=== PATIENT | female | born 1940 | race Caucasian/White ===

== ENCOUNTER 2018-04-01 15:38 | Emergency (ER) | payer MEDICARE ==
[2018-04-01 16:29] LABS: #Basophils 0.1 thou/uL (0.0-0.2); #Lymphocytes 1.9 thou/uL (1.20-3.40); #Monocytes 0.8 thou/uL (0.11-0.59); #Neutrophils 7.8 thou/uL (1.40-6.50); %Basophils 0.8 % (0.0-1.0); %Eosinophils 0.2 % (0.0-10.0); %Monocytes 7.2 % (0.0-10.0); %Neutrophils 73.8 % (42.0-75.0); Hemoglobin 14.4 g/dL (12.0-16.0); Mean Corpuscular HGB CONC 34.6 g/dL (32.0-36.0); Mean Corpuscular Hemoglobin 32.7 pg (27.0-31.0); Mean Corpuscular Volume 94.5 fL (78.0-98.0); Mean Platelet Volume 7.2 fL (7.4-10.4); Platelet Count 235 thou/uL (130-400); RBC Distribution Width 11.6 % (11.5-14.5); White Blood Cell (WBC) Count 10.6 thou/uL (4.8-10.8)
[2018-04-01 16:47] LABS: CKMB 3.9 ng/mL (0-6.6); Troponin I Less than 0.010 ng/mL (< 0.028)
[2018-04-01 17:36] LABS: ALT (SGPT) 40 U/L (8-55); AST (SGOT) 64 U/L (5-34); Albumin 4.3 g/dL (3.4-4.8); Alkaline Phosphatase 58 U/L (40-150); Anion Gap 20 mmol/L (10-20); BUN (Urea Nitrogen) 11 mg/dL (9.8-20.1); Bilirubin, Total 0.8 mg/dL (0.2-1.2); Calc. Creatinine Clearance 0 mL/min (70-130); Carbon Dioxide 22 mmol/L (23-31); Chloride 93 mmol/L (98-107); Estimated GFR-MDRD 33; Globulin 2.8 g/dL (2.4-3.5); Glucose 91 mg/dL (83-110); Potassium 3.5 mmol/L (3.5-5.1); Protein, Total 7.1 g/dL (6.0-8.3); Sodium 131 mmol/L (136-145)
== END 2018-04-01 17:58 | disposition home or self-care (01) ==
LOC: ERS 15:38
DX: I95.9 Hypotension, unspecified (principal); K21.9 Gastro-esophageal reflux disease without esophagitis; Z79.82 Long term (current) use of aspirin; Z79.899 Other long term (current) drug therapy
CPT/HCPCS: 36415; 80053; 82553; 84484; 85025; 93005

== ENCOUNTER 2018-05-21 11:38 | Inpatient (IN) | payer MEDICARE ==
--- NOTE | 2018-05-21 13:01 | CT ---
CT BRAIN WITHOUT CONTRAST: HISTORY: A 77-year-old female with trauma from a fall. FINDINGS: Right-sided periorbital swelling and pain. FINDINGS: Comparison is made with the exam of 04/17/16. Changes of cortical atrophy and chronic small-vessel ischemic disease are again seen. The ventricula r size is stable and the basilar cisterns patent. No evidence of acute infarct, hemorrhage, midline shift, or abnormal extraaxial fluid collections is seen. The bony calvarium is intact. The visualiz ed paranasal sinuses and mastoid air cells are well aerated. There is soft tissue swelling and contu astrid in the right periorbital and frontal regions. IMPRESSION: No CT evidence of acute intracranial injury. POS: [facility]
--- NOTE | 2018-05-21 13:03 | CT ---
CT CERVICAL SPINE WITH CORONAL AND SAGITTAL REFORMATIONS: HISTORY: Trauma. Fall. Neck pain. FINDINGS: Multilevel degenerative changes are seen in the cervical spine. No acute fracture or subluxation is identified. No facet malalignment is seen. POS: [facility]
[2018-05-21 13:04] LABS: #Basophils 0.1 thou/uL (0.0-0.2); #Lymphocytes 1.2 thou/uL (1.20-3.40); #Monocytes 0.8 thou/uL (0.11-0.59); %Basophils 0.6 % (0.0-1.0); %Eosinophils 0.2 % (0.0-10.0); %Monocytes 6.4 % (0.0-10.0); %Neutrophils 82.8 % (42.0-75.0); Hemoglobin 14.7 g/dL (12.0-16.0); Mean Corpuscular HGB CONC 33.3 g/dL (32.0-36.0); Mean Corpuscular Hemoglobin 31.7 pg (27.0-31.0); Mean Corpuscular Volume 95.3 fL (78.0-98.0); Platelet Count 269 thou/uL (130-400); RBC Distribution Width 12.1 % (11.5-14.5); Red Blood Cell (RBC) Count 4.63 mill/uL (4.20-5.40); White Blood Cell (WBC) Count 12.1 thou/uL (4.8-10.8)
--- NOTE | 2018-05-21 13:07 | CT ---
FACIAL CT: HISTORY: Trauma. The patient fell and injured the right face. TECHNIQUE: Axial images are obtained with coronal and sagittal reconstructed images. FINDINGS: Images demonstrate extensive right periorbital and supraorbital hematoma. A right-sided nasal bone f racture is present. This is nondisplaced. No evidence of superior or lateral orbital fractures seen. At the medial inferior aspect of the righ t orbit, there appears to be a defect in the orbital wall, concerning for fracture at the medial infe rior aspect of the orbit, extending into the upper medial aspect of the right maxillary sinus. The m edial and inferior rectus muscles do not appear to be entrapped within this defect. This may also si mply be an old defect or injury. IMPRESSION: 1. Acute right nasal bone fracture. 2. Large right periorbital hematoma. 3. Area of orbital wall defect at the medial inferior aspect of the right orbit. The age of this is indeterminate. This could be due to an acute fracture or may be from old previous trauma. POS: [facility]
[2018-05-21 13:10] LABS: Bilirubin Negative (Negative); Blood, Urine Small (Negative); Clarity CLOUDY (Clear); Glucose, Urine (Dipstick) Negative (Negative); Leukocyte Large (Negative); Nitrite Negative (Negative); Protein, Urine (Dipstick) Trace mg/dL (Neg-Trace); Specific Gravity, Urine 1.007 (1.002-1.036); Urobilinogen 0.2 mg/dL (0.2-1.0); pH, Urine 6.5 (5.0-9.0)
[2018-05-21 13:11] LABS: INR-International Normal Ratio 1.1; PTT 32.1 SEC (22.9-36.1); Prothrombin Time 13.9 SEC (12.0-14.7)
--- NOTE | 2018-05-21 13:19 | RAD ---
AP VIEW CHEST: HISTORY: Syncope. FINDINGS: AP view chest is obtained on 05/21/18. Comparison is made to previous exam from 01/10/16. AP view chest demonstrates mild cardiomegaly. The lungs are well aerated. No evidence of acute intr athoracic abnormality is seen. No evidence of effusions, pneumonia, or pneumothorax seen. IMPRESSION: Unremarkable AP view chest. POS: [facility]
[2018-05-21 13:27] LABS: ALT (SGPT) 19 U/L (8-55); AST (SGOT) 46 U/L (5-34); Acetaminophen Less than 6.0 mcg/mL (10.0-30.0); Albumin 4.4 g/dL (3.4-4.8); Alcohol 228 mg/dL (Less than 10); Alkaline Phosphatase 112 U/L (40-150); Anion Gap 21 mmol/L (10-20); BUN (Urea Nitrogen) 9 mg/dL (9.8-20.1); Bilirubin, Total 0.9 mg/dL (0.2-1.2); CK (CPK) 1055 U/L (29-168); Calc. Creatinine Clearance 0 mL/min (70-130); Calcium 8.8 mg/dL (7.8-10.44); Carbon Dioxide 23 mmol/L (23-31); Chloride 89 mmol/L (98-107); Estimated GFR-MDRD 52; Glucose 80 mg/dL (83-110); Lipase 34 U/L (8-78); Magnesium 1.5 mg/dL (1.6-2.6); Potassium 3.5 mmol/L (3.5-5.1); Protein, Total 7.4 g/dL (6.0-8.3); Salicylate Less than 8.0 mg/dL (15.0-30.0); Sodium 129 mmol/L (136-145)
[2018-05-21 13:34] LABS: CKMB 12.8 ng/mL (0-6.6)
[2018-05-21 13:35] LABS: Bacteria/HPF 4+ HPF (None Seen); Hyaline Casts/LPF 0-3 HYALINE CAST LPF (0-3 Hyaline); Pathc Cast-AUWi Flag 0.43 (0-2.49); RBC/HPF 0-3 HPF (0-3); Squamous Epithelial 0-3 HPF (0-3)
[2018-05-21] MEDS ORDERED: Ibuprofen 200 MG TAB ONE (13:53)
[2018-05-21] MEDS ORDERED: cefTRIAXone\\ROCEPHIN 2 GM VIAL ONE (15:00)
--- NOTE | 2018-05-21 15:10 | HP ---
PRIMARY CARE PHYSICIAN: Dr. Rafi Leon. REASON FOR ADMISSION: Rhabdomyolysis, hyponatremia, fall, alcohol intoxication, acute right nasal [place] fracture, large right periorbital hematoma. HISTORY OF PRESENT ILLNESS: A 77-year-old female who lives by herself with her dog at [facility]. She fell down from her bed during the middle of night. This morning, the patient was not able to ge t up from the floor. She was not able to open her right eye. She was having wheezing. She was not complaining of any chest pain, palpitations, or shortness of breath. She does not have any clue how she fell down. She reports that last night she drank 2 glasses of beer/ wine. The patient had right raccoon eye. She called her friend who called paramedics and subsequently the patient was brought to ER. The patient refused to wear C-collar to EMS. The patient denies any hist ory of CHF, but her BNP was elevated. She denies any muscle pain. She does not have any recollectio n of how she fell down at home. She did not have any chest pain when she was awake. She denies any constipation, diarrhea, melena or hematochezia. She denies any UTI symptoms. She denies any abdomin al pain. She denies any neck pain. She denies any headache. Family friend who came to the ER with the patient reported that patient to be alcoholic and she had s imilar episode in the past. REVIEW OF SYSTEMS: Please see my HPI for pertinent positive and negative. All other review of syste ms reviewed and negative except as mentioned in the HPI. Constitutional: Weight loss or gain, ability to conduct usual activities. Skin: Rash, itching. Eyes: Double vision, pain. ENT/Mouth: Nose bleeding, neck stiffness, pain, tenderness. Cardiovascular: Palpitations, dyspnea on exertion, orthopnea. Respiratory: Shortness of breath, wheezing, cough, hemoptysis, fever or night sweats. Gastrointestinal: Poor appetite, abdominal pain, heartburn, nausea, vomiting, constipation, or diarrhea. Genitourinary: Urgency, frequency, dysuria, nocturia. Musculoskeletal: Pain, swelling. Neurologic/Psychiatric: Anxiety, depression. Allergy/Immunologic: Skin rash, bleeding tendency. ALLERGIES: DEMEROL, HYDROCODONE, PENICILLIN. CURRENT HOME MEDICATIONS: Amlodipine 10 mg p.o. daily, clonidine patch weekly, aspirin 81 mg p.o. da delbert, atenolol 50 mg daily, pravastatin 40 mg p.o. daily, Prilosec 20 mg p.o. daily, clonidine 0.1 mg twice daily. PAST MEDICAL HISTORY: Hypertension, dyslipidemia, osteoarthritis, obesity, gastroesophageal reflux d isease, alcohol abuse, dyslipidemia. PAST SURGICAL HISTORY: Left tibia, right ankle fracture repair, hysterectomy, tonsillectomy. PAST PSYCHIATRIC HISTORY: Reviewed and negative. SOCIAL HISTORY: The patient lives in [facility] with her dog. No history of smoking. She drinks alcohol almost every day. FAMILY HISTORY: No strong family history of premature coronary artery disease, stroke or cancer. EMERGENCY ROOM COURSE: The patient is given Rocephin 2 grams, ibuprofen 400 mg, IV fluid. PHYSICAL EXAMINATION: VITAL SIGNS: On arrival, blood pressure 183/98, pulse 81, respiratory rate 26, temperature 98.8, sat uration 94% on room air, weight 99.7 kilograms. GENERAL: The patient is hypertensive. HEAD: Normocephalic, atraumatic. EYES: Extensive periorbital ecchymosis and swelling of the right eye. The patient's right eye is co mpletely shut. Left eye has mild bruise underneath of inferior eyelid. ENT: Oropharynx within normal limits. Moist mucous membranes. No oral lesion. No pharyngeal eryth anjel, no exudate, no nasal discharge, no epistaxis. NECK: Supple, no JVD, no thyromegaly, no carotid bruit, no jugular venous distention. LUNGS: Clear to auscultation without any rhonchi or rales. CARDIAC: S1, S2 regular. No murmur, no gallop, no rub. ABDOMEN: Mild obesity noted. Bowel sounds present, no organomegaly, no mass, no peritoneal signs, n o guarding, no rigidity, no rebound. BACK: Unremarkable. No CVA tenderness. EXTREMITIES: Upper extremity: Large area of ecchymosis anteriorly on the right shoulder. Range of motion is normal of the joint. Distal pulsation sensation intake. Lower extremity: No edema. Good distal pulsation. SKIN: No skin rash other than bruits over right shoulder and periorbital ecchymosis. NEUROLOGIC: The patient is alert, oriented x3. Speech normal. Cranial nerves II-XII intact. Motor 5/5. Sensation bilaterally symmetrical. No cerebellar sign. Plantar bilateral flexor. PSYCHIATRIC: Normal affect. SIGNIFICANT LABORATORY DATA: CT facial bones showing acute right nasal bone fracture, large right pe riorbital hematoma. Area of orbital wall defect in the medial inferior aspect of the right orbit. C T brain showing no acute intracranial process, cortical atrophy and small vessel ischemic changes. C hest x-ray based on my review, no acute cardiopulmonary process. CT cervical spine, multilevel degen erative changes in cervical spine. CBC: WBC 12.1, hemoglobin 14.7, platelet 269 with a left shift. INR 1.1. BMP: Sodium 129, potassi um 3.5, chloride 89, carbon dioxide 23, anion gap 21, BUN 9, creatinine 1.03, glucose 80, calcium 8.8 , magnesium 1.5. LFT: AST 46, ALT 19, alkaline phosphatase 112, albumin 4.4, lipase 34. CK level 1 055, CK-MB 12.8, troponin I 0.020, BNP 1739. Urinalysis suggestive of UTI. Serum drug screen showed alcohol level 228. ASSESSMENT AND PLAN: 1. Acute alcohol intoxication. The patient drinks alcohol last night and still alcohol level today is 228, suspected from heavy alcohol intoxication during last night that might have contributed to he r fall and current injury. We will provide banana bag while in hospital. 2. Hyponatremia, chronic, suspecting from beer potomania and dehydration. The patient will be given IV fluid and will repeat BMP tomorrow. 3. Rhabdomyolysis, likely related with her fall and period of time on the floor. We will check TSH. The patient is on statin therapy which we will hold. The patient will be given gentle IV fluid. B ecause of elevated total CK, her CK-MB is also elevated, but we will do serial cardiac enzymes x3 to rule out acute coronary syndrome. We will repeat total CK level. 4. Elevated anion gap, likely related with her alcohol abuse. 5. Hypomagnesemia. The patient will be given magnesium supplement 2 grams IV one time dose. 6. Abnormal liver function tests. The patient has AST more than ALT, likely related with her chroni c alcohol abuse. 7. Hypoglycemia. We will provide him dextrose, NS with KCl with a banana bag. 8. Elevated BNP. Surprisingly, her chest x-ray is completely normal. She does not have any previou s history of congestive heart failure, but her BNP is elevated. Currently, she is on room air and sa turating normal. We will repeat echocardiography and check BMP again tomorrow. 9. Urinary tract infection. Urine culture sent. We will continue with Rocephin 1 gram q.24 hours. Followup on urine culture result. 10. Hypertension. We will continue patient's home medication, amlodipine 10 mg daily, clonidine 0.1 mg twice daily, atenolol 50 mg p.o. daily. 11. Hypothyroidism. We will check TSH and resume her thyroid medication while in hospital. 12. Dyslipidemia. We will hold on statin therapy because of rhabdomyolysis. 13. Gastroesophageal reflux disease. We will continue while in hospital Protonix 40 mg IV daily. 14. Deep venous thrombosis prophylaxis and sequential compression device boots. We will avoid any S CD boots. We will avoid Lovenox today because of periorbital hematoma. 15. Gastrointestinal prophylaxis, Protonix 40 mg IV daily. 16. Code status: The patient is FULL CODE. The patient does not have any surrogate decision maker. While in hospital, we will watch for alcohol withdrawal and we will continue the lorazepam on p.r.n . basis. We will provide fall precaution. The patient will need placement after hospitalization. 17. Nasal bone fracture and facial contusion with ecchymosis around right eye, related with fall. T he paient will need supportive treatment. Patient will need outpatient ENT and ophthalmology followu p. Plan of care discussed with the patient in detail.
[2018-05-21] MEDS ORDERED: Sodium Chloride 0.65% Nasal 44 ML BOT EA NARE PRN (17:07)
[2018-05-21] MEDS ORDERED: Artificial Tear Sol 15 ML BOT EA EYE PRN (17:07)
[2018-05-21] MEDS ORDERED: Chloraseptic Spray 180 ml Bottle PO PRN (17:07)
[2018-05-21] MEDS ORDERED: Calcium Carbonate 500 MG ChewTAB PO PRN (17:07)
[2018-05-21] MEDS ORDERED: Ondansetron HCl/PF 4 MG/2 ML Vial IVP PRN (17:07)
[2018-05-21] MEDS ORDERED: Eucerin (Mineral Oil/Petrolatum,White) 30 gm Jar TOP PRN (17:07)
[2018-05-21] MEDS ORDERED: Mag-Al 1200 mg/1200 mg/30 ML UDCUP PO PRN (17:07)
[2018-05-21] MEDS ORDERED: Loperamide HCl 2 MG CAP PO PRN (17:07)
[2018-05-21] MEDS ORDERED: Milk Of Magnesia 30 ML UDCUP PO PRN (17:07)
[2018-05-21] MEDS ORDERED: Labetalol HCl 100 MG/20 ML VIAL SLOW IVP PRN (17:07)
[2018-05-21] MEDS ORDERED: Loratadine 10 MG TAB PO PRN (17:07)
[2018-05-21] MEDS ORDERED: Ondansetron ODT 4 MG TAB PO PRN (17:07)
[2018-05-21] MEDS ORDERED: Senokot 8.6 MG TAB PO PRN (17:07)
[2018-05-21] MEDS ORDERED: Lorazepam 2 MG/ML VIAL SLOW IVP PRN (17:07)
[2018-05-21] MEDS ORDERED: Diabetic Tussin 200 MG/10 ML UDCUP PO PRN (17:07)
[2018-05-21] MEDS ORDERED: Magnesium Sulfate 3 GM in Sodium Chloride 0.9% 100 ML IVPB SCH (18:00)
[2018-05-21] MEDS: THIAMINE HCL IV SCH (18:03)
[2018-05-21] MEDS: [UNRECOGNIZED DRUG - OTHER] IV SCH (18:03)
[2018-05-21] MEDS: MULTIVITAMINS IV SCH (18:03)
[2018-05-21] MEDS: FOLIC ACID IV SCH (18:03)
[2018-05-21] MEDS: Sodium Chloride 0.9% 1,000 ML IV SCH (18:04)
[2018-05-21 18:50] LABS: Troponin I 0.023 ng/mL (< 0.028)
[2018-05-21 18:55] LABS: CKMB 17.4 ng/mL (0-6.6)
[2018-05-21] MEDS: cloNIDine 0.1 MG TAB PO SCH (21:08)
[2018-05-21 21:31] LABS: CKMB 19.1 ng/mL (0-6.6)
[2018-05-21] MEDS ORDERED: Furosemide 20 MG/2 ML VIAL SLOW IVP SCH (22:00)
[2018-05-22] MEDS: Acetaminophen 325 MG TAB PO PRN ×2 (02:08→18:18)
[2018-05-22] MEDS: Sodium Chloride 0.9% 1,000 ML IV SCH (03:57)
[2018-05-22 05:59] LABS: #Lymphocytes 0.4 thou/uL (1.20-3.40); #Monocytes 0.9 thou/uL (0.11-0.59); #Neutrophils 6.3 thou/uL (1.40-6.50); %Eosinophils 0.2 % (0.0-10.0); %Lymphocytes 4.9 % (21.0-51.0); %Monocytes 11.8 % (0.0-10.0); %Neutrophils 83.1 % (42.0-75.0); Hemoglobin 13.1 g/dL (12.0-16.0); Mean Corpuscular HGB CONC 33.4 g/dL (32.0-36.0); Mean Corpuscular Volume 95.8 fL (78.0-98.0); Mean Platelet Volume 7.3 fL (7.4-10.4); Platelet Count 200 thou/uL (130-400); RBC Distribution Width 11.9 % (11.5-14.5); Red Blood Cell (RBC) Count 4.08 mill/uL (4.20-5.40); White Blood Cell (WBC) Count 7.5 thou/uL (4.8-10.8)
[2018-05-22 06:29] LABS: ALT (SGPT) 19 U/L (8-55); AST (SGOT) 49 U/L (5-34); Albumin 3.7 g/dL (3.4-4.8); Alkaline Phosphatase 90 U/L (40-150); Anion Gap 16 mmol/L (10-20); BUN (Urea Nitrogen) 8 mg/dL (9.8-20.1); Bilirubin, Total 0.6 mg/dL (0.2-1.2); CK (CPK) 814 U/L (29-168); Calc. Creatinine Clearance 67 mL/min (70-130); Calcium 8.3 mg/dL (7.8-10.44); Carbon Dioxide 24 mmol/L (23-31); Chloride 90 mmol/L (98-107); Estimated GFR-MDRD 53; Globulin 2.7 g/dL (2.4-3.5); Glucose 133 mg/dL (83-110); Magnesium 1.6 mg/dL (1.6-2.6); Phosphorus 3.7 mg/dL (2.3-4.7); Protein, Total 6.4 g/dL (6.0-8.3); Sodium 127 mmol/L (136-145)
[2018-05-22] MEDS: cloNIDine 0.1 MG TAB PO SCH ×2 (08:07→21:10)
[2018-05-22] MEDS: Atenolol 50 MG TAB PO SCH (08:07)
[2018-05-22] MEDS: Amlodipine 10 MG TAB PO SCH (08:07)
[2018-05-22] MEDS: Pantoprazole 40 MG VIAL IVP SCH (08:08)
[2018-05-22] MEDS: Saccharomyces boulardii 250 MG CAP PO SCH (08:08)
[2018-05-22] MEDS ORDERED: Furosemide 40 MG/4 ML VIAL SLOW IVP SCH (10:30)
[2018-05-22] MEDS: cloNIDine 0.1 MG TAB PO PRN (12:36)
--- NOTE | 2018-05-22 13:02 | PDOC.PN ---
- Subjective Encounter Start Date: 05/22/18 Encounter Start Time: 09:45 Subjective: had sob this am, is feeling better now -: no weakness in any of the extremities -: right eye is swollen but can see if pried open - Objective Resuscitation Status: Resuscitation Status FULL:Full Resuscitation MAR Reviewed: Yes Vital Signs & Weight: Vital Signs (12 hours) Temp Pulse Pulse Pulse Resp BP BP 05/22/18 12:24 99.4 F 64 18 05/22/18 10:55 189/81 H 05/22/18 09:21 65 05/22/18 09:19 65 69 135/63 166/93 H 05/22/18 07:06 98.6 F 71 20 05/22/18 03:22 99.2 F 72 20 BP Pulse Ox Pulse Ox 05/22/18 12:24 181/84 H 97 05/22/18 10:55 05/22/18 09:21 135/63 05/22/18 09:19 100 05/22/18 07:06 197/84 H 97 05/22/18 03:22 148/70 H 98 Weight Weight 198 lb 6.4 oz I&O: 05/21/18 05/22/18 05/23/18 06:59 06:59 06:59 Intake Total 1614 Output Total 0 Balance -436 Result Diagrams: 05/22/18 05:28 05/22/18 05:28 Phys Exam - Physical Examination HEENT: moist MMs right eye raccoon eyes, has subconjunctival hemorrhage Neck: no JVD, supple Respiratory: no wheezing, no rales rhonchi+ Cardiovascular: RRR, no significant murmur Gastrointestinal: soft, no distention, positive bowel sounds Musculoskeletal: no edema, pulses present Neurological: non-focal, moves all 4 limbs Psychiatric: normal affect, A&O x 3 Dx/Plan (1) Fracture of right orbital wall Code(s): S02.31XA - FRACTURE OF ORBITAL FLOOR, RIGHT SIDE, INIT Status: Acute (2) Nasal fracture Code(s): S02.2XXA - FRACTURE OF NASAL BONES, INIT ENCNTR FOR CLOSED FRACTURE Status: Acute Qualifiers: Encounter type: subsequent encounter Fracture type: closed (3) Rhabdomyolysis Code(s): M62.82 - RHABDOMYOLYSIS Status: Acute Qualifiers: Encounter type: subsequent encounter (4) Alcohol abuse Code(s): F10.10 - ALCOHOL ABUSE, UNCOMPLICATED Status: Chronic Comment: drinks 6oz of vodka daily per patient (5) Obesity (BMI 30.0-34.9) Code(s): E66.9 - OBESITY, UNSPECIFIED Status: Chronic (6) HTN (hypertension) Code(s): I10 - ESSENTIAL (PRIMARY) HYPERTENSION Status: Chronic Qualifiers: Hypertension type: essential hypertension Qualified Code(s): I10 - Essential (primary) hypertension (7) Hyponatremia Code(s): E87.1 - HYPO-OSMOLALITY AND HYPONATREMIA Status: Acute (8) Hypothyroidism Code(s): E03.9 - HYPOTHYROIDISM, UNSPECIFIED Status: Chronic Qualifiers: Hypothyroidism type: unspecified Qualified Code(s): E03.9 - Hypothyroidism , unspecified - Plan correct electrolytes -: orofacial maxillary surgeon consultation for advice on orbital fracture -: PT to mobilize as tolerated -: got 20mg lasix overnight and 40mg iv this am -: await echo results, on ceftriaxone for uti * . Review of Systems - Medications/Allergies Allergies/Adverse Reactions: Allergies Allergy/AdvReac Type Severity Reaction Status Date / Time hydrocodone Allergy Verified 05/21/18 17:16 meperidine HCl [From Demerol] Allergy Verified 05/21/18 17:16 Penicillins Allergy Verified 05/21/18 17:16 Medications: Current Medications Acetaminophen (Tylenol) 650 mg PO Q4H PRN PRN Reason: Headache/Fever or Pain Last Admin: 05/22/18 02:08 Dose: 650 mg Al Hydroxide/Mg Hydroxide (Maalox) 30 ml PO Q6H PRN PRN Reason: Heartburn or Indigestion Amlodipine Besylate (Norvasc) 10 mg PO DAILY [facility] Last Admin: 05/22/18 08:07 Dose: 10 mg Artificial Tears (Tears Renewed 15ml Bottle) 0 drop EA EYE PRN PRN PRN Reason: Dry Eyes Atenolol (Tenormin) 50 mg PO DAILY [facility] Last Admin: 05/22/18 08:07 Dose: 50 mg Calcium Carbonate (Tums) 1,000 mg PO Q4H PRN PRN Reason: Heartburn or Indigestion Clonidine (Catapres) 0.1 mg PO Q4H PRN PRN Reason: Systolic BP > 180 Last Admin: 05/22/18 12:36 Dose: 0.1 mg Clonidine (Catapres) 0.1 mg PO BID [facility] Last Admin: 05/22/18 08:07 Dose: 0.1 mg Guaifenesin (Robitussin Sf) 200 mg PO Q4H PRN PRN Reason: Cough Hydralazine HCl (Apresoline) 10 mg SLOW IVP Q4H PRN PRN Reason: Systolic BP > 180 Ceftriaxone Sodium 1 gm/ (Sodium Chloride) 100 mls @ 200 mls/hr IVPB Q24HR [facility] Multivitamins 10 ml/ Folic Acid 1 mg/ Thiamine HCl 100 mg / Potassium Chloride 20 meq/Dextrose/Sodium Chloride 1,021.2 mls @ 126.234 mls/hr IV Q24HR [facility] Last Admin: 05/21/18 18:03 Dose: 1,021.2 mls Labetalol HCl (Normodyne) 20 mg SLOW IVP Q4H PRN PRN Reason: Systolic BP > 180 Last Admin: 05/22/18 00:09 Dose: 20 mg Loperamide HCl (Imodium) 2 mg PO PRN PRN PRN Reason: Diarrhea/Loose Stools Loratadine (Claritin) 10 mg PO DAILYPRN PRN PRN Reason: Sinus Symptoms Lorazepam (Ativan) 0.5 mg SLOW IVP Q6H PRN PRN Reason: Anxiety/Agitation Magnesium Hydroxide (Milk Of Magnesium) 30 ml PO DAILYPRN PRN PRN Reason: Constipation Mineral Oil/White Petrolatum (Eucerin Cream) 0 gm TOP BIDPRN PRN PRN Reason: Dry Skin Ondansetron HCl (Zofran Odt) 4 mg PO Q6H PRN PRN Reason: Nausea/Vomiting Ondansetron HCl (Zofran) 4 mg IVP Q6H PRN PRN Reason: Nausea/Vomiting Last Admin: 05/22/18 00:08 Dose: 4 mg Pantoprazole Sodium (Protonix) 40 mg IVP DAILY [facility] Last Admin: 05/22/18 08:08 Dose: 40 mg Phenol (Chloraseptic [place] 180 Ml Bot) 0 ml PO PRN PRN PRN Reason: Sore Throat Potassium Chloride (K-Dur) 40 meq PO BID-[facility] Saccharomyces Boulardii (Florastor) 250 mg PO DAILY [facility] Last Admin: 05/22/18 08:08 Dose: 250 mg Senna (Senokot) 2 tab PO HSPRN PRN PRN Reason: Constipation Sodium Chloride ([place] Nasal [place] 0.65%) 0 ml EA NARE QIDPRN PRN PRN Reason: Nasal Congestion
[2018-05-22] MEDS ORDERED: cefTRIAXone\\ROCEPHIN 1 GM in Sodium Chloride 0.9% 100 ML IVPB SCH (15:00)
[2018-05-22] MEDS: Potassium Chloride 20 MEQ TAB PO SCH (16:32)
[2018-05-22] MEDS: [UNRECOGNIZED DRUG - OTHER] IV SCH (18:18)
[2018-05-22] MEDS: THIAMINE HCL IV SCH (18:18)
[2018-05-22] MEDS: MULTIVITAMINS IV SCH (18:18)
[2018-05-22] MEDS: FOLIC ACID IV SCH (18:18)
[2018-05-23] MEDS: cloNIDine 0.1 MG TAB PO PRN (03:40)
[2018-05-23] MEDS: Potassium Chloride 20 MEQ TAB PO SCH ×2 (08:10→17:45)
[2018-05-23] MEDS: Pantoprazole 40 MG VIAL IVP SCH (08:11)
[2018-05-23] MEDS: cloNIDine 0.1 MG TAB PO SCH ×2 (08:11→21:02)
[2018-05-23] MEDS: Atenolol 50 MG TAB PO SCH (08:11)
[2018-05-23] MEDS: Saccharomyces boulardii 250 MG CAP PO SCH (08:11)
[2018-05-23] MEDS: Amlodipine 10 MG TAB PO SCH (08:11)
[2018-05-23] MEDS: Acetaminophen 325 MG TAB PO PRN (08:16)
[2018-05-23 08:28] LABS: Anion Gap 15 mmol/L (10-20); BUN (Urea Nitrogen) 9 mg/dL (9.8-20.1); Calc. Creatinine Clearance 70 mL/min (70-130); Calcium 8.9 mg/dL (7.8-10.44); Carbon Dioxide 28 mmol/L (23-31); Chloride 87 mmol/L (98-107); Estimated GFR-MDRD 56; Glucose 103 mg/dL (83-110); Potassium 3.7 mmol/L (3.5-5.1); Sodium 126 mmol/L (136-145)
--- NOTE | 2018-05-23 13:10 | PDOC.PN ---
- Subjective Encounter Start Date: 05/23/18 Encounter Start Time: 10:00 Subjective: awake, sitting in chair, no sob -: is able to open her right eye now, no trouble with vision -: has not ambulated yet - Objective Resuscitation Status: Resuscitation Status FULL:Full Resuscitation MAR Reviewed: Yes Vital Signs & Weight: Vital Signs (12 hours) Temp Pulse Resp BP BP Pulse Ox 05/23/18 08:11 68 188/88 H 05/23/18 07:45 97 05/23/18 07:42 98.2 F 68 20 188/88 H 97 05/23/18 03:23 98.1 F 100 21 H 99 Weight Weight 198 lb 6.4 oz I&O: 05/22/18 05/23/18 05/24/18 06:59 06:59 06:59 Intake Total 1614 1810 Output Total 2049 1850 Balance -436 -40 Result Diagrams: 05/22/18 05:28 05/23/18 07:45 Phys Exam - Physical Examination HEENT: PERRLA, moist MMs right eye raccoon eye with subconj hemorrhage Neck: no JVD, supple Respiratory: no wheezing, no rales Cardiovascular: RRR, no significant murmur Gastrointestinal: soft, non-tender, positive bowel sounds Musculoskeletal: pulses present, edema present Neurological: non-focal, moves all 4 limbs Psychiatric: normal affect, A&O x 3 Dx/Plan (1) Fracture of right orbital wall Code(s): S02.31XA - FRACTURE OF ORBITAL FLOOR, RIGHT SIDE, INIT Status: Acute (2) Nasal fracture Code(s): S02.2XXA - FRACTURE OF NASAL BONES, INIT ENCNTR FOR CLOSED FRACTURE Status: Acute Qualifiers: Encounter type: subsequent encounter Fracture type: closed (3) Rhabdomyolysis Code(s): M62.82 - RHABDOMYOLYSIS Status: Acute Qualifiers: Encounter type: subsequent encounter (4) Alcohol abuse Code(s): F10.10 - ALCOHOL ABUSE, UNCOMPLICATED Status: Chronic Comment: drinks 6oz of vodka daily per patient (5) Obesity (BMI 30.0-34.9) Code(s): E66.9 - OBESITY, UNSPECIFIED Status: Chronic (6) HTN (hypertension) Code(s): I10 - ESSENTIAL (PRIMARY) HYPERTENSION Status: Chronic Qualifiers: Hypertension type: essential hypertension Qualified Code(s): I10 - Essential (primary) hypertension (7) Hyponatremia Code(s): E87.1 - HYPO-OSMOLALITY AND HYPONATREMIA Status: Acute (8) Hypothyroidism Code(s): E03.9 - HYPOTHYROIDISM, UNSPECIFIED Status: Chronic Qualifiers: Hypothyroidism type: unspecified Qualified Code(s): E03.9 - Hypothyroidism , unspecified (9) Physical deconditioning Code(s): R53.81 - OTHER MALAISE Status: Acute - Plan sodium is still low after lasix, will see pt -: d/w , f/u appt in 1 week in his office -: will need rehab/swing bed, barely stood up with PT -: visine eye drops, fluid restriction to 1500mls/day -: continue norvasc, atenolol and kdur, may tx to med floor * . Review of Systems - Medications/Allergies Allergies/Adverse Reactions: Allergies Allergy/AdvReac Type Severity Reaction Status Date / Time hydrocodone Allergy Verified 05/21/18 17:16 meperidine HCl [From Demerol] Allergy Verified 05/21/18 17:16 Penicillins Allergy Verified 05/21/18 17:16 Medications: Current Medications Acetaminophen (Tylenol) 650 mg PO Q4H PRN PRN Reason: Headache/Fever or Pain Last Admin: 05/23/18 08:16 Dose: 650 mg Al Hydroxide/Mg Hydroxide (Maalox) 30 ml PO Q6H PRN PRN Reason: Heartburn or Indigestion Amlodipine Besylate (Norvasc) 10 mg PO DAILY [facility] Last Admin: 05/23/18 08:11 Dose: 10 mg Artificial Tears (Tears Renewed 15ml Bottle) 0 drop EA EYE PRN PRN PRN Reason: Dry Eyes Atenolol (Tenormin) 50 mg PO DAILY [facility] Last Admin: 05/23/18 08:11 Dose: 50 mg Calcium Carbonate (Tums) 1,000 mg PO Q4H PRN PRN Reason: Heartburn or Indigestion Clonidine (Catapres) 0.1 mg PO Q4H PRN PRN Reason: Systolic BP > 180 Last Admin: 05/23/18 03:40 Dose: 0.1 mg Clonidine (Catapres) 0.1 mg PO BID [facility] Last Admin: 05/23/18 08:11 Dose: 0.1 mg Guaifenesin (Robitussin Sf) 200 mg PO Q4H PRN PRN Reason: Cough Hydralazine HCl (Apresoline) 10 mg SLOW IVP Q4H PRN PRN Reason: Systolic BP > 180 Multivitamins 10 ml/ Folic Acid 1 mg/ Thiamine HCl 100 mg / Potassium Chloride 20 meq/Dextrose/Sodium Chloride 1,021.2 mls @ 126.234 mls/hr IV Q24HR [facility] Last Admin: 05/22/18 18:18 Dose: 1,021.2 mls Labetalol HCl (Normodyne) 20 mg SLOW IVP Q4H PRN PRN Reason: Systolic BP > 180 Last Admin: 05/22/18 00:09 Dose: 20 mg Levofloxacin (Levaquin) 500 mg PO 0600 [facility] Loperamide HCl (Imodium) 2 mg PO PRN PRN PRN Reason: Diarrhea/Loose Stools Loratadine (Claritin) 10 mg PO DAILYPRN PRN PRN Reason: Sinus Symptoms Lorazepam (Ativan) 0.5 mg SLOW IVP Q6H PRN PRN Reason: Anxiety/Agitation Magnesium Hydroxide (Milk Of Magnesium) 30 ml PO DAILYPRN PRN PRN Reason: Constipation Mineral Oil/White Petrolatum (Eucerin Cream) 0 gm TOP BIDPRN PRN PRN Reason: Dry Skin Ondansetron HCl (Zofran Odt) 4 mg PO Q6H PRN PRN Reason: Nausea/Vomiting Ondansetron HCl (Zofran) 4 mg IVP Q6H PRN PRN Reason: Nausea/Vomiting Last Admin: 05/22/18 00:08 Dose: 4 mg Pantoprazole Sodium (Protonix) 40 mg IVP DAILY [facility] Last Admin: 05/23/18 08:11 Dose: 40 mg Phenol (Chloraseptic [place] 180 Ml Bot) 0 ml PO PRN PRN PRN Reason: Sore Throat Potassium Chloride (K-Dur) 40 meq PO BID-[facility] Last Admin: 05/23/18 08:10 Dose: 40 meq Saccharomyces Boulardii (Florastor) 250 mg PO DAILY [facility] Last Admin: 05/23/18 08:11 Dose: 250 mg Senna (Senokot) 2 tab PO HSPRN PRN PRN Reason: Constipation Sodium Chloride ([place] Nasal [place] 0.65%) 0 ml EA NARE QIDPRN PRN PRN Reason: Nasal Congestion
[2018-05-23 17:08] LABS: Base Excess (BEa) 6.2 mEq/L (-2.0 to +3.0); CO2 Tension 40.3 mmHg (35.0-45.0); Calcium, Ionized 1.09 mmol/L (1.12-1.30); Carboxyhemoglobin (COHb) 1.1 gm% (0.0-3.0); Hemoglobin (Hb) 14.1 g/dL (12.0-16.0); O2 Tension (PaO2) 91.7 mmHg (> 70.0); Potassium - ABG Lab 4.41 mmol/L (3.70-5.30); pH, Arterial 7.49 (7.35-7.45)
[2018-05-23 17:11] LABS: Puncture Site RBA
[2018-05-23 17:32] LABS: Magnesium 1.2 mg/dL (1.6-2.6); Phosphorus 2.8 mg/dL (2.3-4.7)
--- NOTE | 2018-05-23 17:43 | CON ---
DATE OF CONSULTATION: 05/23/2018 REASON FOR CONSULTATION: Hyponatremia. HISTORY OF PRESENT ILLNESS: A 77-year-old female with a long history of hyponatremia on and off, who started abusing alcohol was noted to have a sodium of 129, which decreased to 126. I was consulted. The patient was given IV fluids. The patient denies headache, numbness, tingling, or weakness. De nies any nausea, vomiting, chest pain. PAST MEDICAL HISTORY: Significant for alcohol abuse, history of fall, rhabdomyolysis, osteoarthritis , obesity, hyperlipidemia, left tibial fracture, right ankle fracture, hysterectomy, tonsillectomy. SOCIAL HISTORY: No alcohol or drug use. FAMILY HISTORY: Negative for ESRD. REVIEW OF SYSTEMS: 15-point review of systems was performed and negative except positives noted abov e. General: Weakness-. Head: Headache-. Neck: No swelling or lumps. Nose: No epistaxis or dis charge. Eyes: No diplopia or pain. Respiratory: Dyspnea-. Cardiovascular: Chest pain-. Gastroi ntestinal: Nausea-. /CUSTOMS COMPLIANCE MANAGER: Hematuria-. Musculoskeletal: No joint pain. Neuropsychiatric System s: No suicidal ideation. No ideation. Skin: Denies any rash or ulcer. Constitutional: No fever or chills. PHYSICAL EXAMINATION: GENERAL: The patient is awake, alert. VITAL SIGNS: Afebrile, pulse 61, breathing 16, blood pressure 152/80. GENERAL APPEARANCE AND MENTAL STATUS: Fair. HEAD/NECK: Normocephalic. Atraumatic. EYES: EOMI. No deformity. EARS: Clear. No ulcers. NOSE: Intact. No lesions. MOUTH: Clear. No discharge. THROAT: Clear. No exudate. LUNGS: Clear. No crackles. CARDIAC: S1, S2. No rub. ABDOMEN: Benign. BS+. GENITALIA/RECTUM: Johnson absent. BACK/EXTREMITIES: Edema 0+. Ulcer-. NEUROLOGIC: Alert and motor intact. SKIN: Rash-. Bruise-. LYMPHATICS: Edema-. Ulcer-. LABORATORY DATA: Hemoglobin 13.1, potassium 3.7, creatinine 0.97, sodium 126. ASSESSMENT AND RECOMMENDATIONS: 1. Hyponatremia, most likely because of syndrome of inappropriate antidiuretic hormone secretion. R ecommend fluid restriction of 1000 mL. Recheck sodium periodically. 2. Hypomagnesemia, corrected. 3. Hypokalemia, corrected. 4. Syndrome of inappropriate antidiuretic hormone secretion. Medications based on GFR as appropriat e. 6. Hypertension. Titrate medication. No indication for hypertonic saline. 7. Rhabdomyolysis, improved.
[2018-05-24] MEDS: hydrALAZINE 20 MG/ML VIAL SLOW IVP PRN (04:42)
[2018-05-24 05:37] LABS: Anion Gap 16 mmol/L (10-20); BUN (Urea Nitrogen) 8 mg/dL (9.8-20.1); Calc. Creatinine Clearance 78 mL/min (70-130); Calcium 8.8 mg/dL (7.8-10.44); Carbon Dioxide 24 mmol/L (23-31); Chloride 91 mmol/L (98-107); Estimated GFR-MDRD 63; Glucose 84 mg/dL (83-110); Potassium 5.5 mmol/L (3.5-5.1); Sodium 125 mmol/L (136-145)
[2018-05-24] MEDS ORDERED: Sodium Chloride 0.9% 1,000 ML IV SCH (08:15)
[2018-05-24] MEDS ORDERED: Magnesium Sulfate 1 GM/2 ML VIAL IM SCH (09:15)
[2018-05-24] MEDS ORDERED: MAGNESIUM SULFATE IM SCH (09:30)
[2018-05-24 09:58] LABS: Anion Gap 15 mmol/L (10-20); BUN (Urea Nitrogen) 7 mg/dL (9.8-20.1); Calc. Creatinine Clearance 76 mL/min (70-130); Calcium 9.5 mg/dL (7.8-10.44); Carbon Dioxide 28 mmol/L (23-31); Chloride 89 mmol/L (98-107); Estimated GFR-MDRD 62; Glucose 89 mg/dL (83-110); Potassium 5.3 mmol/L (3.5-5.1); Sodium 127 mmol/L (136-145)
[2018-05-24] MEDS: cloNIDine 0.1 MG TAB PO SCH ×2 (10:30→20:40)
[2018-05-24] MEDS: Amlodipine 10 MG TAB PO SCH (10:30)
[2018-05-24] MEDS: Atenolol 50 MG TAB PO SCH (10:30)
[2018-05-24] MEDS: Saccharomyces boulardii 250 MG CAP PO SCH (10:30)
[2018-05-24] MEDS ORDERED: Multivit, Therapeutic 1 TAB PO SCH (10:45)
[2018-05-24] MEDS ORDERED: Folic Acid 1 MG TAB PO SCH (10:45)
[2018-05-24] MEDS: Potassium Chloride 20 MEQ TAB PO SCH (10:56)
--- NOTE | 2018-05-24 11:09 | PDOC.PN ---
- Subjective Encounter Start Date: 05/24/18 Encounter Start Time: 08:45 Subjective: c/o exertional sob even for minimal distance -: no chest pain or palp -: still has aches and pains in her muscles - Objective Resuscitation Status: Resuscitation Status FULL:Full Resuscitation MAR Reviewed: Yes Vital Signs & Weight: Vital Signs (12 hours) Temp Pulse Resp BP BP BP Pulse Ox 05/24/18 10:30 67 177/91 H 05/24/18 08:00 98.2 F 67 16 177/91 H 98 05/24/18 06:00 172/84 H 05/24/18 04:42 68 187/84 H 05/24/18 04:18 98.1 F 68 16 187/84 H 98 05/24/18 04:00 187/84 H 05/24/18 03:50 166/98 H 05/24/18 00:00 97.9 F 60 18 177/83 H 177/83 H 100 Weight Weight 198 lb 6.4 oz I&O: 05/23/18 05/24/18 05/25/18 06:59 06:59 06:59 Intake Total 1810 650 Output Total 1850 1335 Balance -40 -337 Result Diagrams: 05/22/18 05:28 05/24/18 09:34 Phys Exam - Physical Examination HEENT: PERRLA, moist MMs subconj hemorrhage right eye, is able to open her eyes fully now Neck: no JVD, supple Respiratory: no wheezing rhonchi+, basal rales+ Cardiovascular: RRR, no significant murmur Gastrointestinal: soft, non-tender, positive bowel sounds Musculoskeletal: no edema, pulses present Neurological: non-focal, moves all 4 limbs Psychiatric: normal affect, A&O x 3 Dx/Plan (1) Fracture of right orbital wall Code(s): S02.31XA - FRACTURE OF ORBITAL FLOOR, RIGHT SIDE, INIT Status: Acute (2) Nasal fracture Code(s): S02.2XXA - FRACTURE OF NASAL BONES, INIT ENCNTR FOR CLOSED FRACTURE Status: Acute Qualifiers: Encounter type: subsequent encounter Fracture type: closed (3) Rhabdomyolysis Code(s): M62.82 - RHABDOMYOLYSIS Status: Acute Qualifiers: Encounter type: subsequent encounter (4) Alcohol abuse Code(s): F10.10 - ALCOHOL ABUSE, UNCOMPLICATED Status: Chronic Comment: drinks 6oz of vodka daily per patient (5) Obesity (BMI 30.0-34.9) Code(s): E66.9 - OBESITY, UNSPECIFIED Status: Chronic (6) HTN (hypertension) Code(s): I10 - ESSENTIAL (PRIMARY) HYPERTENSION Status: Chronic Qualifiers: Hypertension type: essential hypertension Qualified Code(s): I10 - Essential (primary) hypertension (7) Hyponatremia Code(s): E87.1 - HYPO-OSMOLALITY AND HYPONATREMIA Status: Acute (8) Hypothyroidism Code(s): E03.9 - HYPOTHYROIDISM, UNSPECIFIED Status: Chronic Qualifiers: Hypothyroidism type: unspecified Qualified Code(s): E03.9 - Hypothyroidism , unspecified (9) Physical deconditioning Code(s): R53.81 - OTHER MALAISE Status: Acute (10) CHF exacerbation Code(s): I50.9 - HEART FAILURE, UNSPECIFIED Status: Acute Qualifiers: Heart failure type: diastolic Qualified Code(s): I50.33 - Acute on chronic diastolic (congestive) heart failure Comment: on nasal canula 2lts - Plan cxr, repeat bnp, sod is still low after recieving mild diuresis -: LE doppler to r/o dvt, if +ve will get CTA -: iatrogenic mild hyperkalemia, dc kdur -: continue lipitor, norvasc and atenolol -: will f/u imaging and add lasix prn * . Review of Systems - Medications/Allergies Allergies/Adverse Reactions: Allergies Allergy/AdvReac Type Severity Reaction Status Date / Time hydrocodone Allergy Verified 05/21/18 17:16 meperidine HCl [From Demerol] Allergy Verified 05/21/18 17:16 Penicillins Allergy Verified 05/21/18 17:16 Medications: Current Medications Acetaminophen (Tylenol) 650 mg PO Q4H PRN PRN Reason: Headache/Fever or Pain Last Admin: 05/23/18 08:16 Dose: 650 mg Al Hydroxide/Mg Hydroxide (Maalox) 30 ml PO Q6H PRN PRN Reason: Heartburn or Indigestion Amlodipine Besylate (Norvasc) 10 mg PO DAILY [facility] Last Admin: 05/24/18 10:30 Dose: 10 mg Artificial Tears (Tears Renewed 15ml Bottle) 0 drop EA EYE PRN PRN PRN Reason: Dry Eyes Atenolol (Tenormin) 50 mg PO DAILY [facility] Last Admin: 05/24/18 10:30 Dose: 50 mg Calcium Carbonate (Tums) 1,000 mg PO Q4H PRN PRN Reason: Heartburn or Indigestion Clonidine (Catapres) 0.1 mg PO Q4H PRN PRN Reason: Systolic BP > 180 Last Admin: 05/23/18 03:40 Dose: 0.1 mg Clonidine (Catapres) 0.1 mg PO BID [facility] Last Admin: 05/24/18 10:30 Dose: 0.1 mg Folic Acid (Folvite) 1 mg PO DAILY [facility] Folic Acid (Folvite) 1 mg PO NOW [facility] Stop: 05/24/18 12:45 Last Admin: 05/24/18 10:39 Dose: 1 mg Guaifenesin (Robitussin Sf) 200 mg PO Q4H PRN PRN Reason: Cough Hydralazine HCl (Apresoline) 10 mg SLOW IVP Q4H PRN PRN Reason: Systolic BP > 180 Last Admin: 05/24/18 04:42 Dose: 10 mg Magnesium Sulfate 1 gm/ (Syringe) 2 mls @ 120 mls/hr IM 0930 [facility] Stop: 05/24/18 12:00 Last Admin: 05/24/18 10:32 Dose: 2 mls Labetalol HCl (Normodyne) 20 mg SLOW IVP Q4H PRN PRN Reason: Systolic BP > 180 Last Admin: 05/22/18 00:09 Dose: 20 mg Levofloxacin (Levaquin) 500 mg PO 0600 [facility] Last Admin: 05/24/18 06:33 Dose: 500 mg Loperamide HCl (Imodium) 2 mg PO PRN PRN PRN Reason: Diarrhea/Loose Stools Loratadine (Claritin) 10 mg PO DAILYPRN PRN PRN Reason: Sinus Symptoms Lorazepam (Ativan) 0.5 mg SLOW IVP Q6H PRN PRN Reason: Anxiety/Agitation Magnesium Hydroxide (Milk Of Magnesium) 30 ml PO DAILYPRN PRN PRN Reason: Constipation Mineral Oil/White Petrolatum (Eucerin Cream) 0 gm TOP BIDPRN PRN PRN Reason: Dry Skin Multivitamins (Theragran) 1 tab PO DAILY [facility] Multivitamins (Theragran) 1 tab PO NOW [facility] Stop: 05/24/18 12:45 Last Admin: 05/24/18 10:38 Dose: 1 tab Ondansetron HCl (Zofran Odt) 4 mg PO Q6H PRN PRN Reason: Nausea/Vomiting Ondansetron HCl (Zofran) 4 mg IVP Q6H PRN PRN Reason: Nausea/Vomiting Last Admin: 05/22/18 00:08 Dose: 4 mg Pantoprazole Sodium (Protonix) 40 mg PO DAILY [facility] Last Admin: 05/24/18 10:30 Dose: 40 mg Phenol (Chloraseptic [place] 180 Ml Bot) 0 ml PO PRN PRN PRN Reason: Sore Throat Saccharomyces Boulardii (Florastor) 250 mg PO DAILY [facility] Last Admin: 05/24/18 10:30 Dose: 250 mg Senna (Senokot) 2 tab PO HSPRN PRN PRN Reason: Constipation Sodium Chloride ([place] Nasal [place] 0.65%) 0 ml EA NARE QIDPRN PRN PRN Reason: Nasal Congestion Sodium Chloride (Flush - Normal Saline) 10 ml IVF Q12HR [facility] Sodium Chloride (Flush - Normal Saline) 10 ml IVF PRN PRN PRN Reason: Saline Flush
--- NOTE | 2018-05-24 11:13 | PRG ---
DATE OF SERVICE: 05/23/2018 SUBJECTIVE: A 77-year-old female being seen for hyponatremia. The patient denies any nausea, vomiti ng or chest pain. PHYSICAL EXAMINATION: GENERAL: Patient is awake, alert. VITAL SIGNS: Pulse 67, breathing 16, blood pressure is 177/91. HEAD/NECK: Normocephalic. Atraumatic. EYES: EOMI. No deformity. EARS: Clear. No ulcers. NOSE: Intact. No lesions. MOUTH: Clear. No discharge. THROAT: Clear. No exudate. LUNGS: Clear. No crackles. CARDIAC: S1, S2. No rub. ABDOMEN: Benign. BS+. GENITALIA/RECTUM: Johnson absent. BACK/EXTREMITIES: Edema 0+ Ulcer- NEUROLOGICAL: Alert and motor intact. SKIN: Rash- Bruise- LYMPHATICS: Edema- Ulcer- LABORATORY DATA: Show sodium is 127, potassium is 5.3, creatinine 0.89. ASSESSMENT AND PLAN: 1. Chronic kidney disease, stage 2 stable. 2. Hyperkalemia. Stop potassium supplement and low potassium diet. 3. Hyponatremia, improving. Continue fluid restriction. No indication for hypertonic saline.
--- NOTE | 2018-05-24 12:58 | RAD ---
AP VIEW CHEST: 05/24/2018 HISTORY: Chest congestion. COMPARISON: Previous exam from 05/21/2018. FINDINGS: AP view chest demonstrates some calcification of the aorta. Mild cardiomegaly is seen. No evidence of effusions, pneumonia, or pneumothorax seen. IMPRESSION: Unremarkable anterior-posterior view chest. POS: H
--- NOTE | 2018-05-24 14:05 | ULT ---
BILATERAL LOWER EXTREMITY VENOUS DOPPLER ULTRASOUND: HISTORY: Bilateral lower extremity edema and pain. TECHNIQUE: Finley-scale ultrasound with color-flow and spectral Doppler imaging of the deep venous systems of the lower extremities is performed bilaterally. FINDINGS: There is good flow, compression, and augmentation noted in the common femoral, femoral, deep femoral, popliteal, posterior tibial, and greater saphenous veins. IMPRESSION: No evidence of deep venous thrombosis in the lower extremity. POS: [place]
[2018-05-24 16:54] LABS: Anion Gap 15 mmol/L (10-20); BUN (Urea Nitrogen) 6 mg/dL (9.8-20.1); Calc. Creatinine Clearance 77 mL/min (70-130); Calcium 9.4 mg/dL (7.8-10.44); Carbon Dioxide 26 mmol/L (23-31); Chloride 89 mmol/L (98-107); Estimated GFR-MDRD 62; Glucose 88 mg/dL (83-110); Potassium 4.7 mmol/L (3.5-5.1); Sodium 125 mmol/L (136-145)
[2018-05-24] MEDS: cloNIDine 0.1 MG TAB PO PRN (17:15)
[2018-05-25] MEDS: hydrALAZINE 20 MG/ML VIAL SLOW IVP PRN (05:40)
[2018-05-25] MEDS: cloNIDine 0.1 MG TAB PO SCH ×2 (09:02→20:29)
[2018-05-25] MEDS: Folic Acid 1 MG TAB PO SCH (09:02)
[2018-05-25] MEDS: Multivit, Therapeutic 1 TAB PO SCH (09:02)
[2018-05-25] MEDS: Saccharomyces boulardii 250 MG CAP PO SCH (09:02)
[2018-05-25] MEDS: Atenolol 50 MG TAB PO SCH (09:02)
[2018-05-25] MEDS: Amlodipine 10 MG TAB PO SCH (09:03)
[2018-05-25 10:36] LABS: Anion Gap 17 mmol/L (10-20); BUN (Urea Nitrogen) 7 mg/dL (9.8-20.1); Calc. Creatinine Clearance 76 mL/min (70-130); Calcium 9.1 mg/dL (7.8-10.44); Carbon Dioxide 20 mmol/L (23-31); Chloride 89 mmol/L (98-107); Estimated GFR-MDRD 62; Glucose 138 mg/dL (83-110); Potassium 4.1 mmol/L (3.5-5.1); Sodium 122 mmol/L (136-145)
[2018-05-25] MEDS ORDERED: Tolvaptan 15 MG TAB PO SCH ×2 (11:00→14:00)
--- NOTE | 2018-05-25 11:16 | PRG ---
DATE OF SERVICE: 05/25/2018 SUBJECTIVE: This is a 77-year-old female, being seen for hyponatremia. The patient denies any nause a, vomiting, or chest pain. OBJECTIVE: See above. GENERAL: Patient is awake, alert. VITAL SIGNS: Afebrile, pulse , breathing 16, blood pressure 161/84. GENERAL APPEARANCE AND MENTAL STATUS: Fair. HEAD/NECK: Normocephalic. Atraumatic. EYES: EOMI. No deformity. EARS: Clear. No ulcers. NOSE: Intact. No lesions. MOUTH: Clear. No discharge. THROAT: Clear. No exudate. LUNGS: Clear. No crackles. CARDIAC: S1, S2. No rub. ABDOMEN: Benign. BS+. GENITALIA/RECTUM: Johnson absent. BACK/EXTREMITIES: Edema 0+, ulcer. NEUROLOGICAL: Alert and motor intact. SKIN: Rash - bruise. LYMPHATICS: Edema - ulcer. LABORATORY DATA: Labs show sodium is 122. ASSESSMENT AND RECOMMENDATIONS: 1. Hyponatremia, syndrome of inappropriate antidiuretic hormone. I would recommend 800 mL fluid res triction. The patient has at least more than half a liter of fluid lying on the breakfast tray this morning. 2. Anemia, stable. 3. Medication based on glomerular filtration rate are appropriate. I will .
--- NOTE | 2018-05-25 11:52 | PDOC.PN ---
- Subjective Encounter Start Date: 05/25/18 Encounter Start Time: 10:15 Subjective: awake, no weakness -: feels better - Objective Resuscitation Status: Resuscitation Status FULL:Full Resuscitation MAR Reviewed: Yes Vital Signs & Weight: Vital Signs (12 hours) Temp Pulse Resp BP BP BP Pulse Ox 05/25/18 09:03 66 161/84 H 05/25/18 09:02 66 161/84 H 05/25/18 08:34 98.5 F 66 16 161/84 H 99 05/25/18 08:00 161/84 H 05/25/18 05:40 67 180/84 H 05/25/18 04:45 180/84 H 05/25/18 04:29 98.2 F 68 18 194/83 H 100 05/25/18 04:00 180/84 H 05/25/18 00:24 98.2 F 62 16 166/76 H 99 05/25/18 00:00 166/76 H Weight Weight 198 lb 6.4 oz I&O: 05/24/18 05/25/18 05/26/18 06:59 06:59 06:59 Intake Total 650 660 Output Total 1335 1300 Balance -685 -640 Result Diagrams: 05/22/18 05:28 05/25/18 10:07 Phys Exam - Physical Examination HEENT: PERRLA, moist MMs right eye echymosis is receding, no edema Neck: no JVD, supple Respiratory: no wheezing, no rales Cardiovascular: RRR, no significant murmur Gastrointestinal: soft, non-tender, positive bowel sounds Musculoskeletal: no edema, pulses present Neurological: non-focal, moves all 4 limbs Psychiatric: A&O x 3 Dx/Plan (1) Hyponatremia Code(s): E87.1 - HYPO-OSMOLALITY AND HYPONATREMIA Status: Acute (2) Fracture of right orbital wall Code(s): S02.31XA - FRACTURE OF ORBITAL FLOOR, RIGHT SIDE, INIT Status: Acute (3) Nasal fracture Code(s): S02.2XXA - FRACTURE OF NASAL BONES, INIT ENCNTR FOR CLOSED FRACTURE Status: Acute Qualifiers: Encounter type: subsequent encounter Fracture type: closed (4) Rhabdomyolysis Code(s): M62.82 - RHABDOMYOLYSIS Status: Acute Qualifiers: Encounter type: subsequent encounter (5) Alcohol abuse Code(s): F10.10 - ALCOHOL ABUSE, UNCOMPLICATED Status: Chronic Comment: drinks 6oz of vodka daily per patient (6) Obesity (BMI 30.0-34.9) Code(s): E66.9 - OBESITY, UNSPECIFIED Status: Chronic (7) HTN (hypertension) Code(s): I10 - ESSENTIAL (PRIMARY) HYPERTENSION Status: Chronic Qualifiers: Hypertension type: essential hypertension Qualified Code(s): I10 - Essential (primary) hypertension (8) Hypothyroidism Code(s): E03.9 - HYPOTHYROIDISM, UNSPECIFIED Status: Chronic Qualifiers: Hypothyroidism type: unspecified Qualified Code(s): E03.9 - Hypothyroidism , unspecified (9) Physical deconditioning Code(s): R53.81 - OTHER MALAISE Status: Acute (10) CHF exacerbation Code(s): I50.9 - HEART FAILURE, UNSPECIFIED Status: Acute Qualifiers: Heart failure type: diastolic Qualified Code(s): I50.33 - Acute on chronic diastolic (congestive) heart failure Comment: on nasal canula 2lts (11) UTI (urinary tract infection) Status: Acute Qualifiers: Urinary tract infection type: acute cystitis Hematuria presence: without hematuria Qualified Code(s): N30.00 - Acute cystitis without hematuria - Plan gentle diuresis, fluid restriction -: sod is worsoning, per nephrology adv -: to amb with PT today, amb 20ft on -: will need placement -: continue norvasc, atenolol and levaquin * . Review of Systems - Medications/Allergies Allergies/Adverse Reactions: Allergies Allergy/AdvReac Type Severity Reaction Status Date / Time hydrocodone Allergy Verified 05/21/18 17:16 meperidine HCl [From Demerol] Allergy Verified 05/21/18 17:16 Penicillins Allergy Verified 05/21/18 17:16 Medications: Current Medications Acetaminophen (Tylenol) 650 mg PO Q4H PRN PRN Reason: Headache/Fever or Pain Last Admin: 05/23/18 08:16 Dose: 650 mg Al Hydroxide/Mg Hydroxide (Maalox) 30 ml PO Q6H PRN PRN Reason: Heartburn or Indigestion Amlodipine Besylate (Norvasc) 10 mg PO DAILY [facility] Last Admin: 05/25/18 09:03 Dose: 10 mg Artificial Tears (Tears Renewed 15ml Bottle) 0 drop EA EYE PRN PRN PRN Reason: Dry Eyes Atenolol (Tenormin) 50 mg PO DAILY [facility] Last Admin: 05/25/18 09:02 Dose: 50 mg Calcium Carbonate (Tums) 1,000 mg PO Q4H PRN PRN Reason: Heartburn or Indigestion Clonidine (Catapres) 0.1 mg PO Q4H PRN PRN Reason: Systolic BP > 180 Last Admin: 05/24/18 17:15 Dose: 0.1 mg Clonidine (Catapres) 0.1 mg PO BID [facility] Last Admin: 05/25/18 09:02 Dose: 0.1 mg Folic Acid (Folvite) 1 mg PO DAILY [facility] Last Admin: 05/25/18 09:02 Dose: 1 mg Furosemide (Lasix) 40 mg SLOW IVP 0600,1400 [facility] Guaifenesin (Robitussin Sf) 200 mg PO Q4H PRN PRN Reason: Cough Hydralazine HCl (Apresoline) 10 mg SLOW IVP Q4H PRN PRN Reason: Systolic BP > 180 Last Admin: 05/25/18 05:40 Dose: 10 mg Labetalol HCl (Normodyne) 20 mg SLOW IVP Q4H PRN PRN Reason: Systolic BP > 180 Last Admin: 05/22/18 00:09 Dose: 20 mg Levofloxacin (Levaquin) 500 mg PO 0600 [facility] Last Admin: 05/25/18 05:41 Dose: 500 mg Loperamide HCl (Imodium) 2 mg PO PRN PRN PRN Reason: Diarrhea/Loose Stools Loratadine (Claritin) 10 mg PO DAILYPRN PRN PRN Reason: Sinus Symptoms Lorazepam (Ativan) 0.5 mg SLOW IVP Q6H PRN PRN Reason: Anxiety/Agitation Magnesium Hydroxide (Milk Of Magnesium) 30 ml PO DAILYPRN PRN PRN Reason: Constipation Mineral Oil/White Petrolatum (Eucerin Cream) 0 gm TOP BIDPRN PRN PRN Reason: Dry Skin Multivitamins (Theragran) 1 tab PO DAILY [facility] Last Admin: 05/25/18 09:02 Dose: 1 tab Ondansetron HCl (Zofran Odt) 4 mg PO Q6H PRN PRN Reason: Nausea/Vomiting Ondansetron HCl (Zofran) 4 mg IVP Q6H PRN PRN Reason: Nausea/Vomiting Last Admin: 05/22/18 00:08 Dose: 4 mg Pantoprazole Sodium (Protonix) 40 mg PO DAILY [facility] Last Admin: 05/25/18 09:03 Dose: 40 mg Phenol (Chloraseptic [place] 180 Ml Bot) 0 ml PO PRN PRN PRN Reason: Sore Throat Saccharomyces Boulardii (Florastor) 250 mg PO DAILY [facility] Last Admin: 05/25/18 09:02 Dose: 250 mg Senna (Senokot) 2 tab PO HSPRN PRN PRN Reason: Constipation Sodium Chloride ([place] Nasal [place] 0.65%) 0 ml EA NARE QIDPRN PRN PRN Reason: Nasal Congestion Sodium Chloride (Flush - Normal Saline) 10 ml IVF Q12HR [facility] Last Admin: 05/25/18 09:03 Dose: 10 ml Sodium Chloride (Flush - Normal Saline) 10 ml IVF PRN PRN PRN Reason: Saline Flush
[2018-05-25 11:53] LABS: ALT (SGPT) 18 U/L (8-55); AST (SGOT) 34 U/L (5-34)
[2018-05-25] MEDS: Furosemide 40 MG/4 ML VIAL SLOW IVP SCH (16:23)
[2018-05-25 20:45] LABS: Anion Gap 15 mmol/L (10-20); BUN (Urea Nitrogen) 8 mg/dL (9.8-20.1); Calc. Creatinine Clearance 63 mL/min (70-130); Calcium 9.3 mg/dL (7.8-10.44); Carbon Dioxide 25 mmol/L (23-31); Chloride 86 mmol/L (98-107); Estimated GFR-MDRD 49; Glucose 147 mg/dL (83-110); Magnesium 1.4 mg/dL (1.6-2.6); Potassium 3.9 mmol/L (3.5-5.1); Sodium 122 mmol/L (136-145)
[2018-05-25] MEDS ORDERED: Magnesium Chloride 64 MG TAB PO SCH (21:30)
[2018-05-26 05:44] LABS: Anion Gap 17 mmol/L (10-20); BUN (Urea Nitrogen) 10 mg/dL (9.8-20.1); Calc. Creatinine Clearance 60 mL/min (70-130); Calcium 9.3 mg/dL (7.8-10.44); Carbon Dioxide 24 mmol/L (23-31); Chloride 88 mmol/L (98-107); Estimated GFR-MDRD 47; Glucose 93 mg/dL (83-110); Potassium 5.1 mmol/L (3.5-5.1); Sodium 124 mmol/L (136-145)
[2018-05-26] MEDS: Furosemide 40 MG/4 ML VIAL SLOW IVP SCH (06:27)
[2018-05-26] MEDS: Magnesium Chloride 64 MG TAB PO SCH ×2 (08:04→20:09)
[2018-05-26] MEDS: Atenolol 50 MG TAB PO SCH (08:05)
[2018-05-26] MEDS: Folic Acid 1 MG TAB PO SCH (08:05)
[2018-05-26] MEDS: cloNIDine 0.1 MG TAB PO SCH ×2 (08:05→20:09)
[2018-05-26] MEDS: Multivit, Therapeutic 1 TAB PO SCH (08:05)
[2018-05-26] MEDS: Saccharomyces boulardii 250 MG CAP PO SCH (08:05)
[2018-05-26] MEDS: Amlodipine 10 MG TAB PO SCH (08:05)
[2018-05-26] MEDS: Tolvaptan 15 MG TAB PO SCH (10:00)
--- NOTE | 2018-05-26 12:17 | PDOC.PN ---
- Subjective Encounter Start Date: 05/26/18 Encounter Start Time: 10:15 Subjective: no chest pain or sob -: ambulated 40ft on saturday -: is strictly following fluid restriction - Objective Resuscitation Status: Resuscitation Status FULL:Full Resuscitation MAR Reviewed: Yes Vital Signs & Weight: Vital Signs (12 hours) Temp Pulse Resp BP BP Pulse Ox 05/26/18 11:26 97.8 F 67 17 119/73 05/26/18 08:00 99 05/26/18 07:17 98.6 F 73 18 153/92 H 99 05/26/18 06:00 72 20 161/88 H 99 05/26/18 04:00 161/88 H Weight Weight 198 lb 6.4 oz I&O: 05/25/18 05/26/18 05/27/18 06:59 06:59 06:59 Intake Total 660 760 Output Total 1300 2500 Balance -808 -1844 Result Diagrams: 05/22/18 05:28 05/26/18 04:10 Phys Exam - Physical Examination HEENT: PERRLA, moist MMs right eye echymosis is receding Neck: no JVD, supple Respiratory: no wheezing, no rales Cardiovascular: RRR, no significant murmur Gastrointestinal: soft, non-tender, positive bowel sounds Musculoskeletal: no edema, pulses present Neurological: non-focal, moves all 4 limbs Psychiatric: normal affect, A&O x 3 Dx/Plan (1) Hyponatremia Code(s): E87.1 - HYPO-OSMOLALITY AND HYPONATREMIA Status: Acute (2) Fracture of right orbital wall Code(s): S02.31XA - FRACTURE OF ORBITAL FLOOR, RIGHT SIDE, INIT Status: Acute (3) Nasal fracture Code(s): S02.2XXA - FRACTURE OF NASAL BONES, INIT ENCNTR FOR CLOSED FRACTURE Status: Acute Qualifiers: Encounter type: subsequent encounter Fracture type: closed (4) Rhabdomyolysis Code(s): M62.82 - RHABDOMYOLYSIS Status: Acute Qualifiers: Encounter type: subsequent encounter (5) Alcohol abuse Code(s): F10.10 - ALCOHOL ABUSE, UNCOMPLICATED Status: Chronic Comment: drinks 6oz of vodka daily per patient (6) Obesity (BMI 30.0-34.9) Code(s): E66.9 - OBESITY, UNSPECIFIED Status: Chronic (7) HTN (hypertension) Code(s): I10 - ESSENTIAL (PRIMARY) HYPERTENSION Status: Chronic Qualifiers: Hypertension type: essential hypertension Qualified Code(s): I10 - Essential (primary) hypertension (8) Hypothyroidism Code(s): E03.9 - HYPOTHYROIDISM, UNSPECIFIED Status: Chronic Qualifiers: Hypothyroidism type: unspecified Qualified Code(s): E03.9 - Hypothyroidism , unspecified (9) Physical deconditioning Code(s): R53.81 - OTHER MALAISE Status: Acute (10) CHF exacerbation Code(s): I50.9 - HEART FAILURE, UNSPECIFIED Status: Acute Qualifiers: Heart failure type: diastolic Qualified Code(s): I50.33 - Acute on chronic diastolic (congestive) heart failure Comment: on nasal canula 2lts (11) UTI (urinary tract infection) Status: Acute Qualifiers: Urinary tract infection type: acute cystitis Hematuria presence: without hematuria Qualified Code(s): N30.00 - Acute cystitis without hematuria - Plan is on extreme fluid restriction upto 800ml/day, lasix 40q12h -: Hyponatremia per nephrology advice, d/w -: also recieved tolvaptan x 1 dose yesterday -: continue norvasc, atenolol and levaquin -: to mobilize more with PT * . Review of Systems - Medications/Allergies Allergies/Adverse Reactions: Allergies Allergy/AdvReac Type Severity Reaction Status Date / Time hydrocodone Allergy Verified 05/21/18 17:16 meperidine HCl [From Demerol] Allergy Verified 05/21/18 17:16 Penicillins Allergy Verified 05/21/18 17:16 Medications: Current Medications Acetaminophen (Tylenol) 650 mg PO Q4H PRN PRN Reason: Headache/Fever or Pain Last Admin: 05/23/18 08:16 Dose: 650 mg Al Hydroxide/Mg Hydroxide (Maalox) 30 ml PO Q6H PRN PRN Reason: Heartburn or Indigestion Amlodipine Besylate (Norvasc) 10 mg PO DAILY [facility] Last Admin: 05/26/18 08:05 Dose: 10 mg Artificial Tears (Tears Renewed 15ml Bottle) 0 drop EA EYE PRN PRN PRN Reason: Dry Eyes Atenolol (Tenormin) 50 mg PO DAILY [facility] Last Admin: 05/26/18 08:05 Dose: 50 mg Calcium Carbonate (Tums) 1,000 mg PO Q4H PRN PRN Reason: Heartburn or Indigestion Clonidine (Catapres) 0.1 mg PO Q4H PRN PRN Reason: Systolic BP > 180 Last Admin: 05/24/18 17:15 Dose: 0.1 mg Clonidine (Catapres) 0.1 mg PO BID [facility] Last Admin: 05/26/18 08:05 Dose: 0.1 mg Folic Acid (Folvite) 1 mg PO DAILY [facility] Last Admin: 05/26/18 08:05 Dose: 1 mg Guaifenesin (Robitussin Sf) 200 mg PO Q4H PRN PRN Reason: Cough Hydralazine HCl (Apresoline) 10 mg SLOW IVP Q4H PRN PRN Reason: Systolic BP > 180 Last Admin: 05/25/18 05:40 Dose: 10 mg Labetalol HCl (Normodyne) 20 mg SLOW IVP Q4H PRN PRN Reason: Systolic BP > 180 Last Admin: 05/22/18 00:09 Dose: 20 mg Levofloxacin (Levaquin) 500 mg PO 0600 [facility] Last Admin: 05/26/18 06:27 Dose: 500 mg Loperamide HCl (Imodium) 2 mg PO PRN PRN PRN Reason: Diarrhea/Loose Stools Loratadine (Claritin) 10 mg PO DAILYPRN PRN PRN Reason: Sinus Symptoms Lorazepam (Ativan) 0.5 mg SLOW IVP Q6H PRN PRN Reason: Anxiety/Agitation Magnesium Chloride (Slow-Mag) 64 mg PO BID [facility] Last Admin: 05/26/18 08:04 Dose: 64 mg Magnesium Hydroxide (Milk Of Magnesium) 30 ml PO DAILYPRN PRN PRN Reason: Constipation Mineral Oil/White Petrolatum (Eucerin Cream) 0 gm TOP BIDPRN PRN PRN Reason: Dry Skin Multivitamins (Theragran) 1 tab PO DAILY [facility] Last Admin: 05/26/18 08:05 Dose: 1 tab Ondansetron HCl (Zofran Odt) 4 mg PO Q6H PRN PRN Reason: Nausea/Vomiting Ondansetron HCl (Zofran) 4 mg IVP Q6H PRN PRN Reason: Nausea/Vomiting Last Admin: 05/22/18 00:08 Dose: 4 mg Pantoprazole Sodium (Protonix) 40 mg PO DAILY [facility] Last Admin: 05/26/18 08:05 Dose: 40 mg Phenol (Chloraseptic [place] 180 Ml Bot) 0 ml PO PRN PRN PRN Reason: Sore Throat Saccharomyces Boulardii (Florastor) 250 mg PO DAILY [facility] Last Admin: 05/26/18 08:05 Dose: 250 mg Senna (Senokot) 2 tab PO HSPRN PRN PRN Reason: Constipation Sodium Chloride ([place] Nasal [place] 0.65%) 0 ml EA NARE QIDPRN PRN PRN Reason: Nasal Congestion Sodium Chloride (Flush - Normal Saline) 10 ml IVF Q12HR [facility] Last Admin: 05/26/18 08:05 Dose: 10 ml Sodium Chloride (Flush - Normal Saline) 10 ml IVF PRN PRN PRN Reason: Saline Flush Tolvaptan ([place]) 15 mg PO DAILY [facility] Last Admin: 05/26/18 10:00 Dose: 15 mg
[2018-05-27 05:58] LABS: Anion Gap 19 mmol/L (10-20); BUN (Urea Nitrogen) 17 mg/dL (9.8-20.1); Calc. Creatinine Clearance 43 mL/min (70-130); Calcium 9.8 mg/dL (7.8-10.44); Carbon Dioxide 22 mmol/L (23-31); Chloride 89 mmol/L (98-107); Estimated GFR-MDRD 32; Glucose 78 mg/dL (83-110); Potassium 4.3 mmol/L (3.5-5.1); Sodium 126 mmol/L (136-145)
[2018-05-27] MEDS: Atenolol 50 MG TAB PO SCH (08:12)
[2018-05-27] MEDS: Saccharomyces boulardii 250 MG CAP PO SCH (08:13)
[2018-05-27] MEDS: cloNIDine 0.1 MG TAB PO SCH ×2 (08:13→20:11)
[2018-05-27] MEDS: Magnesium Chloride 64 MG TAB PO SCH ×2 (08:13→20:11)
[2018-05-27] MEDS: Multivit, Therapeutic 1 TAB PO SCH (08:13)
[2018-05-27] MEDS: Folic Acid 1 MG TAB PO SCH (08:13)
[2018-05-27] MEDS: Tolvaptan 15 MG TAB PO SCH (08:13)
[2018-05-27] MEDS: Amlodipine 10 MG TAB PO SCH (08:14)
[2018-05-27] MEDS ORDERED: Tolvaptan 15 MG TAB PO SCH ×2 (09:00→09:15)
--- NOTE | 2018-05-27 12:21 | PDOC.PN ---
- Subjective Encounter Start Date: 05/27/18 Encounter Start Time: 10:00 Subjective: no sob or chest pain -: is sitting in chair -: has ambulated minimally with PT - Objective Resuscitation Status: Resuscitation Status FULL:Full Resuscitation MAR Reviewed: Yes Vital Signs & Weight: Vital Signs (12 hours) Temp Pulse Resp BP BP Pulse Ox 05/27/18 11:41 97.5 F L 78 17 113/64 94 L 05/27/18 07:08 97.6 F 78 19 148/76 H 94 L 05/27/18 04:00 138/78 Weight Weight 198 lb 6.4 oz I&O: 05/26/18 05/27/18 05/28/18 06:59 06:59 06:59 Intake Total 760 990 Output Total 2500 2600 Balance -1740 -1610 Result Diagrams: 05/22/18 05:28 05/27/18 03:38 Phys Exam - Physical Examination HEENT: PERRLA, moist MMs right eye echymosis, subconjunctival hemorrhage Neck: no JVD, supple Respiratory: no wheezing, no rales Cardiovascular: RRR, no significant murmur Gastrointestinal: soft, non-tender, positive bowel sounds Musculoskeletal: no edema, pulses present Neurological: non-focal, moves all 4 limbs Psychiatric: normal affect, A&O x 3 Dx/Plan (1) Hyponatremia Code(s): E87.1 - HYPO-OSMOLALITY AND HYPONATREMIA Status: Acute (2) Fracture of right orbital wall Code(s): S02.31XA - FRACTURE OF ORBITAL FLOOR, RIGHT SIDE, INIT Status: Acute (3) Nasal fracture Code(s): S02.2XXA - FRACTURE OF NASAL BONES, INIT ENCNTR FOR CLOSED FRACTURE Status: Acute Qualifiers: Encounter type: subsequent encounter Fracture type: closed (4) Rhabdomyolysis Code(s): M62.82 - RHABDOMYOLYSIS Status: Resolved Qualifiers: Encounter type: subsequent encounter (5) Alcohol abuse Code(s): F10.10 - ALCOHOL ABUSE, UNCOMPLICATED Status: Chronic Comment: drinks 6oz of vodka daily per patient (6) Obesity (BMI 30.0-34.9) Code(s): E66.9 - OBESITY, UNSPECIFIED Status: Chronic (7) HTN (hypertension) Code(s): I10 - ESSENTIAL (PRIMARY) HYPERTENSION Status: Chronic Qualifiers: Hypertension type: essential hypertension Qualified Code(s): I10 - Essential (primary) hypertension (8) Hypothyroidism Code(s): E03.9 - HYPOTHYROIDISM, UNSPECIFIED Status: Chronic Qualifiers: Hypothyroidism type: unspecified Qualified Code(s): E03.9 - Hypothyroidism , unspecified (9) Physical deconditioning Code(s): R53.81 - OTHER MALAISE Status: Acute (10) CHF exacerbation Code(s): I50.9 - HEART FAILURE, UNSPECIFIED Status: Acute Qualifiers: Heart failure type: diastolic Qualified Code(s): I50.33 - Acute on chronic diastolic (congestive) heart failure Comment: on nasal canula 2lts (11) UTI (urinary tract infection) Status: Acute Qualifiers: Urinary tract infection type: acute cystitis Hematuria presence: without hematuria Qualified Code(s): N30.00 - Acute cystitis without hematuria - Plan sod around 126, on fluid restriction of 1lts/day -: is off lasix now -: on tolvaptan, levaquin -: continue norvasc, atenolol, clonidine -: to mobilize more with PT, cm for placement when sod normalizes * . Review of Systems - Medications/Allergies Allergies/Adverse Reactions: Allergies Allergy/AdvReac Type Severity Reaction Status Date / Time hydrocodone Allergy Verified 05/21/18 17:16 meperidine HCl [From Demerol] Allergy Verified 05/21/18 17:16 Penicillins Allergy Verified 05/21/18 17:16 Medications: Current Medications Acetaminophen (Tylenol) 650 mg PO Q4H PRN PRN Reason: Headache/Fever or Pain Last Admin: 05/23/18 08:16 Dose: 650 mg Al Hydroxide/Mg Hydroxide (Maalox) 30 ml PO Q6H PRN PRN Reason: Heartburn or Indigestion Amlodipine Besylate (Norvasc) 10 mg PO DAILY [facility] Last Admin: 05/27/18 08:14 Dose: 10 mg Artificial Tears (Tears Renewed 15ml Bottle) 0 drop EA EYE PRN PRN PRN Reason: Dry Eyes Atenolol (Tenormin) 50 mg PO DAILY [facility] Last Admin: 05/27/18 08:12 Dose: 50 mg Calcium Carbonate (Tums) 1,000 mg PO Q4H PRN PRN Reason: Heartburn or Indigestion Clonidine (Catapres) 0.1 mg PO Q4H PRN PRN Reason: Systolic BP > 180 Last Admin: 05/24/18 17:15 Dose: 0.1 mg Clonidine (Catapres) 0.1 mg PO BID [facility] Last Admin: 05/27/18 08:13 Dose: 0.1 mg Folic Acid (Folvite) 1 mg PO DAILY [facility] Last Admin: 05/27/18 08:13 Dose: 1 mg Guaifenesin (Robitussin Sf) 200 mg PO Q4H PRN PRN Reason: Cough Hydralazine HCl (Apresoline) 10 mg SLOW IVP Q4H PRN PRN Reason: Systolic BP > 180 Last Admin: 05/25/18 05:40 Dose: 10 mg Labetalol HCl (Normodyne) 20 mg SLOW IVP Q4H PRN PRN Reason: Systolic BP > 180 Last Admin: 05/22/18 00:09 Dose: 20 mg Levofloxacin (Levaquin) 500 mg PO 0600 [facility] Last Admin: 05/27/18 05:28 Dose: 500 mg Loperamide HCl (Imodium) 2 mg PO PRN PRN PRN Reason: Diarrhea/Loose Stools Loratadine (Claritin) 10 mg PO DAILYPRN PRN PRN Reason: Sinus Symptoms Lorazepam (Ativan) 0.5 mg SLOW IVP Q6H PRN PRN Reason: Anxiety/Agitation Magnesium Chloride (Slow-Mag) 64 mg PO BID [facility] Last Admin: 05/27/18 08:13 Dose: 64 mg Magnesium Hydroxide (Milk Of Magnesium) 30 ml PO DAILYPRN PRN PRN Reason: Constipation Mineral Oil/White Petrolatum (Eucerin Cream) 0 gm TOP BIDPRN PRN PRN Reason: Dry Skin Multivitamins (Theragran) 1 tab PO DAILY [facility] Last Admin: 05/27/18 08:13 Dose: 1 tab Ondansetron HCl (Zofran Odt) 4 mg PO Q6H PRN PRN Reason: Nausea/Vomiting Ondansetron HCl (Zofran) 4 mg IVP Q6H PRN PRN Reason: Nausea/Vomiting Last Admin: 05/22/18 00:08 Dose: 4 mg Pantoprazole Sodium (Protonix) 40 mg PO DAILY [facility] Last Admin: 05/27/18 08:13 Dose: 40 mg Phenol (Chloraseptic [place] 180 Ml Bot) 0 ml PO PRN PRN PRN Reason: Sore Throat Saccharomyces Boulardii (Florastor) 250 mg PO DAILY [facility] Last Admin: 05/27/18 08:13 Dose: 250 mg Senna (Senokot) 2 tab PO HSPRN PRN PRN Reason: Constipation Sodium Chloride ([place] Nasal [place] 0.65%) 0 ml EA NARE QIDPRN PRN PRN Reason: Nasal Congestion Sodium Chloride (Flush - Normal Saline) 10 ml IVF Q12HR [facility] Last Admin: 05/27/18 08:13 Dose: 10 ml Sodium Chloride (Flush - Normal Saline) 10 ml IVF PRN PRN PRN Reason: Saline Flush Tolvaptan (Samsca) 30 mg PO DAILY [facility]
--- NOTE | 2018-05-27 20:49 | PRG ---
DATE OF SERVICE: 05/27/2018 SUBJECTIVE: Patient was seen and examined at bedside and overnight events noted. Patient denies any shortness of breath or chest pain or palpitation. No history of nausea or vomiting or diarrhea or f ever or chills or cramps. OBJECTIVE: GENERAL: This is a well-built female, in no apparent distress. VITAL SIGNS: Temperature 97.5, pulse 70, respiratory rate 18, blood pressure 113/64. HEENT: Atraumatic, normocephalic. Oral mucosa is moist. NECK: Supple. CARDIOVASCULAR: S1, S2 heard. Rate and rhythm regular. RESPIRATORY: Clear to auscultation. GASTROINTESTINAL: Abdomen is soft. MUSCULOSKELETAL: No tenderness. No edema. DERMATOLOGIC: No skin rash. NEUROLOGIC: Alert and awake and oriented x3. No focal neurologic deficits. Moving all the extremit ies. PSYCHIATRIC: Mood and affect normal. LABORATORY DATA: Sodium is 127, potassium is 4.0, creatinine is 1.5. ASSESSMENT AND PLAN: 1. Hyponatremia, most likely syndrome of inappropriate antidiuretic hormone secretion. Continue on fluid restriction. Sodium level is getting better. 2. Acute kidney injury. We will monitor. 3. Anemia, stable. 4. Edema, controlled. 5. Hypertension, stable. 6. We will monitor sodium level. The patient does have chronic hyponatremia.
--- NOTE | 2018-05-27 23:23 | PRG ---
DATE OF SERVICE: 05/26/2018 SUBJECTIVE: Patient was seen and examined at bedside and overnight events noted. Patient denies any shortness of breath or chest pain or palpitation. No history of nausea or vomiting or diarrhea or f ever or chills or cramps. OBJECTIVE: GENERAL: This is a well-built female in no apparent distress. VITAL SIGNS: Temperature 96, pulse 73, respiratory rate 18, blood pressure 153/92. HEENT: Bruises present. NECK: Supple CARDIOVASCULAR: S1, S2 heard. Rate and rhythm regular. RESPIRATORY: Clear. GASTROINTESTINAL: Abdomen is soft. MUSCULOSKELETAL: 1+ edema. DERMATOLOGIC: No skin rash. NEUROLOGIC: Alert and awake. PSYCHIATRIC: Mood and affect normal. LABORATORY DATA: Sodium is 124, potassium is 5.1, BUN is 10, creatinine is 1.13. ASSESSMENT AND PLAN: 1. Hyponatremia, most likely syndrome of inappropriate antidiuretic hormone secretion. We will limi t fluid intake and start tolvaptan. 2. Hyperkalemia. 3. Edema, controlled. 4. Hypertension, stable. 5. Acute kidney injury. Slight elevation in creatinine. We will monitor. 6. Continue fluid restriction and tolvaptan, increase as tolerated. We will follow up.
[2018-05-27] MEDS: Temazepam 15 MG CAP PO PRN (23:32)
[2018-05-28 05:40] LABS: Anion Gap 15 mmol/L (10-20); BUN (Urea Nitrogen) 25 mg/dL (9.8-20.1); Calc. Creatinine Clearance 31 mL/min (70-130); Calcium 9.4 mg/dL (7.8-10.44); Carbon Dioxide 27 mmol/L (23-31); Chloride 90 mmol/L (98-107); Estimated GFR-MDRD 24; Glucose 95 mg/dL (83-110); Potassium 3.6 mmol/L (3.5-5.1); Sodium 128 mmol/L (136-145)
[2018-05-28] MEDS: cloNIDine 0.1 MG TAB PO SCH ×2 (07:48→20:13)
[2018-05-28] MEDS: Magnesium Chloride 64 MG TAB PO SCH ×2 (07:48→20:13)
[2018-05-28] MEDS: Atenolol 50 MG TAB PO SCH (07:48)
[2018-05-28] MEDS: Amlodipine 10 MG TAB PO SCH (07:49)
[2018-05-28] MEDS: Saccharomyces boulardii 250 MG CAP PO SCH (07:49)
[2018-05-28] MEDS: Folic Acid 1 MG TAB PO SCH (07:49)
[2018-05-28] MEDS: Multivit, Therapeutic 1 TAB PO SCH (07:49)
[2018-05-28] MEDS ORDERED: Tolvaptan 15 MG TAB PO SCH (09:00)
[2018-05-28] MEDS: Sodium Chloride 0.9% 500 ML IV SCH ×2 (10:23→20:14)
--- NOTE | 2018-05-28 12:13 | PDOC.PN ---
- Subjective Encounter Start Date: 05/28/18 Encounter Start Time: 09:25 Subjective: sitting in chair, feels better -: no sob or abd pain - Objective Resuscitation Status: Resuscitation Status FULL:Full Resuscitation MAR Reviewed: Yes Vital Signs & Weight: Vital Signs (12 hours) Temp Pulse Resp BP BP Pulse Ox 05/28/18 11:07 98.0 F 74 20 112/71 94 L 05/28/18 08:00 95 05/28/18 07:53 98.2 F 78 20 163/83 H 95 05/28/18 07:49 141/84 H 05/28/18 07:48 141/84 H Weight Weight 182 lb 2 oz I&O: 05/27/18 05/28/18 05/29/18 06:59 06:59 06:59 Intake Total 990 1050 360 Output Total 2600 Balance -1610 1050 360 Result Diagrams: 05/22/18 05:28 05/28/18 04:30 Phys Exam - Physical Examination HEENT: PERRLA, moist MMs periorbital ecchymosis Neck: no JVD, supple Respiratory: no wheezing, no rales Cardiovascular: RRR, no significant murmur Gastrointestinal: soft, non-tender, positive bowel sounds Musculoskeletal: no edema, pulses present Neurological: non-focal, moves all 4 limbs Psychiatric: A&O x 3 Dx/Plan (1) Hyponatremia Code(s): E87.1 - HYPO-OSMOLALITY AND HYPONATREMIA Status: Acute (2) Fracture of right orbital wall Code(s): S02.31XA - FRACTURE OF ORBITAL FLOOR, RIGHT SIDE, INIT Status: Acute (3) Nasal fracture Code(s): S02.2XXA - FRACTURE OF NASAL BONES, INIT ENCNTR FOR CLOSED FRACTURE Status: Acute Qualifiers: Encounter type: subsequent encounter Fracture type: closed (4) Rhabdomyolysis Code(s): M62.82 - RHABDOMYOLYSIS Status: Resolved Qualifiers: Encounter type: subsequent encounter (5) Alcohol abuse Code(s): F10.10 - ALCOHOL ABUSE, UNCOMPLICATED Status: Chronic Comment: drinks 6oz of vodka daily per patient (6) Obesity (BMI 30.0-34.9) Code(s): E66.9 - OBESITY, UNSPECIFIED Status: Chronic (7) HTN (hypertension) Code(s): I10 - ESSENTIAL (PRIMARY) HYPERTENSION Status: Chronic Qualifiers: Hypertension type: essential hypertension Qualified Code(s): I10 - Essential (primary) hypertension (8) Hypothyroidism Code(s): E03.9 - HYPOTHYROIDISM, UNSPECIFIED Status: Chronic Qualifiers: Hypothyroidism type: unspecified Qualified Code(s): E03.9 - Hypothyroidism , unspecified (9) Physical deconditioning Code(s): R53.81 - OTHER MALAISE Status: Acute (10) CHF exacerbation Code(s): I50.9 - HEART FAILURE, UNSPECIFIED Status: Acute Qualifiers: Heart failure type: diastolic Qualified Code(s): I50.33 - Acute on chronic diastolic (congestive) heart failure Comment: on nasal canula 2lts (11) UTI (urinary tract infection) Status: Acute Qualifiers: Urinary tract infection type: acute cystitis Hematuria presence: without hematuria Qualified Code(s): N30.00 - Acute cystitis without hematuria - Plan hemo/neurostable, off tolvaptan from today, u.output 2600 -: creatinine is 2 due to mee from diuresis, gentle iv fluids x1 bag -: d/w , likely dc plan in am to rehab -: has chronic hyponatremia and appears to be close to her baseline -: continue norvasc, atenolol, clonidine. * . Review of Systems - Medications/Allergies Allergies/Adverse Reactions: Allergies Allergy/AdvReac Type Severity Reaction Status Date / Time hydrocodone Allergy Verified 05/21/18 17:16 meperidine HCl [From Demerol] Allergy Verified 05/21/18 17:16 Penicillins Allergy Verified 05/21/18 17:16 Medications: Current Medications Acetaminophen (Tylenol) 650 mg PO Q4H PRN PRN Reason: Headache/Fever or Pain Last Admin: 05/23/18 08:16 Dose: 650 mg Al Hydroxide/Mg Hydroxide (Maalox) 30 ml PO Q6H PRN PRN Reason: Heartburn or Indigestion Amlodipine Besylate (Norvasc) 10 mg PO DAILY [facility] Last Admin: 05/28/18 07:49 Dose: 10 mg Artificial Tears (Tears Renewed 15ml Bottle) 0 drop EA EYE PRN PRN PRN Reason: Dry Eyes Atenolol (Tenormin) 50 mg PO DAILY [facility] Last Admin: 05/28/18 07:48 Dose: 50 mg Calcium Carbonate (Tums) 1,000 mg PO Q4H PRN PRN Reason: Heartburn or Indigestion Clonidine (Catapres) 0.1 mg PO Q4H PRN PRN Reason: Systolic BP > 180 Last Admin: 05/24/18 17:15 Dose: 0.1 mg Clonidine (Catapres) 0.1 mg PO BID [facility] Last Admin: 05/28/18 07:48 Dose: 0.1 mg Folic Acid (Folvite) 1 mg PO DAILY [facility] Last Admin: 05/28/18 07:49 Dose: 1 mg Guaifenesin (Robitussin Sf) 200 mg PO Q4H PRN PRN Reason: Cough Hydralazine HCl (Apresoline) 10 mg SLOW IVP Q4H PRN PRN Reason: Systolic BP > 180 Last Admin: 05/25/18 05:40 Dose: 10 mg Sodium Chloride (Normal Saline 0.9%) 500 mls @ 50 mls/hr IV .Q10H [facility] Stop: 05/28/18 20:00 Last Admin: 05/28/18 10:23 Dose: 500 mls Labetalol HCl (Normodyne) 20 mg SLOW IVP Q4H PRN PRN Reason: Systolic BP > 180 Last Admin: 05/22/18 00:09 Dose: 20 mg Loperamide HCl (Imodium) 2 mg PO PRN PRN PRN Reason: Diarrhea/Loose Stools Loratadine (Claritin) 10 mg PO DAILYPRN PRN PRN Reason: Sinus Symptoms Lorazepam (Ativan) 0.5 mg SLOW IVP Q6H PRN PRN Reason: Anxiety/Agitation Magnesium Chloride (Slow-Mag) 64 mg PO BID [facility] Last Admin: 05/28/18 07:48 Dose: 64 mg Magnesium Hydroxide (Milk Of Magnesium) 30 ml PO DAILYPRN PRN PRN Reason: Constipation Mineral Oil/White Petrolatum (Eucerin Cream) 0 gm TOP BIDPRN PRN PRN Reason: Dry Skin Multivitamins (Theragran) 1 tab PO DAILY [facility] Last Admin: 05/28/18 07:49 Dose: 1 tab Ondansetron HCl (Zofran Odt) 4 mg PO Q6H PRN PRN Reason: Nausea/Vomiting Ondansetron HCl (Zofran) 4 mg IVP Q6H PRN PRN Reason: Nausea/Vomiting Last Admin: 05/22/18 00:08 Dose: 4 mg Pantoprazole Sodium (Protonix) 40 mg PO DAILY [facility] Last Admin: 05/28/18 07:49 Dose: 40 mg Phenol (Chloraseptic [place] 180 Ml Bot) 0 ml PO PRN PRN PRN Reason: Sore Throat Saccharomyces Boulardii (Florastor) 250 mg PO DAILY [facility] Last Admin: 05/28/18 07:49 Dose: 250 mg Senna (Senokot) 2 tab PO HSPRN PRN PRN Reason: Constipation Sodium Chloride ([place] Nasal [place] 0.65%) 0 ml EA NARE QIDPRN PRN PRN Reason: Nasal Congestion Sodium Chloride (Flush - Normal Saline) 10 ml IVF Q12HR [facility] Last Admin: 05/28/18 07:49 Dose: 10 ml Sodium Chloride (Flush - Normal Saline) 10 ml IVF PRN PRN PRN Reason: Saline Flush Temazepam (Restoril) 15 mg PO HS PRN PRN Reason: Insomnia Last Admin: 05/27/18 23:32 Dose: 15 mg
--- NOTE | 2018-05-28 18:36 | PRG ---
DATE OF SERVICE: 05/28/2018 SUBJECTIVE: Patient was seen and examined at bedside and overnight events noted. Patient denies any shortness of breath or chest pain or palpitation. No history of nausea or vomiting or diarrhea or f ever or chills or cramps. OBJECTIVE: GENERAL: This is a elderly female, in no apparent distress. VITAL SIGNS: Temperature 97.7, pulse blood pressure . HEENT: Atraumatic, normocephalic, Oral mucosa is moist NECK: Supple. CARDIOVASCULAR: S1, S2 heard, rate and rhythm regular. RESPIRATORY: Clear to auscultation GASTROINTESTINAL: Abdomen is soft MUSCULOSKELETAL: No tenderness, no edema DERMATOLOGIC: No skin rash. NEUROLOGIC: Alert and awake and oriented X3, no focal neurologic deficits. Moving all the extremiti es. PSYCHIATRIC: Mood and affect normal. LABORATORY DATA: Sodium is 128, creatinine is 2.02. ASSESSMENT AND PLAN: 1. Hyponatremia, stable. The patient does have chronic hyponatremia and is close to her baseline. 2. Acute kidney injury. We will give IV fluids slowly. 3. Edema, controlled. 4. Hypertension, stable. 5. Acute chronic kidney disease. 6. Hyperkalemia, better. 7. We will continue IV fluids today.
[2018-05-29] MEDS: Temazepam 15 MG CAP PO PRN (01:15)
[2018-05-29 06:59] LABS: Anion Gap 12 mmol/L (10-20); BUN (Urea Nitrogen) 27 mg/dL (9.8-20.1); Calc. Creatinine Clearance 36 mL/min (70-130); Calcium 9.2 mg/dL (7.8-10.44); Carbon Dioxide 28 mmol/L (23-31); Chloride 95 mmol/L (98-107); Estimated GFR-MDRD 29; Glucose 98 mg/dL (83-110); Magnesium 1.5 mg/dL (1.6-2.6); Potassium 3.6 mmol/L (3.5-5.1); Sodium 131 mmol/L (136-145)
[2018-05-29] MEDS: cloNIDine 0.1 MG TAB PO SCH ×2 (08:29→19:58)
[2018-05-29] MEDS: Folic Acid 1 MG TAB PO SCH (08:29)
[2018-05-29] MEDS: Saccharomyces boulardii 250 MG CAP PO SCH (08:29)
[2018-05-29] MEDS: Multivit, Therapeutic 1 TAB PO SCH (08:29)
[2018-05-29] MEDS: Amlodipine 10 MG TAB PO SCH (08:30)
[2018-05-29] MEDS: Magnesium Chloride 64 MG TAB PO SCH ×2 (08:30→19:58)
[2018-05-29] MEDS: Atenolol 50 MG TAB PO SCH (08:30)
[2018-05-29] MEDS ORDERED: Sodium Chloride 0.9% 500 ML IV SCH ×2 (09:30→10:15)
--- NOTE | 2018-05-29 12:59 | CON ---
DATE OF CONSULTATION: 05/22/2018 CONSULTING PHYSICIAN: Dr. Mcclendon with the Hospitalist Service. HISTORY OF PRESENT ILLNESS: This is a 77-year-old female status post fall from her bed in the middle of the night. The patient had right facial swelling and was unable to get up from the floor. The patient was then brought to the emergency room by EMS and was found to have facial injuries for which I have been consulted for evaluation and management. PAST MEDICAL HISTORY: Hypertension, dyslipidemia, osteoarthritis, obesity, GERD , alcohol abuse. PAST SURGICAL HISTORY: Surgical repair of left tibia and right ankle fractures , hysterectomy, tonsillectomy. HOME MEDICATIONS: Amlodipine, clonidine, aspirin, atenolol, pravastatin, Prilosec, clonidine. ALLERGIES: DEMEROL, HYDROCODONE, PENICILLIN. SOCIAL HISTORY: The patient lives alone in a halfway center with her dog. Denies smoking. Reports drinking alcohol daily. REVIEW OF SYSTEMS: The patient has difficulty opening her right eye and complains of some soreness and discomfort on that side. Otherwise, review of systems is negative. PHYSICAL EXAMINATION: GENERAL: Alert and oriented x3. No apparent distress. HEAD AND NECK: Right periorbital edema and ecchymosis. No noted open soft tissue wounds involving the scalp, face or neck. On opening of the right eyelids, the patient has good range of motion and visual acuity is grossly intact bilaterally with no signs of diplopia. There is no bony steps over the nasal dorsum and the nasal dorsum is grossly symmetric externally. Intranasal exam is normal. Hearing is grossly intact bilaterally and there is no noted ear trauma or blood or discharge from the external auditory canal, Intraoral examination is normal without any significant signs of injuries or sequela from the fall. Maximum interincisal opening is normal. Floor of mouth is soft. Tongue is midline. Oropharynx is within normal limits. NECK: Without any significant findings. Trachea is midline. There are no masses, bruits or external signs of trauma. LABORATORY DATA: The patient has a white blood cell count 7.5, hemoglobin 13.1 , platelets of 200. Coagulation studies: INR 1.1, PTT 32.1. CT scan of the face shows a very minimal right orbital floor fracture towards the medial aspect of the floor with very little displacement and no signs of periorbital content herniation into the maxillary sinus. The patient also has signs of a very minimal right nasal bone fracture with a very slight displacement. ASSESSMENT: 1. Minimal displacement of small right orbital floor fracture. 2. Mildly displaced right nasal bone fracture. PLAN: 1. Recommend a 1 week course of p.o. Augmentin. 2. Sinus precautions explained to patient and caregivers. 3. Fractures appear nonoperative, but I would like to see the patient in 1 week for reevaluation and a final definitive determination of whether or not any operative intervention needs to take place. 4. These findings and recommendations were relayed to Dr. Mcclendon with the hospitalist service. YAZ
[2018-05-29 13:20] VITALS: BMI 30.3
--- NOTE | 2018-05-29 13:47 | PDOC.PN ---
- Subjective Encounter Start Date: 05/29/18 Encounter Start Time: 08:55 Subjective: awake, ambulating with PT -: no abd pain or visual disturbances -: feels better, says she is slowly getting her strength and appetite back - Objective Resuscitation Status: Resuscitation Status FULL:Full Resuscitation MAR Reviewed: Yes Vital Signs & Weight: Vital Signs (12 hours) Temp Pulse Resp BP BP Pulse Ox 05/29/18 08:34 95 05/29/18 08:30 68 155/84 H 96 05/29/18 08:29 155/84 H 05/29/18 08:00 155/84 H 05/29/18 07:28 97.6 F 64 20 155/84 H 96 05/29/18 04:28 70 166/78 H 05/29/18 03:49 95 Weight Admit Weight 182 lb 2 oz Weight 182 lb 2 oz I&O: 05/28/18 05/29/18 05/30/18 06:59 06:59 06:59 Intake Total 1050 1640 Balance 1050 1640 Result Diagrams: 05/22/18 05:28 05/29/18 06:27 Phys Exam - Physical Examination HEENT: PERRLA, moist MMs periorbital echymosis is receding, very min edema over forehead Neck: no JVD, supple Respiratory: no wheezing, no rales Cardiovascular: RRR, no significant murmur Gastrointestinal: soft, non-tender, positive bowel sounds Musculoskeletal: no edema, pulses present Neurological: non-focal, moves all 4 limbs Psychiatric: A&O x 3 Dx/Plan (1) Hyponatremia Code(s): E87.1 - HYPO-OSMOLALITY AND HYPONATREMIA Status: Acute (2) Fracture of right orbital wall Code(s): S02.31XA - FRACTURE OF ORBITAL FLOOR, RIGHT SIDE, INIT Status: Acute (3) Nasal fracture Code(s): S02.2XXA - FRACTURE OF NASAL BONES, INIT ENCNTR FOR CLOSED FRACTURE Status: Acute Qualifiers: Encounter type: subsequent encounter Fracture type: closed (4) Rhabdomyolysis Code(s): M62.82 - RHABDOMYOLYSIS Status: Resolved Qualifiers: Encounter type: subsequent encounter (5) Alcohol abuse Code(s): F10.10 - ALCOHOL ABUSE, UNCOMPLICATED Status: Chronic Comment: drinks 6oz of vodka daily per patient (6) Obesity (BMI 30.0-34.9) Code(s): E66.9 - OBESITY, UNSPECIFIED Status: Chronic (7) HTN (hypertension) Code(s): I10 - ESSENTIAL (PRIMARY) HYPERTENSION Status: Chronic Qualifiers: Hypertension type: essential hypertension Qualified Code(s): I10 - Essential (primary) hypertension (8) Hypothyroidism Code(s): E03.9 - HYPOTHYROIDISM, UNSPECIFIED Status: Chronic Qualifiers: Hypothyroidism type: unspecified Qualified Code(s): E03.9 - Hypothyroidism , unspecified (9) Physical deconditioning Code(s): R53.81 - OTHER MALAISE Status: Acute (10) CHF exacerbation Code(s): I50.9 - HEART FAILURE, UNSPECIFIED Status: Acute Qualifiers: Heart failure type: diastolic Qualified Code(s): I50.33 - Acute on chronic diastolic (congestive) heart failure Comment: on nasal canula 2lts (11) UTI (urinary tract infection) Status: Resolved Qualifiers: Urinary tract infection type: acute cystitis Hematuria presence: without hematuria Qualified Code(s): N30.00 - Acute cystitis without hematuria - Plan hemostable, remove fluid restrictions -: sodium is stable, at baseline chronic level -: renal function is holding up, bmp q3days at rehab -: medically stable for tx to rehab anytime -: continue norvasc, atenolol and clonidine * . Review of Systems - Medications/Allergies Allergies/Adverse Reactions: Allergies Allergy/AdvReac Type Severity Reaction Status Date / Time hydrocodone Allergy Verified 05/21/18 17:16 meperidine HCl [From Demerol] Allergy Verified 05/21/18 17:16 Penicillins Allergy Verified 05/21/18 17:16 Medications: Current Medications Acetaminophen (Tylenol) 650 mg PO Q4H PRN PRN Reason: Headache/Fever or Pain Last Admin: 05/23/18 08:16 Dose: 650 mg Al Hydroxide/Mg Hydroxide (Maalox) 30 ml PO Q6H PRN PRN Reason: Heartburn or Indigestion Amlodipine Besylate (Norvasc) 10 mg PO DAILY [facility] Last Admin: 05/29/18 08:30 Dose: 10 mg Artificial Tears (Tears Renewed 15ml Bottle) 0 drop EA EYE PRN PRN PRN Reason: Dry Eyes Atenolol (Tenormin) 50 mg PO DAILY [facility] Last Admin: 05/29/18 08:30 Dose: 50 mg Calcium Carbonate (Tums) 1,000 mg PO Q4H PRN PRN Reason: Heartburn or Indigestion Clonidine (Catapres) 0.1 mg PO Q4H PRN PRN Reason: Systolic BP > 180 Last Admin: 05/24/18 17:15 Dose: 0.1 mg Clonidine (Catapres) 0.1 mg PO BID [facility] Last Admin: 05/29/18 08:29 Dose: 0.1 mg Folic Acid (Folvite) 1 mg PO DAILY [facility] Last Admin: 05/29/18 08:29 Dose: 1 mg Guaifenesin (Robitussin Sf) 200 mg PO Q4H PRN PRN Reason: Cough Hydralazine HCl (Apresoline) 10 mg SLOW IVP Q4H PRN PRN Reason: Systolic BP > 180 Last Admin: 05/25/18 05:40 Dose: 10 mg Sodium Chloride (Normal Saline 0.9%) 500 mls @ 100 mls/hr IV .Q5H [facility] Stop: 05/29/18 15:14 Last Admin: 05/29/18 10:04 Dose: 500 mls Labetalol HCl (Normodyne) 20 mg SLOW IVP Q4H PRN PRN Reason: Systolic BP > 180 Last Admin: 05/22/18 00:09 Dose: 20 mg Loperamide HCl (Imodium) 2 mg PO PRN PRN PRN Reason: Diarrhea/Loose Stools Loratadine (Claritin) 10 mg PO DAILYPRN PRN PRN Reason: Sinus Symptoms Lorazepam (Ativan) 0.5 mg SLOW IVP Q6H PRN PRN Reason: Anxiety/Agitation Magnesium Chloride (Slow-Mag) 64 mg PO BID [facility] Last Admin: 05/29/18 08:30 Dose: 64 mg Magnesium Hydroxide (Milk Of Magnesium) 30 ml PO DAILYPRN PRN PRN Reason: Constipation Mineral Oil/White Petrolatum (Eucerin Cream) 0 gm TOP BIDPRN PRN PRN Reason: Dry Skin Multivitamins (Theragran) 1 tab PO DAILY [facility] Last Admin: 05/29/18 08:29 Dose: 1 tab Ondansetron HCl (Zofran Odt) 4 mg PO Q6H PRN PRN Reason: Nausea/Vomiting Ondansetron HCl (Zofran) 4 mg IVP Q6H PRN PRN Reason: Nausea/Vomiting Last Admin: 05/22/18 00:08 Dose: 4 mg Pantoprazole Sodium (Protonix) 40 mg PO DAILY [facility] Last Admin: 05/29/18 08:29 Dose: 40 mg Phenol (Chloraseptic [place] 180 Ml Bot) 0 ml PO PRN PRN PRN Reason: Sore Throat Saccharomyces Boulardii (Florastor) 250 mg PO DAILY [facility] Last Admin: 05/29/18 08:29 Dose: 250 mg Senna (Senokot) 2 tab PO HSPRN PRN PRN Reason: Constipation Sodium Chloride ([place] Nasal [place] 0.65%) 0 ml EA NARE QIDPRN PRN PRN Reason: Nasal Congestion Sodium Chloride (Flush - Normal Saline) 10 ml IVF Q12HR [facility] Last Admin: 05/29/18 08:30 Dose: 10 ml Sodium Chloride (Flush - Normal Saline) 10 ml IVF PRN PRN PRN Reason: Saline Flush Temazepam (Restoril) 15 mg PO HS PRN PRN Reason: Insomnia Last Admin: 05/29/18 01:15 Dose: 15 mg
--- NOTE | 2018-05-29 18:08 | PRG ---
DATE OF SERVICE: 05/29/2018 SUBJECTIVE: Patient was seen and examined at bedside and overnight events noted. Patient denies any shortness of breath or chest pain or palpitation. No history of nausea or vomitin g or diarrhea or fever or chills or cramps. OBJECTIVE: GENERAL: This is a well-built female, in no apparent distress. VITAL SIGNS: Temperature 98.5, pulse 60 respiratory rate , blood pressure 131/81. HEENT: Atraumatic, normocephalic. Oral mucosa is moist. NECK: Supple. CARDIOVASCULAR: S1 and S2 heard. Rate and rhythm regular. RESPIRATORY: Clear to auscultation. GASTROINTESTINAL: Abdomen is soft. MUSCULOSKELETAL: No tenderness. No edema. DERMATOLOGIC: No skin rash. NEUROLOGIC: Alert and awake and oriented x3. No focal neurologic deficits. Moving all the extremit ies. PSYCHIATRIC: Mood and affect normal. LABORATORY DATA: Potassium is 3.6, sodium is 131, BUN 27, creatinine is 1.7. ASSESSMENT AND PLAN: 1. Hyponatremia, better and stable. 2. Acute kidney injury. We will give IV fluids one more dose. 3. Edema, controlled. 4. Hypertension, stable. 5. Hyperkalemia, better. Overall, labs are stable. We will continue IV fluids 1 more day. We will follow.
[2018-05-30] MEDS: Temazepam 15 MG CAP PO PRN (01:12)
[2018-05-30 08:31] LABS: Anion Gap 14 mmol/L (10-20); BUN (Urea Nitrogen) 15 mg/dL (9.8-20.1); Calc. Creatinine Clearance 58 mL/min (70-130); Calcium 9.5 mg/dL (7.8-10.44); Carbon Dioxide 24 mmol/L (23-31); Chloride 95 mmol/L (98-107); Estimated GFR-MDRD 49; Glucose 98 mg/dL (83-110); Potassium 3.6 mmol/L (3.5-5.1); Sodium 129 mmol/L (136-145)
[2018-05-30] MEDS: Amlodipine 10 MG TAB PO SCH (09:18)
[2018-05-30] MEDS: Multivit, Therapeutic 1 TAB PO SCH (09:19)
[2018-05-30] MEDS: Saccharomyces boulardii 250 MG CAP PO SCH (09:19)
[2018-05-30] MEDS: Folic Acid 1 MG TAB PO SCH (09:19)
[2018-05-30] MEDS: Atenolol 50 MG TAB PO SCH (09:19)
[2018-05-30] MEDS: cloNIDine 0.1 MG TAB PO SCH (09:19)
[2018-05-30] MEDS: Magnesium Chloride 64 MG TAB PO SCH (09:19)
[2018-05-30 12:13] VITALS: BP 134/72; TEMP 98
--- NOTE | 2018-05-30 12:40 | PDOC.PN ---
- Subjective Encounter Start Date: 05/30/18 Encounter Start Time: 08:30 Subjective: awake and oriented well, sitting in chair, feels good - Objective Resuscitation Status: Resuscitation Status FULL:Full Resuscitation MAR Reviewed: Yes Vital Signs & Weight: Vital Signs (12 hours) Temp Pulse Resp BP BP Pulse Ox 05/30/18 12:12 98 F 63 16 134/72 95 05/30/18 12:00 134/72 05/30/18 09:19 66 175/79 H 05/30/18 09:18 66 175/79 H 05/30/18 08:10 98.2 F 66 18 175/79 H 94 L 05/30/18 08:00 175/79 H 94 L 05/30/18 04:28 65 172/80 H 05/30/18 04:00 172/80 H Weight Admit Weight 182 lb 2 oz Weight 182 lb 2 oz I&O: 05/29/18 05/30/18 05/31/18 06:59 06:59 06:59 Intake Total 1640 1950 Balance 1640 1950 Result Diagrams: 05/22/18 05:28 05/30/18 07:40 Phys Exam - Physical Examination HEENT: PERRLA, moist MMs periorbital echymosis and subconjunctival hemorrhage is receding Neck: no JVD, supple Respiratory: no wheezing, no rales Cardiovascular: RRR, no significant murmur Gastrointestinal: soft, non-tender, positive bowel sounds Musculoskeletal: no edema, pulses present Neurological: non-focal, moves all 4 limbs Psychiatric: normal affect, A&O x 3 Dx/Plan (1) Hyponatremia Code(s): E87.1 - HYPO-OSMOLALITY AND HYPONATREMIA Status: Acute Comment: stable and at chronic baseline (2) Fracture of right orbital wall Code(s): S02.31XA - FRACTURE OF ORBITAL FLOOR, RIGHT SIDE, INIT Status: Acute (3) Nasal fracture Code(s): S02.2XXA - FRACTURE OF NASAL BONES, INIT ENCNTR FOR CLOSED FRACTURE Status: Acute Qualifiers: Encounter type: subsequent encounter Fracture type: closed (4) Rhabdomyolysis Code(s): M62.82 - RHABDOMYOLYSIS Status: Resolved Qualifiers: Encounter type: subsequent encounter (5) Alcohol abuse Code(s): F10.10 - ALCOHOL ABUSE, UNCOMPLICATED Status: Chronic Comment: drinks 6oz of vodka daily per patient (6) Obesity (BMI 30.0-34.9) Code(s): E66.9 - OBESITY, UNSPECIFIED Status: Chronic (7) HTN (hypertension) Code(s): I10 - ESSENTIAL (PRIMARY) HYPERTENSION Status: Chronic Qualifiers: Hypertension type: essential hypertension Qualified Code(s): I10 - Essential (primary) hypertension (8) Hypothyroidism Code(s): E03.9 - HYPOTHYROIDISM, UNSPECIFIED Status: Chronic Qualifiers: Hypothyroidism type: unspecified Qualified Code(s): E03.9 - Hypothyroidism , unspecified (9) Physical deconditioning Code(s): R53.81 - OTHER MALAISE Status: Acute (10) CHF exacerbation Code(s): I50.9 - HEART FAILURE, UNSPECIFIED Status: Acute Qualifiers: Heart failure type: diastolic Qualified Code(s): I50.33 - Acute on chronic diastolic (congestive) heart failure Comment: on nasal canula 2lts (11) UTI (urinary tract infection) Status: Resolved Qualifiers: Urinary tract infection type: acute cystitis Hematuria presence: without hematuria Qualified Code(s): N30.00 - Acute cystitis without hematuria - Plan hemostable -: may dc to inpt rehab today -: counselled reg alcohol abuse -: is eating and ambulating better now * .
--- NOTE | 2018-05-30 21:27 | PRG ---
DATE OF SERVICE: 05/30/2018 SUBJECTIVE: Patient was seen and examined at bedside and overnight events noted. Patient denies any shortness of breath or chest pain or palpitation. No history of nausea or vomiting or diarrhea or f ever or chills or cramps. OBJECTIVE: GENERAL: This is an obese female in no apparent distress. VITAL SIGNS: Temperature 98.0, pulse 63, respirations 16, blood pressure 134/72. HEENT: Atraumatic, normocephalic. Oral mucosa is moist. NECK: Supple. CARDIOVASCULAR: S1, S2 heard. Rate and rhythm regular. RESPIRATORY: Clear to auscultation. GASTROINTESTINAL: Abdomen is soft. MUSCULOSKELETAL: No tenderness. No edema. DERMATOLOGIC: No skin rash. NEUROLOGIC: Alert and awake and oriented x3. No focal neurologic deficits. Moving all the extremiti es. PSYCHIATRIC: Mood and affect normal. LABORATORY DATA: Potassium is 3.6, sodium is 129, creatinine is 1.08. ASSESSMENT AND PLAN: 1. Hyponatremia, better. 2. Acute kidney injury, stable. 3. Edema, controlled. 4. Hypertension, stable. 5. Hypokalemia, better. 6. Sodium and creatinine level is stable.
--- NOTE | 2018-05-31 23:14 | DIS ---
DATE OF ADMISSION: 05/21/2018 DATE OF DISCHARGE: 05/30/2018 DISCHARGE DISPOSITION: To inpatient rehabilitation. PRIMARY DISCHARGE DIAGNOSES: Hyponatremia, right orbital wall fracture, nasal fracture, severe ecchy mosis of right eye and right frontal area, rhabdomyolysis with history of fall, severe hyponatremia a nd history of chronic hyponatremia, alcohol abuse, deconditioning, congestive heart failure exacerbat ion, urinary tract infection. SECONDARY DISCHARGE DIAGNOSES: Hypertension, obesity. PROCEDURES DONE DURING HOSPITALIZATION: Patient has had CT cervical spine done, which showed multile khari degenerative changes, no acute fracture or subluxation was seen. CT brain without contrast showe d no acute intracranial abnormalities. Facial CT scan done showed acute right nasal bone fracture, l arge right periorbital hematoma, area of the orbital wall defect at the medial inferior aspect of the right orbit the age of this was indeterminate, could be acute fracture. Echo with 2D Doppler showed an EF of 55%-60%, moderately enlarged RV cavity, moderate to severe mitral regurgitation, moderately elevated pulmonary artery pressure. Ultrasound venous Doppler of lower extremities done showed no e vidence of DVT. Urine culture grew Klebsiella sensitive to quinolones and cephalosporins. H&H 13 an d 39, platelet count 200. Discharge sodium level is 129, BUN and creatinine 15 and 1.0. Plasma alco hol levels were 228 mg/dL on the day of admission. UA showed large leukoesterase with greater than 5 0 wbc's and 4+ bacteria on admission. DISCHARGE MEDICATIONS: Cozaar 25 mg p.o. daily, multivitamin 1 tab once daily, folic acid 1 mg p.o. daily, clonidine 0.1 mg p.o. twice daily, Tenormin 50 mg p.o. daily, Norvasc 10 mg p.o. daily, Pravac hol 40 mg p.o. daily, omeprazole 20 mg p.o. daily, and aspirin 81 mg p.o. daily. ALLERGIES: HYDROCODONE, MEPERIDINE, and PENICILLIN. INPATIENT CONSULTS: Dr. Merchant for Nephrology. DISCHARGE PLAN: Patient to follow up with primary care physician in 1 week. BRIEF COURSE DURING HOSPITALIZATION: Patient initially was brought from her assisted living facility at [facility] after she fell and was on the floor for an unknown period of time. She had a large ecchymosis of the right eye which was essentially edematous and patient was not able to open her eyes . Her alcohol levels were also 220 and patient admitted to drinking vodka on a daily basis. Her sod ium was very low with history of chronic hyponatremia likely due to her alcohol abuse. The patient h ad severe deconditioning and dehydration as well along with rhabdomyolysis. All of this is slowly re solving. She has had consultation with Dr. Garth Serrato for facial maxillary surgery who evaluat ed her. She needs to follow up with him in 1 week from rehabilitation. Prior to discharge, she is p articipating with physical therapy. She has also got her appetite back and is eating well. She was counseled with regards to alcohol abuse. She is able to open her eyes completely and her subconjunct ival hemorrhage, ecchymosis, edema of right half of her face is slowly receding at the time of discha rge. She is able to open her eyes completely and has no visual deficits or extraocular movement issu es. She will be shortly discharged to inpatient rehabilitation. A total of 35 minutes was spent on discharge plan. Please see a [id number] documentation on [facility] for the day of discharge.
== END 2018-05-30 13:03 | DRG 896 ==
LOC: ERS 11:38 → 2NO 14:28 → T4-A 05-23 15:08
PROVIDERS: ADMIT Internal Medicine; ATTEND Internal Medicine
DX: F10.10 Alcohol abuse, uncomplicated (principal); I50.33 Acute on chronic diastolic (congestive) heart failure; N39.0 Urinary tract infection, site not specified; E22.2 Syndrome of inappropriate secretion of antidiuretic hormone; I13.0 Hypertensive heart and chronic kidney disease with heart failure and stage 1 through stage 4 chronic kidney disease, or unspecified chronic kidney disease; S02.2XXA Fracture of nasal bones, initial encounter for closed fracture; S05.11XA Contusion of eyeball and orbital tissues, right eye, initial encounter; B96.1 Klebsiella pneumoniae [K. pneumoniae] as the cause of diseases classified elsewhere; Z88.5 Allergy status to narcotic agent; Z88.0 Allergy status to penicillin; Z88.8 Allergy status to other drugs, medicaments and biological substances; T79.6XXA Traumatic ischemia of muscle, initial encounter; E83.42 Hypomagnesemia; E87.6 Hypokalemia; N18.2 Chronic kidney disease, stage 2 (mild); K21.9 Gastro-esophageal reflux disease without esophagitis; M19.90 Unspecified osteoarthritis, unspecified site; E66.9 Obesity, unspecified; R53.1 Weakness; Z79.899 Other long term (current) drug therapy; Z79.82 Long term (current) use of aspirin; E78.5 Hyperlipidemia, unspecified; Y90.8 Blood alcohol level of 240 mg/100 ml or more; W06.XXXA Fall from bed, initial encounter; E86.0 Dehydration; Z68.30 Body mass index [BMI] 30.0-30.9, adult
CPT/HCPCS: 36415; 70450; 70486; 71045; 72125; 80048; 80053; 80307; 81003; 81015; 82550; 82553; 82805; 83690; 83735; 83880; 83930; 83935; 84100; 84443; 84450; 84460; 84484; 85025; 85610; 85730; 87077; 87086; 87186; 90471; 90662; 93005; 93306; 93970; 96361; 96365; A4216; C9113; G0008; G8978-GP-CL; G8979-GP-CJ; G8987-GO-CL; G8988-GO-CJ; J0360; J0696; J1940; J2405; J3411; J3475; J3480; J7042; J7050

== ENCOUNTER 2019-01-08 10:28 | Observation (INO) | payer MEDICARE ==
[2019-01-08] MEDS ORDERED: ISOVUE-370 76%-LOCM 1 ML ONE (10:50)
--- NOTE | 2019-01-08 12:17 | CT ---
HEAD CT NONCONTRAST: Date: 01/08/19 INDICATION: Confusion. FINDINGS: Reference is made to 05/21/18 exam. Stable prominence of ventricular system with multifocal bilateral periventricular white matter hypoat tenuation. There is parenchymal volume loss. No acute intracranial hemorrhage, mass effect, or midlin e shift. Focal density of the right frontal scalp may be related to scar. No acute paranasal sinus fl uid level. IMPRESSION: 1. No acute intracranial hemorrhage or mass effect. 2. Parenchymal atrophy, prominent ventricular system, and bilateral periventricular white matter hyp oattenuation, indicative of moderate ischemic disease. POS: [facility]
--- NOTE | 2019-01-08 12:34 | CT ---
CT lumbar spine without contrast: HISTORY: Back Pain COMPARISON: No prior CT exams of the lumbar spine available FINDINGS: Vascular calcifications are seen in the abdominal aorta and involving the iliac arteries. A small hia ezekiel hernia is visualized. There is partial visualization of colonic diverticuli in the sigmoid colon. The retroperitoneal structures otherwise demonstrate a grossly normal nonenhanced CT appearanc e. Grade 1 anterolisthesis of L4 on L5 is present likely attributable to prominent facet hypertrophic ch anges at this level. No additional level of subluxation is seen, and there is no evidence of a fracture. L1-2: There is a dense globular calcification seen centrally at the level of the disc space within th e central canal. This may represent calcification of a disc extrusion and/or prominent calcification of the anterior longitudinal ligament. This does result in mass effect on the central a spect of the thecal sac at this level and generalized narrowing of the central spinal canal. The neural foramina are patent. L2-3: No significant central canal or neural foraminal narrowing is seen. L3-4: There is loss of intervertebral disc height with trace retrolisthesis of L3 on L4. Mild broad-b ased disc osteophyte complex is present, and there are facet hypertrophic changes. Moderate narrowing of the central spinal canal is present. There is mild/moderate bilateral neural foraminal n arrowing. L4-5: As noted above, there is grade 1 anterolisthesis of L4 on L5 with loss of intervertebral disc h eight. There are prominent facet hypertrophic changes at this level with ligamentous thickening. There is severe narrowing of the central spinal canal and lateral recesses at this level with severe bilateral neural foraminal narrowing. Prominent Schmorl's node is seen in the superior endplate L4 vertebral body. L5-S1: Vacuum phenomenon is seen in the intervertebral disc. There is loss of intervertebral disc hei ght. A broad-based disc osteophyte complex is present. There are facet hypertrophic changes noted. There is no significant narrowing of the central spinal canal. Moderate to severe bilateral neural fo raminal narrowing is present. IMPRESSION: 1. Multilevel degenerative changes seen throughout the lumbar spine with findings greatest in the low er lumbar spine. There is grade 1 anterolisthesis of L4 on L5 with an associated disc osteophyte complex resulting in severe bilateral neural foraminal narrowing.
[2019-01-08 13:02] LABS: #Basophils 0.1 thou/uL (0.0-0.2); #Eosinphils 0.1 thou/uL (0.0-0.7); #Lymphocytes 1.4 thou/uL (1.20-3.40); #Monocytes 0.9 thou/uL (0.11-0.59); #Neutrophils 12.6 thou/uL (1.40-6.50); %Basophils 0.6 % (0.0-1.0); %Eosinophils 0.9 % (0.0-10.0); %Monocytes 5.8 % (0.0-10.0); %Neutrophils 83.6 % (42.0-75.0); Hemoglobin 15.5 g/dL (12.0-16.0); Mean Corpuscular HGB CONC 33.7 g/dL (32.0-36.0); Mean Corpuscular Hemoglobin 28.2 pg (27.0-31.0); Mean Corpuscular Volume 83.6 fL (78.0-98.0); Mean Platelet Volume 7.9 fL (7.4-10.4); Platelet Count 260 thou/uL (130-400); RBC Distribution Width 11.9 % (11.5-14.5); White Blood Cell (WBC) Count 15.1 thou/uL (4.8-10.8)
[2019-01-08 13:33] LABS: ALT (SGPT) 12 U/L (8-55); AST (SGOT) 22 U/L (5-34); Albumin 4.9 g/dL (3.4-4.8); Alkaline Phosphatase 96 U/L (40-150); Anion Gap 17 mmol/L (10-20); BUN (Urea Nitrogen) 15 mg/dL (9.8-20.1); Bilirubin, Total 0.5 mg/dL (0.2-1.2); Calc. Creatinine Clearance 0 mL/min (70-130); Calcium 10.4 mg/dL (7.8-10.44); Carbon Dioxide 24 mmol/L (23-31); Chloride 97 mmol/L (98-107); Estimated GFR-MDRD 53; Globulin 3.2 g/dL (2.4-3.5); Glucose 117 mg/dL (83-110); Potassium 3.8 mmol/L (3.5-5.1); Protein, Total 8.1 g/dL (6.0-8.3); Sodium 134 mmol/L (136-145)
[2019-01-08 14:03] LABS: CKMB 3.3 ng/mL (0-6.6)
[2019-01-08] MEDS ORDERED: methylPREDNISolone Sod Succ/PF 125 MG/2 ML VIAL ONE (14:14)
--- NOTE | 2019-01-08 15:01 | CT ---
CTA CHEST WITH CONTRAST: Date: 01/08/19 Multiple axial tomograms obtained through chest following pulmonary angio protocol with multiplanar r econstruction and 3D postprocessing. INDICATION: Hypoxemia. Dyspnea. Assess for pulmonary embolus. Comparison made to prior CT pulmonary study dated December 2015. FINDINGS: The pulmonary arteries show adequate opacification. No evidence of pulmonary embolus identified. The lungs show chronic lung parenchymal change. No infiltrate or effusion. The thoracic aorta does no t show adequate enhancement and I cannot assess for dissection. There is no evidence of aneurysm. Nonspecific hilar adenopathy is again seen and was described previously. This is stable. Images through upper abdomen are unremarkable. There is cardiomegaly and mild vascular engorgement. D egenerative spine changes. Mild wedge compression of mid thoracic vertebra. IMPRESSION: 1. No evidence of pulmonary embolus. 2. Chronic lung parenchymal changes with interstitial thickening seen in the periphery of both lungs . No acute lung process apparent. POS: [facility]
[2019-01-08] MEDS ORDERED: Aspirin 325 MG TAB ONE (15:14)
[2019-01-08] MEDS ORDERED: traMADol HCl 50 MG TAB ONE (15:21)
[2019-01-08 16:27] LABS: Bilirubin Negative (Negative); Blood, Urine Negative (Negative); Clarity CLEAR (Clear); Glucose, Urine (Dipstick) Negative (Negative); Leukocyte Large (Negative); Nitrite Negative (Negative); Protein, Urine (Dipstick) Trace mg/dL (Neg-Trace); Specific Gravity, Urine 1.015 (1.002-1.036); Urobilinogen 0.2 mg/dL (0.2-1.0)
[2019-01-08 16:28] LABS: Bacteria/HPF None Seen HPF (None Seen); Hyaline Casts/LPF 0-3 HYALINE CAST LPF (0-3 Hyaline); Pathc Cast-AUWi Flag 0.13 (0-2.49); RBC/HPF 0-3 HPF (0-3); Squamous Epithelial 0-3 HPF (0-3)
[2019-01-08 16:54] LABS: Troponin I 0.139 ng/mL (< 0.028)
[2019-01-08] MEDS ORDERED: Acetaminophen 325 MG TAB PO PRN (16:56)
[2019-01-08] MEDS ORDERED: Ondansetron ODT 4 MG TAB PO PRN (16:56)
[2019-01-08] MEDS ORDERED: Ketorolac Tromethamine 30 MG/ML VIAL IVP PRN (17:13)
[2019-01-08] MEDS ORDERED: Furosemide 40 MG/4 ML VIAL SLOW IVP SCH (17:15)
[2019-01-08] MEDS ORDERED: hydrALAZINE 20 MG/ML VIAL SLOW IVP PRN (19:22)
[2019-01-08] MEDS: Cyclobenzaprine 10 MG TAB PO PRN (21:01)
[2019-01-08] MEDS: cloNIDine 0.1 MG TAB PO SCH (21:01)
[2019-01-08] MEDS: traMADol HCl 50 MG TAB PO PRN (21:02)
[2019-01-08] MEDS: Famotidine 20 MG TAB PO SCH (21:03)
[2019-01-08] MEDS: Atorvastatin Calcium 20 MG TAB PO SCH (21:03)
[2019-01-08 22:26] VITALS: BMI 30.8
--- NOTE | 2019-01-09 01:48 | HP ---
PRIMARY CARE PHYSICIAN: Rafi Leon MD CHIEF COMPLAINT: Shortness of breath and back pain. HISTORY OF PRESENT ILLNESS: Ms. Flowers is a 78-year-old female with a past medical history of hypertension, gastroesophageal reflux disease, osteoarthritis, and chronic back pain who had reported to [facility] earlier today after she had experienced some worsening back pain with some shortness of breath, she states symptoms started around 10 a.m. this morning and had gradually worsened throughout the day. She had called her caregiver and once the caregiver arrived at the house, the patient's caregiver stated that the patient was slightly confused and was "out of it" with an altered mental status. She states over the course of the next few hours, the patient's symptoms improved. Upon arrival, the patient was found to be hypoxic. Therefore, she was started on oxygen via nasal cannula, she was tolerating 2 L via nasal cannula well with a stable O2 saturation. For her pain in the emergency department, she was given 50 mg tramadol and IV Solu-Medrol 125, she was also given 325 mg of aspirin, DuoNeb treatment and 500 mL fluid bolus. She had denied any fever, chills, any chest pain, palpitations, abdominal pain, nausea, or vomiting, she had denied any urinary symptoms at this time. She states that she had not experienced any worsening swelling down her upper or lower extremities and she had not noticed any lightheadedness, dizziness, or weakness. Her initial workup included a CT lumbar spine which showed multilevel degenerative changes seen throughout the lumbar spine with findings greatest in the lower lumbar spine. There was grade 1 anterolisthesis of L4 on L5 with an associated disk osteophyte complex resulting in severe bilateral neural foraminal narrowing. Due to patient's worsening shortness of breath, CTA of chest was performed; however, it showed no evidence of a pulmonary embolism at this time, however, did show some chronic lung parenchymal changes with interstitial thickening seen in the periphery of both lungs with no acute lung process apparent. Due to the patient's change of mental status, CT brain without contrast was then performed, however, no acute intracranial hemorrhage or mass effect was seen and it did show some moderate ischemic chronic changes. The patient appeared to be at her baseline at the present moment. Labs indicated a slightly elevated white count of 15.1, an indeterminate troponin of 0.122 and 0.139 and an elevated BNP of 217.2. A urinalysis was checked and showed large leukocyte esterase and 4-6 wbc's. However, the patient appeared to be asymptomatic at this time for any signs or symptoms of a UTI. Blood cultures were ordered, urine culture was also ordered. Cardiology services were consulted secondary to patient's indeterminate troponin and possibly acute on chronic CHF. There was an echocardiogram ordered, however, pending at this time and patient will be given IV Lasix for further diuresis due to patient's underlying heart failure. REVIEW OF SYSTEMS: All other systems reviewed and found to be negative unless mentioned in the HPI. PAST MEDICAL HISTORY: Hypertension, chronic diastolic heart failure, gastroesophageal reflux disease, osteoarthritis, and chronic lumbar back pain. PAST SURGICAL HISTORY: Left tibia, right ankle and right foot surgery, hysterectomy, tonsillectomy. PSYCHIATRIC HISTORY: None. SOCIAL HISTORY: The patient denies any alcohol, tobacco, or illicit drug use. The patient currently lives in a long-term at [facility]. KNOWN ALLERGIES: Demerol, hydrocodone, and penicillins. CURRENT HOME MEDICATIONS: 1. Amlodipine 10 mg oral daily. 2. Aspirin 81 mg daily. 3. Atenolol 50 mg oral daily. 4. Clonidine 0.1 mg p.o. b.i.d. 5. Losartan 25 mg p.o. daily. 6. Pravastatin 40 mg p.o. daily. 7. Prilosec 20 mg oral daily. PHYSICAL EXAMINATION: VITAL SIGNS: BP 182/92, pulse 82, respirations 21, O2 saturations 96% on 2 L of oxygen via nasal cannula, and temp 98.3 degrees Fahrenheit. GENERAL: The patient is alert and oriented x3. She is lying comfortably in bed and in no acute distress at this time. 2 L of oxygen via nasal cannula is in place and caregiver is at the bedside. HEENT: Atraumatic, normocephalic. Pupils are round and reactive to light. Extraocular muscles intact. Moist mucous membranes noted. NECK: Soft, supple. No JVD. Trachea midline. CARDIOVASCULAR: Positive S1 and S2. Regular rate and rhythm. No murmur auscultated. RESPIRATORY: Clear to auscultation bilaterally. No wheezes, rales, or rhonchi. ABDOMEN: Soft, nontender. Bowel sounds present. MUSCULOSKELETAL: Strength 5+ bilaterally upper and lower extremities. Moves all extremities equal. Radial and pedal pulses palpable and equal bilaterally 2+. 2+ nonpitting edema noted in bilateral lower extremities. NEUROLOGIC: Cranial nerves 2 through 12 grossly intact. No focal deficits noted. Speech intact and normal. Gait not assessed. SKIN: Warm, dry, and intact. No rashes. No ulceration noted. PSYCHIATRIC: Good mood and affect. LABORATORY DATA: WBC 15.1, RBC 5.50, hemoglobin 15.5, and platelet 260. Sodium 134, potassium 3.8, chloride 97, anion gap 17, BUN 15, creatinine 1.01, estimated GFR 53, glucose 117. AST 22, ALT 12. CK-MB 3.3. Troponin 0.122, 0.139. BNP 217.2. Urinalysis showed large leukocyte esterase, 4-6 wbc's. DIAGNOSTIC IMAGING: CT lumbar spine without contrast showed multilevel degenerative changes seen throughout the lumbar spine with findings greatest in the lower lumbar spine. There is a grade 1 anterolisthesis of L4 on L5 with an associated disk osteophyte complex resulting in severe bilateral neural foraminal narrowing noted. CT of head without contrast showed no acute intracranial hemorrhage or mass effect, with some moderate ischemic changes. CTA of chest showed no evidence of a pulmonary embolism, however, chronic lung parenchymal changes with interstitial thickening seen in the periphery of both lungs. No acute lung process apparent. ASSESSMENT AND PLAN: 1. Acute hypoxic respiratory failure requiring 2 L of oxygen via nasal cannula, the patient's CTA of chest showed some chronic lung changes, however, no evidence of a pulmonary embolism at this time. The patient will be maintained on DuoNeb treatments and other symptomatic treatments at this time. Due to patient's elevated BNP, she will be started on IV Lasix and an echocardiogram will be rechecked. 2. Possible acute on chronic diastolic heart failure. As above, the patient will be started on IV Lasix for further diuresis and an echocardiogram will be rechecked, currently pending at this time. Cardiology services will be consulted for further evaluation. 3. Indeterminate troponin of 0.122 and 0.139. The patient does not appear to have any signs or symptoms of chest pain or palpitations at this time. Further cardiac enzymes will be monitored and Cardiology services will be consulted for further evaluation. Await echocardiogram results and continue home regimen at this time. 4. Back pain, CT showing multilevel degenerative changes seen throughout the lumbar spine with a grade 1 anterolisthesis of L4 on L5, which is resulting in severe bilateral neural foraminal narrowing, this was further discussed with the patient and also did recommend an outpatient followup with a neurosurgeon for further evaluation and management of her symptoms. During this hospital course, we will start the patient on symptomatic and also conservative management including some muscle relaxants and NSAIDs for pain control. However, due to the patient's underlying possible heart failure, she will have to be monitored closely. 5. Leukocytosis. There are no signs and symptoms of an infectious-like process at this time. However, the patient's urinalysis showed large leukocyte esterase and 4-6 wbc's, patient is currently asymptomatic at this time. Therefore, blood cultures and urine cultures will be ordered and pending at this time, since the patient appears to be asymptomatic, we will hold off on any antibiotic therapy at this time. 6. Hypertension. The patient will be placed on her home regimen along with some IV p.r.n. antihypertensive coverage. 7. Gastroesophageal reflux disease. The patient will be continued on a PPI at this time. 8. Deep venous thrombosis and gastrointestinal prophylaxis. 9. Code status, full code. 10. Surrogate decision maker is patient's family friend, Hue Kaylen, she is a family friend. For this reason, Palliative Care services will be consulted and further DPOA paperwork will be submitted. 11. Disposition pending further workup and clinical findings. Job ID: [id number]
[2019-01-09] MEDS: Furosemide 20 MG/2 ML VIAL SLOW IVP SCH ×2 (05:19→13:14)
[2019-01-09] MEDS: traMADol HCl 50 MG TAB PO PRN ×2 (05:23→13:09)
[2019-01-09 06:12] LABS: Anion Gap 16 mmol/L (10-20); BUN (Urea Nitrogen) 16 mg/dL (9.8-20.1); Calc. Creatinine Clearance 64 mL/min (70-130); Carbon Dioxide 26 mmol/L (23-31); Chloride 98 mmol/L (98-107); Estimated GFR-MDRD 56; Glucose 138 mg/dL (83-110); Potassium 4.2 mmol/L (3.5-5.1); Sodium 136 mmol/L (136-145)
[2019-01-09 06:44] LABS: Hemoglobin 13.8 g/dL (12.0-16.0); Mean Corpuscular HGB CONC 32.7 g/dL (32.0-36.0); Mean Corpuscular Hemoglobin 27.2 pg (27.0-31.0); Mean Corpuscular Volume 83.2 fL (78.0-98.0); Mean Platelet Volume 8.5 fL (7.4-10.4); Platelet Count 251 thou/uL (130-400); RBC Distribution Width 11.8 % (11.5-14.5); Red Blood Cell (RBC) Count 5.08 mill/uL (4.20-5.40); White Blood Cell (WBC) Count 9.5 thou/uL (4.8-10.8)
[2019-01-09] MEDS: Lidocaine 5% Patch TD SCH (08:37)
[2019-01-09] MEDS: Enoxaparin Sodium 40 MG/0.4 ML SYRINGE SC SCH (08:37)
[2019-01-09] MEDS: Losartan 25 MG TAB PO SCH (08:38)
[2019-01-09] MEDS: cloNIDine 0.1 MG TAB PO SCH ×2 (08:38→21:01)
[2019-01-09] MEDS: Famotidine 20 MG TAB PO SCH ×2 (08:38→21:00)
[2019-01-09] MEDS: Atenolol 50 MG TAB PO SCH (08:38)
[2019-01-09] MEDS: Aspirin 81 mg Enteric Coated Tablet PO SCH (08:39)
[2019-01-09 08:48] LABS: Band 4 % (5-11); Lymphocytes 11 % (21-51); MDiff Complete? YES; Monocytes 1 % (0-10); Neutrophil 84 % (42-75); RBC Morphology Normal
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
[2019-01-09] MEDS: Atorvastatin Calcium 20 MG TAB PO SCH (21:00)
[2019-01-10] MEDS: traMADol HCl 50 MG TAB PO PRN ×2 (00:17→08:13)
[2019-01-10] MEDS: Furosemide 20 MG/2 ML VIAL SLOW IVP SCH (05:28)
[2019-01-10] MEDS: Cyclobenzaprine 10 MG TAB PO PRN (05:28)
[2019-01-10 07:42] VITALS: TEMP 98
[2019-01-10] MEDS: Famotidine 20 MG TAB PO SCH (08:13)
[2019-01-10] MEDS: Losartan 25 MG TAB PO SCH (08:13)
[2019-01-10] MEDS: cloNIDine 0.1 MG TAB PO SCH (08:14)
[2019-01-10] MEDS: Lidocaine 5% Patch TD SCH (08:14)
[2019-01-10] MEDS: Enoxaparin Sodium 40 MG/0.4 ML SYRINGE SC SCH (08:14)
[2019-01-10] MEDS: Aspirin 81 mg Enteric Coated Tablet PO SCH (08:14)
[2019-01-10] MEDS: Atenolol 50 MG TAB PO SCH (08:14)
[2019-01-10 09:06] LABS: #Eosinphils 0.2 thou/uL (0.0-0.7); #Lymphocytes 3.3 thou/uL (1.20-3.40); #Monocytes 0.9 thou/uL (0.11-0.59); %Basophils 0.3 % (0.0-1.0); %Eosinophils 1.4 % (0.0-10.0); %Lymphocytes 24.4 % (21.0-51.0); %Monocytes 6.5 % (0.0-10.0); %Neutrophils 67.3 % (42.0-75.0); Hemoglobin 13.7 g/dL (12.0-16.0); Mean Corpuscular HGB CONC 32.9 g/dL (32.0-36.0); Platelet Count 246 thou/uL (130-400); RBC Distribution Width 11.9 % (11.5-14.5); Red Blood Cell (RBC) Count 4.88 mill/uL (4.20-5.40); White Blood Cell (WBC) Count 13.3 thou/uL (4.8-10.8)
[2019-01-10 09:20] LABS: Anion Gap 10 mmol/L (10-20); BUN (Urea Nitrogen) 40 mg/dL (9.8-20.1); Calc. Creatinine Clearance 41 mL/min (70-130); Calcium 9.2 mg/dL (7.8-10.44); Carbon Dioxide 30 mmol/L (23-31); Chloride 96 mmol/L (98-107); Estimated GFR-MDRD 33; Glucose 93 mg/dL (83-110); Potassium 3.4 mmol/L (3.5-5.1); Sodium 133 mmol/L (136-145)
[2019-01-10] MEDS ORDERED: Sodium Chloride 0.9% 1,000 ML IV SCH (12:15)
[2019-01-10] MEDS ORDERED: Potassium Chloride 20 MEQ TAB PO SCH (12:15)
--- NOTE | 2019-01-10 13:02 | RAD ---
RADIOGRAPH CHEST 2 VIEWS: DATE: 01/10/2019 HISTORY: 78-year-old female with leukocytosis, cough, and abnormal breath sounds. FINDINGS: There is no airspace density, pulmonary edema, pneumothorax, or cardiomegaly. There is minimal blunti ng of the bilateral posterior costophrenic angles. IMPRESSION: 1. Tiny bilateral pleural effusions. 2. Otherwise negative
--- NOTE | 2019-01-10 14:16 | EKG ---
Test Reason : CP Blood Pressure : / mmHG Vent. Rate : 076 BPM Atrial Rate : 076 BPM P-R Int : 140 ms QRS Dur : 094 ms QT Int : 452 ms P-R-T Axes : 026 021 006 degrees QTc Int : 508 ms Sinus rhythm with Premature atrial complexes with Abberant conduction Confirmed by MINERVA LIEBERMAN ([id number]), multimedia editor CHRISTIAN MEDEIROS ([id number]) on 01/10/2019 2:15:49 PM Referred By: Confirmed By:MINERVA LIEBERMAN
--- NOTE | 2019-01-10 15:07 | ULT ---
RENAL ULTRASOUND: HISTORY: Right flank pain. FINDINGS: The right kidney measures 10.2 cm length. The left kidney measures 10.5 cm. No hydronephrosis. Cor tical echogenicity and cortical thickness appear normally maintained. The bladder is mildly distende d and appears unremarkable. IMPRESSION: Unremarkable renal ultrasound. POS: OFF
[2019-01-10 16:26] VITALS: BP 124/59
[2019-01-10] MEDS ORDERED: Furosemide 20 MG TAB PO SCH (16:30)
[2019-01-11] MEDS ORDERED: Famotidine 20 MG TAB PO SCH (09:00)
== END 2019-01-10 17:42 | disposition home health service (06) ==
LOC: ERS 10:28 → 2NO 19:40
PROVIDERS: ADMIT Internal Medicine; ATTEND Internal Medicine
DX: J96.01 Acute respiratory failure with hypoxia (principal); K21.9 Gastro-esophageal reflux disease without esophagitis; M19.90 Unspecified osteoarthritis, unspecified site; G89.29 Other chronic pain; M54.9 Dorsalgia, unspecified; R41.82 Altered mental status, unspecified; I11.0 Hypertensive heart disease with heart failure; I50.33 Acute on chronic diastolic (congestive) heart failure; M47.816 Spondylosis without myelopathy or radiculopathy, lumbar region; Z87.891 Personal history of nicotine dependence; Z79.82 Long term (current) use of aspirin; Z79.899 Other long term (current) drug therapy; Z88.0 Allergy status to penicillin; Z88.5 Allergy status to narcotic agent
CPT/HCPCS: 70450; 71046; 71275; 72131; 76770; 80048 ×2; 80053; 82553; 83880 ×2; 84145; 84484 ×2; 85025 ×3; 87040; 87086; 93005; 93306; 94640; 94760 ×4; 96361; 96372 ×2; 96374; 96375; 96376 ×2; 97116; 97139 ×4; 99285; G0378 ×2; 36415; 81003; 81015; J1650; J1940; J2930; J7620; Q9966

== ENCOUNTER 2019-08-02 06:52 | Inpatient (IN) | payer MEDICARE ==
[2019-08-02] MEDS ORDERED: Furosemide 40 MG/4 ML VIAL ONE (07:04)
[2019-08-02] MEDS ORDERED: Albuterol Sulfate 2.5 mg/3 ml Neb ONE (07:10)
[2019-08-02] MEDS ORDERED: Nitroglycerin 2% Ointment 1 INCH/1 GM Packet ONE (07:15)
[2019-08-02] MEDS ORDERED: Aspirin Chewable 81 MG TAB ONE (07:15)
[2019-08-02 07:18] LABS: Actual Bicarbonate (HCO3a) 24.7 mEq/L (22-28); Analyzer IN Cardio ER; Base Excess (BEa) 0.1 mEq/L (-2.0 to +3.0); CO2 Tension 39.8 mmHg (35.0-45.0); Calcium, Ionized 1.12 mmol/L (1.12-1.30); Carboxyhemoglobin (COHb) 0.7 gm% (0.0-3.0); Hemoglobin (Hb) 13.2 g/dL (12.0-16.0); O2 Tension (PaO2) 100.2 mmHg (> 70.0); Potassium - ABG Lab 3.35 mmol/L (3.70-5.30); pH, Arterial 7.41 (7.35-7.45)
[2019-08-02 07:28] LABS: Puncture Site RRA
--- NOTE | 2019-08-02 07:40 | RAD ---
EXAM: Single view of the chest HISTORY: Dyspnea COMPARISON: 05/24/2018 FINDINGS: Single view of the chest shows an enlarged but stable cardiomediastinal silhouette. There i s no evidence of consolidation, mass, or pleural effusion. The bones are unremarkable. IMPRESSION: No evidence of acute cardiopulmonary disease
[2019-08-02 08:13] LABS: #Eosinphils 1.1 thou/uL (0.0-0.7); #Lymphocytes 0.7 thou/uL (1.20-3.40); #Monocytes 1.3 thou/uL (0.11-0.59); #Neutrophils 9.7 thou/uL (1.40-6.50); %Basophils 0.2 % (0.0-1.0); %Eosinophils 8.8 % (0.0-10.0); %Lymphocytes 5.6 % (21.0-51.0); %Monocytes 9.9 % (0.0-10.0); %Neutrophils 75.4 % (42.0-75.0); Hemoglobin 12.9 g/dL (12.0-16.0); Mean Corpuscular HGB CONC 33.3 g/dL (32.0-36.0); Mean Corpuscular Hemoglobin 28.5 pg (27.0-31.0); Mean Corpuscular Volume 85.7 fL (78.0-98.0); Mean Platelet Volume 7.9 fL (7.4-10.4); Platelet Count 175 thou/uL (130-400); RBC Distribution Width 12.4 % (11.5-14.5); Red Blood Cell (RBC) Count 4.54 mill/uL (4.20-5.40); White Blood Cell (WBC) Count 12.8 thou/uL (4.8-10.8)
[2019-08-02 08:40] LABS: ALT (SGPT) 12 U/L (8-55); AST (SGOT) 25 U/L (5-34); Albumin 4.1 g/dL (3.4-4.8); Alkaline Phosphatase 72 U/L (40-110); Anion Gap 19 mmol/L (10-20); BUN (Urea Nitrogen) 14 mg/dL (9.8-20.1); Bilirubin, Total 0.5 mg/dL (0.2-1.2); CK (CPK) 197 U/L (29-168); Calc. Creatinine Clearance 0 mL/min (70-130); Carbon Dioxide 18 mmol/L (23-31); Chloride 84 mmol/L (98-107); Estimated GFR-MDRD 60; Globulin 3.2 g/dL (2.4-3.5); Glucose 136 mg/dL (83-110); Lipase 7 U/L (8-78); Potassium 3.9 mmol/L (3.5-5.1); Protein, Total 7.3 g/dL (6.0-8.3)
[2019-08-02 08:43] LABS: Sodium 117 mmol/L (136-145)
[2019-08-02 08:51] LABS: Bacteria/HPF None Seen HPF (None Seen); Bilirubin Negative (Negative); Blood, Urine Negative (Negative); Clarity Clear (Clear); Glucose, Urine (Dipstick) Normal (Negative); Leukocyte 25 Leu/uL (Negative); Nitrite Negative (Negative); Protein, Urine (Dipstick) 30 mg/dL (Neg-Trace); RBC/HPF 0-3 HPF (0-3); Squamous Epithelial 0-3 HPF (0-3); Urobilinogen Normal mg/dL (Less than 2)
[2019-08-02] MEDS ORDERED: Dexamethasone 10 MG/ML VIAL ONE (09:00)
[2019-08-02] MEDS ORDERED: Magnesium 2 GM/50 ML BAG (IN WATER) ONE (09:00)
[2019-08-02] MEDS ORDERED: Enoxaparin Sodium 30 MG/0.3 ML SYRINGE ONE (09:00)
[2019-08-02] MEDS ORDERED: Enoxaparin Sodium 60 MG/0.6 ML SYRINGE ONE (09:00)
[2019-08-02] MEDS ORDERED: Cepastat Lozenges 1 LOZ PO PRN (09:27)
[2019-08-02] MEDS ORDERED: Senokot S 8.6-50 MG TAB PO PRN (09:27)
[2019-08-02] MEDS ORDERED: Bisacodyl 10 MG SUPP PR PRN (09:27)
[2019-08-02] MEDS ORDERED: Zolpidem Tartrate 5 MG TAB PO PRN (09:27)
[2019-08-02] MEDS ORDERED: hydrALAZINE 20 MG/ML VIAL SLOW IVP PRN (09:27)
[2019-08-02] MEDS ORDERED: Sodium Chloride 0.65% Nasal 44 ML BOT EA NARE PRN (09:27)
[2019-08-02] MEDS ORDERED: Artificial Tears 18 DROP/0.9 ML EA EYE PRN (09:27)
[2019-08-02] MEDS ORDERED: Diabetic Tussin 200 MG/10 ML UDCUP PO PRN (09:27)
[2019-08-02] MEDS ORDERED: Calcium Carbonate 500 MG ChewTAB PO PRN (09:27)
[2019-08-02] MEDS ORDERED: Ondansetron PF 4 MG/2 ML Vial IVP PRN (09:27)
[2019-08-02] MEDS ORDERED: Ondansetron ODT 4 MG TAB PO PRN (09:27)
[2019-08-02] MEDS ORDERED: Loperamide HCl 2 MG CAP PO PRN (09:27)
--- NOTE | 2019-08-02 10:23 | HP ---
PRIMARY CARE PHYSICIAN: Rafi Leon MD REASON FOR ADMISSION: Acute respiratory failure, [id number] diastolic CHF exacerbation, new onset atrial fibrillation. HISTORY OF PRESENT ILLNESS: A 79-year-old female, who has underlying diastolic heart failure, based on most recent echocardiography from December 2018, the patient has EF 60% to 65% with diastolic dysfunction. The patient does not report any previous history of atrial fibrillation, and in the emergency room, the patient was found with new onset atrial fibrillation. The patient lives at [facility], and the patient's friend, who is medical power of blind escort reports that the patient is drinking too much water at her apartment. In the emergency room, the patient's sodium level is 117. The patient was found with bilateral lower extremity edema and elevated BNP. saturation was 86% on room air. She was hypertensive, and she was in respiratory distress. She was initially placed on CPAP, but she was not maintaining saturation, and that is why in the emergency room, the patient was kept on BiPAP. In the emergency room, the patient received DuoNeb, magnesium sulfate, levofloxacin, Lovenox 1 mg/kg, nitroglycerin patch, and aspirin, and Decadron 10 mg was given. The patient was not tolerating without BiPAP, and she was desaturating, and that is why we decided to keep this patient in the hospital. REVIEW OF SYSTEMS: CONSTITUTIONAL: Negative for weight loss or gain, ability to conduct usual activities. SKIN: Negative for rash, itching. EYES: Negative for double vision, pain. ENT/MOUTH: Negative for nose bleeding, neck stiffness, pain, tenderness. CARDIOVASCULAR: Negative for palpitations, dyspnea on exertion, orthopnea. RESPIRATORY: Negative for shortness of breath, wheezing, cough, hemoptysis, fever or night sweats. GASTROINTESTINAL: Negative for poor appetite, abdominal pain, heartburn, nausea, vomiting, constipation, or diarrhea. GENITOURINARY: Negative for urgency, frequency, dysuria, nocturia. MUSCULOSKELETAL: Negative for pain, swelling. NEUROLOGIC/PSYCHIATRIC: Negative for anxiety, depression. ALLERGY/IMMUNOLOGIC: Negative for skin rash, bleeding tendency. See my HPI for pertinent positives and negatives. All other review of systems reviewed and negative except as mentioned in HPI. PAST MEDICAL HISTORY: Hypertension, dyslipidemia, osteoarthritis, obesity, gastroesophageal reflux disease, history of alcohol abuse, dyslipidemia, and chronic diastolic heart failure. ALLERGIES: 1. DEMEROL. 2. HYDROCODONE. 3. PENICILLIN. CURRENT HOME MEDICATIONS: 1. Amlodipine 5 mg daily. 2. Clonidine 0.1 mg twice daily. 3. Atenolol 25 mg daily. 4. Pravastatin 40 mg daily. 5. Prilosec 10 mg daily. 6. Aspirin 81 mg p.o. daily. 7. Lidocaine patch daily. PAST SURGICAL HISTORY: Left tibia and right ankle fracture repair, hysterectomy, and tonsillectomy. PAST PSYCHIATRIC HISTORY: Reviewed and negative. SOCIAL HISTORY: The patient lives in [facility] with her dog. No history of smoking. The patient drinks alcohol almost every day as well as the patient drinks lot of water. FAMILY HISTORY: No strong family history of premature coronary artery disease, stroke, or cancer. EMERGENCY ROOM COURSE: The patient has received Decadron 10 mg IV push, magnesium sulfate, Lovenox 1 mg/kg, Lasix 40 mg, aspirin 324 mg, Levaquin 750 mg, nitroglycerin patch, DuoNeb, and albuterol nebulization. PHYSICAL EXAMINATION: VITAL SIGNS: Currently, blood pressure 162/78, pulse 98, respiratory rate 24, saturation 97% on BiPAP, weight 88.9 kg. GENERAL: The patient is currently hypertensive and in respiratory distress. HEENT: Head, normocephalic and atraumatic. Eyes; pupils round and reactive to light. Extraocular muscle intact. ENT; oropharynx within normal limits. Moist mucous membrane. No oral lesion. No pharyngeal erythema. No exudate. NECK: Supple. Elevated JVD. No thyromegaly. No carotid bruit. LUNGS: Bibasilar rales noted. End-expiratory wheezing heard. Accessory muscles of respirations in use. CARDIAC: S1 and S2. Irregularly irregular. No murmur. No gallop. No rub. ABDOMEN: Soft. Bowel sounds present. Nontender. Nondistended. No organomegaly. No mass. No suprapubic tenderness. BACK: Unremarkable. No CVA tenderness. EXTREMITIES: Upper extremities, passive movement of all joints is normal. Lower extremity, bilateral lower extremity pitting edema +2. Good distal pulsation. SKIN: No skin rash. HEMATOLOGICAL: No lymphadenopathy. NEUROLOGIC: Grossly nonfocal examination. SIGNIFICANT LABORATORY DATA: EKG is showing atrial fibrillation with RVR. Chest x-ray reported as no acute cardiopulmonary process. CBC; WBC 12.8, hemoglobin 12.9, platelet 175. ABG; pH 7.41, CO2 of 39.8, O2 of 100.2, saturation 97.3, bicarb 24.7 on BiPAP. BMP; sodium 117, potassium 3.9, chloride 84, carbon dioxide 18, BUN 14, creatinine 0.91, glucose 136, calcium 9.0. Lactic acid 2.1. LFT; AST 25, ALT 12, alkaline phosphatase 72, albumin 4.1. Lipase 7. CK , troponins less than 0.010. BNP 394.9. Urinalysis, unremarkable. ASSESSMENT AND PLAN: 1. Acute respiratory failure with hypoxia, most likely related with underlying congestive heart failure exacerbation, suspected chronic obstructive pulmonary disease/asthma exacerbation. Currently, requiring BiPAP to maintain saturation. The patient will be admitted to IMCU. Pulmonary group will be consulted. We will wean off BiPAP as tolerated. We will provide oxygen to maintain saturation above 92%. 2. [id number] diastolic heart failure exacerbation. The patient has echocardiography in December 2018, which showed ejection fraction normal and diastolic dysfunction. She has elevated BNP and current presentation consistent with volume overload secondary to congestive heart failure exacerbation. The patient will require Lasix 40 mg IV b.i.d., and fluid restriction of 1000 mL per day, and we will resume the patient's blood pressure medication. Cardiology will be consulted. 3. New onset atrial fibrillation with rapid ventricular response. Cardiology will be consulted. We will continue with the patient's home medication and monitor her heart rate. We will also give her Lovenox 1 mg/kg subcutaneously twice daily. 4. Severe hyponatremia, likely due to hypervolemic hyponatremia from fluid retention plus beer potomania. Nephrology has been consulted. We will check urine sodium, urine creatinine, TSH, random cortisol as a part of workup. Fluid restriction 1000 mL per day. 5. Hypertension, uncontrolled. We will resume the patient's home medication, amlodipine 5 mg daily. 6. Atenolol 25 mg daily. 7. Clonidine 0.1 mg twice daily and titrate blood pressure medication as needed basis. 8. Dyslipidemia. Continue pravastatin 40 mg p.o. at bedtime. 9. Deep venous thrombosis prophylaxis. The patient is already on full dose of Lovenox therapy. 10. Gastrointestinal prophylaxis. Pepcid 20 mg p.o. b.i.d. CODE STATUS: The patient wanted to be a full code. DISPOSITION PLAN: Based on clinical course. Before discharge, the patient will need PT, OT, and possible shelter home placement. Job ID: [id number]
[2019-08-02 10:53] LABS: Troponin I Less than 0.010 ng/mL (< 0.028)
[2019-08-02 11:31] LABS: Lactic Acid 1.5 mmol/L (0.5-2.2)
[2019-08-02] MEDS: Nitroglycerin 2% Ointment 1 INCH/1 GM Packet TOP SCH ×2 (13:11→22:30)
[2019-08-02] MEDS: Furosemide 20 MG/2 ML VIAL SLOW IVP SCH (13:11)
[2019-08-02] MEDS ORDERED: Multivitamins CHEW w/Iron Tablet PO SCH (14:00)
[2019-08-02] MEDS ORDERED: Thiamine 100 MG TAB PO SCH (14:00)
[2019-08-02] MEDS ORDERED: Folic Acid 1 MG TAB PO SCH (14:00)
[2019-08-02 14:41] LABS: Troponin I 0.025 ng/mL (< 0.028)
--- NOTE | 2019-08-02 14:47 | CON ---
DATE OF CONSULTATION: 08/02/2019 SERVICE: Pulmonary Medicine. REASON FOR CONSULTATION: ICU patient. HISTORY OF PRESENT ILLNESS: The patient is a very pleasant 79-year-old white female with past medical history significant for weakness and heart failure. Apparently, she was absolutely in her usual state of health. She tried to transition from bed to her wheelchair. In doing so, she fell. She landed on the ground, was so weak, she could not get up. She was not acutely ill. She did not have any recent fevers, chills, nausea, or vomiting and in fact, she actually denied having any significant difficulty breathing. EMS Services were contacted and went to her house. She was subsequently transitioned to the emergency department. She was found to be a touch hypoxemic. As such, she was placed on CPAP and tucked into the ICU. She did not like wearing the BiPAP and this was discontinued immediately. Since then, she has been on 2 L nasal cannula, denies having any specific shortness of breath or difficulty with her breathing. PAST MEDICAL HISTORY: 1. Hypertension. 2. Dyslipidemia. 3. Chronic diastolic heart failure. 4. Osteoarthritis. 5. Obesity. 6. Gastroesophageal reflux disease. 7. Alcohol abuse. PAST SURGICAL HISTORY: 1. Left tibia surgery. 2. Right ankle fracture repair. 3. Hysterectomy. 4. Tonsillectomy. FAMILY HISTORY: Noncontributory. SOCIAL HISTORY: She lives in [facility] with her dog. She denies any alcohol or illicit drugs. She drinks alcohol on a daily basis. She also drinks plenty of fluid. She denies having exposure to chemicals, dust, asbestos , or tuberculosis. REVIEW OF SYSTEMS: General; head, ears, eyes, nose, throat; cardiovascular; respiratory; GI; ; musculoskeletal; neurologic; and skin are negative except as mentioned in the HPI. ALLERGIES: HYDROCODONE, MEPERIDINE, AND PENICILLIN. MEDICATIONS: All inpatient medications were reviewed. Multiple updates were made at this time. PHYSICAL EXAMINATION: VITAL SIGNS: Afebrile, pulse 82, respirations 14, and saturation 98% on 2 L nasal cannula. GENERAL: The patient is awake and alert, in no apparent distress. LUNGS: Very good air entry. There are some dependent crackles present. No prolonged expiratory phase or wheezing is appreciated. HEART: Normal rate and regular. ABDOMEN: Soft, nontender, and nondistended. Bowel sounds are positive. MUSCULOSKELETAL: No cyanosis or clubbing. There is 2+ pitting throughout. NEUROLOGIC: Grossly nonfocal. LABORATORY DATA: WBC 12.8, hemoglobin 12.9, platelets 175,000. Neutrophil percentage is 75. A pH 7.41, pCO2 of 39, pO2 of 100 while on 40% FiO2. Sodium 117, which is the lowest it has been. Basic metabolic profile and liver function studies are otherwise unremarkable. BNP 394. Troponin negative x2. Lactate 2.1. Cortisol 13.4. Urinalysis is unremarkable. There is no significant proteinuria present. IMAGING: Chest x-ray demonstrates possible left pleural parenchymal disease. Cephalization is present throughout bilateral lung landers. Lung volumes are quite small. ASSESSMENT: 1. Acute hypoxic respiratory failure. 2. Acute on chronic diastolic heart failure. 3. Hyponatremia, perhaps secondary to potomania. 4. Atrial fibrillation with rapid ventricular response. DISCUSSION AND PLAN: We will restrict fluids, give multiple dose of Lasix. We will trend sodium through time. ASC protocol will be initiated. We will give her thiamine and folate. She will remain in the IMCU for the time being. Once her sodium is above 120, she can be transitioned to the floor. 70 minutes have been devoted to this patient in various activities. I personally reviewed all imaging studies and laboratory data noted within this document. For fifty percent of this time, I was interacting with the patient at the bedside or coordinating care with the care team. For the remainder of the time I was immediately available to the patient in the hospital unit. Job ID: [id number] MTDD
[2019-08-02 15:22] VITALS: BMI 33.3
[2019-08-02 18:26] LABS: Anion Gap 18 mmol/L (10-20); BUN (Urea Nitrogen) 13 mg/dL (9.8-20.1); Calc. Creatinine Clearance 71 mL/min (70-130); Calcium 8.9 mg/dL (7.8-10.44); Carbon Dioxide 23 mmol/L (23-31); Chloride 81 mmol/L (98-107); Estimated GFR-MDRD 60; Glucose 147 mg/dL (83-110); Potassium 3.3 mmol/L (3.5-5.1)
[2019-08-02 18:27] LABS: Sodium 119 mmol/L (136-145)
[2019-08-02] MEDS ORDERED: Budesonide 0.5 MG/2 ML NEB INH SCH (18:30)
[2019-08-02] MEDS ORDERED: Furosemide 40 MG/4 ML VIAL SLOW IVP SCH (18:45)
--- NOTE | 2019-08-02 19:14 | CON ---
DATE OF CONSULTATION: PRIMARY RECYCLING OPERATIONS MANAGER: Dr. Brad Armendariz. REASON FOR CONSULTATION: Atrial fibrillation, history of diastolic heart failure. HISTORY OF PRESENT ILLNESS: Ms. Kassandra Flowers is a very pleasant 79-year-old woman. She came to the hospital today complaining of difficulty breathing. The patient was found to be wheezing, and has severe hyponatremia. The patient did not have chest pain, but had a sodium level of 117 and oxygen saturation 86% on room air. The patient in the emergency room received DuoNeb, Decadron, and BiPAP, but now she is off the BiPAP. REVIEW OF SYSTEMS: GENERAL: Negative for weight gain or loss. VISION: No changes. HEARING: No changes. PULMONARY: Positive for trouble breathing. CARDIAC: No chest pain or pressure. GASTROINTESTINAL: No nausea, vomiting, or diarrhea. SKIN: No rashes. PAST MEDICAL HISTORY: Diastolic heart failure. ALLERGIES: DEMEROL, PENICILLIN, AND HYDROCODONE. MEDICATION AT HOME: 1. Amlodipine. 2. Clonidine. 3. Atenolol. 4. Pravastatin. 5. Prilosec. 6. Aspirin. PAST SURGICAL HISTORY: Left tibial and right ankle fracture repair. SOCIAL HISTORY: Lives in [facility]. No smoking. She does drink alcohol daily. Drinks a lot of water. FAMILY HISTORY: Negative for heart disease at a young age. PHYSICAL EXAMINATION: GENERAL: She is a moderately ill-appearing, elderly woman, not in any distress. VITAL SIGNS: Blood pressure 156/70. Pulse is 100 to 110, it is currently atrial fibrillation. LUNGS: Expiratory wheezing. CARDIAC: Irregularly irregular. ABDOMEN: Soft and nontender. EXTREMITIES: There is mild edema. PERTINENT LABORATORY DATA: Sodium is 119, it was 117 initially; potassium 3.3, it was 3.9 initially. She has received diuretics. ASSESSMENT: 1. Diastolic congestive heart failure. 2. Atrial fibrillation. The initial EKG showed sinus with frequent PACs, but now she is in atrial fibrillation. 3. Hyponatremia. PLAN: 1. Fluid restriction. 2. She is on intravenous Lasix. 3. We will add Lovenox. 4. Check magnesium level tomorrow. If it is low, give magnesium. 5. Replete potassium. Job ID: [id number]
[2019-08-02] MEDS: Potassium Chloride 20 MEQ TAB PO SCH ×2 (19:22→22:31)
--- NOTE | 2019-08-02 19:22 | CON ---
DATE OF CONSULTATION: 08/02/2019 REQUESTING PHYSICIAN: FELIPE Hanley REASON FOR CONSULTATION: Hyponatremia. HISTORY OF PRESENT ILLNESS: A 79-year-old obese female with known history of diastolic heart failure, hypertension, dyslipidemia, amongst other, who is a living center resident, who was brought in from the facility by EMS due to worsening shortness of breath and difficulty breathing. History is limited due to memory lapses. The patient does not know where she was or how she got to the [facility]. She was reported to be in dyspneic and hypoxic on presentation to the ER with SpO2 of 85. She was also noted to be hypertensive and in respiratory distress, hence was started on BiPAP. She was also noted to be tachycardic and in atrial fibrillation with rapid ventricular response, hence received anticoagulation as well as nitroglycerin and Decadron. Further evaluation revealed hyponatremia with sodium of 117, hence Nephrology consult. The patient admitted with shortness of breath, but denied chest pain, fever, dysuria, hematuria, or abdominal pain. She, however, admitted to chronic bilateral leg swelling which has worsened. She denied nausea, vomiting, or change in bowel habit. She also denied falls or focal weakness. PAST MEDICAL HISTORY: 1. Gastroesophageal reflux disease. 2. Hypertension. 3. Diastolic heart failure. 4. Degenerative joint disease. 5. Chronic alcohol abuse history. 6. Dyslipidemia. PAST SURGICAL HISTORY: 1. Left tibia and right ankle fracture repair. 2. Hysterectomy. 3. Tonsillectomy. FAMILY HISTORY: Reviewed and noncontributory. There is no history of premature coronary artery disease, stroke, or cancer. SOCIAL HISTORY: The patient currently lives in [facility]. The patient drinks alcohol almost every day. She denied smoking or recreational drug use. ALLERGIES: 1. DEMEROL. 2. HYDROCODONE. 3. PENICILLIN. CURRENT HOME MEDICATIONS: 1. Lorazepam 0.5 mg p.o. q.6 p.r.n. 2. Promethazine 25 mg q.6 p.r.n. 3. Amlodipine 5 mg p.o. daily. 4. Aspirin 81 mg p.o. daily. 5. Atenolol 25 daily. 6. Cholecalciferol 1000 units capsule p.o. daily. 7. Nitrofurantoin 100 mg p.o. b.i.d. 8. Omeprazole 10 mg p.o. daily. 9. Pravachol 40 mg p.o. daily. 10. Ambien 10 mg p.o. at bedtime for insomnia. 11. Clonidine 0.1 mg p.o. b.i.d. 12. Lasix 40 mg p.o. daily. 13. Lidocaine patch one daily. REVIEW OF SYSTEMS: Twelve-point review of system performed was negative other than pertinent positives and negatives included in the history of present illness. PHYSICAL EXAMINATION: VITAL SIGNS: Temperature 97.8, pulse 90, respiratory rate 25, SpO2 94% on 2 L nasal cannula oxygen, blood pressure is 156/70. GENERAL: Elderly female, in moderate respiratory distress. Afebrile. Anicteric. Acyanotic. HEENT: Normocephalic and atraumatic. Oral mucosa is dry. NECK: Supple. Nontender with good range of motion. No obvious JVD or masses appreciated. CARDIOVASCULAR: Irregular rhythm and rate with normal heart sounds one and two. RESPIRATORY: Diminished air movement with prolonged expiration and scattered rhonchi noted. Work of breathing is increased. GI: Obese, soft, nontender, nondistended with normal bowel sounds. EXTREMITIES: Moderate bilateral leg edema noted. RAIL TECHNICIAN: Sleeping but easily arousable. When awake, she is coherent with good insight. Cranial nerves 2 through 12 are grossly intact. The patient, however, has no memory of events leading to hospitalization. She was acting me where she was, how she got to be placed. She moves all extremities. Power is symmetrical about 4/5 in all limbs. DIAGNOSTIC DATA: CBC showed WBC count of 12.8, hemoglobin of 12.9, MCV of 85.7, platelets of 175. Arterial blood gas performed earlier on this morning showed pH of 7.41, pCO2 of 39.8, pO2 of 100, and this was done on BiPAP 11.5. CMP performed earlier today at 7:59 a.m., showed sodium 117, potassium 3.9, chloride 84, CO2 18, BUN 14, creatinine 0.91, glucose 136, calcium 9.0. Total bilirubin 0.5, AST 25, ALT 12, alkaline phosphatase 72, total protein 7.3, albumin 4.1, globulin 3.2. Lipase is 7. Initial cardiac enzymes showed CK 197, troponin less than 0.010. BNP 394. Serum osmolality was 241. Initial lactic acid was 2.1. Repeat 3 hours later was 1.5. Urinalysis performed earlier on today showed yellow clear urine with pH of 6.0, specific gravity of 1.022, urine protein 330 mg/dL, normal glucose, trace ketone, negative blood, nitrite, bilirubin, and leukocyte esterase 25. Microscopy showed 0 to 3 rbc and 7 to 10 WBC with no bacteria seen. Chest x-ray performed earlier today showed no evidence of acute cardiopulmonary disease. Echocardiogram performed in December of 2018 showed preserved systolic function with EF of 60% to 65% with grade 1/3 diastolic dysfunction. Mild mitral regurgitation and tricuspid regurgitation were also noted. EKG showed atrial fibrillation with rapid ventricular response. ASSESSMENT: 1. Hyponatremia: This is hypo-osmotic hyponatremia. The patient is clinically hypovolemic. She is a chronic alcohol user and also admitted to excessive water intake. She is not on thiazide diuretics, but home medication review showed that she is not on any SSRI or antidepressant. This most likely is due to congestive heart failure exacerbation with possible contribution from beer potomania and poor solute intake. Syndrome of inappropriate antidiuretic hormone remains a concern in this patient. Review of medical records showed that the patient had chronic intermittent hyponatremia dating back to 2016. However, prior to this, current level of 117, the patient had sodium of 133 on January 10, 2019. There is no overt mental status neurological symptom other than memory lapses. The patient denied falls or gait instability. She was reportedly oriented x4 previously. She is, however, still oriented x4, though her memory lapses thought be events leading to hospitalization. She, however, may have urinary tract infection and is on nitrofurantoin and urinalysis shows pyuria. The mental status change may not be from hyponatremia and may well be from urinary tract infection. The patient also has history of chronic alcohol abuse. 2. New-onset atrial fibrillation with rapid ventricular response. This may be related to alcohol abuse. 3. Acute respiratory failure: Due to congestive heart failure and chronic obstructive pulmonary disease exacerbation. The patient admitted to remote tobacco use. Chest x-ray, however, was unremarkable. 4. Chronic alcohol use. 5. Chronic bilateral leg edema. 6. Acute mental status change: Most likely metabolic encephalopathy from hyponatremia with possible contribution from alcohol use and urinary tract infection. PLAN: 1. We will get stat BMP to reassess the patient's electrolytes since the patient has received Lasix and has diuresed well since admission. We will also get urine osmolality as well as urine sodium. We will give hypertonic solution if repeat BMP is still below 120 given memory lapses. We will continue diuretic therapy since patient is hypervolemic. 2. We will consider V2 receptor antonio. 3. Further treatment to follow depending on hospital course and review of other diagnostic tests. Many thanks for involving us in the care of this patient. We will follow along with you. We will also monitor electrolytes closely. Other treatment as per primary attending and Cardiology. Job ID: [id number]
[2019-08-02 19:58] LABS: Creatinine, Urine Less than 20.00 mg/dL (47-110); Protein, Urine Random Quant Less than 10 mg/dL (1-14); Sodium, Urine 71 mmol/L (Not Available)
[2019-08-02] MEDS: cloNIDine 0.1 MG TAB PO SCH (20:11)
[2019-08-02] MEDS: Enoxaparin Sodium 80 MG/0.8 ML SYRINGE SC SCH (20:11)
[2019-08-02] MEDS: Famotidine 20 MG TAB PO SCH (20:11)
[2019-08-02] MEDS: Atorvastatin Calcium 10 MG TAB PO SCH (20:11)
[2019-08-02] MEDS: Acetaminophen 325 MG TAB PO PRN (20:17)
[2019-08-02] MEDS ORDERED: Enoxaparin Sodium 40 MG/0.4 ML SYRINGE SC SCH (21:00)
[2019-08-02] MEDS ORDERED: Lidocaine Patch Removal 1 EACH TOP SCH (21:00)
[2019-08-02] MEDS ORDERED: Enoxaparin Sodium 80 MG/0.8 ML SYRINGE SC SCH (21:00)
[2019-08-02 21:40] LABS: Anion Gap 15 mmol/L (10-20); BUN (Urea Nitrogen) 13 mg/dL (9.8-20.1); Calc. Creatinine Clearance 59 mL/min (70-130); Calcium 8.8 mg/dL (7.8-10.44); Carbon Dioxide 26 mmol/L (23-31); Chloride 80 mmol/L (98-107); Estimated GFR-MDRD 49; Glucose 147 mg/dL (83-110); Potassium 3.4 mmol/L (3.5-5.1)
[2019-08-02 21:42] LABS: Sodium 118 mmol/L (136-145)
[2019-08-03] MEDS: Acetaminophen 325 MG TAB PO PRN (02:00)
[2019-08-03 05:39] LABS: #Lymphocytes 0.6 thou/uL (1.20-3.40); #Monocytes 0.6 thou/uL (0.11-0.59); #Neutrophils 7.5 thou/uL (1.40-6.50); %Basophils 0.1 % (0.0-1.0); %Eosinophils 0.2 % (0.0-10.0); %Lymphocytes 6.7 % (21.0-51.0); %Monocytes 7.2 % (0.0-10.0); %Neutrophils 85.9 % (42.0-75.0); Hemoglobin 11.3 g/dL (12.0-16.0); Mean Corpuscular HGB CONC 33.8 g/dL (32.0-36.0); Mean Corpuscular Hemoglobin 27.9 pg (27.0-31.0); Mean Corpuscular Volume 82.4 fL (78.0-98.0); Mean Platelet Volume 8.3 fL (7.4-10.4); Platelet Count 199 thou/uL (130-400); RBC Distribution Width 12.2 % (11.5-14.5); Red Blood Cell (RBC) Count 4.05 mill/uL (4.20-5.40); White Blood Cell (WBC) Count 8.7 thou/uL (4.8-10.8)
[2019-08-03] MEDS: Furosemide 20 MG/2 ML VIAL SLOW IVP SCH ×2 (05:40→15:16)
[2019-08-03] MEDS: Nitroglycerin 2% Ointment 1 INCH/1 GM Packet TOP SCH ×3 (05:40→21:02)
[2019-08-03 05:52] LABS: ALT (SGPT) 13 U/L (8-55); AST (SGOT) 25 U/L (5-34); Albumin 3.7 g/dL (3.4-4.8); Alkaline Phosphatase 61 U/L (40-110); Anion Gap 15 mmol/L (10-20); BUN (Urea Nitrogen) 15 mg/dL (9.8-20.1); Bilirubin, Total 0.4 mg/dL (0.2-1.2); Calc. Creatinine Clearance 58 mL/min (70-130); Calcium 8.7 mg/dL (7.8-10.44); Carbon Dioxide 27 mmol/L (23-31); Chloride 83 mmol/L (98-107); Estimated GFR-MDRD 48; Globulin 2.5 g/dL (2.4-3.5); Glucose 128 mg/dL (83-110); Magnesium 1.4 mg/dL (1.6-2.6); Phosphorus 3.4 mg/dL (2.3-4.7); Potassium 3.9 mmol/L (3.5-5.1); Protein, Total 6.2 g/dL (6.0-8.3); Sodium 121 mmol/L (136-145); Uric Acid 5.2 mg/dL (2.6-6.0)
[2019-08-03] MEDS ORDERED: Magnesium Sulfate 4 GM in Sodium Chloride 0.9% 250 ML 250 ML IVPB SCH (06:00)
[2019-08-03] MEDS ORDERED: Amlodipine 10 MG TAB PO SCH (09:00)
[2019-08-03] MEDS ORDERED: Pravastatin Sodium 40 MG TAB PO SCH (09:00)
[2019-08-03] MEDS ORDERED: Enoxaparin Sodium 40 MG/0.4 ML SYRINGE SC SCH (09:00)
--- NOTE | 2019-08-03 09:12 | PRG ---
DATE OF SERVICE: 08/03/2019 SUBJECTIVE: The patient feels better today. Did not wear BiPAP last night. OBJECTIVE: VITAL SIGNS: On exam, temperature 98.2, pulse 71, blood pressure 139/70, and O2 saturation 96%. HEENT: Unremarkable. NECK: No adenopathy or JVD. LUNGS: She has scattered crackles best heard posteriorly. CARDIAC: S1 and S2. Regular. ABDOMEN: Soft. EXTREMITIES: No edema. LABORATORY DATA: Sodium 121, potassium 3.9, chloride 83, CO2 of 27, BUN 15, creatinine 1.1, and glucose 128. White blood cell count 8.7, hematocrit 33.4, and platelet count 199. ASSESSMENT: 1. Acute diastolic congestive heart failure. 2. Status post respiratory failure, requiring mechanical ventilation. PLAN: The patient can be transferred to the floor from my standpoint. No further BiPAP is planned. Job ID: [id number]
[2019-08-03] MEDS: Atenolol 25 MG TAB PO SCH (09:41)
[2019-08-03] MEDS: Thiamine 100 MG TAB PO SCH (09:41)
[2019-08-03] MEDS: Famotidine 20 MG TAB PO SCH ×2 (09:41→21:01)
[2019-08-03] MEDS: Folic Acid 1 MG TAB PO SCH (09:42)
[2019-08-03] MEDS: Aspirin Chewable 81 MG TAB PO SCH (09:42)
[2019-08-03] MEDS: cloNIDine 0.1 MG TAB PO SCH ×2 (09:42→21:01)
[2019-08-03] MEDS: Amlodipine 5 MG TAB PO SCH (09:42)
[2019-08-03] MEDS: Enoxaparin Sodium 80 MG/0.8 ML SYRINGE SC SCH ×2 (09:42→21:02)
[2019-08-03] MEDS: Lidocaine 5% Patch TD SCH ×3 (09:43→15:19)
--- NOTE | 2019-08-03 11:18 | PDOC.HOSPP ---
- Subjective Encounter Date: 08/03/19 Encounter Time: 11:00 Subjective: Patient seen and examined. No new complaints. No overnight events pt is off bipap, still has dyspnea but improved from yesterday, maintaining saturation with nasal canula - Objective Vital Signs & Weight: Vital Signs (12 hours) Temp Pulse Resp Pulse Ox 08/03/19 09:42 90 08/03/19 09:41 90 08/03/19 08:00 98.1 F 08/03/19 07:46 97 08/03/19 07:45 90 23 H 97 08/03/19 07:34 96 08/03/19 04:00 98.2 F 08/03/19 01:22 99 08/02/19 23:58 97.8 F Weight Weight 194 lb Most Recent Monitor Data Heart Rate from ECG 91 NIBP 122/56 NIBP BP-Mean 78 Respiration from ECG 18 SpO2 94 I&O: 08/02/19 08/03/19 08/04/19 06:59 06:59 06:59 Intake Total 1620 Output Total 1800 Balance -180 Result Diagrams: 08/03/19 04:03 08/03/19 04:03 EKG Reviewed by me: Yes Hospitalist ROS - Review of Systems Constitutional: reports: weakness. denies: fever, chills, sweats, malaise, other ENT: denies: ear pain, ear discharge, nose pain, nose discharge, nose congestion , mouth pain, mouth swelling, throat pain, throat swelling, other Respiratory: reports: shortness of breath, SOB with excertion. denies: cough, dry, hemoptysis, pleuritic pain, sputum, wheezing, other Cardiovascular: reports: edema. denies: chest pain, palpitations, orthopnea, paroxysmal noc. dyspnea, light headedness, other Gastrointestinal: denies: nausea, vomiting, abdominal pain, diarrhea, constipation, melena, hematochezia, other Genitourinary: denies: dysuria, frequency, incontinence, hematuria, retention, other Musculoskeletal: denies: neck pain, shoulder pain, arm pain, back pain, hand pain, leg pain, foot pain, other - Medication Medications: Active Medications Generic Name Dose Route Start Last Admin Trade Name Freq PRN Reason Stop Dose Admin Acetaminophen 650 mg 08/02/19 09:27 08/03/19 02:00 Tylenol PO 650 mg Q4H PRN Administration Headache/Fever/Mild Pain (1-3) Albuterol/Ipratropium 3 ml 08/02/19 19:00 08/03/19 07:45 Duoneb NEB 3 ml [id number] SUJATA Administration Amlodipine Besylate 5 mg 08/03/19 09:00 08/03/19 09:42 Norvasc PO 5 mg DAILY SUJATA Administration Aspirin 81 mg 08/03/19 09:00 08/03/19 09:42 Aspirin Chewable PO 81 mg DAILY SUJATA Administration Atenolol 25 mg 08/03/19 09:00 08/03/19 09:41 Tenormin PO 25 mg DAILY SUJATA Administration Atorvastatin Calcium 10 mg 08/02/19 21:00 08/02/19 20:11 Lipitor PO 10 mg HS SUJATA Administration Clonidine 0.1 mg 08/02/19 21:00 08/03/19 09:42 Catapres PO 0.1 mg BID SUJATA Administration Enoxaparin Sodium 80 mg 08/02/19 21:00 08/03/19 09:42 Lovenox SC 80 mg 0900,2100 [facility] Administration Famotidine 20 mg 08/02/19 21:00 08/03/19 09:41 Pepcid PO 20 mg BID SUJATA Administration Folic Acid 1 mg 08/03/19 09:00 08/03/19 09:42 Folvite PO 1 mg DAILY [facility] Administration Furosemide 40 mg 08/02/19 14:00 08/03/19 05:40 Lasix SLOW IVP 40 mg 0600,1400 SUJATA Administration Lidocaine 1 patch 08/03/19 09:00 08/03/19 09:46 Lidoderm 5% Patch TD Not Given DAILY [facility] Miscellaneous Medication 1 each 08/02/19 21:00 08/02/19 20:12 Lidocaine Patch Removal TOP Not Given 2100 [facility] Nitroglycerin 0.5 inch 08/02/19 14:00 08/03/19 05:40 Nitro-Bid 2% Ointment TOP 0.5 inch Q8HR SUJATA Administration Thiamine HCl 100 mg 08/03/19 09:00 08/03/19 09:41 Thiamine PO 100 mg DAILY SUJATA Administration - Exam General Appearance: NAD, awake alert Eye: PERRL, anicteric sclera ENT: normocephalic atraumatic, no oropharyngeal lesions Neck: supple, symmetric Heart: no murmur, no gallops, irregular Respiratory: rhonchi Respiratory - other findings: basal rales+ Gastrointestinal: soft, non-tender, non-distended Extremities: 2+ LE edema Skin: normal turgor, no lesions Neurological: no focal deficits Musculoskeletal: normal tone, normal strength Psychiatric: normal affect, normal behavior Hosp A/P (1) Acute on chronic diastolic ACC/AHA stage C congestive heart failure Code(s): I50.33 - ACUTE ON CHRONIC DIASTOLIC (CONGESTIVE) HEART FAILURE Status : Acute (2) Acute respiratory failure with hypoxemia Code(s): J96.01 - ACUTE RESPIRATORY FAILURE WITH HYPOXIA Status: Acute (3) Hyponatremia Code(s): E87.1 - HYPO-OSMOLALITY AND HYPONATREMIA Status: Acute (4) Atrial fibrillation with RVR Code(s): I48.91 - UNSPECIFIED ATRIAL FIBRILLATION Status: Acute (5) Hypomagnesemia Code(s): E83.42 - HYPOMAGNESEMIA Status: Acute (6) Physical deconditioning Code(s): R53.81 - OTHER MALAISE Status: Acute (7) HTN (hypertension) Code(s): I10 - ESSENTIAL (PRIMARY) HYPERTENSION Status: Chronic Qualifiers: Hypertension type: essential hypertension Qualified Code(s): I10 - Essential (primary) hypertension - Plan old records reviewed/req, PT/OT, respiratory therapy 08/03/19 transfer to [facility] continue lasix continue lovenox replaced magnesium sodium improving medication reviewed and continue supportive care start PT/OT
--- NOTE | 2019-08-03 16:15 | PDOC.CPN ---
- Subjective Date: 08/03/19 Time: 16:13 Interval history: She is doing better. Breathing better but still a lot of wheezing. - Review of Systems General: denies: fever/chills, weight/appetite/sleep changes, night sweats, fatigue Respiratory: reports: cough, congestion, shortness of breath, exercise intolerance Cardiovascular: denies: chest pain, palpitation, edema, paroxysmal nocturnal dyspnea, orthopnea Gastrointestinal: denies: nausea, vomiting, diarrhea, constipation, abd pain, GI bleeding Musculoskeletal: denies: pain, tenderness, stiffness, swelling, arthritis/ arthralgias Neurological: denies: numbness, syncope, seizure, weakness - Objective Allergies/Adverse Reactions: Allergies Allergy/AdvReac Type Severity Reaction Status Date / Time hydrocodone Allergy Verified 05/21/18 17:16 meperidine HCl [From Demerol] Allergy Verified 05/21/18 17:16 Penicillins Allergy Verified 05/21/18 17:16 Visit Medications: Current Medications Acetaminophen (Tylenol) 650 mg PO Q4H PRN PRN Reason: Headache/Fever/Mild Pain (1-3) Last Admin: 08/03/19 02:00 Dose: 650 mg Albuterol/Ipratropium (Duoneb) 3 ml NEB [id number] PRN PRN Reason: SOB &/or Wheezing Albuterol/Ipratropium (Duoneb) 3 ml NEB [id number] [facility] Last Admin: 08/03/19 13:35 Dose: 3 ml Amlodipine Besylate (Norvasc) 5 mg PO DAILY [facility] Last Admin: 08/03/19 09:42 Dose: 5 mg Artificial Tears (Tears Naturale) 2 drop EA EYE PRN PRN PRN Reason: Dry Eyes Aspirin (Aspirin Chewable) 81 mg PO DAILY [facility] Last Admin: 08/03/19 09:42 Dose: 81 mg Atenolol (Tenormin) 25 mg PO DAILY [facility] Last Admin: 08/03/19 09:41 Dose: 25 mg Atorvastatin Calcium (Lipitor) 10 mg PO HS [facility] Last Admin: 08/02/19 20:11 Dose: 10 mg Bisacodyl (Dulcolax) 10 mg ME DAILYPRN PRN PRN Reason: Constipation Calcium Carbonate (Tums) 1,000 mg PO Q4H PRN PRN Reason: Heartburn or Indigestion Clonidine (Catapres) 0.1 mg PO BID [facility] Last Admin: 08/03/19 09:42 Dose: 0.1 mg Enoxaparin Sodium (Lovenox) 80 mg SC 0900,2100 [facility] Last Admin: 08/03/19 09:42 Dose: 80 mg Famotidine (Pepcid) 20 mg PO BID [facility] Last Admin: 08/03/19 09:41 Dose: 20 mg Folic Acid (Folvite) 1 mg PO DAILY [facility] Last Admin: 08/03/19 09:42 Dose: 1 mg Furosemide (Lasix) 40 mg SLOW IVP 0600,1400 [facility] Last Admin: 08/03/19 15:16 Dose: 40 mg Guaifenesin (Robitussin Sf) 200 mg PO Q4H PRN PRN Reason: Cough Hydralazine HCl (Apresoline) 10 mg SLOW IVP Q4H PRN PRN Reason: SBP > 180 and HR < 70 Lidocaine (Lidoderm 5% Patch) 1 patch TD 1600 [facility] Last Admin: 08/03/19 15:19 Dose: 1 patch Loperamide HCl (Imodium) 2 mg PO PRN PRN PRN Reason: Diarrhea/Loose Stools Miscellaneous Medication (Lidocaine Patch Removal) 1 each TOP 0400 [facility] Nitroglycerin (Nitro-Bid 2% Ointment) 0.5 inch TOP Q8HR [facility] Last Admin: 08/03/19 15:16 Dose: 0.5 inch Ondansetron HCl (Zofran Odt) 4 mg PO Q6H PRN PRN Reason: Nausea/Vomiting Ondansetron HCl (Zofran) 4 mg IVP Q6H PRN PRN Reason: Nausea/Vomiting Senna/Docusate Sodium (Senokot S) 2 tab PO BID PRN PRN Reason: Constipation Sodium Chloride ([place] Nasal [place] 0.65%) 0 ml EA NARE QIDPRN PRN PRN Reason: Nasal Congestion Thiamine HCl (Thiamine) 100 mg PO DAILY [facility] Last Admin: 08/03/19 09:41 Dose: 100 mg Throat Lozenges (Cepastat Lozenges) 1 gildardo PO Q2H PRN PRN Reason: Sore Throat Zolpidem Tartrate (Ambien) 5 mg PO HSPRN PRN PRN Reason: Insomnia Vital Signs & Weight: Vital Signs Temp Pulse Pulse Pulse Resp BP BP 08/03/19 13:35 78 23 H 08/03/19 12:00 98.3 F 08/03/19 10:29 85 88 122/56 L 153/93 H 08/03/19 09:42 90 08/03/19 09:41 90 08/03/19 08:00 98.1 F 08/03/19 07:46 08/03/19 07:45 90 23 H 08/03/19 07:34 Pulse Ox Pulse Ox Pulse Ox 08/03/19 13:35 100 08/03/19 12:00 08/03/19 10:29 95 98 08/03/19 09:42 08/03/19 09:41 08/03/19 08:00 08/03/19 07:46 97 08/03/19 07:45 97 08/03/19 07:34 96 Weight 194 lb - Physical Exam General: alert & oriented x3 HEENT: mucus membranes moist, normocephaly Neck: supple neck, midline trachea Cardiac: regular rate and rhythm, systolic murmur Lungs: wheezes, bibasilar rales Neuro: grossly intact Abdomen: active bowel sounds, soft, non-tender Extremities: 1+ LE edema Skin: clear Musculoskeletal: no pain - Labs Result Diagrams: 08/03/19 04:03 08/03/19 04:03 Troponin/CKMB Troponin I 0.025 ng/mL (< 0.028) 08/02/19 13:59 - Telemetry Sinus rhythms and dysrhythmias: sinus rhythm - Assessment/Plan Assessment/Plan: 1. Acute on chronic diastolic CHF 2. Hyponatremia 3. COPD with mild exacerbation 4. Paroxysmal afib 5. Alcohol use PLAN: - Continue IV diuresis today. - Sodium improving but may not all be dilutional as creatinine starting to creep up and she seems close to euvolemia. Will diurese today and switch to PO tomorrow. - Nephrology working up hyponatremia.
[2019-08-03 20:04] LABS: Anion Gap 13 mmol/L (10-20); BUN (Urea Nitrogen) 18 mg/dL (9.8-20.1); Calc. Creatinine Clearance 59 mL/min (70-130); Calcium 8.6 mg/dL (7.8-10.44); Carbon Dioxide 30 mmol/L (23-31); Chloride 85 mmol/L (98-107); Estimated GFR-MDRD 49; Glucose 126 mg/dL (83-110); Potassium 3.6 mmol/L (3.5-5.1); Sodium 124 mmol/L (136-145)
[2019-08-03] MEDS ORDERED: Potassium Chloride 20 MEQ TAB PO SCH (20:45)
[2019-08-03] MEDS: Atorvastatin Calcium 10 MG TAB PO SCH (21:01)
--- NOTE | 2019-08-03 21:15 | PRG ---
DATE OF SERVICE: 08/03/2019 SERVICE: Nephrology. SUBJECTIVE: A 79-year-old female admitted with worsening shortness of breath and edema, who is followed up for hyponatremia. The patient was found to have acute systolic heart failure as well as atrial fibrillation and is on diuretics. She reports feeling better. Shortness of breath has improved. OBJECTIVE: VITAL SIGNS: Temperature 98.2, pulse 76, respiratory rate 19, SpO2 of 96% on 2 L nasal cannula, and blood pressure is 139/72. GENERAL: Elderly female, in no obvious distress. Afebrile. Anicteric. Acyanotic. HEENT: Normocephalic, atraumatic. Oral mucosa is moist. CARDIOVASCULAR: Regular rhythm and rate with normal heart sounds 1 and 2. RESPIRATORY: Fair air entry bilaterally with few transmitted breath sounds as well as scattered rhonchi. Work of breathing is not increased. GI: Full, soft, nontender, nondistended with normal bowel sounds. EXTREMITIES: [id number] bilateral leg edema noted. 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 Cranial nerves 2 through 12 are grossly intact. DIAGNOSTIC DATA: CBC showed WBC count of 8.7, hemoglobin of 11.3, MCV of 82.4, and platelets of 199. CMP showed sodium 121, potassium 3.9, chloride 83, CO2 of 27, BUN 15, creatinine 1.11, glucose 128, calcium 8.7, total bilirubin 0.4, AST 25, ALT 13, alkaline phosphatase 61, total protein 6.2, albumin 3.7, and globulin 2.5. Phosphorus is 3.4, magnesium is 1.4, and uric acid is 5.2. ASSESSMENT: 1. Hyponatremia: The patient clearly has features of hypervolemia. This most likely is due to cardiac decompensation with ADH secretion. Sodium level is increasing with diuretic therapy. Hypokalemia and poor solute intake may be contributory. 2. Hypokalemia. 3. Hypomagnesemia. 4. Acute respiratory failure with hypoxia. 5. Acute congestive heart failure. PLAN: 1. We will replete serum magnesium with magnesium sulfate 4 g. 2. We will continue to provide potassium supplementation. We will continue diuretic therapy. 3. We will monitor serum sodium closely. There is no need for hypertonic solution in this patient at this time. We will repeat renal function and electrolytes and correct as needed. 4. Treatments of CHF and atrial fibrillation as per Cardiology and primary attending. Many thanks for involving us in the care of this patient. We will follow along with you. Job ID: [id number]
[2019-08-03] MEDS: Lorazepam 0.5 MG TAB PO PRN (21:22)
[2019-08-04] MEDS: Lidocaine Patch Removal 1 EACH TOP SCH (03:38)
[2019-08-04 05:00] LABS: Anion Gap 11 mmol/L (10-20); BUN (Urea Nitrogen) 16 mg/dL (9.8-20.1); Calc. Creatinine Clearance 71 mL/min (70-130); Calcium 8.6 mg/dL (7.8-10.44); Carbon Dioxide 29 mmol/L (23-31); Chloride 88 mmol/L (98-107); Estimated GFR-MDRD 60; Glucose 96 mg/dL (83-110); Magnesium 1.8 mg/dL (1.6-2.6); Phosphorus 3.4 mg/dL (2.3-4.7); Sodium 124 mmol/L (136-145)
[2019-08-04] MEDS: Nitroglycerin 2% Ointment 1 INCH/1 GM Packet TOP SCH (05:58)
[2019-08-04] MEDS: Acetaminophen 325 MG TAB PO PRN (06:00)
[2019-08-04] MEDS: Lorazepam 0.5 MG TAB PO PRN (06:01)
[2019-08-04] MEDS: Aspirin Chewable 81 MG TAB PO SCH (08:32)
[2019-08-04] MEDS: Potassium Chloride 20 MEQ TAB PO SCH ×2 (08:32→16:14)
[2019-08-04] MEDS: Atenolol 25 MG TAB PO SCH (08:32)
[2019-08-04] MEDS: Famotidine 20 MG TAB PO SCH ×2 (08:33→20:54)
[2019-08-04] MEDS: Amlodipine 5 MG TAB PO SCH (08:33)
[2019-08-04] MEDS: Thiamine 100 MG TAB PO SCH (08:33)
[2019-08-04] MEDS: cloNIDine 0.1 MG TAB PO SCH ×2 (08:33→20:53)
[2019-08-04] MEDS: Folic Acid 1 MG TAB PO SCH (08:33)
[2019-08-04] MEDS: Furosemide 40 MG TAB PO SCH ×2 (08:33→16:15)
[2019-08-04] MEDS: Enoxaparin Sodium 80 MG/0.8 ML SYRINGE SC SCH ×2 (08:34→20:54)
--- NOTE | 2019-08-04 09:07 | PRG ---
DATE OF SERVICE: 08/04/2019 SUBJECTIVE: The patient is slowly improving. She had a good night last night. OBJECTIVE: VITAL SIGNS: Her temperature is 97.2, pulse 70, blood pressure 174/95, and O2 saturations 98%. HEENT: Unremarkable. NECK: No adenopathy or JVD. LUNGS: She has a very faint expiratory wheeze. CARDIAC: S1 and S2. Regular. ABDOMEN: Soft. EXTREMITIES: No edema. LABORATORY DATA: Sodium 124, potassium 4, chloride 88, CO2 of 29, BUN 16, creatinine 0.9, and glucose 96. ASSESSMENT: 1. Diastolic congestive heart failure. 2. Question of concurrent reactive airway disease. PLAN: 1. Continue diuresis. 2. Transfer to telemetry. 3. Continue nebulization treatments as needed. Job ID: [id number]
--- NOTE | 2019-08-04 11:17 | PDOC.HOSPP ---
- Subjective Encounter Date: 08/04/19 Encounter Time: 10:40 Subjective: Patient seen and examined. No new complaints. No overnight events - Objective Vital Signs & Weight: Vital Signs (12 hours) Temp Pulse Resp BP Pulse Ox 08/04/19 08:33 100 141/63 H 08/04/19 08:32 94 141/63 H 08/04/19 08:10 94 L 08/04/19 08:06 100 19 94 L 08/04/19 08:00 97.4 F L 96 08/04/19 04:00 97.2 F L 08/03/19 23:53 98.6 F 08/03/19 23:28 99 Weight Weight 192 lb Most Recent Monitor Data Heart Rate from ECG 96 NIBP 141/63 NIBP BP-Mean 89 Respiration from ECG 18 SpO2 87 I&O: 08/03/19 08/04/19 08/05/19 06:59 06:59 06:59 Intake Total 1620 1225 Output Total 1800 1125 Balance -180 100 Result Diagrams: 08/03/19 04:03 08/04/19 04:10 Hospitalist ROS - Review of Systems ENT: denies: ear pain, ear discharge, nose pain, nose discharge, nose congestion , mouth pain, mouth swelling, throat pain, throat swelling, other Respiratory: reports: shortness of breath, SOB with excertion. denies: cough, dry, hemoptysis, pleuritic pain, sputum, wheezing, other Cardiovascular: reports: edema. denies: chest pain, palpitations, orthopnea, paroxysmal noc. dyspnea, light headedness, other Gastrointestinal: denies: nausea, vomiting, abdominal pain, diarrhea, constipation, melena, hematochezia, other Genitourinary: denies: dysuria, frequency, incontinence, hematuria, retention, other Musculoskeletal: denies: neck pain, shoulder pain, arm pain, back pain, hand pain, leg pain, foot pain, other - Medication Medications: Active Medications Generic Name Dose Route Start Last Admin Trade Name Freq PRN Reason Stop Dose Admin Acetaminophen 650 mg 08/02/19 09:27 08/04/19 06:00 Tylenol PO 650 mg Q4H PRN Administration Headache/Fever/Mild Pain (1-3) Albuterol/Ipratropium 3 ml 08/02/19 19:00 08/04/19 08:06 Duoneb NEB 3 ml [id number] SUJATA Administration Amlodipine Besylate 5 mg 08/03/19 09:00 08/04/19 08:33 Norvasc PO 5 mg DAILY SUJATA Administration Aspirin 81 mg 08/03/19 09:00 08/04/19 08:32 Aspirin Chewable PO 81 mg DAILY SUJATA Administration Atenolol 25 mg 08/03/19 09:00 08/04/19 08:32 Tenormin PO 25 mg DAILY SUJATA Administration Atorvastatin Calcium 10 mg 08/02/19 21:00 08/03/19 21:01 Lipitor PO 10 mg HS SUJATA Administration Clonidine 0.1 mg 08/02/19 21:00 08/04/19 08:33 Catapres PO 0.1 mg BID SUJATA Administration Enoxaparin Sodium 80 mg 08/02/19 21:00 08/04/19 08:34 Lovenox SC 80 mg 0900,2100 SUJATA Administration Famotidine 20 mg 08/02/19 21:00 08/04/19 08:33 Pepcid PO 20 mg BID SUJATA Administration Folic Acid 1 mg 08/03/19 09:00 08/04/19 08:33 Folvite PO 1 mg DAILY [facility]JATA Administration Furosemide 40 mg 08/04/19 09:00 08/04/19 08:33 Lasix PO 40 mg 0900,1400 SUJATA Administration Lidocaine 1 patch 08/03/19 16:00 08/03/19 15:19 Lidoderm 5% Patch TD 1 patch 1600 [facility]JATA Administration Lorazepam 0.5 mg 08/03/19 21:15 08/04/19 06:01 Ativan PO 0.5 mg Q6H PRN Administration Anxiety Miscellaneous Medication 1 each 08/04/19 04:00 08/04/19 03:38 Lidocaine Patch Removal TOP 1 each 0400 SUJATA Administration Nitroglycerin 0.5 inch 08/02/19 14:00 08/04/19 05:58 Nitro-Bid 2% Ointment TOP 0.5 inch Q8HR SUJATA Administration Potassium Chloride 40 meq 08/04/19 08:00 08/04/19 08:32 K-Dur PO 40 meq BID-WM SUJATA Administration Thiamine HCl 100 mg 08/03/19 09:00 08/04/19 08:33 Thiamine PO 100 mg DAILY SUJATA Administration - Exam General Appearance: NAD, awake alert Eye: PERRL, anicteric sclera ENT: normocephalic atraumatic, no oropharyngeal lesions Neck: supple, symmetric, no JVD Heart: RRR, no gallops Respiratory: rhonchi Respiratory - other findings: rales at base Gastrointestinal: soft, non-tender, non-distended, normal bowel sounds Extremities: 1+ LE edema Skin: normal turgor, no lesions Neurological: no focal deficits Musculoskeletal: normal tone, normal strength Psychiatric: normal affect, normal behavior Hosp A/P (1) Acute on chronic diastolic ACC/AHA stage C congestive heart failure Code(s): I50.33 - ACUTE ON CHRONIC DIASTOLIC (CONGESTIVE) HEART FAILURE Status : Acute (2) Acute respiratory failure with hypoxemia Code(s): J96.01 - ACUTE RESPIRATORY FAILURE WITH HYPOXIA Status: Acute (3) Hyponatremia Code(s): E87.1 - HYPO-OSMOLALITY AND HYPONATREMIA Status: Acute (4) Atrial fibrillation with RVR Code(s): I48.91 - UNSPECIFIED ATRIAL FIBRILLATION Status: Acute (5) Hypomagnesemia Code(s): E83.42 - HYPOMAGNESEMIA Status: Acute (6) Physical deconditioning Code(s): R53.81 - OTHER MALAISE Status: Acute (7) HTN (hypertension) Code(s): I10 - ESSENTIAL (PRIMARY) HYPERTENSION Status: Chronic Qualifiers: Hypertension type: essential hypertension Qualified Code(s): I10 - Essential (primary) hypertension - Plan old records reviewed/req, PT/OT, director of social work 08/03/[address] [facility] [place] [facility] continue lasix continue lovenox replaced magnesium sodium improving medication reviewed and continue supportive care start PT/OT 08/04/19 sodium improving continue lasix medication reviewed as above and provide supportive care and symptomatic treatment expecting discharge in 24 - 48 hours
[2019-08-04] MEDS ORDERED: Melatonin 3 MG TAB PO PRN (11:34)
[2019-08-04] MEDS: Lidocaine 5% Patch TD SCH (16:15)
[2019-08-04] MEDS ORDERED: Metolazone 2.5 MG TAB PO SCH (16:30)
--- NOTE | 2019-08-04 17:01 | PRG ---
DATE OF SERVICE: 08/04/2019 SERVICE: Nephrology. SUBJECTIVE: A 79-year-old female admitted with acute respiratory failure from CHF and COPD exacerbation. Nephrology is following patient for hyponatremia. The patient came in with serum sodium of 117. She was also volume overloaded as evidenced by bilateral leg edema and pulmonary congestion. Impression of hypervolemic hyponatremia was made and patient was started on diuretics with improvement. Shortness of breath has improved. Denied any new complaints other than sleepless nights. She also complaining of generalized weakness. Denied nausea, vomiting, or abdominal pain. 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 OBJECTIVE: VITAL SIGNS: Temperature 98.1, pulse 95, respiratory rate 18, SpO2 of 96% on 2 L nasal cannula, and blood pressure is 141/63. GENERAL: Obese female, in no obvious distress. Afebrile. Anicteric. Acyanotic. HEENT: Normocephalic and atraumatic. Oral mucosa is moist. NECK: No JVD appreciated. CARDIOVASCULAR: Regular rhythm and rate with normal heart sounds one and two. RESPIRATORY: Fair air entry bilaterally with few bibasilar crackles, scattered few rhonchi. Work of breathing is not increased. GI: Obese, soft, nontender, and nondistended with normal bowel sounds. EXTREMITIES: [id number] bilateral feet edema noted. No erythema appreciated. 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 DIAGNOSTIC DATA: BMP showed sodium 124, potassium 4.0, chloride 88, CO2 of 29, BUN 16, creatinine 0.91, glucose 96, and calcium 8.6. Phosphorus is 3.4 and albumin is 1.8. ASSESSMENT: 1. Hyponatremia: Hypovolemic hyponatremia from congestive heart failure exacerbation. Contribution from poor solute intake cannot be ruled out. Syndrome of inappropriate antidiuretic hormone secretion is unlikely in this patient. Hypokalemia present on admission may also have disrupted urine concentrating ability. 2. Hypokalemia: Due to poor oral intake as well as hypomagnesemia. 3. Hypomagnesemia. 4. Volume overload due to congestive heart failure exacerbation. 5. Acute respiratory failure due to congestive heart failure and chronic obstructive pulmonary disease exacerbation, improved. 6. Acute congestive heart failure. 7. Physical deconditioning. PLAN: 1. We will add metolazone to Lasix and diuresis has gone down with negative balance in the last 24 hours. Initial azotemia from aggressive diuresis has also resolved. 2. We will monitor potassium and magnesium and replete as needed. 3. We will recheck BMP for serum sodium in the morning. 4. PT/OT and other treatment as per primary attending. Job ID: [id number]
--- NOTE | 2019-08-04 18:35 | PDOC.CPN ---
- Subjective Date: 08/04/19 Time: 12:00 Interval history: Doing better. No chest pain. Breathing better but still needing oxygen supplementation. Dry cough. - Review of Systems General: denies: fever/chills, weight/appetite/sleep changes, night sweats, fatigue Respiratory: reports: cough, shortness of breath. denies: congestion, exercise intolerance Cardiovascular: denies: chest pain, palpitation, edema, paroxysmal nocturnal dyspnea, orthopnea Gastrointestinal: denies: nausea, vomiting, diarrhea, constipation, abd pain, GI bleeding Musculoskeletal: denies: pain, tenderness, stiffness, swelling, arthritis/ arthralgias Neurological: denies: numbness, syncope, seizure, weakness - Objective Allergies/Adverse Reactions: Allergies Allergy/AdvReac Type Severity Reaction Status Date / Time hydrocodone Allergy Verified 05/21/18 17:16 meperidine HCl [From Demerol] Allergy Verified 05/21/18 17:16 Penicillins Allergy Verified 05/21/18 17:16 Visit Medications: Current Medications Acetaminophen (Tylenol) 650 mg PO Q4H PRN PRN Reason: Headache/Fever/Mild Pain (1-3) Last Admin: 08/04/19 06:00 Dose: 650 mg Albuterol/Ipratropium (Duoneb) 3 ml NEB [id number] PRN PRN Reason: SOB &/or Wheezing Albuterol/Ipratropium (Duoneb) 3 ml NEB [id number] [facility] Last Admin: 08/04/19 13:21 Dose: 3 ml Amlodipine Besylate (Norvasc) 5 mg PO DAILY [facility] Last Admin: 08/04/19 08:33 Dose: 5 mg Artificial Tears (Tears Naturale) 2 drop EA EYE PRN PRN PRN Reason: Dry Eyes Aspirin (Aspirin Chewable) 81 mg PO DAILY [facility] Last Admin: 08/04/19 08:32 Dose: 81 mg Atenolol (Tenormin) 25 mg PO DAILY [facility] Last Admin: 08/04/19 08:32 Dose: 25 mg Atorvastatin Calcium (Lipitor) 10 mg PO HS [facility] Last Admin: 08/03/19 21:01 Dose: 10 mg Bisacodyl (Dulcolax) 10 mg GA DAILYPRN PRN PRN Reason: Constipation Calcium Carbonate (Tums) 1,000 mg PO Q4H PRN PRN Reason: Heartburn or Indigestion Clonidine (Catapres) 0.1 mg PO BID [facility] Last Admin: 08/04/19 08:33 Dose: 0.1 mg Enoxaparin Sodium (Lovenox) 80 mg SC 0900,2100 [facility] Last Admin: 08/04/19 08:34 Dose: 80 mg Famotidine (Pepcid) 20 mg PO BID [facility] Last Admin: 08/04/19 08:33 Dose: 20 mg Folic Acid (Folvite) 1 mg PO DAILY [facility] Last Admin: 08/04/19 08:33 Dose: 1 mg Furosemide (Lasix) 40 mg PO 0900,1400 [facility] Last Admin: 08/04/19 16:15 Dose: 40 mg Guaifenesin (Robitussin Sf) 200 mg PO Q4H PRN PRN Reason: Cough Hydralazine HCl (Apresoline) 10 mg SLOW IVP Q4H PRN PRN Reason: SBP > 180 and HR < 70 Lidocaine (Lidoderm 5% Patch) 1 patch TD 1600 [facility] Last Admin: 08/04/19 16:15 Dose: 1 patch Loperamide HCl (Imodium) 2 mg PO PRN PRN PRN Reason: Diarrhea/Loose Stools Lorazepam (Ativan) 0.5 mg PO Q6H PRN PRN Reason: Anxiety Last Admin: 08/04/19 06:01 Dose: 0.5 mg Melatonin (Melatonin) 3 mg PO HS PRN PRN Reason: Insomnia Miscellaneous Medication (Lidocaine Patch Removal) 1 each TOP 0400 [facility] Last Admin: 08/04/19 03:38 Dose: 1 each Ondansetron HCl (Zofran Odt) 4 mg PO Q6H PRN PRN Reason: Nausea/Vomiting Ondansetron HCl (Zofran) 4 mg IVP Q6H PRN PRN Reason: Nausea/Vomiting Potassium Chloride (K-Dur) 40 meq PO BID[facility] Last Admin: 08/04/19 16:14 Dose: 40 meq Senna/Docusate Sodium (Senokot S) 2 tab PO BID PRN PRN Reason: Constipation Sodium Chloride ([place] Nasal [place] 0.65%) 0 ml EA NARE QIDPRN PRN PRN Reason: Nasal Congestion Thiamine HCl (Thiamine) 100 mg PO DAILY [facility] Last Admin: 08/04/19 08:33 Dose: 100 mg Throat Lozenges (Cepastat Lozenges) 1 gildardo PO Q2H PRN PRN Reason: Sore Throat Zolpidem Tartrate (Ambien) 5 mg PO HSPRN PRN PRN Reason: Insomnia Vital Signs & Weight: Vital Signs Temp Pulse Pulse Pulse Resp BP BP 08/04/19 13:21 60 19 08/04/19 11:13 74 75 143/78 H 08/04/19 10:29 81 77 143/62 H 08/04/19 08:33 100 141/63 H 08/04/19 08:32 94 141/63 H 08/04/19 08:10 08/04/19 08:06 100 19 08/04/19 08:00 97.4 F L BP Pulse Ox Pulse Ox Pulse Ox 08/04/19 13:21 94 L 08/04/19 11:13 148/63 H 98 99 08/04/19 10:29 148/63 H 97 98 08/04/19 08:33 08/04/19 08:32 08/04/19 08:10 94 L 08/04/19 08:06 94 L 08/04/19 08:00 96 Weight 192 lb - Physical Exam General: alert & oriented x3 HEENT: mucus membranes moist Neck: supple neck Cardiac: regular rate and rhythm Lungs: bibasilar rales Neuro: grossly intact Abdomen: active bowel sounds Extremities: no edema Skin: clear Musculoskeletal: no pain - Labs Result Diagrams: 08/03/19 04:03 08/04/19 04:10 Troponin/CKMB Troponin I 0.025 ng/mL (< 0.028) 08/02/19 13:59 - Telemetry Sinus rhythms and dysrhythmias: sinus rhythm - Assessment/Plan Assessment/Plan: 1. Acute on chronic diastolic CHF 2. Hyponatremia 3. COPD with mild exacerbation 4. Paroxysmal afib 5. Alcohol use PLAN: -On PO lasix. Will give one more dose IV lasix tomorrow morning. - May transfer to telemetry floor. - Nephrology working up hyponatremia.
[2019-08-04] MEDS ORDERED: Chloraseptic Spray 180 ml Bottle PO PRN (19:39)
[2019-08-04] MEDS: Atorvastatin Calcium 10 MG TAB PO SCH (20:54)
[2019-08-05] MEDS: Lorazepam 0.5 MG TAB PO PRN (00:22)
[2019-08-05] MEDS: Lidocaine Patch Removal 1 EACH TOP SCH (03:26)
[2019-08-05 05:18] LABS: Anion Gap 13 mmol/L (10-20); BUN (Urea Nitrogen) 16 mg/dL (9.8-20.1); Calc. Creatinine Clearance 66 mL/min (70-130); Calcium 9.1 mg/dL (7.8-10.44); Carbon Dioxide 31 mmol/L (23-31); Chloride 85 mmol/L (98-107); Estimated GFR-MDRD 56; Glucose 126 mg/dL (83-110); Phosphorus 4.1 mg/dL (2.3-4.7); Potassium 4.2 mmol/L (3.5-5.1); Sodium 125 mmol/L (136-145)
[2019-08-05] MEDS: Acetaminophen 325 MG TAB PO PRN (05:59)
--- NOTE | 2019-08-05 08:11 | PRG ---
DATE OF SERVICE: 08/05/2019 SUBJECTIVE: The patient is seen and examined at the bedside. She is feeling gradually better. Her appetite is fair. She puts out a lot of urine. OBJECTIVE: VITAL SIGNS: Blood pressure is 114/60, pulse is 79, respirations 22, and O2 saturation is 92% on room air. HEENT: Head is atraumatic and normocephalic. Eyes are PERRLA. Sclerae are nonicteric. Conjunctivae are palish. Oral mucosa is dry. NECK: Supple. LUNGS: Bilateral crackles at both bases. No wheezing. HEART: S1 and S2 normal. No S3. No S4. ABDOMEN: Soft, nontender, and nondistended. EXTREMITIES: 1+ peripheral edema similar bilaterally on both lower extremities. NEUROLOGICAL: She is alert and oriented x4. There are no any motor or sensory deficits. LABORATORY DATA: Sodium of 125, potassium 4.2, chloride 85, CO2 of 31, BUN 16, creatinine 0.96, glucose 126, calcium 9.1, and phosphorus 4.1. Microbiology; urine culture and blood cultures are negative. IMPRESSION: 1. Acute on chronic diastolic congestive heart failure. 2. Acute respiratory failure with hypoxemia. 3. Hyponatremia. 4. Atrial fibrillation with rapid ventricular response. 5. Hypomagnesemia. 6. Hypertension. PLAN: Continue diuresis. She has good urine output. She still requires oxygen 2.5 L by nasal cannula. We will continue PT and OT. Continue supplementation as needed on her electrolytes. Job ID: [id number]
[2019-08-05] MEDS ORDERED: Metolazone 2.5 MG TAB PO SCH (08:45)
[2019-08-05] MEDS ORDERED: Furosemide 40 MG/4 ML VIAL SLOW IVP SCH (09:00)
--- NOTE | 2019-08-05 09:03 | PRG ---
DATE OF SERVICE: 08/05/2019 SERVICE: Nephrology. SUBJECTIVE: A 79-year-old female, admitted with acute respiratory failure and atrial fibrillation. Nephrology is following the patient for hyponatremia. Shortness of breath has improved significantly. The patient reports feeling a lot better and leg swelling has improved tremendously. No fever, nausea, chest pain, or palpitation. OBJECTIVE: VITAL SIGNS: Temperature 97.2, pulse 79, respiratory rate 22, SpO2 of 95% on 2 L nasal cannula, and blood pressure is 114/60. GENERAL: Elderly female, in no obvious distress. Afebrile. Anicteric. Acyanotic. HEENT: Normocephalic and atraumatic. Oral mucosa is moist. CARDIOVASCULAR: Regular rhythm and rate with normal heart sounds one and two. RESPIRATORY: Fair air entry bilaterally with few bibasilar crackles sounds. Few scattered rhonchi. Work of breathing is not increased. GI: Full, soft, nontender, and nondistended with normal bowel sounds. EXTREMITIES: Mild bilateral leg edema, more on the right side noted. 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 Intake and output in the last 24 hours, the patient's intake was documented at 700 with output of 3325 with negative balance of 2625. DIAGNOSTIC DATA: BMP showed sodium 125, potassium 4.2, chloride 85, CO2 of 31, BUN 16, creatinine 0.96, glucose 126, calcium 9.1, and phosphorus 4.1. ASSESSMENT: 1. Hyponatremia: This is felt to be due to congestive heart failure decompensation with ADH secretion. The patient was hypervolemic on presentation. Hypokalemia and poor solute intake also were contributory. With diuresis, serum sodium level has improved from 117 on admission to 125 today. 2. Congestive heart failure exacerbation with fluid overload: The patient had a brisk diuresis with the addition of metolazone yesterday. 3. Paroxysmal atrial fibrillation: Cardiology following, now back in sinus. 4. Hypokalemia: Repleted. 5. Hypomagnesemia: Repleted. PLAN: 1. Continue fluid restriction. 2. We will start magnesium supplementation with magnesium oxide. 3. We will give additional dose of metolazone today. The patient will also continue to get oral Lasix b.i.d. 4. We will monitor electrolytes and replete as needed. 5. Increase solute and protein intake advised. We will recheck renal function test in the morning. Job ID: [id number]
[2019-08-05] MEDS: Potassium Chloride 20 MEQ TAB PO SCH ×2 (09:39→17:28)
[2019-08-05] MEDS: Magnesium Oxide 400 MG TAB PO SCH ×2 (09:39→21:20)
[2019-08-05] MEDS: Thiamine 100 MG TAB PO SCH (09:39)
[2019-08-05] MEDS: Furosemide 40 MG TAB PO SCH ×2 (09:39→13:39)
[2019-08-05] MEDS: Folic Acid 1 MG TAB PO SCH (09:39)
[2019-08-05] MEDS: cloNIDine 0.1 MG TAB PO SCH ×2 (09:40→21:20)
[2019-08-05] MEDS: Enoxaparin Sodium 80 MG/0.8 ML SYRINGE SC SCH ×2 (09:40→21:20)
[2019-08-05] MEDS: Famotidine 20 MG TAB PO SCH ×2 (09:40→21:19)
[2019-08-05] MEDS: Amlodipine 5 MG TAB PO SCH (09:40)
[2019-08-05] MEDS: Aspirin Chewable 81 MG TAB PO SCH (09:40)
[2019-08-05] MEDS: Atenolol 25 MG TAB PO SCH (09:40)
--- NOTE | 2019-08-05 12:55 | PRG ---
DATE OF SERVICE: 08/05/2019 SUBJECTIVE: The patient is doing well. She wants to go home. PHYSICAL EXAMINATION: VITAL SIGNS: Temperature 97.8, pulse 69, blood pressure 115/65, O2 saturation 95%. HEENT: Unremarkable. NECK: No adenopathy or JVD. LUNGS: A few crackles in the bases. CARDIAC: S1 and S2, regular. ABDOMEN: Soft. EXTREMITIES: No edema. ASSESSMENT: Stable pulmonary status. PLAN: Since she has diuresed adequately, I would assume she is okay to go home very soon. No further Pulmonary recommendations. We will see as needed. Job ID: [id number]
[2019-08-05] MEDS: Lidocaine 5% Patch TD SCH (17:05)
--- NOTE | 2019-08-05 18:44 | PDOC.CPN ---
- Subjective Date: 08/05/19 Time: 18:42 Interval history: Doing better. Satting well on 2L. She feels better but still has exp wheezes. - Review of Systems General: denies: fever/chills, weight/appetite/sleep changes, night sweats, fatigue Respiratory: reports: shortness of breath. denies: cough, congestion, exercise intolerance Cardiovascular: denies: chest pain, palpitation, edema, paroxysmal nocturnal dyspnea, orthopnea Gastrointestinal: denies: nausea, vomiting, diarrhea, constipation, abd pain, GI bleeding Musculoskeletal: denies: pain, tenderness, stiffness, swelling, arthritis/ arthralgias Neurological: denies: numbness, syncope, seizure, weakness - Objective Allergies/Adverse Reactions: Allergies Allergy/AdvReac Type Severity Reaction Status Date / Time hydrocodone Allergy Verified 05/21/18 17:16 meperidine HCl [From Demerol] Allergy Verified 05/21/18 17:16 Penicillins Allergy Verified 05/21/18 17:16 Visit Medications: Current Medications Acetaminophen (Tylenol) 650 mg PO Q4H PRN PRN Reason: Headache/Fever/Mild Pain (1-3) Last Admin: 08/05/19 05:59 Dose: 650 mg Albuterol/Ipratropium (Duoneb) 3 ml NEB [id number] PRN PRN Reason: SOB &/or Wheezing Albuterol/Ipratropium (Duoneb) 3 ml NEB [id number] [facility] Last Admin: 08/05/19 13:07 Dose: 3 ml Amlodipine Besylate (Norvasc) 5 mg PO DAILY [facility] Last Admin: 08/05/19 09:40 Dose: 5 mg Artificial Tears (Tears Naturale) 2 drop EA EYE PRN PRN PRN Reason: Dry Eyes Aspirin (Aspirin Chewable) 81 mg PO DAILY [facility] Last Admin: 08/05/19 09:40 Dose: 81 mg Atenolol (Tenormin) 25 mg PO DAILY [facility] Last Admin: 08/05/19 09:40 Dose: 25 mg Atorvastatin Calcium (Lipitor) 10 mg PO HS [facility] Last Admin: 08/04/19 20:54 Dose: 10 mg Bisacodyl (Dulcolax) 10 mg [place] DAILYPRN PRN PRN Reason: Constipation Calcium Carbonate (Tums) 1,000 mg PO Q4H PRN PRN Reason: Heartburn or Indigestion Clonidine (Catapres) 0.1 mg PO BID [facility] Last Admin: 08/05/19 09:40 Dose: 0.1 mg Enoxaparin Sodium (Lovenox) 80 mg SC 0900,2100 [facility] Last Admin: 08/05/19 09:40 Dose: 80 mg Famotidine (Pepcid) 20 mg PO BID [facility] Last Admin: 08/05/19 09:40 Dose: 20 mg Folic Acid (Folvite) 1 mg PO DAILY [facility] Last Admin: 08/05/19 09:39 Dose: 1 mg Furosemide (Lasix) 40 mg PO 0900,1400 [facility] Last Admin: 08/05/19 13:39 Dose: 40 mg Furosemide (Lasix) 40 mg SLOW IVP DAILY [facility] Stop: 08/05/19 23:59 Last Admin: 08/05/19 09:38 Dose: 40 mg Guaifenesin (Robitussin Sf) 200 mg PO Q4H PRN PRN Reason: Cough Hydralazine HCl (Apresoline) 10 mg SLOW IVP Q4H PRN PRN Reason: SBP > 180 and HR < 70 Lidocaine (Lidoderm 5% Patch) 1 patch TD 1600 [facility] Last Admin: 08/05/19 17:05 Dose: 1 patch Loperamide HCl (Imodium) 2 mg PO PRN PRN PRN Reason: Diarrhea/Loose Stools Lorazepam (Ativan) 0.5 mg PO Q6H PRN PRN Reason: Anxiety Last Admin: 08/05/19 00:22 Dose: 0.5 mg Magnesium Oxide (Magnesium Oxide) 400 mg PO BID [facility] Last Admin: 08/05/19 09:39 Dose: 400 mg Melatonin (Melatonin) 3 mg PO HS PRN PRN Reason: Insomnia Miscellaneous Medication (Lidocaine Patch Removal) 1 each TOP 0400 [facility] Last Admin: 08/05/19 03:26 Dose: 1 each Ondansetron HCl (Zofran Odt) 4 mg PO Q6H PRN PRN Reason: Nausea/Vomiting Ondansetron HCl (Zofran) 4 mg IVP Q6H PRN PRN Reason: Nausea/Vomiting Phenol (Chloraseptic [place] 180 Ml Bot) 0 ml PO Q4H PRN PRN Reason: .SORE THROAT Last Admin: 08/04/19 20:53 Dose: 1 spr Potassium Chloride (K-Dur) 40 meq PO BID-WM [facility] Last Admin: 08/05/19 17:28 Dose: 40 meq Senna/Docusate Sodium (Senokot S) 2 tab PO BID PRN PRN Reason: Constipation Sodium Chloride ([place] Nasal [place] 0.65%) 0 ml EA NARE QIDPRN PRN PRN Reason: Nasal Congestion Thiamine HCl (Thiamine) 100 mg PO DAILY [facility] Last Admin: 08/05/19 09:39 Dose: 100 mg Throat Lozenges (Cepastat Lozenges) 1 gildardo PO Q2H PRN PRN Reason: Sore Throat Trazodone HCl (Desyrel) 50 mg PO 2200 [facility] Zolpidem Tartrate (Ambien) 5 mg PO HSPRN PRN PRN Reason: Insomnia Vital Signs & Weight: Vital Signs Temp Pulse Pulse Pulse Resp BP BP 08/05/19 15:30 97.0 F L 08/05/19 13:31 69 67 140/77 08/05/19 13:07 64 20 08/05/19 11:08 97.8 F 08/05/19 09:40 75 115/61 08/05/19 08:00 08/05/19 07:30 97.2 F L BP Pulse Ox Pulse Ox Pulse Ox 08/05/19 15:30 08/05/19 13:31 106/65 94 L 95 08/05/19 13:07 94 L 08/05/19 11:08 08/05/19 09:40 08/05/19 08:00 93 L 08/05/19 07:30 Weight 188 lb 14.4 oz - Physical Exam General: alert & oriented x3 HEENT: mucus membranes moist Neck: supple neck, midline trachea Cardiac: regular rate and rhythm Lungs: no rales, no rhonchi, wheezes Neuro: grossly intact Abdomen: active bowel sounds Extremities: no edema Skin: clear Musculoskeletal: no pain - Labs Result Diagrams: 08/03/19 04:03 08/05/19 04:29 Troponin/CKMB Troponin I 0.025 ng/mL (< 0.028) 08/02/19 13:59 - Telemetry Sinus rhythms and dysrhythmias: sinus rhythm - Assessment/Plan Assessment/Plan: 1. Acute on chronic diastolic CHF 2. Hyponatremia 3. COPD with mild exacerbation 4. Paroxysmal afib 5. Alcohol use PLAN: - Continue PO lasix. - CV stable. May discharge any time from cardiac perspective.
[2019-08-05] MEDS: Atorvastatin Calcium 10 MG TAB PO SCH (21:19)
[2019-08-05] MEDS ORDERED: traZODone HCl 50 MG TAB PO SCH (22:00)
[2019-08-06] MEDS: Lorazepam 0.5 MG TAB PO PRN (01:46)
[2019-08-06] MEDS: Lidocaine Patch Removal 1 EACH TOP SCH (01:47)
--- NOTE | 2019-08-06 08:35 | PRG ---
DATE OF SERVICE: 08/06/2019 SUBJECTIVE: The patient is seen and examined at the bedside. She does not have much complaints to offer. She refused blood draw this morning. Again, she has tried several times and she is telling me that she has done with blood draw. She participated in physical therapy to some extent yesterday. Her appetite is fair. OBJECTIVE: VITAL SIGNS: Blood pressure is 135/83, pulse is 67, temperature is 98.0, respiratory rate is 17, and O2 saturation is 93% on 2 L by nasal cannula. HEENT: Head is atraumatic and normocephalic. Eyes are PERRLA. Sclerae are nonicteric. Oral mucosa is moist. NECK: Supple. LUNGS: Few crackles at both bases. HEART: S1 and S2 normal. No S3. No S4. ABDOMEN: Soft, nontender. Bowel sounds are present. No organomegaly. EXTREMITIES: 1+ peripheral edema similar bilaterally on both lower extremities. NEUROLOGICAL: She is alert and oriented x4. There are no any motor or sensory deficits. LABORATORY DATA: None. IMPRESSION: 1. Acute on chronic diastolic congestive heart failure. 2. Acute respiratory failure with hypoxemia. 3. Hyponatremia. 4. Atrial fibrillation with rapid ventricular response. 5. Hypomagnesemia. 6. Hypertension. PLAN: I am going to continue fluid restriction of 1000 mL per 24 hours. Continue PT and OT. Continue diuresis. We will check her BMP in 2 days and I am going to use 3 agents to help her insomnia, Ambien, lorazepam, and trazodone at the same time. We will see whether this combination works. Job ID: [id number]
[2019-08-06] MEDS: Acetaminophen 325 MG TAB PO PRN ×2 (09:38→17:25)
[2019-08-06] MEDS: Furosemide 40 MG TAB PO SCH (09:39)
[2019-08-06] MEDS: cloNIDine 0.1 MG TAB PO SCH ×2 (09:39→20:48)
[2019-08-06] MEDS: Potassium Chloride 20 MEQ TAB PO SCH ×2 (09:39→17:25)
[2019-08-06] MEDS: Folic Acid 1 MG TAB PO SCH (09:39)
[2019-08-06] MEDS: Aspirin Chewable 81 MG TAB PO SCH (09:39)
[2019-08-06] MEDS: Magnesium Oxide 400 MG TAB PO SCH ×2 (09:39→20:48)
[2019-08-06] MEDS: Famotidine 20 MG TAB PO SCH ×2 (09:40→20:49)
[2019-08-06] MEDS: Enoxaparin Sodium 80 MG/0.8 ML SYRINGE SC SCH (09:40)
[2019-08-06] MEDS: Atenolol 25 MG TAB PO SCH (09:40)
[2019-08-06] MEDS: Thiamine 100 MG TAB PO SCH (09:40)
[2019-08-06] MEDS: Amlodipine 5 MG TAB PO SCH (09:40)
[2019-08-06 11:54] LABS: Anion Gap 11 mmol/L (10-20); BUN (Urea Nitrogen) 25 mg/dL (9.8-20.1); Calc. Creatinine Clearance 53 mL/min (70-130); Calcium 9.1 mg/dL (7.8-10.44); Carbon Dioxide 37 mmol/L (23-31); Chloride 82 mmol/L (98-107); Estimated GFR-MDRD 45; Glucose 105 mg/dL (83-110); Potassium 4.1 mmol/L (3.5-5.1); Sodium 126 mmol/L (136-145)
--- NOTE | 2019-08-06 12:58 | PRG ---
DATE OF SERVICE: 08/06/2019 SERVICE: Nephrology. SUBJECTIVE: A 79-year-old female, admitted with worsening shortness of breath, found to have acute on chronic diastolic heart failure. Nephrology seen the patient for severe hyponatremia. The patient reports feeling better. Shortness of breath and swelling have markedly improved. Complained of dry mouth. She also complained of generalized weakness. OBJECTIVE: VITAL SIGNS: Temperature 97.9, pulse 80, respiratory rate 22, SpO2 of 94% on 1 L nasal cannula, and blood pressure is 125/72. GENERAL: Comfortable elderly female, in no obvious distress. Afebrile. Anicteric. Acyanotic. HEENT: Normocephalic, atraumatic. Oral mucosa is dry. NECK: Supple, nontender with no JVD. CARDIOVASCULAR: rhythm and rate with normal heart sounds one and two. RESPIRATORY: Fair air entry bilaterally with few transmitted breath sounds. Few basal rhonchi and crackles also were noted. GI: Full, soft, nontender, and nondistended with normal bowel sounds. EXTREMITIES: Trace to no edema noted. No erythema appreciated. DIRECTOR OF LOSS PREVENTION: Conscious, alert, and oriented x3 with appropriate mental status. Cranial nerves 2 through 12 are grossly intact. DIAGNOSTIC DATA: Renal function; BMP showed sodium 126, potassium 4.1, chloride 82, CO2 of 37, BUN 25, creatinine 1.17, glucose 105, and calcium 9.1. ASSESSMENT: 1. Hyponatremia: [place] to be hypervolemic hyponatremia from congestive heart failure exacerbation with ADH secretion. Poor solute intake and hypokalemia also were contributory. Sodium level is trending upwards with correction of potassium and diuretic therapy. 2. Contraction alkalosis due to excessive diuretics. 3. Acute on chronic congestive heart failure: Diastolic type. Improved with diuretics. 4. Hypokalemia: Repleted. 5. Hypomagnesemia: Repleted. The patient currently on supplementation. 6. due to excessive diuresis. BUN is elevated to 25 from 16 yesterday. Creatinine also went up from 0.96 to 1.17. 7. Hypertension: Controlled. The patient however is on clonidine, which is associated with rebound hypertension. PLAN: 1. Continue liberal oral intake with increase protein intake. 2. We will deescalate diuretic therapy. We will change Lasix to 40 mg daily. 3. We will also hold potassium supplementation at this time due to increasing creatinine. 4. Tweaking of antihypertensive therapy is recommended. The patient is currently on atenolol, clonidine, and low-dose amlodipine. Weaning off clonidine is recommended due to associated rebound hypertension. Optimization of calcium channel antonio and introduction of ANTIONE inhibitor or angiotensin receptor antonio is recommended. 5. Repeat renal function test in the morning. Job ID: [id number]
[2019-08-06] MEDS: Lidocaine 5% Patch TD SCH (17:25)
--- NOTE | 2019-08-06 19:13 | PDOC.CPN ---
- Subjective Date: 08/06/19 Time: 19:11 Interval history: She is doing much better today. Her bretahing is back to normal and she is on room air satting in the mid 90's. - Review of Systems General: denies: fever/chills, weight/appetite/sleep changes, night sweats, fatigue Respiratory: reports: cough. denies: congestion, shortness of breath, exercise intolerance Cardiovascular: denies: chest pain, palpitation, edema, paroxysmal nocturnal dyspnea, orthopnea Gastrointestinal: denies: nausea, vomiting, diarrhea, constipation, abd pain, GI bleeding Musculoskeletal: denies: pain, tenderness, stiffness, swelling, arthritis/ arthralgias Neurological: denies: numbness, syncope, seizure, weakness - Objective Allergies/Adverse Reactions: Allergies Allergy/AdvReac Type Severity Reaction Status Date / Time hydrocodone Allergy Verified 05/21/18 17:16 meperidine HCl [From Demerol] Allergy Verified 05/21/18 17:16 Penicillins Allergy Verified 05/21/18 17:16 Visit Medications: Current Medications Acetaminophen (Tylenol) 650 mg PO Q4H PRN PRN Reason: Headache/Fever/Mild Pain (1-3) Last Admin: 08/06/19 17:25 Dose: 650 mg Albuterol/Ipratropium (Duoneb) 3 ml NEB [id number] PRN PRN Reason: SOB &/or Wheezing Albuterol/Ipratropium (Duoneb) 3 ml NEB [id number] [facility] Last Admin: 08/06/19 18:22 Dose: 3 ml Amlodipine Besylate (Norvasc) 5 mg PO DAILY [facility] Last Admin: 08/06/19 09:40 Dose: 5 mg Apixaban (Eliquis) 5 mg PO BID [facility] Artificial Tears (Tears Naturale) 2 drop EA EYE PRN PRN PRN Reason: Dry Eyes Aspirin (Aspirin Chewable) 81 mg PO DAILY [facility] Last Admin: 08/06/19 09:39 Dose: 81 mg Atenolol (Tenormin) 25 mg PO DAILY [facility] Last Admin: 08/06/19 09:40 Dose: 25 mg Atorvastatin Calcium (Lipitor) 10 mg PO HS [facility] Last Admin: 08/05/19 21:19 Dose: 10 mg Bisacodyl (Dulcolax) 10 mg [place] DAILYPRN PRN PRN Reason: Constipation Calcium Carbonate (Tums) 1,000 mg PO Q4H PRN PRN Reason: Heartburn or Indigestion Clonidine (Catapres) 0.1 mg PO BID [facility] Last Admin: 08/06/19 09:39 Dose: 0.1 mg Famotidine (Pepcid) 20 mg PO BID [facility] Last Admin: 08/06/19 09:40 Dose: 20 mg Folic Acid (Folvite) 1 mg PO DAILY [facility] Last Admin: 08/06/19 09:39 Dose: 1 mg Furosemide (Lasix) 40 mg PO DAILY [facility] Guaifenesin (Robitussin Sf) 200 mg PO Q4H PRN PRN Reason: Cough Hydralazine HCl (Apresoline) 10 mg SLOW IVP Q4H PRN PRN Reason: SBP > 180 and HR < 70 Lidocaine (Lidoderm 5% Patch) 1 patch TD 1600 [facility] Last Admin: 08/06/19 17:25 Dose: 1 patch Loperamide HCl (Imodium) 2 mg PO PRN PRN PRN Reason: Diarrhea/Loose Stools Lorazepam (Ativan) 1 mg PO HS [facility] Magnesium Oxide (Magnesium Oxide) 400 mg PO BID [facility] Last Admin: 08/06/19 09:39 Dose: 400 mg Melatonin (Melatonin) 3 mg PO HS PRN PRN Reason: Insomnia Miscellaneous Medication (Lidocaine Patch Removal) 1 each TOP 0400 [facility] Last Admin: 08/06/19 01:47 Dose: 1 each Ondansetron HCl (Zofran Odt) 4 mg PO Q6H PRN PRN Reason: Nausea/Vomiting Ondansetron HCl (Zofran) 4 mg IVP Q6H PRN PRN Reason: Nausea/Vomiting Phenol (Chloraseptic [place] 180 Ml Bot) 0 ml PO Q4H PRN PRN Reason: .SORE THROAT Last Admin: 08/04/19 20:53 Dose: 1 spr Potassium Chloride (K-Dur) 40 meq PO BID[facility] Last Admin: 08/06/19 17:25 Dose: 40 meq Senna/Docusate Sodium (Senokot S) 2 tab PO BID PRN PRN Reason: Constipation Sodium Chloride ([place] Nasal [place] 0.65%) 0 ml EA NARE QIDPRN PRN PRN Reason: Nasal Congestion Thiamine HCl (Thiamine) 100 mg PO DAILY [facility] Last Admin: 08/06/19 09:40 Dose: 100 mg Throat Lozenges (Cepastat Lozenges) 1 gildardo PO Q2H PRN PRN Reason: Sore Throat Trazodone HCl (Desyrel) 50 mg PO HS [facility] Zolpidem Tartrate (Ambien) 10 mg PO HS [facility] Vital Signs & Weight: Vital Signs Temp Pulse Pulse Pulse Resp BP BP 08/06/19 18:22 67 21 H 08/06/19 13:38 71 68 118/72 08/06/19 13:20 68 18 08/06/19 12:00 97.9 F 08/06/19 09:40 78 120/66 08/06/19 09:39 120/66 08/06/19 08:00 08/06/19 07:14 67 17 BP Pulse Ox Pulse Ox Pulse Ox 08/06/19 18:22 94 L 08/06/19 13:38 117/70 86 L 93 L 08/06/19 13:20 94 L 08/06/19 12:00 08/06/19 09:40 08/06/19 09:39 08/06/19 08:00 91 L 08/06/19 07:14 93 L Weight 186 lb 8 oz - Physical Exam General: alert & oriented x3 HEENT: mucus membranes moist Neck: supple neck Cardiac: regular rate and rhythm Lungs: clear to auscultation Neuro: grossly intact Abdomen: active bowel sounds Extremities: no edema Skin: clear Musculoskeletal: no pain - Labs Result Diagrams: 08/03/19 04:03 08/06/19 11:01 Troponin/CKMB Troponin I 0.025 ng/mL (< 0.028) 08/02/19 13:59 - Telemetry Sinus rhythms and dysrhythmias: sinus rhythm - Assessment/Plan Assessment/Plan: 1. Acute on chronic diastolic CHF 2. Hyponatremia 3. COPD with mild exacerbation 4. Paroxysmal afib 5. Alcohol use PLAN: - Continue PO lasix. - I doubt her sodium will increase any more with diuresis unless she is dehydrated as she has normal systolic function and this was likely from diastolic CHF. - CV stable.
[2019-08-06] MEDS: Atorvastatin Calcium 10 MG TAB PO SCH (20:48)
[2019-08-06] MEDS: Apixaban 5 MG TAB PO SCH (20:48)
[2019-08-07] MEDS: Zolpidem Tartrate 5 MG TAB PO SCH (00:08)
[2019-08-07] MEDS: Lorazepam 0.5 MG TAB PO SCH (00:08)
[2019-08-07] MEDS: traZODone HCl 50 MG TAB PO SCH (00:09)
[2019-08-07] MEDS: Lidocaine Patch Removal 1 EACH TOP SCH (06:17)
[2019-08-07] MEDS: Potassium Chloride 20 MEQ TAB PO SCH (09:49)
[2019-08-07] MEDS: Amlodipine 5 MG TAB PO SCH (09:50)
[2019-08-07] MEDS: Aspirin Chewable 81 MG TAB PO SCH (09:51)
[2019-08-07] MEDS: cloNIDine 0.1 MG TAB PO SCH (09:51)
[2019-08-07] MEDS: Atenolol 25 MG TAB PO SCH (09:51)
[2019-08-07] MEDS: Apixaban 5 MG TAB PO SCH ×2 (09:51→21:06)
[2019-08-07] MEDS: Famotidine 20 MG TAB PO SCH ×2 (09:52→21:06)
[2019-08-07] MEDS: Magnesium Oxide 400 MG TAB PO SCH ×2 (09:52→21:06)
[2019-08-07] MEDS: Thiamine 100 MG TAB PO SCH (09:52)
[2019-08-07] MEDS: Furosemide 40 MG TAB PO SCH (09:52)
[2019-08-07] MEDS: Folic Acid 1 MG TAB PO SCH (09:52)
[2019-08-07 10:52] LABS: #Basophils 0.1 thou/uL (0.0-0.2); #Eosinphils 1.2 thou/uL (0.0-0.7); #Lymphocytes 1.9 thou/uL (1.20-3.40); #Neutrophils 8.9 thou/uL (1.40-6.50); %Basophils 0.5 % (0.0-1.0); %Lymphocytes 14.4 % (21.0-51.0); %Monocytes 7.3 % (0.0-10.0); %Neutrophils 68.8 % (42.0-75.0); Hemoglobin 13.4 g/dL (12.0-16.0); Mean Corpuscular HGB CONC 32.7 g/dL (32.0-36.0); Mean Corpuscular Hemoglobin 28.2 pg (27.0-31.0); Mean Corpuscular Volume 86.2 fL (78.0-98.0); Mean Platelet Volume 7.4 fL (7.4-10.4); Platelet Count 268 thou/uL (130-400); RBC Distribution Width 12.4 % (11.5-14.5); Red Blood Cell (RBC) Count 4.77 mill/uL (4.20-5.40); White Blood Cell (WBC) Count 12.9 thou/uL (4.8-10.8)
[2019-08-07 11:56] LABS: Albumin 4.1 g/dL (3.4-4.8); Anion Gap 12 mmol/L (10-20); BUN (Urea Nitrogen) 30 mg/dL (9.8-20.1); BUN/Creatinine Ratio 26.09; Calc. Creatinine Clearance 54 mL/min (70-130); Calcium 9.5 mg/dL (7.8-10.44); Carbon Dioxide 34 mmol/L (23-31); Chloride 85 mmol/L (98-107); Estimated GFR-MDRD 46; Glucose 122 mg/dL (83-110); Phosphorus 3.9 mg/dL (2.3-4.7); Potassium 4.1 mmol/L (3.5-5.1); Sodium 127 mmol/L (136-145)
[2019-08-07] MEDS: Acetaminophen 325 MG TAB PO PRN (13:13)
[2019-08-07] MEDS: Lidocaine 5% Patch TD SCH (15:43)
--- NOTE | 2019-08-07 15:46 | PDOC.CPN ---
- Subjective Date: 08/07/19 Time: 15:45 Interval history: She is doing better every day. She is still needing oxygen at 2L - Review of Systems General: denies: fever/chills, weight/appetite/sleep changes, night sweats, fatigue Respiratory: denies: cough, congestion, shortness of breath, exercise intolerance Cardiovascular: denies: chest pain, palpitation, edema, paroxysmal nocturnal dyspnea, orthopnea Gastrointestinal: denies: nausea, vomiting, diarrhea, constipation, abd pain, GI bleeding Musculoskeletal: denies: pain, tenderness, stiffness, swelling, arthritis/ arthralgias Neurological: denies: numbness, syncope, seizure, weakness - Objective Allergies/Adverse Reactions: Allergies Allergy/AdvReac Type Severity Reaction Status Date / Time hydrocodone Allergy Verified 05/21/18 17:16 meperidine HCl [From Demerol] Allergy Verified 05/21/18 17:16 Penicillins Allergy Verified 05/21/18 17:16 Visit Medications: Current Medications Acetaminophen (Tylenol) 650 mg PO Q4H PRN PRN Reason: Headache/Fever/Mild Pain (1-3) Last Admin: 08/07/19 13:13 Dose: 650 mg Albuterol/Ipratropium (Duoneb) 3 ml NEB [id number] PRN PRN Reason: SOB &/or Wheezing Albuterol/Ipratropium (Duoneb) 3 ml NEB [id number] [facility] Last Admin: 08/07/19 13:31 Dose: 3 ml Amlodipine Besylate (Norvasc) 5 mg PO DAILY [facility] Last Admin: 08/07/19 09:50 Dose: 5 mg Apixaban (Eliquis) 5 mg PO BID [facility] Last Admin: 08/07/19 09:51 Dose: 5 mg Artificial Tears (Tears Naturale) 2 drop EA EYE PRN PRN PRN Reason: Dry Eyes Aspirin (Aspirin Chewable) 81 mg PO DAILY [facility] Last Admin: 08/07/19 09:51 Dose: 81 mg Atenolol (Tenormin) 25 mg PO DAILY [facility] Last Admin: 08/07/19 09:51 Dose: 25 mg Atorvastatin Calcium (Lipitor) 10 mg PO HS [facility] Last Admin: 08/06/19 20:48 Dose: 10 mg Bisacodyl (Dulcolax) 10 mg [place] DAILYPRN PRN PRN Reason: Constipation Calcium Carbonate (Tums) 1,000 mg PO Q4H PRN PRN Reason: Heartburn or Indigestion Famotidine (Pepcid) 20 mg PO BID [facility] Last Admin: 08/07/19 09:52 Dose: 20 mg Folic Acid (Folvite) 1 mg PO DAILY [facility] Last Admin: 08/07/19 09:52 Dose: 1 mg Furosemide (Lasix) 40 mg PO DAILY [facility] Last Admin: 08/07/19 09:52 Dose: 40 mg Guaifenesin (Robitussin Sf) 200 mg PO Q4H PRN PRN Reason: Cough Hydralazine HCl (Apresoline) 10 mg SLOW IVP Q4H PRN PRN Reason: SBP > 180 and HR < 70 Lidocaine (Lidoderm 5% Patch) 1 patch TD 1600 [facility] Last Admin: 08/07/19 15:43 Dose: 1 patch Loperamide HCl (Imodium) 2 mg PO PRN PRN PRN Reason: Diarrhea/Loose Stools Lorazepam (Ativan) 1 mg PO HS [facility] Last Admin: 08/07/19 00:08 Dose: 1 mg Magnesium Oxide (Magnesium Oxide) 400 mg PO BID [facility] Last Admin: 08/07/19 09:52 Dose: 400 mg Melatonin (Melatonin) 3 mg PO HS PRN PRN Reason: Insomnia Miscellaneous Medication (Lidocaine Patch Removal) 1 each TOP 0400 [facility] Last Admin: 08/07/19 06:17 Dose: Not Given Ondansetron HCl (Zofran Odt) 4 mg PO Q6H PRN PRN Reason: Nausea/Vomiting Ondansetron HCl (Zofran) 4 mg IVP Q6H PRN PRN Reason: Nausea/Vomiting Phenol (Chloraseptic [place] 180 Ml Bot) 0 ml PO Q4H PRN PRN Reason: .SORE THROAT Last Admin: 08/04/19 20:53 Dose: 1 spr Potassium Chloride (K-Dur) 40 meq PO QAM-WM [facility] Senna/Docusate Sodium (Senokot S) 2 tab PO BID PRN PRN Reason: Constipation Sodium Chloride ([place] Nasal [place] 0.65%) 0 ml EA NARE QIDPRN PRN PRN Reason: Nasal Congestion Thiamine HCl (Thiamine) 100 mg PO DAILY [facility] Last Admin: 08/07/19 09:52 Dose: 100 mg Throat Lozenges (Cepastat Lozenges) 1 gildardo PO Q2H PRN PRN Reason: Sore Throat Trazodone HCl (Desyrel) 50 mg PO [facility] Last Admin: 08/07/19 00:09 Dose: 50 mg Zolpidem Tartrate (Ambien) 10 mg PO [facility] Last Admin: 08/07/19 00:08 Dose: 10 mg Vital Signs & Weight: Vital Signs Temp Pulse Resp BP BP Pulse Ox 08/07/19 13:40 97.7 F 60 18 112/83 94 L 08/07/19 13:31 71 19 94 L 08/07/19 11:25 97.4 F L 08/07/19 09:50 70 118/58 L 08/07/19 08:00 95 08/07/19 07:16 96.6 F L 08/07/19 06:35 68 17 95 Weight 187 lb 7 oz - Physical Exam General: alert & oriented x3 HEENT: mucus membranes moist Neck: supple neck Cardiac: regular rate and rhythm Lungs: clear to auscultation Neuro: grossly intact Abdomen: active bowel sounds Extremities: no edema Skin: clear Musculoskeletal: no pain - Labs Result Diagrams: 08/07/19 10:24 08/07/19 10:24 Troponin/CKMB Troponin I 0.025 ng/mL (< 0.028) 08/02/19 13:59 - Telemetry Sinus rhythms and dysrhythmias: sinus rhythm - Assessment/Plan Assessment/Plan: 1. Acute on chronic diastolic CHF 2. Hyponatremia 3. COPD with mild exacerbation 4. Paroxysmal afib 5. Alcohol use PLAN: - Continue PO lasix. - nephrology following Na levels. - Will switch clonidine to ACEI for better BP control. - May still need clonidine PRN on discharge. Continue amlodipine.
--- NOTE | 2019-08-07 19:26 | PRG ---
DATE OF SERVICE: 08/07/2019 SERVICE: Nephrology. SUBJECTIVE: A 79-year-old female being followed up for hyponatremia. The patient was admitted for shortness of breath and found to have acute on chronic heart failure and COPD exacerbation. Feeling better. Denied nausea or vomiting. OBJECTIVE: VITAL SIGNS: Temperature is 98.0, pulse 65, respiratory rate 20, SpO2 of 95 on 2 L nasal cannula, blood pressure is 118/58. GENERAL: Elderly female, in no obvious distress. Afebrile. Anicteric. Acyanotic. HEENT: Normocephalic, atraumatic. Oral mucosa is moist. CARDIOVASCULAR: Normal heart sounds 1 and 2. RESPIRATORY: Fair air entry bilaterally with some transmitted breath sounds. No obvious rhonchi were appreciated. Work of breathing is not increased. GI: Full, soft, nontender, nondistended with normal bowel sounds. EXTREMITIES: No obvious edema appreciated. GATE PERSON: Conscious and alert, oriented x3 with appropriate mental status. Cranial nerves 2 through 12 are grossly intact. DIAGNOSTIC DATA: CBC showed WBC count of 12.9, hemoglobin of 13.4, platelet of 268. Renal function panel showed sodium 127, potassium 4.1, chloride 85, CO2 of 34, BUN 30, creatinine 1.15, glucose 122, calcium 9.5, phosphorus 3.9, albumin 4.1. ASSESSMENT: 1. Hyponatremia: Due to congestive heart failure exacerbation with ADH secretion as well as effect of hypokalemia and poor solute intake. 2. Acute kidney injury with worsening azotemia. Due to excessive diuretics. 3. Atrial fibrillation with rapid ventricular response. 4. Physical deconditioning. PLAN: 1. Liberalization of oral intake is recommended. 2. Increased solute intake including high-protein diet. 3. Continue low-dose diuretics and avoid thiazide diuretics. 4. Recheck renal function test in the morning. If sodium continues to trend up, the patient could be discharged to follow up in 1 week. Job ID: [id number]
[2019-08-07] MEDS: Atorvastatin Calcium 10 MG TAB PO SCH (21:06)
--- NOTE | 2019-08-07 23:41 | PDOC.HOSPP ---
- Subjective Encounter Date: 08/07/19 Encounter Time: 14:30 Subjective: Patient seen and examined for Resp failure. SOB improving. Feeling better overall. No CP. No new complaints. No overnight events - Objective Vital Signs & Weight: Vital Signs (12 hours) Temp Pulse Resp BP Pulse Ox 08/07/19 19:40 97.8 F 65 20 120/60 93 L 08/07/19 18:28 55 L 16 95 08/07/19 15:29 97.3 F L 59 L 21 H 126/61 93 L 08/07/19 13:40 97.7 F 60 18 112/83 94 L 08/07/19 13:31 71 19 94 L Weight Weight 187 lb 7 oz Most Recent Monitor Data Heart Rate from ECG 62 NIBP 141/84 NIBP BP-Mean 103 Respiration from ECG 25 SpO2 93 I&O: 08/06/19 08/07/19 08/08/19 06:59 06:59 06:59 Intake Total 2174 1030 720 Output Total 2350 800 850 Balance -176 230 -130 Result Diagrams: 08/07/19 10:24 08/07/19 10:24 EKG Reviewed by me: Yes (Tele SR) Hospitalist ROS - Review of Systems Constitutional: denies: fever, chills, sweats, weakness, malaise, other Gastrointestinal: denies: nausea, vomiting, abdominal pain, diarrhea, constipation, melena, hematochezia, other - Medication Medications: Active Medications Generic Name Dose Route Start Last Admin Trade Name Freq PRN Reason Stop Dose Admin Acetaminophen 650 mg 08/02/19 09:27 08/07/19 13:13 Tylenol PO 650 mg Q4H PRN Administration Headache/Fever/Mild Pain (1-3) Albuterol/Ipratropium 3 ml 08/02/19 19:00 08/07/19 18:28 Duoneb NEB 3 ml [id number] SUJATA Administration Amlodipine Besylate 5 mg 08/03/19 09:00 08/07/19 09:50 Norvasc PO 5 mg DAILY SUJATA Administration Apixaban 5 mg 08/06/19 21:00 08/07/19 21:06 Eliquis PO 5 mg BID SUJATA Administration Aspirin 81 mg 08/03/19 09:00 08/07/19 09:51 Aspirin Chewable PO 81 mg DAILY SUJATA Administration Atenolol 25 mg 08/03/19 09:00 08/07/19 09:51 Tenormin PO 25 mg DAILY SUJATA Administration Atorvastatin Calcium 10 mg 08/02/19 21:00 08/07/19 21:06 Lipitor PO 10 mg HS SUJATA Administration Famotidine 20 mg 08/02/19 21:00 08/07/19 21:06 Pepcid PO 20 mg BID SUJATA Administration Folic Acid 1 mg 08/03/19 09:00 08/07/19 09:52 Folvite PO 1 mg DAILY SUJATA Administration Furosemide 40 mg 08/07/19 09:00 08/07/19 09:52 Lasix PO 40 mg DAILY SUJATA Administration Lidocaine 1 patch 08/03/19 16:00 08/07/19 15:43 Lidoderm 5% Patch TD 1 patch 1600 SUJATA Administration Lorazepam 1 mg 08/06/19 21:00 08/07/19 00:08 Ativan PO 1 mg HS SUJATA Administration Magnesium Oxide 400 mg 08/05/19 09:00 08/07/19 21:06 Magnesium Oxide PO 400 mg BID SUJATA Administration Miscellaneous Medication 1 each 08/04/19 04:00 08/07/19 06:17 Lidocaine Patch Removal TOP Not Given 0400 SUJATA Phenol 0 ml 08/04/19 19:39 08/04/19 20:53 Chloraseptic [place] 180 Ml Bot PO 1 spr Q4H PRN Administration .SORE THROAT Thiamine HCl 100 mg 08/03/19 09:00 08/07/19 09:52 Thiamine PO 100 mg DAILY SUJATA Administration Trazodone HCl 50 mg 08/06/19 21:00 08/07/19 00:09 Desyrel PO 50 mg HS SUJATA Administration Zolpidem Tartrate 10 mg 08/06/19 21:00 08/07/19 00:08 Ambien PO 10 mg HS SUJATA Administration - Exam General Appearance: NAD Heart: RRR, no gallops Respiratory: no wheezes, no rales, rhonchi Gastrointestinal: soft, non-tender, normal bowel sounds Extremities: no cyanosis, no clubbing Hosp A/P - Plan Acute hypoxic respiratory failure (POA) Acute chronic diastolic HF (POA) Afib with RVR - on Eliquis Hypomagnesemia Acute on chronic Hyponatremia (POA) CKD 3 HTN HLD Obesity BMI 32 Chronic pain syndrome GERD PLAN: Change fluid rest to 2 lit/day Cont PO Lasix/Lisinopril AM labs Transfer to Tele Cont Nebs PT/OT DC planning
[2019-08-08] MEDS: Lorazepam 0.5 MG TAB PO SCH (01:29)
[2019-08-08] MEDS: traZODone HCl 50 MG TAB PO SCH (01:29)
[2019-08-08] MEDS: Zolpidem Tartrate 5 MG TAB PO SCH (01:34)
[2019-08-08] MEDS: Acetaminophen 325 MG TAB PO PRN ×2 (03:23→17:47)
[2019-08-08] MEDS: Lidocaine Patch Removal 1 EACH TOP SCH (05:12)
[2019-08-08] MEDS ORDERED: Potassium Chloride 20 MEQ TAB PO SCH (08:00)
[2019-08-08 08:29] LABS: Anion Gap 17 mmol/L (10-20); BUN (Urea Nitrogen) 31 mg/dL (9.8-20.1); Calc. Creatinine Clearance 54 mL/min (70-130); Carbon Dioxide 26 mmol/L (23-31); Chloride 89 mmol/L (98-107); Estimated GFR-MDRD 49; Glucose 111 mg/dL (83-110); Potassium 4.8 mmol/L (3.5-5.1); Sodium 127 mmol/L (136-145)
[2019-08-08] MEDS: Aspirin Chewable 81 MG TAB PO SCH (09:08)
[2019-08-08] MEDS: Lisinopril 5 MG TAB PO SCH (09:08)
[2019-08-08] MEDS: Famotidine 20 MG TAB PO SCH ×2 (09:08→21:13)
[2019-08-08] MEDS: Thiamine 100 MG TAB PO SCH (09:08)
[2019-08-08] MEDS: Furosemide 40 MG TAB PO SCH (09:08)
[2019-08-08] MEDS: Amlodipine 5 MG TAB PO SCH (09:08)
[2019-08-08] MEDS: Apixaban 5 MG TAB PO SCH ×2 (09:08→21:13)
[2019-08-08] MEDS: Folic Acid 1 MG TAB PO SCH (09:08)
[2019-08-08] MEDS: Magnesium Oxide 400 MG TAB PO SCH ×2 (09:08→21:13)
[2019-08-08] MEDS: Atenolol 25 MG TAB PO SCH (09:08)
--- NOTE | 2019-08-08 13:24 | PRG ---
DATE OF SERVICE: 08/08/2019 SUBJECTIVE: The patient is seen and examined at the bedside. She has some complaints of some abdominal pain when she coughs. It is located in the right side of her abdomen. Her appetite is fair. OBJECTIVE: VITAL SIGNS: Blood pressure is 135/66, pulse is 73, temperature is 97.9, respirations 20, and O2 saturation is 93% on 2 L by nasal cannula. HEENT: Her sclerae are nonicteric. Conjunctivae pinkish. Oral mucosa is moist. NECK: Supple. LUNGS: Breath sounds somewhat diminished at both bases. HEART: S1, S2. Normal, somewhat irregular. No S3, no S4. ABDOMEN: Soft. Somewhat obese, nontender. Bowel sounds are present. EXTREMITIES: 1+ nonpitting peripheral edema, similar bilateral in the lower and upper extremities. LABORATORY DATA: Labs showed sodium of 127, potassium 4.8, chloride 89, CO2 is 26, BUN is 31, creatinine 1.09, glucose 111, calcium 9.0, estimated GFR is 49. IMPRESSION: 1. Acute on chronic diastolic congestive heart failure. 2. Acute respiratory failure with hypoxemia. 3. Hyponatremia, managed per Nephrology. 4. Atrial fibrillation with rapid ventricular response, in normal sinus rhythm with PACs at this point. 5. Hypomagnesemia, corrected. 6. Hypertension. 7. Insomnia. PLAN: We are waiting for Nephrology to make decision about her discharge, although her sodium has not changed since yesterday but she might be able to go home today to follow up with Dr. Lantigua in 1 week. We are going to avoid HCTZ and continue just a loop diuretic orally. She did not respond to three agents for her insomnia and if she stays an additional day, we will check her labs in the morning. Her clonidine was changed to lisinopril by cuff setter lockstitch. Job ID: [id number]
--- NOTE | 2019-08-08 14:22 | RAD ---
Exam: Chest one view: HISTORY: Shortness of breath COMPARISON: 08/02/2019 FINDINGS: Stable minimal increased linear and interstitial markings in the bases. No new confluent pneumonia. H eart size is upper range of normal. IMPRESSION: No significant acute process. Stable appearance from 08/02/2019.
[2019-08-08] MEDS: Lidocaine 5% Patch TD SCH (15:38)
[2019-08-08] MEDS: Atorvastatin Calcium 10 MG TAB PO SCH (21:13)
--- NOTE | 2019-08-08 23:12 | PRG ---
DATE OF SERVICE: 08/08/2019 SERVICE: Nephrology. SUBJECTIVE: A 79-year-old female admitted due to worsening shortness of breath and leg edema. Nephrology is following the patient for hyponatremia. Shortness of breath has improved and the patient is desirous of going home. OBJECTIVE: VITAL SIGNS: Temperature 97.9, pulse 73, respiratory rate 20, SpO2 of 93% on 2 L nasal cannula, and blood pressure is 135/66. GENERAL: Comfortable, elderly female, in no distress. Afebrile. Anicteric. Acyanotic. HEENT: Normocephalic, atraumatic. Oral mucosa is moist. CARDIOVASCULAR: Regular rhythm and rate with normal heart sounds, one and two. RESPIRATORY: Fair air entry bilaterally with few transmitted breath sounds. No rhonchi were appreciated. GI: Full, soft, nontender, nondistended with normal bowel sounds. EXTREMITIES: Grossly normal looking atraumatic with no obvious edema or erythema. CATTLE BRANDER: Conscious and alert, oriented x3, with appropriate mental status. Cranial nerves 2 through 12 are grossly intact. DIAGNOSTIC DATA: BMP showed sodium 127, potassium 4.8, chloride 89, CO2 of 26, BUN 31, creatinine 1.09, glucose 111, calcium 9.0. ASSESSMENT: 1. Hyponatremia: Jachin to be due to congestive heart failure exacerbation with ADH secretion due to contribution from hypokalemia and poor solute intake. Sodium level has improved from 117 on admission to 127. 2. Renal insufficiency with azotemia: Due to aggressive diuretics. Improving with the escalation of diuresis. 3. Hypokalemia: Repleted. 4. Hypomagnesemia: Repleted. Now on supplementation. 5. Hypertension: Control is acceptable. PLAN: 1. Disposition. The patient can be discharged from Nephrology point of view. However, close outpatient followup with repeat BMP is recommended in 7 to 10 days. 2. If the patient is still here tomorrow, we will get repeat BMP. Further treatment as per primary attending and Cardiology. Job ID: [id number]
[2019-08-09] MEDS: traZODone HCl 50 MG TAB PO SCH (02:38)
[2019-08-09] MEDS: Lorazepam 0.5 MG TAB PO SCH (02:38)
[2019-08-09] MEDS: Lidocaine Patch Removal 1 EACH TOP SCH (04:18)
[2019-08-09] MEDS ORDERED: Sodium Chloride 0.9% 10 ML ONE (07:42)
[2019-08-09] MEDS: Potassium Chloride 20 MEQ TAB PO SCH (08:25)
[2019-08-09] MEDS: Famotidine 20 MG TAB PO SCH (08:25)
[2019-08-09] MEDS: Folic Acid 1 MG TAB PO SCH (08:25)
[2019-08-09] MEDS: Amlodipine 5 MG TAB PO SCH (08:25)
[2019-08-09] MEDS: Thiamine 100 MG TAB PO SCH (08:26)
[2019-08-09] MEDS: Lisinopril 5 MG TAB PO SCH (08:26)
[2019-08-09] MEDS: Magnesium Oxide 400 MG TAB PO SCH ×2 (08:26→20:48)
[2019-08-09] MEDS: Apixaban 5 MG TAB PO SCH ×2 (08:26→20:48)
[2019-08-09] MEDS: Furosemide 40 MG TAB PO SCH (08:26)
[2019-08-09] MEDS: Atenolol 25 MG TAB PO SCH (08:26)
[2019-08-09] MEDS: Aspirin Chewable 81 MG TAB PO SCH (08:26)
[2019-08-09] MEDS ORDERED: Budesonide 0.25 MG/2 ML NEB INH SCH (15:00)
[2019-08-09] MEDS: Lidocaine 5% Patch TD SCH (15:18)
[2019-08-09] MEDS ORDERED: predniSONE 20 MG TAB PO SCH (16:00)
--- NOTE | 2019-08-09 16:12 | PRG ---
DATE OF SERVICE: 08/09/2019 SUBJECTIVE: The patient is seen and examined at the bedside. She does not have much complaints to offer. OBJECTIVE: VITAL SIGNS: Blood pressure is 132/72, pulse is 65, temperature is 98.2, respirations 18, O2 saturation is 94% on 1 L by nasal cannula while resting. HEENT: Her head is atraumatic and normocephalic. Eyes are PERRLA. Sclerae are nonicteric. Conjunctivae are palish. Oral mucosa is moist. NECK: Supple. LUNGS: Breath sounds diminished at both bases. No wheezing or crackles. HEART: S1 and S2 are normal. No S3. No S4. ABDOMEN: Soft, nontender, and nondistended. EXTREMITIES: 2+ nonpitting peripheral edema bilaterally on both lower extremities. NEUROLOGIC: She is alert and oriented x4. There are no any motor or sensory deficits. LABORATORY DATA: Chest x-ray, no significant acute process compared to the previous one. IMPRESSION: 1. [id number] diastolic congestive heart failure. 2. Acute respiratory failure with hypoxemia. 3. Hyponatremia. 4. Atrial fibrillation with rapid ventricular response, currently in normal sinus rhythm. 5. Hypomagnesemia, corrected. 6. Hypertension. 7. Insomnia. PLAN: The patient's sodium is up to 127, and she is cleared by Nephrology to be discharged and do the followup with Dr. Lantigua in 7 to 10 days, but she is still hypoxic without oxygen. Even sitting in the bed, she drops to in mid 80s, and she is started on inhaled steroids and p.o. prednisone for possible reactive airway disease. Her Lasix dose was decreased since her creatinine started going up. Her discharge was postponed because of above-mentioned problems, and if she is still hypoxic tomorrow, she needs O2 arrangement. Job ID: [id number]
[2019-08-09] MEDS: Budesonide 0.25 MG/2 ML NEB INH SCH (18:59)
[2019-08-09] MEDS: Atorvastatin Calcium 10 MG TAB PO SCH (20:49)
[2019-08-09] MEDS: Nystatin Cream 15 GM TUBE TOP SCH (20:51)
[2019-08-09] MEDS: Acetaminophen 325 MG TAB PO PRN (22:27)
[2019-08-10] MEDS: Lorazepam 0.5 MG TAB PO SCH (02:07)
[2019-08-10] MEDS: traZODone HCl 50 MG TAB PO SCH (02:07)
[2019-08-10] MEDS: Lidocaine Patch Removal 1 EACH TOP SCH (05:44)
[2019-08-10] MEDS: Budesonide 0.25 MG/2 ML NEB INH SCH ×2 (07:27→20:04)
[2019-08-10] MEDS: Potassium Chloride 20 MEQ TAB PO SCH (08:25)
[2019-08-10] MEDS: Amlodipine 5 MG TAB PO SCH (08:25)
[2019-08-10] MEDS: predniSONE 20 MG TAB PO SCH (08:25)
[2019-08-10] MEDS: Apixaban 5 MG TAB PO SCH ×2 (08:26→20:28)
[2019-08-10] MEDS: Aspirin Chewable 81 MG TAB PO SCH (08:26)
[2019-08-10] MEDS: Atenolol 25 MG TAB PO SCH (08:27)
[2019-08-10] MEDS: Folic Acid 1 MG TAB PO SCH (08:27)
[2019-08-10] MEDS: Thiamine 100 MG TAB PO SCH (08:27)
[2019-08-10] MEDS: Magnesium Oxide 400 MG TAB PO SCH ×2 (08:27→20:29)
[2019-08-10] MEDS: Lisinopril 5 MG TAB PO SCH (08:27)
[2019-08-10] MEDS: Famotidine 20 MG TAB PO SCH (08:27)
[2019-08-10] MEDS: Furosemide 40 MG TAB PO SCH (08:27)
[2019-08-10] MEDS: Nystatin Cream 15 GM TUBE TOP SCH ×2 (08:31→20:29)
[2019-08-10] MEDS: Lidocaine 5% Patch TD SCH (15:38)
--- NOTE | 2019-08-10 17:44 | PDOC.CPN ---
- Subjective Date: 08/10/19 Time: 17:42 Interval history: She really want to go home. She denies any chest pain, tightness, pressure, breathing is unchanged. - Review of Systems General: denies: fever/chills, weight/appetite/sleep changes, night sweats, fatigue Respiratory: denies: cough, congestion, shortness of breath, exercise intolerance Cardiovascular: denies: chest pain, palpitation, edema, paroxysmal nocturnal dyspnea, orthopnea Gastrointestinal: denies: nausea, vomiting, diarrhea, constipation, abd pain, GI bleeding Musculoskeletal: denies: pain, tenderness, stiffness, swelling, arthritis/ arthralgias Neurological: denies: numbness, syncope, seizure, weakness - Objective Allergies/Adverse Reactions: Allergies Allergy/AdvReac Type Severity Reaction Status Date / Time hydrocodone Allergy Verified 05/21/18 17:16 meperidine HCl [From Demerol] Allergy Verified 05/21/18 17:16 Penicillins Allergy Verified 05/21/18 17:16 Visit Medications: Current Medications Acetaminophen (Tylenol) 650 mg PO Q4H PRN PRN Reason: Headache/Fever/Mild Pain (1-3) Last Admin: 08/09/19 22:27 Dose: 650 mg Albuterol/Ipratropium (Duoneb) 3 ml NEB [id number] PRN PRN Reason: SOB &/or Wheezing Albuterol/Ipratropium (Duoneb) 3 ml NEB [id number] [facility] Last Admin: 08/10/19 12:24 Dose: 3 ml Amlodipine Besylate (Norvasc) 5 mg PO DAILY [facility] Last Admin: 08/10/19 08:25 Dose: 5 mg Apixaban (Eliquis) 5 mg PO BID [facility] Last Admin: 08/10/19 08:26 Dose: 5 mg Artificial Tears (Tears Naturale) 2 drop EA EYE PRN PRN PRN Reason: Dry Eyes Aspirin (Aspirin Chewable) 81 mg PO DAILY [facility] Last Admin: 08/10/19 08:26 Dose: 81 mg Atenolol (Tenormin) 25 mg PO DAILY [facility] Last Admin: 08/10/19 08:27 Dose: 25 mg Atorvastatin Calcium (Lipitor) 10 mg PO HS [facility] Last Admin: 08/09/19 20:49 Dose: 10 mg Bisacodyl (Dulcolax) 10 mg MT DAILYPRN PRN PRN Reason: Constipation Budesonide (Pulmicort Neb Solution) 0.25 mg INH BID-RT [facility] Last Admin: 08/10/19 07:27 Dose: 0.25 mg Calcium Carbonate (Tums) 1,000 mg PO Q4H PRN PRN Reason: Heartburn or Indigestion Famotidine (Pepcid) 20 mg PO DAILY [facility] Last Admin: 08/10/19 08:27 Dose: 20 mg Folic Acid (Folvite) 1 mg PO DAILY [facility] Last Admin: 08/10/19 08:27 Dose: 1 mg Furosemide (Lasix) 40 mg PO DAILY [facility] Last Admin: 08/10/19 08:27 Dose: 40 mg Guaifenesin (Robitussin Sf) 200 mg PO Q4H PRN PRN Reason: Cough Hydralazine HCl (Apresoline) 10 mg SLOW IVP Q4H PRN PRN Reason: SBP > 180 and HR < 70 Lidocaine (Lidoderm 5% Patch) 1 patch TD 1600 [facility] Last Admin: 08/10/19 15:38 Dose: Not Given Lisinopril (Zestril) 5 mg PO DAILY [facility] Last Admin: 08/10/19 08:27 Dose: 5 mg Loperamide HCl (Imodium) 2 mg PO PRN PRN PRN Reason: Diarrhea/Loose Stools Lorazepam (Ativan) 1 mg PO HS [facility] Last Admin: 08/10/19 02:07 Dose: Not Given Magnesium Oxide (Magnesium Oxide) 400 mg PO BID [facility] Last Admin: 08/10/19 08:27 Dose: 400 mg Melatonin (Melatonin) 3 mg PO HS PRN PRN Reason: Insomnia Miscellaneous Medication (Lidocaine Patch Removal) 1 each TOP 0400 [facility] Last Admin: 08/10/19 05:44 Dose: 1 each Nystatin (Mycostatin Cream) 0 gm TOP BID [facility] Last Admin: 08/10/19 08:31 Dose: 1 applic Ondansetron HCl (Zofran Odt) 4 mg PO Q6H PRN PRN Reason: Nausea/Vomiting Ondansetron HCl (Zofran) 4 mg IVP Q6H PRN PRN Reason: Nausea/Vomiting Phenol (Chloraseptic [place] 180 Ml Bot) 0 ml PO Q4H PRN PRN Reason: .SORE THROAT Last Admin: 08/04/19 20:53 Dose: 1 spr Prednisone (Prednisone) 20 mg PO QAM-WM [facility] Last Admin: 08/10/19 08:25 Dose: 20 mg Senna/Docusate Sodium (Senokot S) 2 tab PO BID PRN PRN Reason: Constipation Sodium Chloride ([place] Nasal [place] 0.65%) 0 ml EA NARE QIDPRN PRN PRN Reason: Nasal Congestion Thiamine HCl (Thiamine) 100 mg PO DAILY [facility] Last Admin: 08/10/19 08:27 Dose: 100 mg Throat Lozenges (Cepastat Lozenges) 1 gildardo PO Q2H PRN PRN Reason: Sore Throat Trazodone HCl (Desyrel) 50 mg PO [facility] Last Admin: 08/10/19 02:07 Dose: Not Given Vital Signs & Weight: Vital Signs Temp Pulse Resp BP BP Pulse Ox Pulse Ox 08/10/19 15:44 98.2 F 74 16 137/65 93 L 08/10/19 12:24 63 20 92 L 08/10/19 11:08 98.0 F 67 18 151/72 H 94 L 08/10/19 11:01 94 L 08/10/19 08:27 69 08/10/19 08:25 69 146/70 H 08/10/19 08:17 97.6 F 69 18 146/70 H 92 L 08/10/19 07:28 92 L 08/10/19 07:23 75 20 92 L Pulse Ox 08/10/19 15:44 08/10/19 12:24 08/10/19 11:08 08/10/19 11:01 98 08/10/19 08:27 08/10/19 08:25 08/10/19 08:17 08/10/19 07:28 08/10/19 07:23 Weight 174 lb 5 oz - Physical Exam General: alert & oriented x3 HEENT: mucus membranes moist Neck: supple neck Cardiac: regular rate and rhythm Lungs: normal breath sounds Neuro: grossly intact Abdomen: active bowel sounds Extremities: no edema Skin: clear Musculoskeletal: no pain - Labs Result Diagrams: 08/07/19 10:24 08/08/19 07:46 Troponin/CKMB Troponin I 0.025 ng/mL (< 0.028) 08/02/19 13:59 - Telemetry Sinus rhythms and dysrhythmias: sinus rhythm - Assessment/Plan Assessment/Plan: 1. Acute on chronic diastolic CHF 2. Hyponatremia 3. COPD with mild exacerbation 4. Paroxysmal afib 5. Alcohol use PLAN: - Continue PO lasix. - Continue current BP regimen. - Eliquis for stroke prophylaxis. - May discharge home at any time from cardiac perspective. - Follow up in the office in 1 month. - Will sign off. Please call with any questions.
[2019-08-10] MEDS: Atorvastatin Calcium 10 MG TAB PO SCH (20:28)
--- NOTE | 2019-08-10 22:26 | PDOC.HOSPP ---
- Subjective Encounter Date: 08/10/19 Encounter Time: 10:30 Subjective: Patient seen and examined for CHF. SOB improving. No CP. No new complaints. No overnight events - Objective Vital Signs & Weight: Vital Signs (12 hours) Temp Pulse Resp BP Pulse Ox Pulse Ox Pulse Ox 08/10/19 20:02 74 18 94 L 08/10/19 15:44 98.2 F 74 16 137/65 93 L 08/10/19 12:24 63 20 92 L 08/10/19 11:08 98.0 F 67 18 151/72 H 94 L 08/10/19 11:01 94 L 98 Weight Weight 174 lb 5 oz Most Recent Monitor Data Heart Rate from ECG 62 NIBP 141/84 NIBP BP-Mean 103 Respiration from ECG 25 SpO2 93 I&O: 08/09/19 08/10/19 08/11/19 06:59 06:59 06:59 Intake Total 750 1050 1100 Output Total 1740 1150 900 Balance -990 -100 200 Result Diagrams: 08/07/19 10:24 08/08/19 07:46 EKG Reviewed by me: Yes (Tele SR) Hospitalist ROS - Review of Systems Cardiovascular: denies: chest pain, palpitations, orthopnea, paroxysmal noc. dyspnea, edema, light headedness, other Gastrointestinal: denies: nausea, vomiting, abdominal pain, diarrhea, constipation, melena, hematochezia, other - Medication Medications: Active Medications Generic Name Dose Route Start Last Admin Trade Name Freq PRN Reason Stop Dose Admin Acetaminophen 650 mg 08/02/19 09:27 08/09/19 22:27 Tylenol PO 650 mg Q4H PRN Administration Headache/Fever/Mild Pain (1-3) Albuterol/Ipratropium 3 ml 08/02/19 19:00 08/10/19 20:02 Duoneb NEB 3 ml [id number] SUJATA Administration Amlodipine Besylate 5 mg 08/03/19 09:00 08/10/19 08:25 Norvasc PO 5 mg DAILY SUJATA Administration Apixaban 5 mg 08/06/19 21:00 08/10/19 20:28 Eliquis PO 5 mg BID SUJATA Administration Aspirin 81 mg 08/03/19 09:00 08/10/19 08:26 Aspirin Chewable PO 81 mg DAILY SUJATA Administration Atenolol 25 mg 08/03/19 09:00 08/10/19 08:27 Tenormin PO 25 mg DAILY SUJATA Administration Atorvastatin Calcium 10 mg 08/02/19 21:00 08/10/19 20:28 Lipitor PO 10 mg HS SUJATA Administration Budesonide 0.25 mg 08/09/19 18:30 08/10/19 20:04 Pulmicort Neb Solution INH 0.25 mg BID-RT SUJATA Administration Famotidine 20 mg 08/09/19 09:00 08/10/19 08:27 Pepcid PO 20 mg DAILY SUJATA Administration Folic Acid 1 mg 08/03/19 09:00 08/10/19 08:27 Folvite PO 1 mg DAILY SUJATA Administration Furosemide 40 mg 08/07/19 09:00 08/10/19 08:27 Lasix PO 40 mg DAILY SUJATA Administration Lidocaine 1 patch 08/03/19 16:00 08/10/19 15:38 Lidoderm 5% Patch TD Not Given 1600 SUJATA Lisinopril 5 mg 08/08/19 09:00 08/10/19 08:27 Zestril PO 5 mg DAILY SUJATA Administration Lorazepam 1 mg 08/06/19 21:00 08/10/19 02:07 Ativan PO Not Given HS SUJATA Magnesium Oxide 400 mg 08/05/19 09:00 08/10/19 20:29 Magnesium Oxide PO 400 mg BID SUJATA Administration Miscellaneous Medication 1 each 08/04/19 04:00 08/10/19 05:44 Lidocaine Patch Removal TOP 1 each 0400 SUJATA Administration Nystatin 0 gm 08/09/19 21:00 08/10/19 20:29 Mycostatin Cream TOP 1 applic BID SUJATA Administration Phenol 0 ml 08/04/19 19:39 08/04/19 20:53 Chloraseptic [place] 180 Ml Bot PO 1 spr Q4H PRN Administration .SORE THROAT Prednisone 20 mg 08/10/19 08:00 08/10/19 08:25 Prednisone PO 20 mg QAM-WM SUJATA Administration Thiamine HCl 100 mg 08/03/19 09:00 08/10/19 08:27 Thiamine PO 100 mg DAILY SUJATA Administration Trazodone HCl 50 mg 08/06/19 21:00 08/10/19 02:07 Desyrel PO Not Given HS SUJATA - Exam General Appearance: NAD Neck: supple, no JVD Heart: no gallops, no rubs Respiratory: no wheezes, no rales Gastrointestinal: soft, non-distended Hosp A/P - Plan DVT proph w/SCDs Acute hypoxic respiratory failure (POA) Acute chronic diastolic HF (POA) Afib with RVR - on Eliquis Hypomagnesemia Acute on chronic Hyponatremia (POA) CKD 3 HTN HLD Obesity BMI 32 Chronic pain syndrome GERD PLAN: Home O2 setup Cont oral Lasix DC oral Potassium Cont Eliquis AM labs Pateint is declining SNF placement Will arrange for home O2 Update @1700: Home O2 setup pending due to insurance verification. Stable for dc
[2019-08-10] MEDS ORDERED: Zolpidem Tartrate 5 MG TAB PO PRN (23:18)
[2019-08-11] MEDS: Lorazepam 0.5 MG TAB PO SCH (00:58)
[2019-08-11] MEDS: traZODone HCl 50 MG TAB PO SCH (00:58)
[2019-08-11] MEDS: Lidocaine Patch Removal 1 EACH TOP SCH (06:18)
[2019-08-11] MEDS: Budesonide 0.25 MG/2 ML NEB INH SCH (07:00)
[2019-08-11 07:37] VITALS: TEMP 98.6
[2019-08-11] MEDS: predniSONE 20 MG TAB PO SCH (07:38)
[2019-08-11] MEDS: Amlodipine 5 MG TAB PO SCH (09:23)
[2019-08-11] MEDS: Atenolol 25 MG TAB PO SCH (09:25)
[2019-08-11] MEDS: Aspirin Chewable 81 MG TAB PO SCH (09:25)
[2019-08-11] MEDS: Apixaban 5 MG TAB PO SCH (09:25)
[2019-08-11] MEDS: Magnesium Oxide 400 MG TAB PO SCH (09:27)
[2019-08-11] MEDS: Thiamine 100 MG TAB PO SCH (09:27)
[2019-08-11] MEDS: Famotidine 20 MG TAB PO SCH (09:27)
[2019-08-11] MEDS: Folic Acid 1 MG TAB PO SCH (09:27)
[2019-08-11] MEDS: Furosemide 40 MG TAB PO SCH (09:27)
[2019-08-11] MEDS: Lisinopril 5 MG TAB PO SCH (09:27)
[2019-08-11] MEDS: Nystatin Cream 15 GM TUBE TOP SCH (09:28)
[2019-08-11 12:17] VITALS: BP 135/66
--- NOTE | 2019-08-11 18:45 | DIS ---
DATE OF ADMISSION: 08/02/2019 DATE OF DISCHARGE: 08/11/2019 PRIMARY CARE PHYSICIAN: Rafi Leon MD DISCHARGE DISPOSITION: Home with [facility]. Home oxygen has been arranged. The patient was seen and examined on the day of discharge. Denies any new complaints. No chest pain, shortness of breath, or palpitations reported. FOLLOWUP: Follow up with primary care physician, Dr. Leon in on August 17, 2019 as scheduled. Follow up with Nephrology, Dr. Lantigua and Cardiology Dr. Armendariz as scheduled. Repeat basic metabolic profile three days later as recommended. Dr. Lantigua or Dr. Leon can follow. ALLERGIES: THE PATIENT IS ALLERGIC TO PENICILLIN, DEMEROL, AND HYDROCODONE. DISCHARGE MEDICATIONS: 1. Eliquis 5 mg b.i.d. 2. Clonidine as needed. 3. Folic acid 1 mg daily. 4. Lasix 40 mg daily. 5. Lisinopril 5 mg daily. 6. Multivitamin daily. 7. Prednisone 20 mg daily for next 3 days. 8. Thiamine 100 mg daily. 9. Ambien as needed. 10. Pravastatin 40 mg daily. 11. Prilosec 10 mg daily. 12. Vitamin D3 of 1000 units daily. 13. Atenolol 25 mg daily. 14. Aspirin 81 mg daily. 15. Amlodipine 5 mg daily. 16. Phenergan as needed. 17. Lorazepam as needed. INPATIENT CONSULTANTS: 1. Cardiology, Brad Armendariz MD. 2. Pulmonary, Cedrick Pedro MD. 3. Nephrology, Bonita Baca obi, MD. BRIEF HOSPITAL COURSE: The patient is a 79-year-old female, who presented to the hospital on August 02, 2019 with shortness of breath. Room air saturation in the emergency room was 85%. She was started on noninvasive positive-pressure ventilation. Her workup was also consistent with atrial fibrillation with rapid ventricular response along with significant hyponatremia with sodium of 117 with serum osmolality of 241 on admission. BNP was 395. Please refer to the history and physical for further details. The patient was admitted to the intermediate care unit with a diagnosis of acute hypoxic respiratory failure secondary to acute on chronic diastolic heart failure exacerbation. She showed good improvement with diuretics. She was also started on anticoagulation for atrial fibrillation. She was seen by multiple consultants including Cardiology, Pulmonary, and Nephrology. Her medications have been optimized per forestry consultant's recommendation. Her weight at discharge is 176 pounds from 194 pounds on admission. She was extensively counseled on congestive heart failure. Her sodium has improved to 127 at discharge. Please note that she declined blood draw over the last 48 hours. She has a blood work schedule on August 14, 2019. She also understands the risk associated with anticoagulation. Lovenox has been transitioned to Eliquis. Blood culture and urine culture remained negative. She had an echocardiogram earlier this year that showed ejection fraction 60% to 65% with grade 1 of 3 diastolic dysfunction, mild tricuspid regurgitation. She appears stable for discharge. FINAL DIAGNOSES: 1. Acute hypoxic respiratory failure secondary to acute on chronic diastolic heart failure exacerbation. 2. Atrial fibrillation with rapid ventricular response. 3. Acute on chronic hyponatremia. 4. Hypomagnesemia. 5. Chronic kidney disease, stage 3. 6. Hypertension. 7. Hyperlipidemia. 8. Obesity with a BMI of 32. 9. Chronic pain syndrome. 10. Gastroesophageal reflux disease. 11. Hypokalemia, replaced. Total time coordinating the discharge of this patient was 35 minutes. Home oxygen has been arranged. Job ID: [id number]
--- NOTE | 2019-08-15 16:53 | EKG ---
Test Reason : SOB Blood Pressure : / mmHG Vent. Rate : 101 BPM Atrial Rate : 119 BPM P-R Int : 000 ms QRS Dur : 098 ms QT Int : 400 ms P-R-T Axes : 000 017 -11 degrees QTc Int : 518 ms Atrial fibrillation with rapid ventricular response with premature ventricular or aberrantly conducte d complexes Abnormal ECG Confirmed by RAFY PATTON, LIZA ([id number]), online editor CHRISTIAN MEDEIROS ([id number]) on 08/15/2019 4:53:12 PM Referred By: Confirmed By:LIZA HILLMAN MD
== END 2019-08-11 13:10 | disposition home health service (06) | DRG 291 ==
LOC: ERS 06:52 → IMCU/EMU 09:19 → ERHOLD 09:23 → IMCU/EMU 12:24 → 2NO 08-07 13:45
PROVIDERS: ADMIT Internal Medicine; ATTEND Internal Medicine
DX: I13.0 Hypertensive heart and chronic kidney disease with heart failure and stage 1 through stage 4 chronic kidney disease, or unspecified chronic kidney disease (principal); I50.33 Acute on chronic diastolic (congestive) heart failure; J96.01 Acute respiratory failure with hypoxia; G93.41 Metabolic encephalopathy; E87.1 Hypo-osmolality and hyponatremia; N39.0 Urinary tract infection, site not specified; N17.9 Acute kidney failure, unspecified; J44.1 Chronic obstructive pulmonary disease with (acute) exacerbation; N18.3 Chronic kidney disease, stage 3 (moderate); E83.42 Hypomagnesemia; E78.5 Hyperlipidemia, unspecified; E66.9 Obesity, unspecified; Z68.32 Body mass index [BMI] 32.0-32.9, adult; K21.9 Gastro-esophageal reflux disease without esophagitis; E87.6 Hypokalemia; G89.4 Chronic pain syndrome; Z88.6 Allergy status to analgesic agent; Z88.5 Allergy status to narcotic agent; Z88.0 Allergy status to penicillin; I07.1 Rheumatic tricuspid insufficiency; Z90.710 Acquired absence of both cervix and uterus; M19.90 Unspecified osteoarthritis, unspecified site; G47.00 Insomnia, unspecified; I48.0 Paroxysmal atrial fibrillation
CPT/HCPCS: 36415; 36416; 51701; 71045; 80048; 80053; 80069; 81003; 81015; 82533; 82550; 82570; 82805; 83605; 83690; 83735; 83880; 83930; 83935; 84100; 84134; 84156; 84300; 84443; 84484; 84550; 85025; 87040; 87086; 93005; 94640; 94644; 96365; 96367; 96372; 96375; 99292; A4353; J1100; J1650; J1940; J1956; J3475; J7050; J7512; J7611; J7620; J7626

== ENCOUNTER 2019-09-25 11:44 | Inpatient (IN) | payer MEDICARE ==
[2019-09-25 12:40] LABS: #Basophils 0.1 thou/uL (0.0-0.2); #Eosinphils 0.6 thou/uL (0.0-0.7); #Lymphocytes 1.7 thou/uL (1.20-3.40); #Monocytes 0.7 thou/uL (0.11-0.59); #Neutrophils 8.1 thou/uL (1.40-6.50); %Basophils 0.7 % (0.0-1.0); %Eosinophils 5.5 % (0.0-10.0); %Lymphocytes 14.9 % (21.0-51.0); %Monocytes 6.3 % (0.0-10.0); %Neutrophils 72.6 % (42.0-75.0); Hemoglobin 12.7 g/dL (12.0-16.0); Mean Corpuscular HGB CONC 32.1 g/dL (32.0-36.0); Mean Corpuscular Volume 90.2 fL (78.0-98.0); Mean Platelet Volume 7.9 fL (7.4-10.4); Platelet Count 226 thou/uL (130-400); RBC Distribution Width 13.1 % (11.5-14.5); Red Blood Cell (RBC) Count 4.37 mill/uL (4.20-5.40); White Blood Cell (WBC) Count 11.2 thou/uL (4.8-10.8)
--- NOTE | 2019-09-25 13:11 | RAD ---
RADIOGRAPH CHEST 1 VIEW: DATE: 09/25/2019 TIME: 1208 hours HISTORY: 79-year-old female with dyspnea. FINDINGS: There is no air space density, pulmonary edema, or pneumothorax. The lateral costophrenic angles are sharp. IMPRESSION: No acute pulmonary findings. jn [] POS: TPC
[2019-09-25] MEDS ORDERED: Diltiazem 125 MG/25 ML ONE (13:16)
[2019-09-25] MEDS ORDERED: Furosemide 40 MG/4 ML VIAL ONE (13:16)
[2019-09-25 13:26] LABS: ALT (SGPT) 24 U/L (8-55); AST (SGOT) 23 U/L (5-34); Albumin 4.5 g/dL (3.4-4.8); Alkaline Phosphatase 66 U/L (40-110); BUN (Urea Nitrogen) 38 mg/dL (9.8-20.1); Bilirubin, Total 0.4 mg/dL (0.2-1.2); CK (CPK) 78 U/L (29-168); Calc. Creatinine Clearance 0 mL/min (70-130); Calcium 9.8 mg/dL (7.8-10.44); Estimated GFR-MDRD 28; Globulin 2.8 g/dL (2.4-3.5); Glucose 117 mg/dL (83-110); Protein, Total 7.3 g/dL (6.0-8.3)
[2019-09-25 13:35] LABS: Anion Gap 22 mmol/L (10-20); Carbon Dioxide 33 mmol/L (23-31); Chloride 84 mmol/L (98-107); Potassium 3.6 mmol/L (3.5-5.1); Sodium 135 mmol/L (136-145)
[2019-09-25] MEDS ORDERED: Enoxaparin Sodium 60 MG/0.6 ML SYRINGE ONE (15:24)
[2019-09-25] MEDS ORDERED: Enoxaparin Sodium 30 MG/0.3 ML SYRINGE ONE (15:24)
[2019-09-25] MEDS ORDERED: Enoxaparin Sodium 100 MG/ML SYRINGE ONE (15:26)
[2019-09-25 16:26] LABS: Troponin I 0.015 ng/mL (< 0.028)
[2019-09-25] MEDS ORDERED: Bisacodyl 5 MG TAB PO PRN (17:10)
[2019-09-25 17:50] VITALS: BMI 34.6
[2019-09-25] MEDS ORDERED: cloNIDine 0.1 MG TAB PO PRN (19:19)
[2019-09-25 19:20] LABS: Troponin I 0.022 ng/mL (< 0.028)
--- NOTE | 2019-09-25 20:05 | HP ---
PRIMARY CARE PROVIDER: Dr. Rafi Leon. CHIEF COMPLAINT: Shortness of breath. HISTORY OF PRESENT ILLNESS: Ms. Flowers is a pleasant 79-year-old lady, who was seen at [facility] on September 25, 2019. She was hospitalized at this facility from August 02 to of this year for acute hypoxic respiratory failure secondary to [id number] diastolic heart failure exacerbation and atrial fibrillation with rapid ventricular response. According to the discharge summary for that hospitalization call, she was discharged on Eliquis 5 mg 2 times a day. The patient reports that she is not taking any blood thinners. She started having shortness of breath since yesterday. She also reports wheezing and bilateral lower extremity edema. She was sent to the emergency room by her primary care provider because of the above complaints. She denies any chest pain. She denies any nausea or vomiting. She denies any abdominal pain. She reports shortness of breath is worse with exertion and it improves with oxygen. She also reports headache, dizziness, and decreased appetite. She reports eating pizza yesterday and reports that she was doing relatively well until then. She reports that she sleeps on a recliner chair and uses oxygen at home. REVIEW OF SYSTEMS: All systems were reviewed and found to be negative except for the pertinent positives as mentioned above. PAST MEDICAL HISTORY: Dyslipidemia, osteoarthritis, obesity, gastroesophageal reflux disease, alcohol abuse, dyslipidemia, chronic diastolic heart failure, and atrial fibrillation. PAST SURGICAL HISTORY: Left tibia and right ankle fracture repair, hysterectomy, tonsillectomy. ALLERGIES: DEMEROL, HYDROCODONE, AND PENICILLIN. SOCIAL HISTORY: The patient lives at [facility] with her dog. She denies any alcohol use, tobacco use, or recreational drug use. FAMILY HISTORY: No family history of premature coronary artery disease. CURRENT HOME MEDICATIONS: These need to be clarified, last known medication list is per discharge summary dictated by Dr. Iglesias on October 12, 2018. CODE STATUS: I discussed her code status. She is full code. PHYSICAL EXAMINATION: GENERAL: Ms. Flowers is awake and alert, not in acute distress. VITAL SIGNS: Blood pressure is 147/86, pulse 83, respiratory rate 18, and oxygen saturation 95% on 2 L of oxygen. She is afebrile. EYES: No scleral icterus, no conjunctival pallor. ENT: Moist mucosal membranes. No oropharyngeal erythema or exudates. NECK: Supple, nontender, trachea is midline. RESPIRATORY: Accessory muscles of breathing are not active. Chest wall movements are symmetric bilaterally. LUNGS: Clear to auscultation without wheezes, rhonchi, or crepitations. CARDIOVASCULAR: S1 and S2 are heard, regular. Peripheral pulses palpable. ABDOMEN: Soft, nontender, bowel sounds are heard. NEUROLOGIC: Cranial nerves 2 through 12 are intact. MUSCULOSKELETAL: Power is 5/5 in all 4 extremities. SKIN: Bilateral lower extremity pitting edema. LYMPHATIC: No cervical lymphadenopathy. PSYCHIATRIC: Normal mood, normal affect, the patient is oriented to person, place, and time. LABORATORY DATA: Ms. Flowers's labs and investigations were reviewed. I reviewed her electrocardiogram, which shows atrial fibrillation with rapid ventricular response, no ST changes to suggest an acute coronary syndrome. I also reviewed her chest x-ray, which does not show any pulmonary infiltrates. She has leukocytosis with 11,200 white cells, of which 72% are neutrophils. Hemoglobin and platelet count are normal. Sodium is mildly decreased at 135. Creatinine is elevated at 1.73. It was 1.26 on September 09, 2019. Blood urea nitrogen is elevated at 38. Magnesium is decreased at 1.5. BNP is elevated at 548.6. Troponin I is negative x3. ASSESSMENT AND PLAN: Ms. Flowers is a pleasant 79-year-old lady, who was seen at [facility] on September 25, 2019. Her problem list includes: 1. Atrial fibrillation with rapid ventricular response: Ms. Flowers is presenting with atrial fibrillation with rapid ventricular response. She has received a single dose of 20 mg intravenous Cardizem with improvement in her heart rate. She is being admitted to the hospital for further management. Cardiology Service has been consulted. 2. Hypertension: Resume home medications, monitor vital signs, and titrate antihypertensives as needed. 3. [id number] stage 3 renal failure: Hold nephrotoxic medications including lisinopril. Continue furosemide for now for volume overload. 4. Osteoarthritis: Stable. 5. Dyslipidemia: Continue statin once clarified. Many thanks for allowing me to participate in your patient's care. Please feel free to contact me with any questions or concerns. LEVEL OF RISK: High. LEVEL OF COMPLEXITY: High. Job ID: [id number]
[2019-09-25] MEDS ORDERED: Lorazepam 2 MG/ML VIAL SLOW IVP PRN ×2 (21:45→21:46)
[2019-09-25] MEDS: Lorazepam 0.5 MG TAB PO PRN (22:14)
[2019-09-25] MEDS ORDERED: Apixaban 5 MG TAB PO SCH (22:15)
[2019-09-26] MEDS: Lorazepam 0.5 MG TAB PO PRN (00:37)
[2019-09-26] MEDS: Acetaminophen 325 MG TAB PO PRN ×2 (03:42→19:12)
[2019-09-26 04:53] LABS: #Basophils 0.1 thou/uL (0.0-0.2); #Eosinphils 0.7 thou/uL (0.0-0.7); #Lymphocytes 1.7 thou/uL (1.20-3.40); #Monocytes 0.8 thou/uL (0.11-0.59); %Basophils 0.8 % (0.0-1.0); %Eosinophils 6.5 % (0.0-10.0); %Monocytes 7.2 % (0.0-10.0); %Neutrophils 70.6 % (42.0-75.0); Hemoglobin 11.9 g/dL (12.0-16.0); Mean Corpuscular HGB CONC 31.8 g/dL (32.0-36.0); Mean Corpuscular Hemoglobin 28.6 pg (27.0-31.0); Mean Platelet Volume 8.1 fL (7.4-10.4); Platelet Count 213 thou/uL (130-400); RBC Distribution Width 12.9 % (11.5-14.5); Red Blood Cell (RBC) Count 4.17 mill/uL (4.20-5.40); White Blood Cell (WBC) Count 11.3 thou/uL (4.8-10.8)
[2019-09-26 05:17] LABS: Anion Gap 14 mmol/L (10-20); BUN (Urea Nitrogen) 29 mg/dL (9.8-20.1); Calc. Creatinine Clearance 55 mL/min (70-130); Calcium 9.3 mg/dL (7.8-10.44); Carbon Dioxide 37 mmol/L (23-31); Chloride 86 mmol/L (98-107); Estimated GFR-MDRD 44; Glucose 99 mg/dL (83-110); Potassium 3.5 mmol/L (3.5-5.1); Sodium 133 mmol/L (136-145)
[2019-09-26] MEDS: Atenolol 25 MG TAB PO SCH (08:20)
[2019-09-26] MEDS: Folic Acid 1 MG TAB PO SCH (08:20)
[2019-09-26] MEDS: Aspirin 81 mg Enteric Coated Tablet PO SCH (08:20)
[2019-09-26] MEDS: Thiamine 100 MG TAB PO SCH (08:20)
[2019-09-26] MEDS: Amlodipine 5 MG TAB PO SCH (08:20)
[2019-09-26] MEDS: Apixaban 5 MG TAB PO SCH ×2 (08:20→21:43)
[2019-09-26] MEDS: Pravastatin Sodium 40 MG TAB PO SCH (08:21)
[2019-09-26] MEDS: Furosemide 40 MG TAB PO SCH (08:21)
[2019-09-26] MEDS ORDERED: FLU VACC TS2019-20(65YR UP)/PF 180 MCG/0.5 ML SYRINGE IM ONE (09:00)
[2019-09-26] MEDS ORDERED: Magnesium 2 GM/50 ML 2 GM in Premix Bag 1 BAG IVPB SCH (09:00)
[2019-09-26] MEDS ORDERED: Lisinopril 5 MG TAB PO SCH (09:00)
--- NOTE | 2019-09-26 16:50 | PDOC.HOSPP ---
- Subjective Encounter Date: 09/26/19 Encounter Time: 08:00 Subjective: Pt seen for followup re; afib with RVR. Feels better. - Objective Vital Signs & Weight: Vital Signs (12 hours) Temp Pulse Resp BP Pulse Ox 09/26/19 15:12 98.7 F 101 H 20 141/86 H 95 09/26/19 11:17 99.1 F 96 20 125/41 L 99 09/26/19 06:59 97.8 F 98 20 148/98 H 97 Weight Weight 197 lb I&O: 09/25/19 09/26/19 09/27/19 06:59 06:59 06:59 Intake Total 360 50 Output Total 700 Balance -340 50 Result Diagrams: 09/26/19 04:04 09/26/19 04:04 Additional Labs: Labs and MARs reviewed by nm Hospitalist ROS - Review of Systems Constitutional: denies: fever, chills, sweats, weakness, malaise Respiratory: denies: cough, shortness of breath, SOB with excertion, pleuritic pain, wheezing Cardiovascular: denies: chest pain, palpitations, orthopnea, paroxysmal noc. dyspnea, edema, light headedness Gastrointestinal: denies: nausea, vomiting, abdominal pain, diarrhea, constipation, melena, hematochezia Genitourinary: denies: dysuria, frequency, incontinence, hematuria, retention - Medication Medications: Active Medications Generic Name Dose Route Start Last Admin Trade Name Freq PRN Reason Stop Dose Admin Acetaminophen 650 mg 09/25/19 17:10 09/26/19 03:42 Tylenol PO 650 mg Q4H PRN Administration Headache/Fever/Mild Pain (1-3) Amlodipine Besylate 5 mg 09/26/19 09:00 09/26/19 08:20 Norvasc PO 5 mg DAILY SUJATA Administration Apixaban 5 mg 09/26/19 09:00 09/26/19 08:20 Eliquis PO 5 mg BID SUJATA Administration Aspirin 81 mg 09/26/19 09:00 09/26/19 08:20 Ecotrin PO 81 mg DAILY SUJATA Administration Atenolol 25 mg 09/26/19 09:00 09/26/19 08:20 Tenormin PO 25 mg DAILY SUJATA Administration Cholecalciferol 1,000 units 09/26/19 09:00 09/26/19 08:20 Vitamin D3 PO 1,000 units DAILY SUJATA Administration Folic Acid 1 mg 09/26/19 09:00 09/26/19 08:20 Folvite PO 1 mg DAILY SUJATA Administration Furosemide 40 mg 09/26/19 09:00 09/26/19 08:21 Lasix PO 40 mg DAILY SUJATA Administration Lorazepam 0.5 mg 09/25/19 21:59 09/26/19 00:37 Ativan PO 0.5 mg Q6H PRN Administration Anxiety Pravastatin Sodium 40 mg 09/26/19 09:00 09/26/19 08:21 Pravachol PO 40 mg DAILY SUJATA Administration Thiamine HCl 100 mg 09/26/19 09:00 09/26/19 08:20 Thiamine PO 100 mg DAILY SUJATA Administration - Exam General Appearance: NAD Eye: anicteric sclera ENT: moist mucosa Neck: supple, symmetric, no thyromegaly, no lymphadenopathy Heart: no gallops, no rubs, normal peripheral pulses, irregular Respiratory: CTAB, no wheezes, no rales, no ronchi, normal chest expansion Extremities: 2+ LE edema Psychiatric: normal affect, normal behavior, A&O x 3 Hosp A/P (1) Atrial fibrillation with RVR Code(s): I48.91 - UNSPECIFIED ATRIAL FIBRILLATION Status: Acute (2) Hyponatremia Code(s): E87.1 - HYPO-OSMOLALITY AND HYPONATREMIA Status: Acute (3) Hypomagnesemia Code(s): E83.42 - HYPOMAGNESEMIA Status: Acute (4) HTN (hypertension) Code(s): I10 - ESSENTIAL (PRIMARY) HYPERTENSION Status: Chronic Qualifiers: Hypertension type: essential hypertension Qualified Code(s): I10 - Essential (primary) hypertension (5) Obesity (BMI 30.0-34.9) Code(s): E66.9 - OBESITY, UNSPECIFIED Status: Chronic (6) Acute worsening of stage 3 chronic kidney disease Code(s): N18.3 - CHRONIC KIDNEY DISEASE, STAGE 3 (MODERATE) Status: Resolved - Plan Continue apixaban. Continue furosemide Continue synthroid replace magnesium ACEI on hold Pt rep[orts she is wheelchair bound at baseline. Likely home tomorrow.
[2019-09-27] MEDS: Lorazepam 0.5 MG TAB PO PRN ×2 (00:07→00:18)
[2019-09-27 04:46] LABS: #Eosinphils 0.5 thou/uL (0.0-0.7); #Lymphocytes 1.5 thou/uL (1.20-3.40); #Monocytes 0.8 thou/uL (0.11-0.59); #Neutrophils 7.5 thou/uL (1.40-6.50); %Basophils 0.4 % (0.0-1.0); %Eosinophils 4.9 % (0.0-10.0); %Lymphocytes 14.3 % (21.0-51.0); %Monocytes 8.1 % (0.0-10.0); %Neutrophils 72.4 % (42.0-75.0); Hemoglobin 11.9 g/dL (12.0-16.0); Mean Corpuscular HGB CONC 31.5 g/dL (32.0-36.0); Mean Corpuscular Hemoglobin 28.4 pg (27.0-31.0); Mean Corpuscular Volume 90.3 fL (78.0-98.0); Mean Platelet Volume 8.1 fL (7.4-10.4); Platelet Count 209 thou/uL (130-400); RBC Distribution Width 12.9 % (11.5-14.5); Red Blood Cell (RBC) Count 4.18 mill/uL (4.20-5.40); White Blood Cell (WBC) Count 10.4 thou/uL (4.8-10.8)
[2019-09-27 05:04] LABS: Anion Gap 15 mmol/L (10-20); BUN (Urea Nitrogen) 23 mg/dL (9.8-20.1); Calc. Creatinine Clearance 73 mL/min (70-130); Calcium 9.7 mg/dL (7.8-10.44); Carbon Dioxide 36 mmol/L (23-31); Chloride 86 mmol/L (98-107); Estimated GFR-MDRD 61; Glucose 97 mg/dL (83-110); Potassium 3.6 mmol/L (3.5-5.1); Sodium 133 mmol/L (136-145)
[2019-09-27] MEDS: Thiamine 100 MG TAB PO SCH (08:34)
[2019-09-27] MEDS: Apixaban 5 MG TAB PO SCH ×2 (08:34→20:48)
[2019-09-27] MEDS: Furosemide 40 MG TAB PO SCH (08:34)
[2019-09-27] MEDS: Aspirin 81 mg Enteric Coated Tablet PO SCH (08:34)
[2019-09-27] MEDS: Atenolol 25 MG TAB PO SCH (08:34)
[2019-09-27] MEDS: Amlodipine 5 MG TAB PO SCH (08:35)
[2019-09-27] MEDS: Pravastatin Sodium 40 MG TAB PO SCH (08:35)
[2019-09-27] MEDS: Multivit, Therapeutic 1 TAB PO SCH (08:35)
[2019-09-27] MEDS: Folic Acid 1 MG TAB PO SCH (08:35)
--- NOTE | 2019-09-27 09:28 | CON ---
DATE OF CONSULTATION: HISTORY: Kassandra Flowers is a 79-year-old white female, who has been seen by Dr. Armendariz in the past. She was initially seen in December 2018, when she was admitted with acute on chronic diastolic heart failure. Echocardiogram at that time revealed an ejection fraction of 60% to 65% with evidence of diastolic dysfunction. She was diuresed. She was again admitted on August 02 with increased shortness of breath. She initially had atrial fibrillation but then converted to sinus rhythm without treatment and apparently was in sinus rhythm the remainder of her hospitalization. She does have home O2. It was found that she has been having to use that with increasing frequency. One time after shower, she had O2 saturation of 68%. She was discharged on Eliquis for stroke prophylaxis. She now is admitted with increased shortness of breath and wheezing at home. She denies any chest discomfort. She was found to be in atrial fibrillation at the time of admission with heart rate of 103 on her EKG. She denies any palpitations. PAST MEDICAL HISTORY: Diastolic heart failure, hypertension, GERD, chronic back pain, hyperlipidemia, obesity, alcohol abuse, atrial fibrillation. PAST SURGICAL HISTORY: Hysterectomy, tonsillectomy, left tibia and right ankle fracture repair. MEDICATIONS: 1. Amlodipine 5 mg daily. 2. Eliquis 5 mg b.i.d. 3. Aspirin 81 daily. 4. Atenolol 25 daily. 5. Catapres 0.1 mg b.i.d. p.r.n. 6. Folic acid 1 mg daily. 7. Furosemide 40 mg daily. 8. Lisinopril 5 mg daily. 9. Lorazepam p.r.n. 10. Omeprazole 10 mg daily. 11. Pravachol 40 mg at bedtime. 12. Phenergan p.r.n. 13. Thiamine 100 mg daily. 14. Ambien. ALLERGIES: PENICILLIN, DEMEROL, AND HYDROCODONE. SOCIAL HISTORY: She smoked 1-1/2 packs per day, but stopped 30 years ago. She does drink alcohol. FAMILY HISTORY: Negative for coronary artery disease. REVIEW OF SYSTEMS: Otherwise unremarkable. PHYSICAL EXAMINATION: VITAL SIGNS: Blood pressure 155/87, pulse of 92, in atrial fibrillation. HEENT: PERRL. NECK: Supple. CHEST: Clear at the present time. CARDIOVASCULAR: S1 and S2 normal without any S3, S4, or murmurs. ABDOMEN: Normal bowel sounds without tenderness. The abdomen is obese. EXTREMITIES: Revealed 1+ pedal edema. NEUROLOGIC: Grossly intact. SKIN: Warm and dry. LABORATORY DATA: EKG reveals atrial fibrillation with ventricular response of 103 per minute, nonspecific ST and T-wave changes. Hemoglobin 11.9, hematocrit 37.7 , white count 10,400, platelets 209,000, sodium 133, potassium 3.6, chloride 86, carbon dioxide 36, BUN 23, creatinine 0.89. Cardiac enzymes are unremarkable. BNP 548.6. IMPRESSION: 1. Acute on chronic diastolic heart failure. 2. Probably some degree of chronic obstructive pulmonary disease with chronic hypoxemia. 3. Atrial fibrillation seen during last admission, which had been present during this admission. The rate appears to be fairly well controlled in the 80-90 per minute range. 4. Hypertension. 5. Dyslipidemia. 6. Obesity. 7. ETOH abuse. 8. Former smoker. 9. Chronic kidney disease stage 3. PLAN: The patient will continue to be diuresed. Her heart rate will be watched closely and if better rate control is needed, consideration could be given to increasing the atenolol dose. Elissa will be continued. Job ID: [id number] MTDD
--- NOTE | 2019-09-27 17:29 | PDOC.HOSPP ---
- Subjective Encounter Date: 09/27/19 Encounter Time: 11:00 Subjective: Pt seen for followup re: ac gordon with RVR. Feels short of breath. - Objective Vital Signs & Weight: Vital Signs (12 hours) Temp Pulse Resp BP Pulse Ox 09/27/19 15:15 98.1 F 93 18 152/91 H 95 09/27/19 11:23 98 F 92 20 131/77 96 09/27/19 11:10 106 H 20 09/27/19 07:26 97.5 F L 92 20 155/87 H 95 Weight Weight 199 lb 12.8 oz I&O: 09/26/19 09/27/19 09/28/19 06:59 06:59 06:59 Intake Total 360 1000 Output Total 700 850 Balance -340 150 Result Diagrams: 09/27/19 04:25 09/27/19 04:25 Additional Labs: Labs and MARs reviewed by me EKG Reviewed by me: Yes (Tele: ac gordon) Hospitalist ROS - Review of Systems Respiratory: reports: SOB with excertion, wheezing Cardiovascular: denies: chest pain, palpitations, orthopnea, paroxysmal noc. dyspnea, edema, light headedness Gastrointestinal: denies: nausea, vomiting, abdominal pain, diarrhea, constipation, melena, hematochezia - Medication Medications: Active Medications Generic Name Dose Route Start Last Admin Trade Name Frejake PRN Reason Stop Dose Admin Acetaminophen 650 mg 09/25/19 17:10 09/26/19 19:12 Tylenol PO 650 mg Q4H PRN Administration Headache/Fever/Mild Pain (1-3) Amlodipine Besylate 5 mg 09/26/19 09:00 09/27/19 08:35 Norvasc PO 5 mg DAILY SUJATA Administration Apixaban 5 mg 09/26/19 09:00 09/27/19 08:34 Eliquis PO 5 mg BID SUJATA Administration Aspirin 81 mg 09/26/19 09:00 09/27/19 08:34 Ecotrin PO 81 mg DAILY SUJATA Administration Atenolol 25 mg 09/26/19 09:00 09/27/19 08:34 Tenormin PO 25 mg DAILY SUJATA Administration Cholecalciferol 1,000 units 09/26/19 09:00 09/27/19 08:35 Vitamin D3 PO 1,000 units DAILY SUJATA Administration Folic Acid 1 mg 09/26/19 09:00 09/27/19 08:35 Folvite PO 1 mg DAILY SUJATA Administration Furosemide 40 mg 09/26/19 09:00 09/27/19 08:34 Lasix PO 40 mg DAILY SUJATA Administration Lorazepam 0.5 mg 09/25/19 21:59 09/27/19 00:18 Ativan PO 0.5 mg Q6H PRN Administration Anxiety Multivitamins 1 tab 09/27/19 09:00 09/27/19 08:35 Theragran PO 1 tab DAILY SUJATA Administration Pravastatin Sodium 40 mg 09/26/19 09:00 09/27/19 08:35 Pravachol PO 40 mg DAILY SUJATA Administration Thiamine HCl 100 mg 09/26/19 09:00 09/27/19 08:34 Thiamine PO 100 mg DAILY SUJATA Administration - Exam General - other findings: Obese Eye: anicteric sclera ENT: moist mucosa Neck: supple, no JVD Heart: no gallops, irregular Respiratory: wheezes Gastrointestinal: soft, non-tender Extremities: 2+ LE edema Psychiatric: normal affect, normal behavior Hosp A/P (1) Atrial fibrillation with RVR Code(s): I48.91 - UNSPECIFIED ATRIAL FIBRILLATION Status: Acute (2) Hyponatremia Code(s): E87.1 - HYPO-OSMOLALITY AND HYPONATREMIA Status: Acute (3) Hypomagnesemia Code(s): E83.42 - HYPOMAGNESEMIA Status: Acute (4) HTN (hypertension) Code(s): I10 - ESSENTIAL (PRIMARY) HYPERTENSION Status: Chronic Qualifiers: Hypertension type: essential hypertension Qualified Code(s): I10 - Essential (primary) hypertension (5) Obesity (BMI 30.0-34.9) Code(s): E66.9 - OBESITY, UNSPECIFIED Status: Chronic (6) Acute worsening of stage 3 chronic kidney disease Code(s): N18.3 - CHRONIC KIDNEY DISEASE, STAGE 3 (MODERATE) Status: Resolved - Plan Continue apixaban and furosemide Continue synthroid ACEI on hold Pt reports she is wheelchair bound at baseline. Start scheduled DuoNebs. resume lisinopril.
[2019-09-27] MEDS ORDERED: Lisinopril 5 MG TAB PO SCH (17:45)
[2019-09-27] MEDS: Nystatin Powder 15 GM BOT TOP SCH (20:48)
[2019-09-28] MEDS: Lorazepam 0.5 MG TAB PO PRN ×3 (00:25→22:30)
[2019-09-28] MEDS: Acetaminophen 325 MG TAB PO PRN ×2 (02:27→22:24)
[2019-09-28 04:52] LABS: #Basophils 0.1 thou/uL (0.0-0.2); #Eosinphils 0.3 thou/uL (0.0-0.7); #Lymphocytes 1.6 thou/uL (1.20-3.40); #Monocytes 0.8 thou/uL (0.11-0.59); #Neutrophils 8.9 thou/uL (1.40-6.50); %Basophils 0.7 % (0.0-1.0); %Eosinophils 2.6 % (0.0-10.0); %Lymphocytes 13.9 % (21.0-51.0); %Monocytes 7.1 % (0.0-10.0); %Neutrophils 75.6 % (42.0-75.0); Hemoglobin 11.6 g/dL (12.0-16.0); Mean Corpuscular Hemoglobin 27.6 pg (27.0-31.0); Mean Platelet Volume 8.2 fL (7.4-10.4); Platelet Count 205 thou/uL (130-400); Red Blood Cell (RBC) Count 4.19 mill/uL (4.20-5.40); White Blood Cell (WBC) Count 11.8 thou/uL (4.8-10.8)
[2019-09-28 05:14] LABS: BUN (Urea Nitrogen) 19 mg/dL (9.8-20.1); Calc. Creatinine Clearance 67 mL/min (70-130); Calcium 9.3 mg/dL (7.8-10.44); Estimated GFR-MDRD 54; Glucose 106 mg/dL (83-110)
[2019-09-28 05:24] LABS: Chloride 84 mmol/L (98-107); Potassium 3.5 mmol/L (3.5-5.1); Sodium 132 mmol/L (136-145)
[2019-09-28 05:27] LABS: Anion Gap 16 mmol/L (10-20); Carbon Dioxide 36 mmol/L (23-31)
[2019-09-28] MEDS ORDERED: Lisinopril 5 MG TAB PO SCH (09:00)
[2019-09-28] MEDS: Aspirin 81 mg Enteric Coated Tablet PO SCH (09:35)
[2019-09-28] MEDS: Pravastatin Sodium 40 MG TAB PO SCH (09:35)
[2019-09-28] MEDS: Multivit, Therapeutic 1 TAB PO SCH (09:35)
[2019-09-28] MEDS: Amlodipine 5 MG TAB PO SCH (09:36)
[2019-09-28] MEDS: Folic Acid 1 MG TAB PO SCH (09:37)
[2019-09-28] MEDS: Apixaban 5 MG TAB PO SCH ×2 (09:37→22:24)
[2019-09-28] MEDS: Atenolol 25 MG TAB PO SCH (09:37)
[2019-09-28] MEDS: Furosemide 40 MG TAB PO SCH (09:37)
[2019-09-28] MEDS: Thiamine 100 MG TAB PO SCH (09:38)
[2019-09-28] MEDS: Nystatin Powder 15 GM BOT TOP SCH ×2 (09:38→22:25)
--- NOTE | 2019-09-28 17:43 | PDOC.HOSPP ---
- Subjective Encounter Date: 09/28/19 Encounter Time: 08:00 Subjective: Pt seen for followup re: afib. Feels slightly better. - Objective Vital Signs & Weight: Vital Signs (12 hours) Temp Pulse Resp BP Pulse Ox 09/28/19 16:00 97.8 F 91 18 138/83 95 09/28/19 13:28 86 18 09/28/19 12:00 97.6 F 98 18 126/80 96 09/28/19 09:37 109 H 09/28/19 08:25 109 H 16 94 L 09/28/19 08:00 97.7 F 103 H 18 146/85 H 95 Weight Weight 200 lb 11.2 oz I&O: 09/27/19 09/28/19 09/29/19 06:59 06:59 06:59 Intake Total 1000 1310 76522 Output Total 850 1175 400 Balance 150 135 [id number] Result Diagrams: 09/28/19 03:56 09/28/19 03:56 Additional Labs: Labs and MARs reviewed by me EKG Reviewed by me: Yes (Tele: ac gordon) Hospitalist ROS - Review of Systems Respiratory: reports: SOB with excertion Cardiovascular: denies: chest pain, palpitations, orthopnea, paroxysmal noc. dyspnea, edema, light headedness Gastrointestinal: denies: nausea, vomiting, abdominal pain, diarrhea, constipation, melena, hematochezia - Medication Medications: Active Medications Generic Name Dose Route Start Last Admin Trade Name Freq PRN Reason Stop Dose Admin Acetaminophen 650 mg 09/25/19 17:10 09/28/19 02:27 Tylenol PO 650 mg Q4H PRN Administration Headache/Fever/Mild Pain (1-3) Albuterol/Ipratropium 3 ml 09/27/19 19:00 09/28/19 13:28 Duoneb NEB 3 ml [id number] SUJATA Administration Amlodipine Besylate 5 mg 09/26/19 09:00 09/28/19 09:36 Norvasc PO 5 mg DAILY SUJATA Administration Apixaban 5 mg 09/26/19 09:00 09/28/19 09:37 Eliquis PO 5 mg BID SUJATA Administration Aspirin 81 mg 09/26/19 09:00 09/28/19 09:35 Ecotrin PO 81 mg DAILY SUJATA Administration Atenolol 25 mg 09/26/19 09:00 09/28/19 09:37 Tenormin PO 25 mg DAILY SUJATA Administration Cholecalciferol 1,000 units 09/26/19 09:00 09/28/19 09:35 Vitamin D3 PO 1,000 units DAILY SUJATA Administration Folic Acid 1 mg 09/26/19 09:00 09/28/19 09:37 Folvite PO 1 mg DAILY SUJATA Administration Furosemide 40 mg 09/26/19 09:00 09/28/19 09:37 Lasix PO 40 mg DAILY SUJATA Administration Lisinopril 5 mg 09/28/19 09:00 09/28/19 09:37 Zestril PO 5 mg DAILY SUJATA Administration Lorazepam 0.5 mg 09/25/19 21:59 09/28/19 00:25 Ativan PO 0.5 mg Q6H PRN Administration Anxiety Multivitamins 1 tab 09/27/19 09:00 09/28/19 09:35 Theragran PO 1 tab DAILY SUJATA Administration Nystatin 0 gm 09/27/19 21:00 09/28/19 09:38 Mycostatin Powder TOP 1 applic BID SUJATA Administration Pravastatin Sodium 40 mg 09/26/19 09:00 09/28/19 09:35 Pravachol PO 40 mg DAILY SUJATA Administration Thiamine HCl 100 mg 09/26/19 09:00 09/28/19 09:38 Thiamine PO 100 mg DAILY SUJATA Administration - Exam General - other findings: Obese Eye: anicteric sclera ENT: normocephalic atraumatic Neck: supple Heart: no rubs, irregular Respiratory: CTAB Gastrointestinal: soft, non-tender Extremities: 2+ LE edema Psychiatric: normal affect, normal behavior Hosp A/P (1) Atrial fibrillation with RVR Code(s): I48.91 - UNSPECIFIED ATRIAL FIBRILLATION Status: Acute (2) Hyponatremia Code(s): E87.1 - HYPO-OSMOLALITY AND HYPONATREMIA Status: Acute (3) Hypomagnesemia Code(s): E83.42 - HYPOMAGNESEMIA Status: Acute (4) HTN (hypertension) Code(s): I10 - ESSENTIAL (PRIMARY) HYPERTENSION Status: Chronic Qualifiers: Hypertension type: essential hypertension Qualified Code(s): I10 - Essential (primary) hypertension (5) Obesity (BMI 30.0-34.9) Code(s): E66.9 - OBESITY, UNSPECIFIED Status: Chronic (6) Acute worsening of stage 3 chronic kidney disease Code(s): N18.3 - CHRONIC KIDNEY DISEASE, STAGE 3 (MODERATE) Status: Resolved - Plan Pt is on apixaban and furosemide Continue synthroid Pt reports she is wheelchair bound at baseline. Improving with DuoNebs. Continue lisinopril.
--- NOTE | 2019-09-28 18:52 | PDOC.CPN ---
- Subjective Date: 09/28/19 Time: 18:50 Interval history: Her edema has significantly improved. Her face seems erythematous and is wheezing. - Review of Systems General: denies: fever/chills, weight/appetite/sleep changes, night sweats, fatigue Respiratory: reports: shortness of breath. denies: cough, congestion, exercise intolerance Cardiovascular: denies: chest pain, palpitation, edema, paroxysmal nocturnal dyspnea, orthopnea Gastrointestinal: denies: nausea, vomiting, diarrhea, constipation, abd pain, GI bleeding Musculoskeletal: denies: pain, tenderness, stiffness, swelling, arthritis/ arthralgias Neurological: denies: numbness, syncope, seizure, weakness - Objective Allergies/Adverse Reactions: Allergies Allergy/AdvReac Type Severity Reaction Status Date / Time hydrocodone Allergy Verified 05/21/18 17:16 meperidine HCl [From Demerol] Allergy Verified 05/21/18 17:16 Penicillins Allergy Verified 05/21/18 17:16 Visit Medications: Current Medications Acetaminophen (Tylenol) 650 mg PO Q4H PRN PRN Reason: Headache/Fever/Mild Pain (1-3) Last Admin: 09/28/19 02:27 Dose: 650 mg Albuterol/Ipratropium (Duoneb) 3 ml NEB [id number] PRN PRN Reason: SOB &/or Wheezing Albuterol/Ipratropium (Duoneb) 3 ml NEB [id number] [facility] Last Admin: 09/28/19 13:28 Dose: 3 ml Amlodipine Besylate (Norvasc) 5 mg PO DAILY [facility] Last Admin: 09/28/19 09:36 Dose: 5 mg Apixaban (Eliquis) 5 mg PO BID [facility] Last Admin: 09/28/19 09:37 Dose: 5 mg Aspirin (Ecotrin) 81 mg PO DAILY [facility] Last Admin: 09/28/19 09:35 Dose: 81 mg Atenolol (Tenormin) 25 mg PO DAILY [facility] Last Admin: 09/28/19 09:37 Dose: 25 mg Bisacodyl (Dulcolax) 10 mg PO DAILYPRN PRN PRN Reason: Constipation Cholecalciferol (Vitamin D3) 1,000 units PO DAILY [facility] Last Admin: 09/28/19 09:35 Dose: 1,000 units Clonidine (Catapres) 0.1 mg PO BID PRN PRN Reason: SBP Greater Than 180 Folic Acid (Folvite) 1 mg PO DAILY [facility] Last Admin: 09/28/19 09:37 Dose: 1 mg Furosemide (Lasix) 40 mg PO DAILY [facility] Last Admin: 09/28/19 09:37 Dose: 40 mg Lorazepam (Ativan) 0.5 mg PO Q6H PRN PRN Reason: Anxiety Last Admin: 09/28/19 00:25 Dose: 0.5 mg Multivitamins (Theragran) 1 tab PO DAILY [facility] Last Admin: 09/28/19 09:35 Dose: 1 tab Nystatin (Mycostatin Powder) 0 gm TOP BID [facility] Last Admin: 09/28/19 09:38 Dose: 1 applic Pravastatin Sodium (Pravachol) 40 mg PO DAILY [facility] Last Admin: 09/28/19 09:35 Dose: 40 mg Thiamine HCl (Thiamine) 100 mg PO DAILY [facility] Last Admin: 09/28/19 09:38 Dose: 100 mg Vital Signs & Weight: Vital Signs Temp Pulse Resp BP Pulse Ox 09/28/19 16:00 97.8 F 91 18 138/83 95 09/28/19 13:28 86 18 09/28/19 12:00 97.6 F 98 18 126/80 96 09/28/19 09:37 109 H 09/28/19 08:25 109 H 16 94 L 09/28/19 08:00 97.7 F 103 H 18 146/85 H 95 Weight 200 lb 11.2 oz - Physical Exam General: no apparent distress HEENT: normocephaly Neck: supple neck Cardiac: regular rate and rhythm Lungs: wheezes Neuro: no lateralizing findings Abdomen: active bowel sounds Extremities: 1+ LE edema Skin: clear Musculoskeletal: no pain - Labs Result Diagrams: 09/28/19 03:56 09/28/19 03:56 Troponin/CKMB Troponin I 0.022 ng/mL (< 0.028) 09/25/19 18:49 - Telemetry Sinus rhythms and dysrhythmias: sinus rhythm - Assessment/Plan Assessment/Plan: 1. Acute on chronic diastolic heart failure 2. Wheezing 3. Likely some level of COPD. 4. Paroxysmal afib, currently in RVR PLAN: - Will stop lisinopril and will add diltiazem to try to rate control better. - Continue Eliquis for stroke prophylaxis. - Consider starting steroids as her wheezing is most likley related to a primarily lung issue. - Increase nebs to Q6hrs. - Continue IV lasix till tomorrow then switch to PO.
[2019-09-29 04:21] LABS: #Basophils 0.1 thou/uL (0.0-0.2); #Eosinphils 0.3 thou/uL (0.0-0.7); #Lymphocytes 1.8 thou/uL (1.20-3.40); #Neutrophils 8.1 thou/uL (1.40-6.50); %Basophils 0.6 % (0.0-1.0); %Eosinophils 2.9 % (0.0-10.0); %Lymphocytes 15.9 % (21.0-51.0); %Monocytes 8.9 % (0.0-10.0); %Neutrophils 71.8 % (42.0-75.0); Hemoglobin 11.8 g/dL (12.0-16.0); Mean Corpuscular Hemoglobin 28.2 pg (27.0-31.0); Mean Corpuscular Volume 88.3 fL (78.0-98.0); Mean Platelet Volume 7.6 fL (7.4-10.4); Platelet Count 188 thou/uL (130-400); RBC Distribution Width 13.2 % (11.5-14.5); Red Blood Cell (RBC) Count 4.17 mill/uL (4.20-5.40); White Blood Cell (WBC) Count 11.3 thou/uL (4.8-10.8)
[2019-09-29 04:38] LABS: Anion Gap 14 mmol/L (10-20); BUN (Urea Nitrogen) 16 mg/dL (9.8-20.1); Calc. Creatinine Clearance 74 mL/min (70-130); Calcium 9.2 mg/dL (7.8-10.44); Carbon Dioxide 36 mmol/L (23-31); Chloride 84 mmol/L (98-107); Estimated GFR-MDRD 61; Glucose 101 mg/dL (83-110); Magnesium 1.5 mg/dL (1.6-2.6); Potassium 3.5 mmol/L (3.5-5.1); Sodium 130 mmol/L (136-145)
[2019-09-29] MEDS: Amlodipine 5 MG TAB PO SCH (08:26)
[2019-09-29] MEDS: Pravastatin Sodium 40 MG TAB PO SCH (08:26)
[2019-09-29] MEDS: Atenolol 25 MG TAB PO SCH (08:26)
[2019-09-29] MEDS: Aspirin 81 mg Enteric Coated Tablet PO SCH (08:26)
[2019-09-29] MEDS: Folic Acid 1 MG TAB PO SCH (08:26)
[2019-09-29] MEDS: Furosemide 40 MG TAB PO SCH (08:26)
[2019-09-29] MEDS: Apixaban 5 MG TAB PO SCH ×2 (08:26→20:29)
[2019-09-29] MEDS: Multivit, Therapeutic 1 TAB PO SCH (08:26)
[2019-09-29] MEDS: Thiamine 100 MG TAB PO SCH (08:26)
[2019-09-29] MEDS: Nystatin Powder 15 GM BOT TOP SCH ×2 (08:27→20:59)
[2019-09-29] MEDS: Acetaminophen 325 MG TAB PO PRN (09:38)
[2019-09-29] MEDS: methylPREDNISolone Sod Succ/PF 125 MG/2 ML VIAL IVP SCH ×2 (09:38→14:45)
--- NOTE | 2019-09-29 17:48 | PDOC.HOSPP ---
- Subjective Encounter Date: 09/29/19 Encounter Time: 08:40 Subjective: Pt seen for followup re: atrial fibrillation. Feels slightly better. Did not sleep well. - Objective Vital Signs & Weight: Vital Signs (12 hours) Temp Pulse Resp BP Pulse Ox 09/29/19 16:00 97.5 F L 112 H 20 110/70 93 L 09/29/19 15:05 112 H 20 95 09/29/19 12:00 96.9 F L 105 H 18 145/85 H 94 L 09/29/19 10:51 115 H 16 96 09/29/19 08:26 115 H 09/29/19 08:00 96.6 F L 115 H 17 127/72 94 L 09/29/19 06:55 109 H 16 96 Weight Weight 202 lb I&O: 09/28/19 09/29/19 09/30/19 06:59 06:59 06:59 Intake Total 1310 29452 Output Total 1175 400 Balance 135 71107 Result Diagrams: 09/29/19 04:10 09/29/19 04:10 Additional Labs: Labs and MARs reviewed by me EKG Reviewed by me: Yes (Tele: a. heidi) Hospitalist ROS - Review of Systems Constitutional: reports: other (insomnia) Respiratory: reports: cough, dry, SOB with excertion. denies: shortness of breath, hemoptysis, pleuritic pain, wheezing, other Cardiovascular: denies: chest pain, palpitations, orthopnea, paroxysmal noc. dyspnea, edema, light headedness - Medication Medications: Active Medications Generic Name Dose Route Start Last Admin Trade Name Freq PRN Reason Stop Dose Admin Acetaminophen 650 mg 09/25/19 17:10 09/29/19 09:38 Tylenol PO 650 mg Q4H PRN Administration Headache/Fever/Mild Pain (1-3) Albuterol/Ipratropium 3 ml 09/28/19 22:30 09/29/19 15:05 Duoneb NEB 3 ml [id number] SUJATA Administration Amlodipine Besylate 5 mg 09/26/19 09:00 09/29/19 08:26 Norvasc PO 5 mg DAILY SUJATA Administration Apixaban 5 mg 09/26/19 09:00 09/29/19 08:26 Eliquis PO 5 mg BID SUJATA Administration Aspirin 81 mg 09/26/19 09:00 09/29/19 08:26 Ecotrin PO 81 mg DAILY SUJATA Administration Atenolol 25 mg 09/26/19 09:00 09/29/19 08:26 Tenormin PO 25 mg DAILY SUJATA Administration Cholecalciferol 1,000 units 09/26/19 09:00 09/29/19 08:26 Vitamin D3 PO 1,000 units DAILY SUJATA Administration Folic Acid 1 mg 09/26/19 09:00 09/29/19 08:26 Folvite PO 1 mg DAILY SUJATA Administration Furosemide 40 mg 09/26/19 09:00 09/29/19 08:26 Lasix PO 40 mg DAILY [facility] Administration Lorazepam 0.5 mg 09/25/19 21:59 09/28/19 22:30 Ativan PO 0.5 mg Q6H PRN Administration Anxiety Methylprednisolone Sodium Succinate 40 mg 09/29/19 09:00 09/29/19 14:45 Solu-Medrol IVP 40 mg Q6H SUJATA Administration Multivitamins 1 tab 09/27/19 09:00 09/29/19 08:26 Theragran PO 1 tab DAILY SUJATA Administration Nystatin 0 gm 09/27/19 21:00 09/29/19 08:27 Mycostatin Powder TOP 1 applic BID SUJATA Administration Pravastatin Sodium 40 mg 09/26/19 09:00 09/29/19 08:26 Pravachol PO 40 mg DAILY SUJATA Administration Sodium Chloride 10 ml 09/29/19 09:00 09/29/19 09:38 Flush - Normal Saline IVF 10 ml Q12HR SUJATA Administration Thiamine HCl 100 mg 09/26/19 09:00 09/29/19 08:26 Thiamine PO 100 mg DAILY SUJATA Administration - Exam General - other findings: Obese Eye: anicteric sclera ENT: no oropharyngeal lesions Neck: supple Heart: irregular Respiratory: CTAB Gastrointestinal: soft, non-tender Extremities: 2+ LE edema Psychiatric: normal affect, normal behavior Hosp A/P (1) Atrial fibrillation with RVR Code(s): I48.91 - UNSPECIFIED ATRIAL FIBRILLATION Status: Acute (2) Hyponatremia Code(s): E87.1 - HYPO-OSMOLALITY AND HYPONATREMIA Status: Acute (3) Hypomagnesemia Code(s): E83.42 - HYPOMAGNESEMIA Status: Acute (4) HTN (hypertension) Code(s): I10 - ESSENTIAL (PRIMARY) HYPERTENSION Status: Chronic Qualifiers: Hypertension type: essential hypertension Qualified Code(s): I10 - Essential (primary) hypertension (5) Obesity (BMI 30.0-34.9) Code(s): E66.9 - OBESITY, UNSPECIFIED Status: Chronic (6) Acute worsening of stage 3 chronic kidney disease Code(s): N18.3 - CHRONIC KIDNEY DISEASE, STAGE 3 (MODERATE) Status: Resolved - Plan Continue apixaban and furosemide Continue synthroid Pt reports she is wheelchair bound at baseline. Improving with DuoNebs and steroids. Switch to oral steroids. Continue lisinopril. Add PRN trazodone for insomnia. Pt appears to have a component of COPD to her presentation. PFTs through PCP office when stable. Replace magnesium. Pt will likely need placement, was looking into assisted living prior to this admission.
[2019-09-29] MEDS ORDERED: Magnesium 2 GM/50 ML 2 GM in Premix Bag 1 BAG IVPB SCH (18:00)
--- NOTE | 2019-09-29 19:33 | PDOC.CPN ---
- Subjective Date: 09/29/19 Time: 19:31 Interval history: She is doing much better since abx started. Her face erythema is gone and she is no longer wheezing. - Review of Systems General: denies: fever/chills, weight/appetite/sleep changes, night sweats, fatigue Respiratory: denies: cough, congestion, shortness of breath, exercise intolerance Cardiovascular: denies: chest pain, palpitation, edema, paroxysmal nocturnal dyspnea, orthopnea Gastrointestinal: denies: nausea, vomiting, diarrhea, constipation, abd pain, GI bleeding Musculoskeletal: denies: pain, tenderness, stiffness, swelling, arthritis/ arthralgias Neurological: denies: numbness, syncope, seizure, weakness - Objective Allergies/Adverse Reactions: Allergies Allergy/AdvReac Type Severity Reaction Status Date / Time hydrocodone Allergy Verified 05/21/18 17:16 meperidine HCl [From Demerol] Allergy Verified 05/21/18 17:16 Penicillins Allergy Verified 05/21/18 17:16 Visit Medications: Current Medications Acetaminophen (Tylenol) 650 mg PO Q4H PRN PRN Reason: Headache/Fever/Mild Pain (1-3) Last Admin: 09/29/19 09:38 Dose: 650 mg Albuterol/Ipratropium (Duoneb) 3 ml NEB [id number] [facility] Last Admin: 09/29/19 15:05 Dose: 3 ml Amlodipine Besylate (Norvasc) 5 mg PO DAILY [facility] Last Admin: 09/29/19 08:26 Dose: 5 mg Apixaban (Eliquis) 5 mg PO BID [facility] Last Admin: 09/29/19 08:26 Dose: 5 mg Aspirin (Ecotrin) 81 mg PO DAILY [facility] Last Admin: 09/29/19 08:26 Dose: 81 mg Atenolol (Tenormin) 25 mg PO DAILY [facility] Last Admin: 09/29/19 08:26 Dose: 25 mg Bisacodyl (Dulcolax) 10 mg PO DAILYPRN PRN PRN Reason: Constipation Cholecalciferol (Vitamin D3) 1,000 units PO DAILY [facility] Last Admin: 09/29/19 08:26 Dose: 1,000 units Clonidine (Catapres) 0.1 mg PO BID PRN PRN Reason: SBP Greater Than 180 Diltiazem HCl (Cardizem) 30 mg PO BID [facility] Folic Acid (Folvite) 1 mg PO DAILY [facility] Last Admin: 09/29/19 08:26 Dose: 1 mg Furosemide (Lasix) 40 mg PO DAILY [facility] Last Admin: 09/29/19 08:26 Dose: 40 mg Magnesium Sulfate 2 gm/ Device 50 mls @ 50 mls/hr IVPB NOW [facility] Stop: 09/29/19 20:00 Last Admin: 09/29/19 19:07 Dose: 50 mls Lorazepam (Ativan) 0.5 mg PO Q6H PRN PRN Reason: Anxiety Last Admin: 09/28/19 22:30 Dose: 0.5 mg Multivitamins (Theragran) 1 tab PO DAILY [facility] Last Admin: 09/29/19 08:26 Dose: 1 tab Nystatin (Mycostatin Powder) 0 gm TOP BID [facility] Last Admin: 09/29/19 08:27 Dose: 1 applic Pravastatin Sodium (Pravachol) 40 mg PO DAILY [facility] Last Admin: 09/29/19 08:26 Dose: 40 mg Prednisone (Prednisone) 40 mg PO QA-[facility] Sodium Chloride (Flush - Normal Saline) 10 ml IVF Q12HR [facility] Last Admin: 09/29/19 09:38 Dose: 10 ml Sodium Chloride (Flush - Normal Saline) 10 ml IVF PRN PRN PRN Reason: Saline Flush Thiamine HCl (Thiamine) 100 mg PO DAILY [facility] Last Admin: 09/29/19 08:26 Dose: 100 mg Trazodone HCl (Desyrel) 50 mg PO HS PRN PRN Reason: Insomnia Vital Signs & Weight: Vital Signs Temp Pulse Resp BP Pulse Ox 09/29/19 16:00 97.5 F L 112 H 20 110/70 93 L 09/29/19 15:05 112 H 20 95 09/29/19 12:00 96.9 F L 105 H 18 145/85 H 94 L 09/29/19 10:51 115 H 16 96 09/29/19 08:26 115 H 09/29/19 08:00 96.6 F L 115 H 17 127/72 94 L Weight 202 lb - Physical Exam General: alert & oriented x3 HEENT: mucus membranes moist Neck: supple neck Cardiac: irregularly regular Lungs: clear to auscultation Neuro: grossly intact Abdomen: active bowel sounds Extremities: 1+ LE edema Skin: clear Musculoskeletal: no pain - Labs Result Diagrams: 09/29/19 04:10 09/29/19 04:10 Troponin/CKMB Troponin I 0.022 ng/mL (< 0.028) 09/25/19 18:49 - Telemetry Supraventricular conduction: atrial fibrillation - Assessment/Plan Assessment/Plan: 1. Acute on chronic diastolic heart failure, resolved. 2. Wheezing, likely from COPD 3. COPD 4. Paroxysmal afib, currently in RVR PLAN: - Dilatiazem for rate control. - Pt likely allergic to lisinopril - Continue Eliquis for stroke prophylaxis. - PO lasix. - Will need placement most likely.
[2019-09-29] MEDS: Lorazepam 0.5 MG TAB PO PRN ×2 (20:29→20:31)
[2019-09-29] MEDS: traZODone HCl 50 MG TAB PO PRN (20:30)
[2019-09-30] MEDS: Acetaminophen 325 MG TAB PO PRN ×5 (00:50→22:13)
[2019-09-30 05:04] LABS: #Lymphocytes 0.5 thou/uL (1.20-3.40); #Monocytes 0.4 thou/uL (0.11-0.59); #Neutrophils 9.5 thou/uL (1.40-6.50); %Basophils 0.1 % (0.0-1.0); %Eosinophils 0.1 % (0.0-10.0); %Lymphocytes 4.9 % (21.0-51.0); %Monocytes 3.7 % (0.0-10.0); %Neutrophils 91.2 % (42.0-75.0); Hemoglobin 11.7 g/dL (12.0-16.0); Mean Corpuscular HGB CONC 32.2 g/dL (32.0-36.0); Mean Corpuscular Hemoglobin 28.3 pg (27.0-31.0); Mean Corpuscular Volume 88.1 fL (78.0-98.0); Mean Platelet Volume 8.4 fL (7.4-10.4); Platelet Count 224 thou/uL (130-400); RBC Distribution Width 13.3 % (11.5-14.5); Red Blood Cell (RBC) Count 4.13 mill/uL (4.20-5.40); White Blood Cell (WBC) Count 10.4 thou/uL (4.8-10.8)
[2019-09-30 05:24] LABS: Anion Gap 16 mmol/L (10-20); BUN (Urea Nitrogen) 22 mg/dL (9.8-20.1); Calc. Creatinine Clearance 70 mL/min (70-130); Calcium 9.6 mg/dL (7.8-10.44); Carbon Dioxide 33 mmol/L (23-31); Chloride 85 mmol/L (98-107); Estimated GFR-MDRD 56; Glucose 159 mg/dL (83-110); Potassium 3.8 mmol/L (3.5-5.1); Sodium 130 mmol/L (136-145)
[2019-09-30] MEDS: Apixaban 5 MG TAB PO SCH ×2 (08:48→21:11)
[2019-09-30] MEDS: Multivit, Therapeutic 1 TAB PO SCH (08:48)
[2019-09-30] MEDS: Thiamine 100 MG TAB PO SCH (08:49)
[2019-09-30] MEDS: Folic Acid 1 MG TAB PO SCH (08:49)
[2019-09-30] MEDS: Aspirin 81 mg Enteric Coated Tablet PO SCH (08:50)
[2019-09-30] MEDS: Atenolol 25 MG TAB PO SCH (08:50)
[2019-09-30] MEDS: predniSONE 20 MG TAB PO SCH (08:50)
[2019-09-30] MEDS: Pravastatin Sodium 40 MG TAB PO SCH (08:51)
[2019-09-30] MEDS: Furosemide 40 MG TAB PO SCH (08:51)
[2019-09-30] MEDS: Amlodipine 5 MG TAB PO SCH (08:52)
[2019-09-30] MEDS: Nystatin Powder 15 GM BOT TOP SCH ×2 (08:54→21:15)
--- NOTE | 2019-09-30 15:23 | PDOC.HOSPP ---
- Subjective Encounter Date: 09/30/19 Encounter Time: 10:15 Subjective: pt up in bed no complains. - Objective Vital Signs & Weight: Vital Signs (12 hours) Temp Pulse Resp BP Pulse Ox 09/30/19 15:10 108 H 20 94 L 09/30/19 12:01 98.0 F 124 H 20 135/73 95 09/30/19 10:36 111 H 20 92 L 09/30/19 08:52 110 H 09/30/19 08:50 110 H 09/30/19 07:45 93 L 09/30/19 07:43 98.3 F 110 H 18 127/88 93 L 09/30/19 07:15 119 H 20 92 L 09/30/19 04:36 98.0 F 110 H 18 125/75 95 09/30/19 03:42 98.0 F 110 H 18 94 L Weight Weight 201 lb I&O: 09/29/19 09/30/19 10/01/19 06:59 06:59 06:59 Intake Total 27790 1310 Output Total 400 750 Balance 73048 560 Result Diagrams: 09/30/19 04:25 09/30/19 04:25 Hospitalist ROS - Review of Systems Respiratory: denies: cough, dry, shortness of breath, hemoptysis, SOB with excertion, pleuritic pain, sputum, wheezing, other Cardiovascular: denies: chest pain, palpitations, orthopnea, paroxysmal noc. dyspnea, edema, light headedness, other Gastrointestinal: denies: nausea, vomiting, abdominal pain, diarrhea, constipation, melena, hematochezia, other Genitourinary: denies: dysuria, frequency, incontinence, hematuria, retention, other - Medication Medications: Active Medications Generic Name Dose Route Start Last Admin Trade Name Freq PRN Reason Stop Dose Admin Acetaminophen 650 mg 09/25/19 17:10 09/30/19 08:59 Tylenol PO 650 mg Q4H PRN Administration Headache/Fever/Mild Pain (1-3) Albuterol/Ipratropium 3 ml 09/28/19 22:30 09/30/19 15:10 Duoneb NEB 3 ml [id number] SUJATA Administration Amlodipine Besylate 5 mg 09/26/19 09:00 09/30/19 08:52 Norvasc PO 5 mg DAILY [facility]ATA Administration Apixaban 5 mg 09/26/19 09:00 09/30/19 08:48 Eliquis PO 5 mg BID SUJATA Administration Aspirin 81 mg 09/26/19 09:00 09/30/19 08:50 Ecotrin PO 81 mg DAILY [facility] Administration Atenolol 25 mg 09/26/19 09:00 09/30/19 08:50 Tenormin PO 25 mg DAILY [facility] Administration Cholecalciferol 1,000 units 09/26/19 09:00 09/30/19 08:51 Vitamin D3 PO 1,000 units DAILY [facility] Administration Diltiazem HCl 30 mg 09/29/19 21:00 09/30/19 08:51 Cardizem PO 30 mg BID SUJATA Administration Folic Acid 1 mg 09/26/19 09:00 09/30/19 08:49 Folvite PO 1 mg DAILY [facility] Administration Furosemide 40 mg 09/26/19 09:00 09/30/19 08:51 Lasix PO 40 mg DAILY [facility] Administration Lorazepam 0.5 mg 09/25/19 21:59 09/29/19 20:31 Ativan PO 0.5 mg Q6H PRN Administration Anxiety Multivitamins 1 tab 09/27/19 09:00 09/30/19 08:48 Theragran PO 1 tab DAILY [facility]ATA Administration Nystatin 0 gm 09/27/19 21:00 09/30/19 08:54 Mycostatin Powder TOP 1 applic BID [facility]JATA Administration Pravastatin Sodium 40 mg 09/26/19 09:00 09/30/19 08:51 Pravachol PO 40 mg DAILY [facility]ATA Administration Prednisone 40 mg 09/30/19 08:00 09/30/19 08:50 Prednisone PO 40 mg QAM-WM SUJATA Administration Sodium Chloride 10 ml 09/29/19 09:00 09/30/19 08:51 Flush - Normal Saline IVF 10 ml Q12HR SUJATA Administration Thiamine HCl 100 mg 09/26/19 09:00 09/30/19 08:49 Thiamine PO 100 mg DAILY SUJATA Administration Trazodone HCl 50 mg 09/29/19 17:48 09/29/19 20:30 Desyrel PO 50 mg HS PRN Administration Insomnia - Exam Neck: negative: supple, symmetric, no JVD, no thyromegaly, no lymphadenopathy, no carotid bruit, JVD Heart: negative: RRR, no murmur, no gallops, no rubs, normal peripheral pulses, irregular, diminshed peripheral pulses, murmur present, II/IV, III/IV Respiratory: negative: CTAB, no wheezes, no rales, no ronchi, normal chest expansion, no tachypnea, normal percussion, rales, rhonchi, tachypneic, wheezes Gastrointestinal: negative: soft, non-tender, non-distended, normal bowel sounds , no palpable masses, no hepatomegaly, no splenomegaly, no bruit, no guarding, no rigidity, tender to palpation, distended, diminished bowl sounds, voluntary guarding Extremities: negative: no cyanosis, no clubbing, no edema, 1+ LE edema, 2+ LE edema, clubbing Hosp A/P (1) Hypomagnesemia Code(s): E83.42 - HYPOMAGNESEMIA Status: Acute (2) Hyponatremia Code(s): E87.1 - HYPO-OSMOLALITY AND HYPONATREMIA Status: Acute (3) Atrial fibrillation with RVR Code(s): I48.91 - UNSPECIFIED ATRIAL FIBRILLATION Status: Acute - Plan pt is weelchair bound. will continue current tx. pt lives in a independent living will need PT to evaluate pt. will titrate her meds for better rate control.
--- NOTE | 2019-09-30 17:57 | PDOC.CPN ---
- Subjective Date: 09/30/19 Time: 17:55 Interval history: No new issues. No angina. SOB much better. - Review of Systems General: denies: fever/chills, weight/appetite/sleep changes, night sweats, fatigue Respiratory: denies: cough, congestion, shortness of breath, exercise intolerance Cardiovascular: denies: chest pain, palpitation, edema, paroxysmal nocturnal dyspnea, orthopnea Gastrointestinal: denies: nausea, vomiting, diarrhea, constipation, abd pain, GI bleeding Musculoskeletal: denies: pain, tenderness, stiffness, swelling, arthritis/ arthralgias Neurological: denies: numbness, syncope, seizure, weakness - Objective Allergies/Adverse Reactions: Allergies Allergy/AdvReac Type Severity Reaction Status Date / Time hydrocodone Allergy Verified 05/21/18 17:16 meperidine HCl [From Demerol] Allergy Verified 05/21/18 17:16 Penicillins Allergy Verified 05/21/18 17:16 Visit Medications: Current Medications Acetaminophen (Tylenol) 650 mg PO Q4H PRN PRN Reason: Headache/Fever/Mild Pain (1-3) Last Admin: 09/30/19 15:30 Dose: 650 mg Albuterol/Ipratropium (Duoneb) 3 ml NEB [id number] Last Admin: 09/30/19 15:10 Dose: 3 ml Amlodipine Besylate (Norvasc) 5 mg PO DAILY [facility] Last Admin: 09/30/19 08:52 Dose: 5 mg Apixaban (Eliquis) 5 mg PO BID [facility] Last Admin: 09/30/19 08:48 Dose: 5 mg Aspirin (Ecotrin) 81 mg PO DAILY [facility] Last Admin: 09/30/19 08:50 Dose: 81 mg Atenolol (Tenormin) 25 mg PO DAILY [facility] Last Admin: 09/30/19 08:50 Dose: 25 mg Bisacodyl (Dulcolax) 10 mg PO DAILYPRN PRN PRN Reason: Constipation Cholecalciferol (Vitamin D3) 1,000 units PO DAILY [facility] Last Admin: 09/30/19 08:51 Dose: 1,000 units Clonidine (Catapres) 0.1 mg PO BID PRN PRN Reason: SBP Greater Than 180 Diltiazem HCl (Cardizem) 60 mg PO BID [facility] Folic Acid (Folvite) 1 mg PO DAILY [facility] Last Admin: 09/30/19 08:49 Dose: 1 mg Furosemide (Lasix) 40 mg PO DAILY [facility] Last Admin: 09/30/19 08:51 Dose: 40 mg Lorazepam (Ativan) 0.5 mg PO Q6H PRN PRN Reason: Anxiety Last Admin: 09/29/19 20:31 Dose: 0.5 mg Multivitamins (Theragran) 1 tab PO DAILY [facility] Last Admin: 09/30/19 08:48 Dose: 1 tab Nystatin (Mycostatin Powder) 0 gm TOP BID [facility] Last Admin: 09/30/19 08:54 Dose: 1 applic Pravastatin Sodium (Pravachol) 40 mg PO DAILY [facility] Last Admin: 09/30/19 08:51 Dose: 40 mg Prednisone (Prednisone) 40 mg PO [id number] Last Admin: 09/30/19 08:50 Dose: 40 mg Sodium Chloride (Flush - Normal Saline) 10 ml IVF Q12HR [facility] Last Admin: 09/30/19 08:51 Dose: 10 ml Sodium Chloride (Flush - Normal Saline) 10 ml IVF PRN PRN PRN Reason: Saline Flush Thiamine HCl (Thiamine) 100 mg PO DAILY [facility] Last Admin: 09/30/19 08:49 Dose: 100 mg Trazodone HCl (Desyrel) 50 mg PO HS PRN PRN Reason: Insomnia Last Admin: 09/29/19 20:30 Dose: 50 mg Vital Signs & Weight: Vital Signs Temp Pulse Resp BP BP BP Pulse Ox 09/30/19 15:47 98.2 F 105 H 18 106/69 94 L 09/30/19 15:10 108 H 20 94 L 09/30/19 14:20 111/74 126/69 09/30/19 12:01 98.0 F 124 H 20 135/73 95 09/30/19 10:36 111 H 20 92 L 09/30/19 08:52 110 H 09/30/19 08:50 110 H 09/30/19 07:45 93 L 09/30/19 07:43 98.3 F 110 H 18 127/88 93 L 09/30/19 07:15 119 H 20 92 L Weight 201 lb - Physical Exam General: alert & oriented x3 HEENT: mucus membranes moist Neck: supple neck Cardiac: regular rate and rhythm, systolic murmur Lungs: normal breath sounds Neuro: grossly intact Abdomen: active bowel sounds Extremities: no edema Skin: clear Musculoskeletal: no pain - Labs Result Diagrams: 09/30/19 04:25 09/30/19 04:25 Troponin/CKMB Troponin I 0.022 ng/mL (< 0.028) 09/25/19 18:49 - Telemetry Supraventricular conduction: atrial fibrillation - Assessment/Plan Assessment/Plan: 1. Acute on chronic diastolic heart failure, resolved. 2. Wheezing, likely from COPD 3. COPD 4. Paroxysmal afib, lenient rate control. PLAN: - Up titrate Dilatiazem for rate control. - Pt likely allergic to lisinopril - Continue Eliquis for stroke prophylaxis. - PO lasix. - Will need placement most likely.
[2019-09-30] MEDS: traZODone HCl 50 MG TAB PO PRN (20:21)
[2019-09-30] MEDS: Lorazepam 0.5 MG TAB PO PRN ×2 (20:21→21:11)
[2019-10-01] MEDS: Acetaminophen 325 MG TAB PO PRN ×3 (04:37→20:22)
[2019-10-01] MEDS: Folic Acid 1 MG TAB PO SCH (08:14)
[2019-10-01] MEDS: Aspirin 81 mg Enteric Coated Tablet PO SCH (08:14)
[2019-10-01] MEDS: Multivit, Therapeutic 1 TAB PO SCH (08:14)
[2019-10-01] MEDS: Pravastatin Sodium 40 MG TAB PO SCH (08:14)
[2019-10-01] MEDS: Atenolol 25 MG TAB PO SCH (08:14)
[2019-10-01] MEDS: predniSONE 20 MG TAB PO SCH (08:15)
[2019-10-01] MEDS: Furosemide 40 MG TAB PO SCH (08:15)
[2019-10-01] MEDS: Thiamine 100 MG TAB PO SCH (08:16)
[2019-10-01] MEDS: Nystatin Powder 15 GM BOT TOP SCH ×2 (08:16→20:28)
[2019-10-01] MEDS: Apixaban 5 MG TAB PO SCH ×2 (08:17→20:22)
--- NOTE | 2019-10-01 16:33 | PDOC.HOSPP ---
- Subjective Encounter Date: 10/01/19 Encounter Time: 10:00 Subjective: pt up in bed no complains - Objective Vital Signs & Weight: Vital Signs (12 hours) Temp Pulse Pulse Resp BP BP Pulse Ox 10/01/19 15:18 105 H 20 94 L 10/01/19 14:14 118 H 126/78 10/01/19 11:30 98.4 F 90 16 135/77 92 L 10/01/19 10:46 79 18 100 10/01/19 08:14 95 10/01/19 08:00 97.8 F 90 17 108/70 95 10/01/19 07:15 95 18 95 Weight Weight 198 lb 3 oz I&O: 09/30/19 10/01/19 10/02/19 06:59 06:59 06:59 Intake Total 1310 450 Output Total 750 300 Balance 560 150 Result Diagrams: 09/30/19 04:25 09/30/19 04:25 Hospitalist ROS - Review of Systems Cardiovascular: denies: chest pain, palpitations, orthopnea, paroxysmal noc. dyspnea, edema, light headedness, other Gastrointestinal: denies: nausea, vomiting, abdominal pain, diarrhea, constipation, melena, hematochezia, other Genitourinary: denies: dysuria, frequency, incontinence, hematuria, retention, other Musculoskeletal: denies: neck pain, shoulder pain, arm pain, back pain, hand pain, leg pain, foot pain, other - Medication Medications: Active Medications Generic Name Dose Route Start Last Admin Trade Name Freq PRN Reason Stop Dose Admin Acetaminophen 650 mg 09/25/19 17:10 10/01/19 08:29 Tylenol PO 650 mg Q4H PRN Administration Headache/Fever/Mild Pain (1-3) Albuterol/Ipratropium 3 ml 09/28/19 22:30 10/01/19 15:18 Duoneb NEB 3 ml [id number] SUJATA Administration Apixaban 5 mg 09/26/19 09:00 10/01/19 08:17 Eliquis PO 5 mg BID SUJATA Administration Aspirin 81 mg 09/26/19 09:00 10/01/19 08:14 Ecotrin PO 81 mg DAILY SUJATA Administration Atenolol 25 mg 09/26/19 09:00 10/01/19 08:14 Tenormin PO Not Given DAILY SUJATA Cholecalciferol 1,000 units 09/26/19 09:00 10/01/19 08:14 Vitamin D3 PO 1,000 units DAILY SUJATA Administration Diltiazem HCl 60 mg 09/30/19 21:00 10/01/19 08:15 Cardizem PO 60 mg BID SUJATA Administration Folic Acid 1 mg 09/26/19 09:00 10/01/19 08:14 Folvite PO 1 mg DAILY SUJATA Administration Furosemide 40 mg 09/26/19 09:00 10/01/19 08:15 Lasix PO 40 mg DAILY SUJATA Administration Lorazepam 0.5 mg 09/25/19 21:59 09/30/19 21:11 Ativan PO 0.5 mg Q6H PRN Administration Anxiety Multivitamins 1 tab 09/27/19 09:00 10/01/19 08:14 Theragran PO 1 tab DAILY SUJATA Administration Nystatin 0 gm 09/27/19 21:00 10/01/19 08:16 Mycostatin Powder TOP 1 applic BID SUJATA Administration Pravastatin Sodium 40 mg 09/26/19 09:00 10/01/19 08:14 Pravachol PO 40 mg DAILY SUJATA Administration Prednisone 40 mg 09/30/19 08:00 10/01/19 08:15 Prednisone PO 40 mg QAM-WM SUJATA Administration Sodium Chloride 10 ml 09/29/19 09:00 10/01/19 08:17 Flush - Normal Saline IVF 10 ml Q12HR SUJATA Administration Thiamine HCl 100 mg 09/26/19 09:00 10/01/19 08:16 Thiamine PO 100 mg DAILY SUJATA Administration Trazodone HCl 50 mg 09/29/19 17:48 09/30/19 20:21 Desyrel PO 50 mg HS PRN Administration Insomnia - Exam ENT: negative: normocephalic atraumatic, no oropharyngeal lesions, moist mucosa , dry oral mucosa Neck: negative: supple, symmetric, no JVD, no thyromegaly, no lymphadenopathy, no carotid bruit, JVD Heart: negative: RRR, no murmur, no gallops, no rubs, normal peripheral pulses, irregular, diminshed peripheral pulses, murmur present, II/IV, III/IV Respiratory: negative: CTAB, no wheezes, no rales, no ronchi, normal chest expansion, no tachypnea, normal percussion, rales, rhonchi, tachypneic, wheezes Hosp A/P (1) Hypomagnesemia Code(s): E83.42 - HYPOMAGNESEMIA Status: Acute (2) Hyponatremia Code(s): E87.1 - HYPO-OSMOLALITY AND HYPONATREMIA Status: Acute (3) Atrial fibrillation with RVR Code(s): I48.91 - UNSPECIFIED ATRIAL FIBRILLATION Status: Acute - Plan pt is weelchair bound. will continue current tx. pt lives in a independent living will need PT to evaluate pt. will titrate her meds for better rate control. (1) Hypomagnesemia Code(s): E83.42 - HYPOMAGNESEMIA Status: Acute (2) Hyponatremia Code(s): E87.1 - HYPO-OSMOLALITY AND HYPONATREMIA Status: Acute (3) Atrial fibrillation with RVR Code(s): I48.91 - UNSPECIFIED ATRIAL FIBRILLATION Status: Acute - Plan pt is weelchair bound. will continue current tx. pt lives in a independent living will need PT to evaluate pt. will titrate her meds for better rate control. 2/6 HR controlled, pt being evaluated for rehab.
--- NOTE | 2019-10-01 17:18 | PDOC.CPN ---
- Subjective Date: 10/01/19 Time: 17:16 Interval history: No new issues. No angina. SOB at baseline. - Review of Systems General: denies: fever/chills, weight/appetite/sleep changes, night sweats, fatigue Respiratory: denies: cough, congestion, shortness of breath, exercise intolerance Cardiovascular: denies: chest pain, palpitation, edema, paroxysmal nocturnal dyspnea, orthopnea Gastrointestinal: denies: nausea, vomiting, diarrhea, constipation, abd pain, GI bleeding Musculoskeletal: denies: pain, tenderness, stiffness, swelling, arthritis/ arthralgias Neurological: denies: numbness, syncope, seizure, weakness - Objective Allergies/Adverse Reactions: Allergies Allergy/AdvReac Type Severity Reaction Status Date / Time hydrocodone Allergy Verified 05/21/18 17:16 lisinopril Allergy Verified 09/30/19 22:58 meperidine HCl [From Demerol] Allergy Verified 05/21/18 17:16 Penicillins Allergy Verified 05/21/18 17:16 Visit Medications: Current Medications Acetaminophen (Tylenol) 650 mg PO Q4H PRN PRN Reason: Headache/Fever/Mild Pain (1-3) Last Admin: 10/01/19 08:29 Dose: 650 mg Albuterol/Ipratropium (Duoneb) 3 ml NEB [id number] [facility] Last Admin: 10/01/19 15:18 Dose: 3 ml Apixaban (Eliquis) 5 mg PO BID [facility] Last Admin: 10/01/19 08:17 Dose: 5 mg Aspirin (Ecotrin) 81 mg PO DAILY [facility] Last Admin: 10/01/19 08:14 Dose: 81 mg Atenolol (Tenormin) 25 mg PO DAILY [facility] Last Admin: 10/01/19 08:14 Dose: Not Given Bisacodyl (Dulcolax) 10 mg PO DAILYPRN PRN PRN Reason: Constipation Cholecalciferol (Vitamin D3) 1,000 units PO DAILY [facility] Last Admin: 10/01/19 08:14 Dose: 1,000 units Clonidine (Catapres) 0.1 mg PO BID PRN PRN Reason: SBP Greater Than 180 Diltiazem HCl (Cardizem) 60 mg PO BID [facility] Last Admin: 10/01/19 08:15 Dose: 60 mg Folic Acid (Folvite) 1 mg PO DAILY [facility] Last Admin: 10/01/19 08:14 Dose: 1 mg Furosemide (Lasix) 40 mg PO DAILY [facility] Last Admin: 10/01/19 08:15 Dose: 40 mg Lorazepam (Ativan) 0.5 mg PO Q6H PRN PRN Reason: Anxiety Last Admin: 09/30/19 21:11 Dose: 0.5 mg Multivitamins (Theragran) 1 tab PO DAILY [facility] Last Admin: 10/01/19 08:14 Dose: 1 tab Nystatin (Mycostatin Powder) 0 gm TOP BID [facility] Last Admin: 10/01/19 08:16 Dose: 1 applic Pravastatin Sodium (Pravachol) 40 mg PO DAILY [facility] Last Admin: 10/01/19 08:14 Dose: 40 mg Prednisone (Prednisone) 40 mg PO QAM-[facility] Last Admin: 10/01/19 08:15 Dose: 40 mg Sodium Chloride (Flush - Normal Saline) 10 ml IVF Q12HR [facility] Last Admin: 10/01/19 08:17 Dose: 10 ml Sodium Chloride (Flush - Normal Saline) 10 ml IVF PRN PRN PRN Reason: Saline Flush Thiamine HCl (Thiamine) 100 mg PO DAILY [facility] Last Admin: 10/01/19 08:16 Dose: 100 mg Trazodone HCl (Desyrel) 50 mg PO HS PRN PRN Reason: Insomnia Last Admin: 09/30/19 20:21 Dose: 50 mg Vital Signs & Weight: Vital Signs Temp Pulse Pulse Resp BP BP Pulse Ox 10/01/19 15:18 105 H 20 94 L 10/01/19 14:14 118 H 126/78 10/01/19 11:30 98.4 F 90 16 135/77 92 L 10/01/19 10:46 79 18 100 10/01/19 08:14 95 10/01/19 08:00 97.8 F 90 17 108/70 95 10/01/19 07:15 95 18 95 Weight 198 lb 3 oz - Physical Exam General: alert & oriented x3 HEENT: mucus membranes moist Neck: supple neck Cardiac: irregularly regular Lungs: clear to auscultation Neuro: grossly intact Abdomen: active bowel sounds Extremities: no edema Skin: clear Musculoskeletal: no pain - Labs Result Diagrams: 09/30/19 04:25 09/30/19 04:25 Troponin/CKMB Troponin I 0.022 ng/mL (< 0.028) 09/25/19 18:49 - Telemetry Supraventricular conduction: atrial fibrillation - Assessment/Plan Assessment/Plan: 1. Acute on chronic diastolic heart failure, resolved. 2. Wheezing, likely from COPD 3. COPD 4. Paroxysmal afib, lenient rate control. PLAN: - Will increase Diltiazem to 90 mg BID for more rate control. - Pt likely allergic to lisinopril - Continue Eliquis for stroke prophylaxis. - PO lasix. - Placement, likely inpatient rehab.
[2019-10-01] MEDS: Diltiazem HCl SR 90 mg Capsule PO SCH (20:22)
[2019-10-02] MEDS: traZODone HCl 50 MG TAB PO PRN (01:17)
[2019-10-02] MEDS: Acetaminophen 325 MG TAB PO PRN ×3 (01:17→22:20)
[2019-10-02] MEDS: Apixaban 5 MG TAB PO SCH ×2 (08:28→21:33)
[2019-10-02] MEDS: Atenolol 25 MG TAB PO SCH (08:28)
[2019-10-02] MEDS: Aspirin 81 mg Enteric Coated Tablet PO SCH (08:28)
[2019-10-02] MEDS: Furosemide 40 MG TAB PO SCH (08:28)
[2019-10-02] MEDS: Multivit, Therapeutic 1 TAB PO SCH (08:28)
[2019-10-02] MEDS: Diltiazem HCl SR 90 mg Capsule PO SCH ×2 (08:28→21:33)
[2019-10-02] MEDS: Pravastatin Sodium 40 MG TAB PO SCH (08:29)
[2019-10-02] MEDS: predniSONE 20 MG TAB PO SCH (08:29)
[2019-10-02] MEDS: Nystatin Powder 15 GM BOT TOP SCH ×2 (08:29→21:33)
[2019-10-02] MEDS: Folic Acid 1 MG TAB PO SCH (08:29)
[2019-10-02] MEDS: Thiamine 100 MG TAB PO SCH (08:29)
[2019-10-02 09:51] LABS: BUN (Urea Nitrogen) 32 mg/dL (9.8-20.1); Calc. Creatinine Clearance 51 mL/min (70-130); Calcium 9.4 mg/dL (7.8-10.44); Estimated GFR-MDRD 41; Glucose 106 mg/dL (83-110)
[2019-10-02 10:00] LABS: Anion Gap 18 mmol/L (10-20); Carbon Dioxide 34 mmol/L (23-31); Chloride 84 mmol/L (98-107); Potassium 3.8 mmol/L (3.5-5.1); Sodium 132 mmol/L (136-145)
[2019-10-02 10:15] LABS: #Basophils 0.1 thou/uL (0.0-0.2); #Eosinphils 0.1 thou/uL (0.0-0.7); #Lymphocytes 3.6 thou/uL (1.20-3.40); #Monocytes 1.3 thou/uL (0.11-0.59); #Neutrophils 12.9 thou/uL (1.40-6.50); %Basophils 0.7 % (0.0-1.0); %Eosinophils 0.6 % (0.0-10.0); %Lymphocytes 19.8 % (21.0-51.0); %Monocytes 7.2 % (0.0-10.0); %Neutrophils 71.7 % (42.0-75.0); Hemoglobin 12.3 g/dL (12.0-16.0); Mean Corpuscular HGB CONC 31.7 g/dL (32.0-36.0); Mean Corpuscular Hemoglobin 28.6 pg (27.0-31.0); Mean Corpuscular Volume 90.4 fL (78.0-98.0); Mean Platelet Volume 8.3 fL (7.4-10.4); Platelet Count 258 thou/uL (130-400); RBC Distribution Width 13.7 % (11.5-14.5); Red Blood Cell (RBC) Count 4.28 mill/uL (4.20-5.40)
[2019-10-02 14:09] LABS: Bilirubin Negative (Negative); Blood, Urine Trace (Negative); Clarity Clear (Clear); Glucose, Urine (Dipstick) Normal (Negative); Leukocyte 75 Leu/uL (Negative); Nitrite Negative (Negative); Protein, Urine (Dipstick) Negative (Neg-Trace); RBC/HPF 0-3 HPF (0-3); Squamous Epithelial 0-3 HPF (0-3); Transitional Epithelial 0-3 HPF (None Seen); Urobilinogen Normal mg/dL (Less than 2); WBC/HPF 0-3 HPF (0-3)
[2019-10-02 14:25] LABS: Bacteria/HPF 1+ HPF (None Seen)
[2019-10-02 14:26] LABS: Calcium Oxalate Crystals 3+ HPF (None Seen)
[2019-10-02 14:27] LABS: Urine Culture Reflex Yes Yes
--- NOTE | 2019-10-02 15:24 | PDOC.HOSPP ---
- Subjective Encounter Date: 10/02/19 Encounter Time: 10:00 Subjective: pt up in bed no complains - Objective Vital Signs & Weight: Vital Signs (12 hours) Temp Pulse Resp BP Pulse Ox 10/02/19 15:11 129 H 18 94 L 10/02/19 11:51 97.8 F 108 H 20 102/58 L 93 L 10/02/19 10:38 107 H 20 93 L 10/02/19 08:28 108 H 10/02/19 07:35 93 L 10/02/19 07:31 98.3 F 108 H 17 125/71 93 L 10/02/19 06:31 109 H 18 98 10/02/19 03:40 109 H 16 10/02/19 03:30 97.7 F 114 H 21 H 132/65 94 L Weight Weight 193 lb 14.4 oz I&O: 10/01/19 10/02/19 10/03/19 06:59 06:59 06:59 Intake Total 450 550 Output Total 300 1050 Balance 150 -500 Result Diagrams: 10/02/19 08:55 10/02/19 08:55 Hospitalist ROS - Review of Systems Respiratory: denies: cough, dry, shortness of breath, hemoptysis, SOB with excertion, pleuritic pain, sputum, wheezing, other Cardiovascular: denies: chest pain, palpitations, orthopnea, paroxysmal noc. dyspnea, edema, light headedness, other Gastrointestinal: denies: nausea, vomiting, abdominal pain, diarrhea, constipation, melena, hematochezia, other Genitourinary: denies: dysuria, frequency, incontinence, hematuria, retention, other - Medication Medications: Active Medications Generic Name Dose Route Start Last Admin Trade Name Freq PRN Reason Stop Dose Admin Acetaminophen 650 mg 09/25/19 17:10 10/02/19 08:29 Tylenol PO 650 mg Q4H PRN Administration Headache/Fever/Mild Pain (1-3) Albuterol/Ipratropium 3 ml 09/28/19 22:30 10/02/19 15:11 Duoneb NEB 3 ml [id number] SUJATA Administration Apixaban 5 mg 09/26/19 09:00 10/02/19 08:28 Eliquis PO 5 mg BID SUJATA Administration Aspirin 81 mg 09/26/19 09:00 10/02/19 08:28 Ecotrin PO 81 mg DAILY SUJATA Administration Atenolol 25 mg 09/26/19 09:00 10/02/19 08:28 Tenormin PO 25 mg DAILY SUJATA Administration Cholecalciferol 1,000 units 09/26/19 09:00 10/02/19 08:28 Vitamin D3 PO 1,000 units DAILY SUJATA Administration Diltiazem HCl 90 mg 10/01/19 21:00 10/02/19 08:28 Cardizem Sr PO 90 mg BID SUJATA Administration Folic Acid 1 mg 09/26/19 09:00 10/02/19 08:29 Folvite PO 1 mg DAILY SUJATA Administration Furosemide 40 mg 09/26/19 09:00 10/02/19 08:28 Lasix PO 40 mg DAILY SUJATA Administration Lorazepam 0.5 mg 09/25/19 21:59 09/30/19 21:11 Ativan PO 0.5 mg Q6H PRN Administration Anxiety Multivitamins 1 tab 09/27/19 09:00 10/02/19 08:28 Theragran PO 1 tab DAILY SUJATA Administration Nystatin 0 gm 09/27/19 21:00 10/02/19 08:29 Mycostatin Powder TOP 1 applic BID SUJATA Administration Pravastatin Sodium 40 mg 09/26/19 09:00 10/02/19 08:29 Pravachol PO 40 mg DAILY SUJATA Administration Prednisone 40 mg 09/30/19 08:00 10/02/19 08:29 Prednisone PO 40 mg QAM-WM SUJATA Administration Sodium Chloride 10 ml 09/29/19 09:00 10/02/19 08:31 Flush - Normal Saline IVF 10 ml Q12HR SUJATA Administration Thiamine HCl 100 mg 09/26/19 09:00 10/02/19 08:29 Thiamine PO 100 mg DAILY SUJATA Administration Trazodone HCl 50 mg 09/29/19 17:48 10/02/19 01:17 Desyrel PO 50 mg HS PRN Administration Insomnia - Exam Neck: negative: supple, symmetric, no JVD, no thyromegaly, no lymphadenopathy, no carotid bruit, JVD Heart: negative: RRR, no murmur, no gallops, no rubs, normal peripheral pulses, irregular, diminshed peripheral pulses, murmur present, II/IV, III/IV Respiratory: negative: CTAB, no wheezes, no rales, no ronchi, normal chest expansion, no tachypnea, normal percussion, rales, rhonchi, tachypneic, wheezes Gastrointestinal: negative: soft, non-tender, non-distended, normal bowel sounds , no palpable masses, no hepatomegaly, no splenomegaly, no bruit, no guarding, no rigidity, tender to palpation, distended, diminished bowl sounds, voluntary guarding Extremities: negative: no cyanosis, no clubbing, no edema, 1+ LE edema, 2+ LE edema, clubbing Hosp A/P (1) Hypomagnesemia Code(s): E83.42 - HYPOMAGNESEMIA Status: Acute (2) Hyponatremia Code(s): E87.1 - HYPO-OSMOLALITY AND HYPONATREMIA Status: Acute (3) Atrial fibrillation with RVR Code(s): I48.91 - UNSPECIFIED ATRIAL FIBRILLATION Status: Acute (4) Leukocytosis Code(s): D72.829 - ELEVATED WHITE BLOOD CELL COUNT, UNSPECIFIED Status: Acute (5) CHRISS (acute kidney injury) Code(s): N17.9 - ACUTE KIDNEY FAILURE, UNSPECIFIED Status: Acute - Plan pt is weelchair bound. will continue current tx. pt lives in a independent living will need PT to evaluate pt. will titrate her meds for better rate control. (1) Hypomagnesemia Code(s): E83.42 - HYPOMAGNESEMIA Status: Acute (2) Hyponatremia Code(s): E87.1 - HYPO-OSMOLALITY AND HYPONATREMIA Status: Acute (3) Atrial fibrillation with RVR Code(s): I48.91 - UNSPECIFIED ATRIAL FIBRILLATION Status: Acute - Plan pt is weelchair bound. will continue current tx. pt lives in a independent living will need PT to evaluate pt. will titrate her meds for better rate control. 2/6 HR controlled, pt being evaluated for rehab. 2/7 pt is allergic to lisinopril, pt to go to inpatient rehab. pt has no fever but elevated wbc, will check ua. will repeat cbc in am. will hold lasix for now due to mild chriss
--- NOTE | 2019-10-02 16:12 | PDOC.CPN ---
- Subjective Date: 10/02/19 Time: 16:10 Interval history: No new issues or complaints. - Review of Systems General: denies: fever/chills, weight/appetite/sleep changes, night sweats, fatigue Respiratory: denies: cough, congestion, shortness of breath, exercise intolerance Cardiovascular: denies: chest pain, palpitation, edema, paroxysmal nocturnal dyspnea, orthopnea Gastrointestinal: denies: nausea, vomiting, diarrhea, constipation, abd pain, GI bleeding Musculoskeletal: denies: pain, tenderness, stiffness, swelling, arthritis/ arthralgias Neurological: denies: numbness, syncope, seizure, weakness - Objective Allergies/Adverse Reactions: Allergies Allergy/AdvReac Type Severity Reaction Status Date / Time hydrocodone Allergy Verified 05/21/18 17:16 lisinopril Allergy Verified 09/30/19 22:58 meperidine HCl [From Demerol] Allergy Verified 05/21/18 17:16 Penicillins Allergy Verified 05/21/18 17:16 Visit Medications: Current Medications Acetaminophen (Tylenol) 650 mg PO Q4H PRN PRN Reason: Headache/Fever/Mild Pain (1-3) Last Admin: 10/02/19 08:29 Dose: 650 mg Albuterol/Ipratropium (Duoneb) 3 ml NEB [id number] [facility] Last Admin: 10/02/19 15:11 Dose: 3 ml Apixaban (Eliquis) 5 mg PO BID [facility] Last Admin: 10/02/19 08:28 Dose: 5 mg Aspirin (Ecotrin) 81 mg PO DAILY [facility] Last Admin: 10/02/19 08:28 Dose: 81 mg Atenolol (Tenormin) 25 mg PO DAILY [facility] Last Admin: 10/02/19 08:28 Dose: 25 mg Bisacodyl (Dulcolax) 10 mg PO DAILYPRN PRN PRN Reason: Constipation Cholecalciferol (Vitamin D3) 1,000 units PO DAILY [facility] Last Admin: 10/02/19 08:28 Dose: 1,000 units Clonidine (Catapres) 0.1 mg PO BID PRN PRN Reason: SBP Greater Than 180 Digoxin (Lanoxin) 0.125 mg PO DAILY [facility] Diltiazem HCl (Cardizem Sr) 90 mg PO BID [facility] Last Admin: 10/02/19 08:28 Dose: 90 mg Folic Acid (Folvite) 1 mg PO DAILY [facility] Last Admin: 10/02/19 08:29 Dose: 1 mg Furosemide (Lasix) 40 mg PO DAILY [facility] Last Admin: 10/02/19 08:28 Dose: 40 mg Lorazepam (Ativan) 0.5 mg PO Q6H PRN PRN Reason: Anxiety Last Admin: 09/30/19 21:11 Dose: 0.5 mg Multivitamins (Theragran) 1 tab PO DAILY [facility] Last Admin: 10/02/19 08:28 Dose: 1 tab Nystatin (Mycostatin Powder) 0 gm TOP BID [facility] Last Admin: 10/02/19 08:29 Dose: 1 applic Pravastatin Sodium (Pravachol) 40 mg PO DAILY [facility] Last Admin: 10/02/19 08:29 Dose: 40 mg Prednisone (Prednisone) 40 mg PO QA[facility] Last Admin: 10/02/19 08:29 Dose: 40 mg Sodium Chloride (Flush - Normal Saline) 10 ml IVF Q12HR [facility] Last Admin: 10/02/19 08:31 Dose: 10 ml Sodium Chloride (Flush - Normal Saline) 10 ml IVF PRN PRN PRN Reason: Saline Flush Thiamine HCl (Thiamine) 100 mg PO DAILY [facility] Last Admin: 10/02/19 08:29 Dose: 100 mg Trazodone HCl (Desyrel) 50 mg PO HS PRN PRN Reason: Insomnia Last Admin: 10/02/19 01:17 Dose: 50 mg Vital Signs & Weight: Vital Signs Temp Pulse Pulse Pulse Resp BP BP 10/02/19 15:40 97.2 F L 122 H 18 10/02/19 15:11 129 H 18 10/02/19 13:58 96 95 132/89 128/75 10/02/19 11:51 97.8 F 108 H 20 10/02/19 10:38 107 H 20 10/02/19 08:28 108 H 10/02/19 07:35 10/02/19 07:31 98.3 F 108 H 17 10/02/19 06:31 109 H 18 BP Pulse Ox 10/02/19 15:40 132/89 94 L 10/02/19 15:11 94 L 10/02/19 13:58 10/02/19 11:51 102/58 L 93 L 10/02/19 10:38 93 L 10/02/19 08:28 02/07/20 07:35 93 L 10/02/19 07:31 125/71 93 L 10/02/19 06:31 98 Weight 193 lb 14.4 oz - Physical Exam General: alert & oriented x3 HEENT: mucus membranes moist Neck: supple neck Cardiac: irregularly regular Lungs: normal breath sounds Neuro: grossly intact Abdomen: active bowel sounds Extremities: no edema Skin: clear Musculoskeletal: no pain - Labs Result Diagrams: 10/02/19 08:55 10/02/19 08:55 Troponin/CKMB Troponin I 0.022 ng/mL (< 0.028) 09/25/19 18:49 - Telemetry Supraventricular conduction: atrial fibrillation - Assessment/Plan Assessment/Plan: 1. Acute on chronic diastolic heart failure, resolved. 2. Wheezing, likely from COPD, improved. 3. COPD 4. Paroxysmal afib, lenient rate control. PLAN: - Will add digoxin for rate control. - Continue Eliquis for stroke prophylaxis. - PO lasix. - Placement, likely inpatient rehab. - Cannot up titrate diltiazem due to borderline low BP with increased dose of dilt.
[2019-10-03] MEDS: traZODone HCl 50 MG TAB PO PRN (02:39)
[2019-10-03] MEDS: Acetaminophen 325 MG TAB PO PRN ×3 (02:42→12:34)
[2019-10-03 05:21] LABS: #Eosinphils 0.1 thou/uL (0.0-0.7); #Lymphocytes 1.9 thou/uL (1.20-3.40); #Monocytes 1.4 thou/uL (0.11-0.59); #Neutrophils 12.9 thou/uL (1.40-6.50); %Eosinophils 0.6 % (0.0-10.0); %Lymphocytes 11.5 % (21.0-51.0); %Monocytes 8.5 % (0.0-10.0); %Neutrophils 79.4 % (42.0-75.0); Hemoglobin 11.7 g/dL (12.0-16.0); Mean Corpuscular HGB CONC 32.6 g/dL (32.0-36.0); Mean Corpuscular Hemoglobin 28.5 pg (27.0-31.0); Mean Corpuscular Volume 87.5 fL (78.0-98.0); Mean Platelet Volume 7.6 fL (7.4-10.4); Platelet Count 289 thou/uL (130-400); RBC Distribution Width 13.4 % (11.5-14.5); Red Blood Cell (RBC) Count 4.09 mill/uL (4.20-5.40); White Blood Cell (WBC) Count 16.2 thou/uL (4.8-10.8)
[2019-10-03] MEDS: predniSONE 20 MG TAB PO SCH (08:31)
[2019-10-03] MEDS: Apixaban 5 MG TAB PO SCH (08:31)
[2019-10-03] MEDS: Aspirin 81 mg Enteric Coated Tablet PO SCH (08:31)
[2019-10-03] MEDS: Atenolol 25 MG TAB PO SCH (08:32)
[2019-10-03] MEDS: Multivit, Therapeutic 1 TAB PO SCH (08:32)
[2019-10-03] MEDS: Thiamine 100 MG TAB PO SCH (08:33)
[2019-10-03] MEDS: Folic Acid 1 MG TAB PO SCH (08:33)
[2019-10-03] MEDS: Pravastatin Sodium 40 MG TAB PO SCH (08:33)
[2019-10-03] MEDS: Nystatin Powder 15 GM BOT TOP SCH (08:35)
[2019-10-03] MEDS ORDERED: Digoxin 0.125 MG TAB PO SCH (09:00)
--- NOTE | 2019-10-03 10:39 | PDOC.CPN ---
- Subjective Date: 10/03/19 Time: 11:00 Interval history: Ms. Flowers is awake, watching TV, friend at the bedside. States she is feeling okay, but did not sleep well last night. Receiving breathing treatments, these seem to help with her wheezing. Denies chest pain. Continues to have shortness of breath with minimal activity. Denies N/V/D. No overnight events on telemetry. - Review of Systems General: reports: fatigue. denies: fever/chills, weight/appetite/sleep changes , night sweats Respiratory: reports: cough (Nonproductive), shortness of breath Cardiovascular: reports: chest pain, palpitation, edema, paroxysmal nocturnal dyspnea, orthopnea Gastrointestinal: reports: nausea, vomiting, diarrhea, constipation, abd pain, GI bleeding - Objective Allergies/Adverse Reactions: Allergies Allergy/AdvReac Type Severity Reaction Status Date / Time hydrocodone Allergy Verified 05/21/18 17:16 lisinopril Allergy Verified 09/30/19 22:58 meperidine HCl [From Demerol] Allergy Verified 05/21/18 17:16 Penicillins Allergy Verified 05/21/18 17:16 Visit Medications: Current Medications Acetaminophen (Tylenol) 650 mg PO Q4H PRN PRN Reason: Headache/Fever/Mild Pain (1-3) Last Admin: 10/03/19 08:32 Dose: 650 mg Albuterol/Ipratropium (Duoneb) 3 ml NEB [id number] [facility] Last Admin: 10/03/19 07:05 Dose: 3 ml Apixaban (Eliquis) 5 mg PO BID [facility] Last Admin: 10/03/19 08:31 Dose: 5 mg Aspirin (Ecotrin) 81 mg PO DAILY [facility] Last Admin: 10/03/19 08:31 Dose: 81 mg Atenolol (Tenormin) 25 mg PO DAILY [facility] Last Admin: 10/03/19 08:32 Dose: 25 mg Bisacodyl (Dulcolax) 10 mg PO DAILYPRN PRN PRN Reason: Constipation Cholecalciferol (Vitamin D3) 1,000 units PO DAILY [facility] Last Admin: 10/03/19 08:33 Dose: 1,000 units Clonidine (Catapres) 0.1 mg PO BID PRN PRN Reason: SBP Greater Than 180 Digoxin (Lanoxin) 0.125 mg PO DAILY [facility] Last Admin: 10/03/19 03:27 Dose: 0.125 mg Diltiazem HCl (Cardizem) 60 mg PO Q6H [facility] Last Admin: 10/03/19 08:39 Dose: 60 mg Folic Acid (Folvite) 1 mg PO DAILY [facility] Last Admin: 10/03/19 08:33 Dose: 1 mg Furosemide (Lasix) 40 mg PO DAILY [facility] Last Admin: 10/02/19 08:28 Dose: 40 mg Lorazepam (Ativan) 0.5 mg PO Q6H PRN PRN Reason: Anxiety Last Admin: 09/30/19 21:11 Dose: 0.5 mg Multivitamins (Theragran) 1 tab PO DAILY [facility] Last Admin: 10/03/19 08:32 Dose: 1 tab Nystatin (Mycostatin Powder) 0 gm TOP BID [facility] Last Admin: 10/03/19 08:35 Dose: 1 applic Pravastatin Sodium (Pravachol) 40 mg PO DAILY [facility] Last Admin: 10/03/19 08:33 Dose: 40 mg Prednisone (Prednisone) 40 mg PO QAM-WM [facility] Last Admin: 10/03/19 08:31 Dose: 40 mg Sodium Chloride (Flush - Normal Saline) 10 ml IVF Q12HR [facility] Last Admin: 10/03/19 08:36 Dose: 10 ml Sodium Chloride (Flush - Normal Saline) 10 ml IVF PRN PRN PRN Reason: Saline Flush Thiamine HCl (Thiamine) 100 mg PO DAILY [facility] Last Admin: 10/03/19 08:33 Dose: 100 mg Trazodone HCl (Desyrel) 50 mg PO HS PRN PRN Reason: Insomnia Last Admin: 10/03/19 02:39 Dose: 50 mg Vital Signs & Weight: Vital Signs Temp Pulse Resp BP Pulse Ox 10/03/19 08:32 97 10/03/19 08:30 97.3 F L 97 18 141/89 H 97 10/03/19 07:05 94 18 99 10/03/19 06:08 114 H 10/03/19 03:27 133 H 10/03/19 03:15 97.5 F L 133 H 20 143/88 H 96 10/03/19 02:10 109 H 16 Weight 195 lb 11.2 oz - [facility] Congestive heart failure: 1 Hypertension: 1 Age >75: 2 Female: 1 Risk Score: 5 - Quality Measures Condition: Atrial Fibrillation/Flutter (hx or current), Heart Failure CV meds: Beta Eitan: Yes, ANTIONE/ARB: No (on hold 2/2 CKD), Statin: Yes, ASA: Yes , Plavix/Effient/Brilinta: No, Anticoagulant: Yes - Physical Exam General: alert & oriented x3, appears well HEENT: mucus membranes moist, normocephaly Neck: supple neck, midline trachea, no JVD/HJR Cardiac: no murmur, irregularly regular Lungs: no rales, no rhonchi, wheezes (RUL), oxygen Neuro: grossly intact Extremities: no cyanosis, no clubbing, no edema Musculoskeletal: normal range of motion - Labs Result Diagrams: 10/03/19 05:13 10/02/19 08:55 Troponin/CKMB Troponin I 0.022 ng/mL (< 0.028) 09/25/19 18:49 - Telemetry Supraventricular conduction: atrial fibrillation - Assessment/Plan Assessment/Plan: 1. Acute on chronic Diastolic HF-volume status improved 2. COPD-intermittent wheezing, improved. Continue pulmonary toilet. 3. Persistent AFib-rate improved with addition of digoxin, 90s-100s, continue OAC, continue diltiazem 4. CKD-resume ACEi when creatinine stable PLAN: - PO lasix. - Placement, likely inpatient rehab.
[2019-10-03] MEDS ORDERED: traZODone HCl 50 MG TAB PO PRN (12:39)
[2019-10-03 15:52] VITALS: BP 123/82; TEMP 97.6
[2019-10-03] MEDS ORDERED: Nitrofurantoin Monohyd/M-Cryst 100 MG CAP PO SCH (16:45)
[2019-10-03] MEDS ORDERED: Ciprofloxacin 500 MG TAB PO SCH (16:45)
[2019-10-03] MEDS ORDERED: Cipro 250 MG TAB PO SCH (16:45)
[2019-10-03 16:47] LABS: Anion Gap 14 mmol/L (10-20); BUN (Urea Nitrogen) 28 mg/dL (9.8-20.1); Calc. Creatinine Clearance 57 mL/min (70-130); Calcium 9.3 mg/dL (7.8-10.44); Carbon Dioxide 36 mmol/L (23-31); Chloride 86 mmol/L (98-107); Estimated GFR-MDRD 47; Glucose 161 mg/dL (83-110); Potassium 4.1 mmol/L (3.5-5.1); Sodium 132 mmol/L (136-145)
--- NOTE | 2019-10-03 20:31 | DIS ---
DATE OF ADMISSION: 09/28/2019 DATE OF DISCHARGE: 10/03/2019 PRIMARY CARE PROVIDER: Rafi Leon MD DISCHARGE DIAGNOSES: 1. Atrial fibrillation with rapid ventricular response. 2. Acute on chronic diastolic congestive heart failure, [place] Heart Association class III. 3. Chronic obstructive pulmonary disease exacerbation. 4. Hypomagnesemia. 5. Hyponatremia. 6. Physical deconditioning. CONDITION OF PATIENT ON THE DAY OF DISCHARGE: Stable. I assessed Ms. Flowers on the day of discharge. She denies any chest pain or shortness of breath. Vital signs are stable. S1 and S2 are heard, regular. Lungs are clear to auscultation bilaterally. CONSULTATIONS DURING THIS HOSPITALIZATION: Cardiology, Dr. Chaney. The patient was seen by Dr. Armendariz as well. DISCHARGE MEDICATIONS: She has been started on: 1. Digoxin 0.125 mg daily. 2. Cardizem 60 mg every 6 hours. 3. Mycostatin powder and prednisone 40 mg daily, to be stopped after the last dose on October 04, 2019. 4. She has also been started on p.r.n. DuoNeb. Otherwise, no change was made to her pre-admission home medications, which include: 1. Lorazepam 0.5 to 1 mg every 6 hours as needed. 2. Promethazine 25 mg every 6 hours as needed. 3. Aspirin 81 mg daily. 4. Atenolol 25 mg daily. 5. Vitamin D3 of 1000 units daily. 6. Prilosec 10 mg daily. 7. Pravachol 40 mg daily. 8. Ambien 10 mg at bedtime as needed. 9. Apixaban 5 mg 2 times a day. 10. Clonidine 0.1 mg 2 times a day as needed. 11. Folic acid 1 mg daily. 12. Furosemide 40 mg daily. 13. Multivitamins one tablet daily. 14. Thiamine 100 mg daily. HOSPITAL COURSE: Ms. Flowers is a pleasant 79-year-old lady, who was admitted to [facility] for atrial fibrillation with rapid ventricular response as well as acute on chronic diastolic congestive heart failure. She was treated with intravenous antibiotics. She was initially treated with intravenous diltiazem, subsequently transitioned to oral diltiazem. There was also a component of chronic obstructive pulmonary disease exacerbation to her presentation. She improved with oxygen, steroids, and bronchodilators. She was physically deconditioned. She has been accepted for inpatient rehab at [facility] and is being discharged there. On October 02, she had sodium of 132, potassium 3.8, and blood urea nitrogen of 1.27. This is being rechecked prior to discharge. On October 03, she had white count 36375, hemoglobin 11.7, and platelet count 289,000. Many thanks for allowing me to participate in your patient's care. Please feel free to contact me with any questions or concerns. Please note that the patient had leukocytosis during this hospitalization. This was most likely secondary to steroid use. DISCHARGE DESTINATION: [facility]. DIET: Heart healthy, low-sodium. ACTIVITY: As tolerated. POST-ACUTE CARE FOLLOWUP: With primary care provider in 1 week and with Cardiology in 2 to 3 weeks. TIME SPENT: Total amount of time spent coordinating this discharge: 33 minutes. Job ID: [id number]
--- NOTE | 2019-10-05 14:03 | DIS ---
DATE OF ADMISSION: 09/28/2019 DATE OF DISCHARGE: 10/03/2019 ADDENDUM: Ms. Flowers's urinalysis from October 02, 2019, was consistent with urinary tract infection. She has been started on ciprofloxacin 250 mg 2 times a day for a total of three days. Rehab facility is requested to follow up on her urine culture. Also, her creatinine on October 03, 2019, improved to 1.13. Rehab facility is requested to check her creatinine in 5 days time. Job ID: [id number]
--- NOTE | 2019-10-06 00:34 | PQF ---
PHILLIP DAVIS DAVID [id number] CLINICAL DOCUMENTATION CLARIFICATION FORM: POST DISCHARGE Addendum to original discharge summary date: ____ Late entry note date: __ DATE: 10/06/2019 ATTN: Jaden Vaughan Please exercise your independent, professional judgment in responding to the clarification form. Clinical indicators are provided on the bottom of this form for your review Please check appropriate box(s): [ ] Acute Respiratory Failure: [ ] with Hypoxia[ ] with Hypercapnia [ ] Acute On Chronic Respiratory Failure: [ ] with Hypoxia [ ] with Hypercapnia [ x ] Acute Respiratory Failure due to: (etiology) COPD EXACERBATION [ ] ARDS (Acute Respiratory Distress Syndrome) [ ] Chronic Respiratory Failure only [ ] with Hypoxia [ ] with Hypercapnia [ ] Hypoxia [ ] Other diagnosis [ ] Unable to determine In addition, please specify: Present on Admission (POA): [ X] Yes [ ] No [ ] Unable to determine For continuity of documentation, please document condition throughout progress notes and discharge summary. Thank You. CLINICAL INDICATORS - SIGNS / SYMPTOMS / LABS Vital Sign 09/25 Temp 97.5, Pulse 110, Resp 24, O2 sat 93% Vital Sign 09/25 Temp 97.7, Pulse 109, Resp 18, O2 sat 94% Laboratory Hematology 09/28 RBC4.19, Hgb 11.6, Hct 37.3 H&P p1 09/25 Dr Nur was hospitalized Aug 02- for Acute hypoxic respiratory failure secondary to Acute on chronic diastolic CHF H&P p1 09/25 Dr Nur Started SOB since yesterday. She also reports wheezing and bilateral lower extremity edema Consult p1 2 Dr. Adair she had O2 saturation of 68% Consult p2 09/27 Dr. Adair chronic hypoxemia RISK H&P p1 09/25 79 year-old Female H&P p3 09/25 Acute on chronic stage 3 renal failure H&P p1 09/25 Uses Oxygen at home Discharge Summary p1 10/03 Acute on chronic CHF Discharge Summary p1 10/03 COPD exacerbation H&P p1 09/25 Obesity Consult p2 2 Former Smoker TREATMENTS: Respiratory Panel 2/3 Oxygen 3L OCT 25 Duoneb 3ml Neb OCT 25 Solu-medrol 40mg IV OCT 25 Prednisone 40mg po OCT 25 - IV lasix 40mg (This form is maintained as a part of the permanent medical record) 2014 [employer]. All Rights Reserved [email or web address]
== END 2019-10-03 17:45 | DRG 291 ==
LOC: ERS 11:44 → 2NO 15:29 → OBSVTOIN 09-28 10:24 → 2NO 09-30 15:03
PROVIDERS: ADMIT Internal Medicine; ATTEND Internal Medicine
DX: I13.0 Hypertensive heart and chronic kidney disease with heart failure and stage 1 through stage 4 chronic kidney disease, or unspecified chronic kidney disease (principal); I50.33 Acute on chronic diastolic (congestive) heart failure; J96.01 Acute respiratory failure with hypoxia; J44.1 Chronic obstructive pulmonary disease with (acute) exacerbation; E87.1 Hypo-osmolality and hyponatremia; N17.9 Acute kidney failure, unspecified; N39.0 Urinary tract infection, site not specified; I48.19 Other persistent atrial fibrillation; E83.42 Hypomagnesemia; D72.829 Elevated white blood cell count, unspecified; T38.0X5A Adverse effect of glucocorticoids and synthetic analogues, initial encounter; E66.9 Obesity, unspecified; K21.9 Gastro-esophageal reflux disease without esophagitis; N18.3 Chronic kidney disease, stage 3 (moderate); M19.90 Unspecified osteoarthritis, unspecified site; G89.29 Other chronic pain; M54.9 Dorsalgia, unspecified; Z68.33 Body mass index [BMI] 33.0-33.9, adult; Z88.0 Allergy status to penicillin; Z88.8 Allergy status to other drugs, medicaments and biological substances; Z79.899 Other long term (current) drug therapy; Z79.01 Long term (current) use of anticoagulants; Z79.82 Long term (current) use of aspirin; Z87.891 Personal history of nicotine dependence; Z99.3 Dependence on wheelchair; Z28.21 Immunization not carried out because of patient refusal; Z99.81 Dependence on supplemental oxygen
CPT/HCPCS: 36415; 36416; 71045; 80048; 80069; 81001; 82550; 83735; 83880; 84484; 85025; 87086; 93005; 93798; 94640; 94760; 96372; 96374; 96375; J1650; J1940; J2930; J3475; J7512; J7620

== ENCOUNTER 2019-11-06 18:18 | Inpatient (IN) | payer MEDICARE ==
--- NOTE | 2019-11-06 19:21 | RAD ---
Portable frontal chest radiograph: 11/06/2019 COMPARISON: 09/25/2019 HISTORY: Fluid retention FINDINGS: Lungs are clear. Heart and mediastinal contours appear within normal limits. IMPRESSION: No acute findings.
[2019-11-06 19:41] LABS: #Basophils 0.1 thou/uL (0.0-0.2); #Eosinphils 0.2 thou/uL (0.0-0.7); #Monocytes 1.1 thou/uL (0.11-0.59); #Neutrophils 8.2 thou/uL (1.40-6.50); %Basophils 0.6 % (0.0-1.0); %Eosinophils 1.7 % (0.0-10.0); %Lymphocytes 9.8 % (21.0-51.0); %Monocytes 10.4 % (0.0-10.0); %Neutrophils 77.5 % (42.0-75.0); Hemoglobin 12.8 g/dL (12.0-16.0); Mean Corpuscular HGB CONC 32.5 g/dL (32.0-36.0); Mean Corpuscular Volume 89.4 fL (78.0-98.0); Mean Platelet Volume 8.5 fL (7.4-10.4); Platelet Count 227 thou/uL (130-400); RBC Distribution Width 12.6 % (11.5-14.5); White Blood Cell (WBC) Count 10.6 thou/uL (4.8-10.8)
[2019-11-06 19:55] LABS: Digoxin 1.64 ng/mL (0.8-2.0)
[2019-11-06 19:56] LABS: ALT (SGPT) 11 U/L (8-55); AST (SGOT) 17 U/L (5-34); Albumin 4.1 g/dL (3.4-4.8); Alkaline Phosphatase 67 U/L (40-110); Anion Gap 16 mmol/L (10-20); BUN (Urea Nitrogen) 33 mg/dL (9.8-20.1); Bilirubin, Total 0.3 mg/dL (0.2-1.2); Calc. Creatinine Clearance 0 mL/min (70-130); Calcium 9.2 mg/dL (7.8-10.44); Carbon Dioxide 32 mmol/L (23-31); Chloride 92 mmol/L (98-107); Estimated GFR-MDRD 28; Globulin 2.6 g/dL (2.4-3.5); Glucose 117 mg/dL (83-110); Potassium 4.1 mmol/L (3.5-5.1); Protein, Total 6.7 g/dL (6.0-8.3); Sodium 136 mmol/L (136-145)
[2019-11-06 20:17] LABS: CKMB 1.5 ng/mL (0-6.6)
[2019-11-06] MEDS ORDERED: Furosemide 40 MG/4 ML VIAL ONE (20:29)
[2019-11-06] MEDS ORDERED: Aspirin Chewable 81 MG TAB ONE (21:25)
[2019-11-06] MEDS ORDERED: Magnesium 2 GM/50 ML BAG (IN WATER) ONE (22:02)
[2019-11-06 23:18] LABS: Troponin I 0.014 ng/mL (< 0.028)
[2019-11-07 02:08] LABS: Troponin I 0.032 ng/mL (< 0.028)
[2019-11-07] MEDS ORDERED: Prevnar 13-Val Conj/PF 0.5 ML SYRINGE IM ONE (09:00)
[2019-11-07] MEDS ORDERED: Zolpidem Tartrate 5 MG TAB PO PRN (10:06)
[2019-11-07] MEDS ORDERED: Apixaban 5 MG TAB PO SCH (10:30)
[2019-11-07] MEDS ORDERED: Atorvastatin Calcium 10 MG TAB PO SCH (10:30)
[2019-11-07] MEDS ORDERED: Atenolol 25 MG TAB PO SCH (10:30)
[2019-11-07] MEDS ORDERED: Bumetanide 1 MG/4 ML VIAL IVP SCH (10:30)
[2019-11-07] MEDS ORDERED: Digoxin 0.125 MG TAB PO SCH (10:30)
[2019-11-07] MEDS: Lorazepam 0.5 MG TAB PO PRN ×2 (14:33→23:39)
--- NOTE | 2019-11-07 17:38 | CON ---
DATE OF CONSULTATION: 11/07/2019 REASON FOR CONSULTATION: Edema. PRIMARY FISH AND WILDLIFE TECHNICIAN: Brad Armendariz MD HISTORY OF PRESENT ILLNESS: Lionel is a 79-year-old woman who has had multiple hospitalizations for diastolic heart failure. She recently presented with lower extremity edema. She states her dog was licking her lower extremity. She did not notice the amount of swelling and weeping. She states she noticed marked edema present and decided to proceed to the emergency room. She denied significant shortness of breath, chest pain, pressure, or associated symptoms. PAST MEDICAL HISTORY: Diastolic heart failure, morbid obesity, paroxysmal atrial fibrillation, hypertension, low back pain, hypoventilation syndrome, hyperlipidemia, alcohol abuse, hysterectomy, tonsillectomy, previous left tib-fib fracture. HOME MEDICATIONS: Include; 1. Amlodipine. 2. Eliquis. 3. Aspirin. 4. Atenolol. 5. Catapres. 6. Lasix. 7. Lisinopril. 8. Lorazepam. 9. Omeprazole. 10. Pravachol. 11. Thiamine. ALLERGIES: PENICILLIN. SOCIAL HISTORY: Positive remote tobacco use. Positive alcohol use. REVIEW OF SYSTEMS: A 10-point review of systems is reviewed and as above, otherwise negative. PHYSICAL EXAMINATION: GENERAL: Patient is a pleasant woman who is in no acute distress. The patient appears their stated age. She is morbidly obese with a BMI of 37. VITAL SIGNS: Blood pressure 135/75, pulse 60, temperature 97.4. NEUROLOGIC: The patient is alert and oriented x3 with no focal neurologic deficits. HEENT: Sclerae without icterus. Mouth has moist mucous membranes with normal pallor. NECK: No JVD. Carotid upstroke brisk. No bruits bilaterally. LUNGS: Clear to auscultation with unlabored respirations. BACK: No scoliosis or kyphosis. CARDIAC: Irregularly irregular. ABDOMEN: Soft, nontender, nondistended. No peritoneal signs present. No hepatosplenomegaly. No abnormal striae. EXTREMITIES: 2+ femoral and 2+ dorsalis pedis pulses. No cyanosis or clubbing. 3 to 4+ pitting edema. SKIN: No gross abnormalities. PERTINENT LABORATORY DATA: Hemoglobin 12.8, hematocrit 39.3, platelet count 227. Creatinine 1.77, which is up from previous creatinine of 0.95, dated 10/13/2019. IMPRESSION: 1. Lower extremity edema. 2. Acute diastolic heart failure. 3. Morbid obesity. 4. Hypoventilation syndrome. 5. Atrial fibrillation. RECOMMENDATION: Ms. Flowers has had AFib diagnosed in the past. She appears to have paroxysmal atrial fibrillation. It may be that she is decompensated from recent AFib. There may also be some compliance issues. Her creatinine is elevated with an elevated BUN, which suggests decrease in intravascular volume. BNP is also elevated at 761. We recommend changing atenolol to Coreg. Continue atorvastatin in addition to Eliquis. She has been given Bumex. We will repeat creatinine in a.m. and reassess. Job ID: [id number]
[2019-11-07] MEDS: Bumetanide 1 MG/4 ML VIAL IVP SCH (20:32)
[2019-11-07] MEDS: Apixaban 5 MG TAB PO SCH (20:32)
--- NOTE | 2019-11-07 20:58 | HP ---
CHIEF COMPLAINT: Shortness of breath and lower extremity swelling. HISTORY OF PRESENT ILLNESS: The patient is a 79-year-old female with history of diastolic congestive heart failure; atrial fibrillation, on anticoagulation; COPD; GERD; and osteoporosis; who presented to the hospital with complaints of worsening shortness of breath and lower extremity swelling for the last 3 weeks, that has reached a point, where she is short of breath at rest. Her lower extremities are both swollen and weeping. The patient does not ambulate much at home and was started to work with Physical Therapy as part of her home health program. In the ER, the patient was found to be slightly hypoxic and x-ray did not show any significant abnormalities apart from mild pulmonary edema. Her lower extremities were significantly swollen bilaterally. REVIEW OF SYSTEMS: Negative except as noted in HPI. PAST MEDICAL HISTORY: 1. Atrial fibrillation, on Eliquis. 2. COPD. 3. Diastolic congestive heart failure. 4. Hypertension. 5. Osteoarthritis. PAST SURGICAL HISTORY: 1. Left ankle, tibial, and foot surgery. 2. Hysterectomy. 3. Tonsillectomy. SOCIAL HISTORY: The patient is a former smoker. PHYSICAL EXAMINATION: GENERAL: The patient is alert and oriented x3. HEENT: Her head is normocephalic and atraumatic. Her extraocular muscles are intact. Her conjunctivae are pink. NECK: Supple without JVD. CHEST: Clear to auscultation bilaterally with minimal wheezing and crackles at the bases. CARDIOVASCULAR: Irregularly irregular rhythm with controlled rate. No murmurs, rubs, or gallops were heard. EXTREMITIES: Significant +3 to +4 pitting edema. DIAGNOSTIC DATA: EKG showed rate-controlled atrial fibrillation with lateral T-wave inversions. ASSESSMENT: 1. Htari-wi-ogswvtv diastolic congestive heart failure associated with severe lower extremity edema and volume overload. 2. Chronic stable chronic obstructive pulmonary disease. 3. Rate-controlled atrial fibrillation. 4. Hypertension. PLAN: 1. The patient will be admitted to a telemetry unit. 2. 2 g sodium diet. 3. 1500 mL fluid restriction. 4. Strict intake and output. 5. Daily weight. 6. Start IV Bumex 1 mg twice daily. 7. Consult Cardiology. 8. The patient's creatinine level is slightly elevated. We will consult Nephrology as well to assist with diuresis. Job ID: [id number]
--- NOTE | 2019-11-08 02:04 | CON ---
DATE OF CONSULTATION: REASON FOR CONSULTATION: Elevated creatinine. HISTORY OF PRESENT ILLNESS: This is a very pleasant 79-year-old female, who presented to the hospital today with shortness of breath and lower extremity swelling. The patient denies any nausea, vomiting, or chest pain. The patient has chronic atrial fibrillation and has 4+ edema. The patient's creatinine was 1.7 today. Prior baseline in September was 0.95, so she has a progressive rise in creatinine. PAST MEDICAL HISTORY: Atrial fibrillation, COPD, diastolic heart failure, hypertension, osteoarthritis, left ankle and foot surgery, hysterectomy, and tonsillectomy. SOCIAL HISTORY: No alcohol or drug use. FAMILY HISTORY: Negative for ESRD. ALLERGIES: REVIEWED. HOME MEDICATIONS: List reviewed. HOSPITAL MEDICATIONS: List reviewed. REVIEW OF SYSTEMS: 15-point review of systems was performed and negative except for positives noted above. HEENT: Eyes intact, no diplopia. Ears: No hearing loss or earache. Nose: No discharge or bleeding. Chest: No cough or phlegm. Abdomen: No nausea or vomiting. Genitourinary: No hematuria. No Johnson catheter. Musculoskeletal: No low back pain. No joint swelling or pain. Neurological: No syncope. No seizures. Skin: No complaints of rash or itching. Psychiatric: No depression. Constitutional: No weight loss or loss of appetite. PHYSICAL EXAMINATION: GENERAL: The patient is awake and alert. VITAL SIGNS: Afebrile, pulse 70, breathing at 16, and blood pressure 125/68. HEENT: Head normocephalic and atraumatic. Eyes intact, no ulcers. Nose intact, no ulcers. Ears intact, no ulcers. Neck: Supple. No JVD. Chest: Symmetrical and clear. Cardiovascular: Shows S1 and S2, no rub, no murmur. Gastrointestinal: Abdomen is soft, bowel sounds positive. Extremities: Show no edema or ulcers. Skin: Shows no rash or petechiae. Musculoskeletal: Shows no joint swelling or stiffness. Genitourinary: Shows no Johnson or CVA tenderness. Neurologic: Motor intact. Cranial nerves intact. LABORATORY DATA: Reviewed. IMPRESSION AND PLAN: 1. Acute kidney injury with chronic kidney disease, most likely due to chronic ischemic nephropathy in the setting of cardiorenal syndrome. Continue diuretics. 2. Hypertension, stable. 3. Anemia, stable. 4. Medication based on GFR appropriate. No indication for dialysis. Continue judicious use of diuretics. Job ID: [id number]
[2019-11-08 04:37] LABS: Anion Gap 15 mmol/L (10-20); BUN (Urea Nitrogen) 32 mg/dL (9.8-20.1); Calc. Creatinine Clearance 57 mL/min (70-130); Calcium 9.1 mg/dL (7.8-10.44); Carbon Dioxide 33 mmol/L (23-31); Chloride 94 mmol/L (98-107); Estimated GFR-MDRD 40; Glucose 117 mg/dL (83-110); Sodium 138 mmol/L (136-145)
[2019-11-08 04:48] LABS: Hemoglobin 11.9 g/dL (12.0-16.0); Mean Corpuscular HGB CONC 32.4 g/dL (32.0-36.0); Mean Corpuscular Hemoglobin 28.8 pg (27.0-31.0); Mean Corpuscular Volume 88.9 fL (78.0-98.0); Mean Platelet Volume 8.8 fL (7.4-10.4); Platelet Count 195 thou/uL (130-400); RBC Distribution Width 12.7 % (11.5-14.5); Red Blood Cell (RBC) Count 4.13 mill/uL (4.20-5.40); White Blood Cell (WBC) Count 11.6 thou/uL (4.8-10.8)
[2019-11-08 04:49] LABS: Band 2 % (5-11); Eosinophils 3 % (0-10); Lymphocytes 13 % (21-51); MDiff Complete? YES; Monocytes 10 % (0-10); Neutrophil 72 % (42-75); Platelet Morphology Comment Appears Adequate
[2019-11-08] MEDS ORDERED: Atenolol 25 MG TAB PO SCH (09:00)
[2019-11-08] MEDS: Digoxin 0.125 MG TAB PO SCH (09:42)
[2019-11-08] MEDS: Apixaban 5 MG TAB PO SCH ×2 (09:43→20:17)
[2019-11-08] MEDS: Atorvastatin Calcium 10 MG TAB PO SCH (09:43)
[2019-11-08] MEDS: Bumetanide 1 MG/4 ML VIAL IVP SCH ×2 (09:43→20:17)
[2019-11-08] MEDS: Atenolol 25 MG TAB PO SCH (09:43)
[2019-11-08] MEDS: Lorazepam 0.5 MG TAB PO PRN (09:44)
[2019-11-08] MEDS: Acetaminophen 325 MG TAB PO PRN ×2 (09:44→14:59)
[2019-11-08 10:03] LABS: Actual Bicarbonate (HCO3a) 34.3 mEq/L (22-28); Base Excess (BEa) 9.1 mEq/L (-2.0 to +3.0); CO2 Tension 49.6 mmHg (35.0-45.0); Calcium, Ionized 1.14 mmol/L (1.12-1.30); Carboxyhemoglobin (COHb) 1.1 gm% (0.0-3.0); Hemoglobin (Hb) 12.7 g/dL (12.0-16.0); Potassium - ABG Lab 3.92 mmol/L (3.70-5.30); pH, Arterial 7.46 (7.35-7.45)
[2019-11-08 10:05] LABS: O2 Tension (PaO2) 59.6 mmHg (> 70.0)
[2019-11-08 10:06] LABS: Puncture Site RBA
[2019-11-08] MEDS ORDERED: ALPRAZolam 0.5 MG TAB PO PRN (11:51)
[2019-11-08] MEDS ORDERED: Metolazone 2.5 MG TAB PO SCH (12:45)
--- NOTE | 2019-11-08 14:58 | PRG ---
DATE OF SERVICE: 11/08/2019 SUBJECTIVE: A 79-year-old female being seen for acute kidney injury. The patient denied nausea, vomiting, or chest pain. PHYSICAL EXAMINATION: GENERAL: The patient is awake and alert. VITAL SIGNS: Afebrile, pulse 71, breathing at 16, blood pressure 131/76. HEENT: Head normocephalic and atraumatic. Eyes intact, no ulcers. Nose intact, no ulcers. Ears intact, no ulcers. NECK: Supple. No JVD. CHEST: Symmetrical and clear. CARDIOVASCULAR: Shows S1 and S2, no rub, no murmur. GASTROINTESTINAL: Abdomen is soft, bowel sounds positive. EXTREMITIES: The patient has 4+ edema. SKIN: Shows no rash or petechiae. MUSCULOSKELETAL: Shows no joint swelling or stiffness. GENITOURINARY: Shows no Johnson or CVA tenderness. NEUROLOGIC: Motor intact. Cranial nerves intact. LABORATORY DATA: Reviewed. Labs show creatinine 1.2. ASSESSMENT AND PLAN: 1. Acute kidney injury, improved. 2. Chronic kidney disease, stage 3, stable. 3. Edema. I would recommend starting metolazone. 4. Lymphedema. Would evaluate lymphatics. Job ID: [id number]
--- NOTE | 2019-11-08 15:34 | PDOC.HOSPP ---
- Subjective Encounter Date: 11/08/19 Subjective: Received Ambien at night and lorazepam this morning. Somnolent - Objective Vital Signs & Weight: Vital Signs (12 hours) Temp Pulse Resp BP Pulse Ox 11/08/19 15:01 97.6 F 65 16 163/71 H 94 L 11/08/19 11:14 98.1 F 71 18 131/76 95 11/08/19 09:40 98.6 F 82 18 152/70 H 94 L Weight Weight 215 lb 8 oz I&O: 11/07/19 11/08/19 11/09/19 06:59 06:59 06:59 Intake Total 960 Output Total 400 Balance 560 Result Diagrams: 11/08/19 03:52 11/08/19 03:52 Hospitalist ROS - Medication Medications: Active Medications Generic Name Dose Route Start Last Admin Trade Name Freq PRN Reason Stop Dose Admin Acetaminophen 650 mg 11/08/19 09:37 11/08/19 14:59 Tylenol PO 650 mg Q6H PRN Administration Headache/Fever or Pain Albuterol/Ipratropium 3 ml 11/07/19 15:56 11/07/19 22:18 Duoneb NEB 3 ml [id number] PRN Administration SOB &/or Wheezing Apixaban 5 mg 11/07/19 21:00 11/08/19 09:43 Eliquis PO 5 mg BID SUJATA Administration Atenolol 50 mg 11/08/19 09:00 11/08/19 09:43 Tenormin PO 50 mg DAILY SUJATA Administration Atorvastatin Calcium 10 mg 11/08/19 09:00 11/08/19 09:43 Lipitor PO 10 mg DAILY SUJATA Administration Bumetanide 1 mg 11/07/19 21:00 11/08/19 09:43 Bumex IVP 1 mg Q12HR SUJATA Administration Digoxin 0.125 mg 11/08/19 09:00 11/08/19 09:42 Lanoxin PO 0.125 mg DAILY SUJATA Administration Diltiazem HCl 60 mg 11/07/19 12:00 11/08/19 12:49 Cardizem PO 60 mg Q6HR SUJATA Administration Lorazepam 0.5 mg 11/07/19 10:06 11/08/19 09:44 Ativan PO 0.5 mg Q6H PRN Administration Anxiety Sodium Chloride 10 ml 11/08/19 09:00 11/08/19 09:43 Flush - Normal Saline IVF 10 ml Q12HR SUJATA Administration - Exam ENT: normocephalic atraumatic Neck: supple, no JVD Heart: no murmur, no gallops, no rubs, normal peripheral pulses, irregular Respiratory: CTAB, no wheezes, no rales, rhonchi Gastrointestinal: soft, non-tender, non-distended, normal bowel sounds Extremities: 2+ LE edema Hosp A/P (1) Acute on chronic diastolic ACC/AHA stage C congestive heart failure Code(s): I50.33 - ACUTE ON CHRONIC DIASTOLIC (CONGESTIVE) HEART FAILURE Status : Acute (2) Lower extremity edema Code(s): R60.0 - LOCALIZED EDEMA Status: Acute (3) CHRISS (acute kidney injury) Code(s): N17.9 - ACUTE KIDNEY FAILURE, UNSPECIFIED Status: Acute (4) Acute respiratory failure with hypoxemia Code(s): J96.01 - ACUTE RESPIRATORY FAILURE WITH HYPOXIA Status: Acute - Plan Insert ramos cath for acurate I&O Continue low salt diet and fluid restriction Continue Bumex CHRISS improving DC Ambien and lorazepam due to lethargy
[2019-11-09] MEDS: Acetaminophen 325 MG TAB PO PRN ×2 (02:53→20:56)
[2019-11-09 04:37] LABS: Anion Gap 13 mmol/L (10-20); BUN (Urea Nitrogen) 31 mg/dL (9.8-20.1); Calc. Creatinine Clearance 51 mL/min (70-130); Carbon Dioxide 35 mmol/L (23-31); Chloride 92 mmol/L (98-107); Estimated GFR-MDRD 37; Glucose 128 mg/dL (83-110); Potassium 3.9 mmol/L (3.5-5.1); Sodium 136 mmol/L (136-145)
[2019-11-09 04:40] LABS: Band 3 % (5-11); Eosinophils 1 % (0-10); Hemoglobin 11.4 g/dL (12.0-16.0); Lymphocytes 11 % (21-51); MDiff Complete? YES; Mean Corpuscular Hemoglobin 28.5 pg (27.0-31.0); Mean Corpuscular Volume 88.9 fL (78.0-98.0); Mean Platelet Volume 8.6 fL (7.4-10.4); Monocytes 5 % (0-10); Neutrophil 80 % (42-75); Platelet Count 193 thou/uL (130-400); RBC Distribution Width 12.7 % (11.5-14.5); White Blood Cell (WBC) Count 13.8 thou/uL (4.8-10.8)
[2019-11-09] MEDS: Atorvastatin Calcium 10 MG TAB PO SCH (09:38)
[2019-11-09] MEDS: Apixaban 5 MG TAB PO SCH ×2 (09:38→20:53)
[2019-11-09] MEDS: Bumetanide 1 MG/4 ML VIAL IVP SCH (09:40)
[2019-11-09] MEDS ORDERED: clonazePAM 1 MG TAB PO PRN (10:46)
[2019-11-09] MEDS: Digoxin 0.125 MG TAB PO SCH (11:06)
[2019-11-09] MEDS: Atenolol 25 MG TAB PO SCH (11:07)
--- NOTE | 2019-11-09 11:37 | RAD ---
CHEST 1 VIEW: INDICATION: History of shortness of breath. COMPARISON: Prior exam dated 11/06/2019. FINDINGS: There is moderate cardiomegaly. Chronic lung changes are stable. No acute airspace opacity, pleural effusion, or pneumothorax is evident. No acute osseous abnormality is evident. IMPRESSION: No acute abnormality. POS: BH
[2019-11-09] MEDS: methylPREDNISolone Sod Succ 40 MG VIAL IVP SCH ×3 (12:18→23:47)
--- NOTE | 2019-11-09 14:52 | PDOC.HOSPP ---
- Subjective Encounter Date: 11/09/19 Subjective: The patient is bradycardic this morning - Objective Vital Signs & Weight: Vital Signs (12 hours) Temp Pulse Resp BP Pulse Ox 11/09/19 12:39 96 11/09/19 12:38 73 18 11/09/19 12:03 97.5 F L 72 18 142/69 H 96 11/09/19 09:11 97.8 F 58 L 20 123/61 96 11/09/19 03:08 98.5 F 61 18 130/79 97 Weight Admit Weight 218 lb 3.2 oz Weight 217 lb 8 oz I&O: 11/08/19 11/09/19 11/10/19 06:59 06:59 06:59 Intake Total 960 1354 Output Total 400 1825 Balance 560 -471 Result Diagrams: 11/09/19 03:48 11/09/19 03:48 Hospitalist ROS - Medication Medications: Active Medications Generic Name Dose Route Start Last Admin Trade Name Freq PRN Reason Stop Dose Admin Acetaminophen 650 mg 11/08/19 09:37 11/09/19 02:53 Tylenol PO 650 mg Q6H PRN Administration Headache/Fever or Pain Albuterol/Ipratropium 3 ml 11/09/19 13:00 11/09/19 12:38 Duoneb NEB 3 ml [id number] SUJATA Administration Apixaban 5 mg 11/07/19 21:00 11/09/19 09:38 Eliquis PO 5 mg BID SUJATA Administration Atorvastatin Calcium 10 mg 11/08/19 09:00 11/09/19 09:38 Lipitor PO 10 mg DAILY SUJATA Administration Bumetanide 1 mg 11/07/19 21:00 11/09/19 09:40 Bumex IVP 1 mg Q12HR SUJATA Administration Digoxin 0.125 mg 11/08/19 09:00 11/09/19 11:06 Lanoxin PO Not Given DAILY SUJATA Methylprednisolone Sodium Succinate 40 mg 11/09/19 12:00 11/09/19 12:18 Solu-Medrol IVP 40 mg Q6HR SUJATA Administration Sodium Chloride 10 ml 11/08/19 09:00 11/09/19 09:41 Flush - Normal Saline IVF 10 ml Q12HR SUJATA Administration - Exam General Appearance: NAD ENT: normocephalic atraumatic Neck: supple, no JVD Heart: no murmur, no gallops, no rubs, irregular Respiratory: rhonchi, tachypneic Gastrointestinal: soft, non-tender, non-distended, normal bowel sounds Hosp A/P (1) Acute on chronic diastolic ACC/AHA stage C congestive heart failure Code(s): I50.33 - ACUTE ON CHRONIC DIASTOLIC (CONGESTIVE) HEART FAILURE Status : Acute (2) Lower extremity edema Code(s): R60.0 - LOCALIZED EDEMA Status: Acute (3) CHRISS (acute kidney injury) Code(s): N17.9 - ACUTE KIDNEY FAILURE, UNSPECIFIED Status: Acute (4) Acute respiratory failure with hypoxemia Code(s): J96.01 - ACUTE RESPIRATORY FAILURE WITH HYPOXIA Status: Acute - Plan Continue strict I&O, low salt diet and fluid restriction Continue Bumex CHRISS improving Negative fluid balance over the last 24h Hold atenolol for bradycardia SOB and lower extremity edema is improving, continue pressure dressing.
--- NOTE | 2019-11-09 15:16 | CON ---
DATE OF CONSULTATION: 11/09/2019 CONSULTING PHYSICIAN: Rashaun Riley MD REASON FOR CONSULTATION: Rule out obesity hypoventilation syndrome and COPD. HISTORY OF PRESENT ILLNESS: Ms. Flowers is a 79-year-old, who was hospitalized first on 11/06/2019 with complaints of lower extremity swelling. She was found to be in overt diastolic heart failure. She has been placed on diuretics and has been responding appropriately. She has had a decrease in leg swelling. She states her breathing has improved much. As part of the workup, she had a blood gas obtained, which showed a respiratory acidosis from a compensatory metabolic alkalosis. She says she has never been diagnosed with COPD before and quit smoking about 30 years ago. She takes no inhaler therapy or oxygen at home. PAST MEDICAL HISTORY: 1. Diastolic heart failure. 2. Atrial fibrillation. 3. Hypertension. 4. Osteoarthritis. 5. Asthmatic bronchitis. PAST SURGICAL HISTORY: 1. Left ankle surgery. 2. Hysterectomy. 3. Tonsillectomy. SOCIAL HISTORY: Quit smoking 30 years ago. MEDICATIONS: Reviewed, see list under the summary section of the chart. REVIEW OF SYSTEMS: Twelve-point review of systems is otherwise negative. PHYSICAL EXAMINATION: VITAL SIGNS: Temperature 97.5, pulse 73, respirations 18, O2 saturation 96% on 2 L, and blood pressure 142/69. GENERAL: She is awake and alert, sitting up in a wheelchair. No distress. HEENT: Unremarkable. NECK: No adenopathy or JVD. LUNGS: She has some scattered inspiratory crackles at both bases. No wheezing. CARDIOVASCULAR: S1 and S2. Regular without murmur. ABDOMEN: Soft and nontender. EXTREMITIES: No clubbing or cyanosis. Trace edema. LABORATORY DATA: White blood cell count 13.8, hematocrit 35.6, and platelet count 193. A pH of 7.46, pCO2 of 49, and pO2 of 59. BNP 761. Sodium 136, potassium 3.9, chloride 92, CO2 of 35, BUN 31, creatinine 1.4, and glucose 128. Chest x-ray shows no mass, effusion, or infiltrate. ASSESSMENT: 1. Diastolic heart failure with improvement after diuresis. 2. Compensatory respiratory acidosis from a metabolic alkalosis caused by diuretic use. 3. This patient does not have obesity hypoventilation syndrome. RECOMMENDATION: 1. I would be very careful with her diuretic regimen and consider changing her over to acetazolamide if her serum bicarbonate continues to increase on the loop diuretics. I would suggest not giving her high dose steroids as I do not think this is bronchospasm. It might be cordoba to get an outpatient sleep study, although she was not interested in that when I talked to her in the room. 2. Pulmonary will follow peripherally. Job ID: [id number]
--- NOTE | 2019-11-09 17:01 | PDOC.CPN ---
- Subjective Date: 11/09/19 Time: 16:56 Interval history: Swelling improved. No angina, no SOB. - Review of Systems General: denies: fever/chills, weight/appetite/sleep changes, night sweats, fatigue Respiratory: denies: cough, congestion, shortness of breath, exercise intolerance Cardiovascular: reports: edema. denies: chest pain, palpitation, paroxysmal nocturnal dyspnea, orthopnea Gastrointestinal: denies: nausea, vomiting, diarrhea, constipation, abd pain, GI bleeding Musculoskeletal: denies: pain, tenderness, stiffness, swelling, arthritis/ arthralgias Neurological: denies: numbness, syncope, seizure, weakness - Objective Allergies/Adverse Reactions: Allergies Allergy/AdvReac Type Severity Reaction Status Date / Time bee venom protein (honey bee) Allergy Verified 11/06/19 23:38 hydrocodone Allergy Verified 11/06/19 23:38 lisinopril Allergy Verified 11/06/19 23:38 meperidine HCl [From Demerol] Allergy Verified 11/06/19 23:38 Penicillins Allergy Verified 11/06/19 23:38 Visit Medications: Current Medications Acetaminophen (Tylenol) 650 mg PO Q6H PRN PRN Reason: Headache/Fever or Pain Last Admin: 11/09/19 02:53 Dose: 650 mg Albuterol/Ipratropium (Duoneb) 3 ml NEB [id number] [facility] Last Admin: 11/09/19 14:52 Dose: 3 ml Apixaban (Eliquis) 5 mg PO BID [facility] Last Admin: 11/09/19 09:38 Dose: 5 mg Atorvastatin Calcium (Lipitor) 10 mg PO DAILY [facility] Last Admin: 11/09/19 09:38 Dose: 10 mg Bumetanide (Bumex) 1 mg IVP Q12HR [facility] Last Admin: 11/09/19 09:40 Dose: 1 mg Digoxin (Lanoxin) 0.125 mg PO DAILY [facility] Last Admin: 11/09/19 11:06 Dose: Not Given Diltiazem HCl (Cardizem) 60 mg PO TID [facility] Last Admin: 11/09/19 15:26 Dose: 60 mg Lorazepam (Ativan) 0.5 mg PO DAILY [facility] Methylprednisolone Sodium Succinate (Solu-Medrol) 40 mg IVP Q6HR [facility] Last Admin: 11/09/19 12:18 Dose: 40 mg Sodium Chloride (Flush - Normal Saline) 10 ml IVF Q12HR [facility] Last Admin: 11/09/19 09:41 Dose: 10 ml Vital Signs & Weight: Vital Signs Temp Pulse Resp BP BP Pulse Ox 11/09/19 15:22 98.0 F 84 14 120/57 L 92 L 11/09/19 14:52 74 16 11/09/19 12:39 96 11/09/19 12:38 73 18 11/09/19 12:03 97.5 F L 72 18 142/69 H 96 11/09/19 09:11 97.8 F 58 L 20 123/61 96 Admit Weight 218 lb 3.2 oz Weight 217 lb 8 oz - Physical Exam General: alert & oriented x3 HEENT: mucus membranes moist Neck: supple neck Cardiac: regular rate and rhythm Lungs: normal breath sounds Neuro: no lateralizing findings Abdomen: active bowel sounds Extremities: 1+ LE edema Skin: clear Musculoskeletal: no pain - Labs Result Diagrams: 11/09/19 03:48 11/09/19 03:48 Troponin/CKMB CK-MB (CK-2) 1.5 ng/mL (0-6.6) 11/06/19 19:31 Troponin I 0.032 ng/mL (< 0.028) H 11/07/19 01:31 - Telemetry Sinus rhythms and dysrhythmias: sinus rhythm - Assessment/Plan Assessment/Plan: 1. Acute on chronic diastolic CHF, improved. 2. LE edema, improved. 3. COPD 4. Paroxysmal afib PLAN: - She feels better today, she states her swelling is better as well. - Would back off on her diuresis as her creatinine is starting to increase. - Normal LV function on recent echo. - Close to baseline. - Continue Eliquis. - She may have venous insufficiency causing her leg edema to be worse, she is not interested in venous ablation if it were to be needed. She will need thigh high compression stockings.
--- NOTE | 2019-11-09 18:42 | PRG ---
DATE OF SERVICE: 11/09/2019 SUBJECTIVE: Patient was seen and examined at bedside and overnight events noted. Patient denies any shortness of breath or chest pain or palpitation. No history of nausea or vomiting or diarrhea or fever or chills or cramps. OBJECTIVE: GENERAL: This is well-built female, in no acute distress. VITAL SIGNS: Temperature 98.0, pulse 84, respiratory rate 14, blood pressure 120/57. HEENT: Atraumatic, normocephalic. Oral mucosa is moist. NECK: Supple. CARDIOVASCULAR: S1, S2 heard. Rate and rhythm regular. RESPIRATORY: Clear to auscultation. GASTROINTESTINAL: Abdomen is soft. MUSCULOSKELETAL: No tenderness. No edema. DERMATOLOGIC: No skin rash. NEUROLOGIC: Alert and awake and oriented x3. No focal neurologic deficits. Moving all the extremities. PSYCHIATRIC: Mood and affect normal. LABORATORY DATA: Potassium 3.9, BUN is 31, and creatinine is 1.3. ASSESSMENT AND PLAN: 1. Acute kidney injury, stable. 2. Chronic kidney disease stage 3. 3. Chronic edema. 4. Alkalosis. 5. Started on diuretics. Avoid nephrotoxins. We will follow. Job ID: [id number]
[2019-11-10] MEDS: Acetaminophen 325 MG TAB PO PRN ×2 (02:44→21:03)
[2019-11-10] MEDS: methylPREDNISolone Sod Succ 40 MG VIAL IVP SCH ×3 (05:15→17:20)
[2019-11-10 05:29] LABS: Band 15 % (5-11); Hemoglobin 11.2 g/dL (12.0-16.0); Lymphocytes 2 % (21-51); MDiff Complete? YES; Mean Corpuscular HGB CONC 32.2 g/dL (32.0-36.0); Mean Corpuscular Hemoglobin 28.8 pg (27.0-31.0); Mean Corpuscular Volume 89.5 fL (78.0-98.0); Mean Platelet Volume 8.7 fL (7.4-10.4); Neutrophil 83 % (42-75); Platelet Count 177 thou/uL (130-400); RBC Distribution Width 12.7 % (11.5-14.5); Red Blood Cell (RBC) Count 3.89 mill/uL (4.20-5.40); White Blood Cell (WBC) Count 15.1 thou/uL (4.8-10.8)
[2019-11-10 05:32] LABS: Anion Gap 15 mmol/L (10-20); BUN (Urea Nitrogen) 27 mg/dL (9.8-20.1); Calc. Creatinine Clearance 58 mL/min (70-130); Calcium 9.2 mg/dL (7.8-10.44); Carbon Dioxide 35 mmol/L (23-31); Chloride 91 mmol/L (98-107); Estimated GFR-MDRD 42; Glucose 239 mg/dL (83-110); Potassium 3.6 mmol/L (3.5-5.1); Sodium 137 mmol/L (136-145)
[2019-11-10] MEDS: Atorvastatin Calcium 10 MG TAB PO SCH (08:11)
[2019-11-10] MEDS: Bumetanide 1 MG TAB PO SCH ×2 (08:11→17:19)
[2019-11-10] MEDS: Apixaban 5 MG TAB PO SCH ×2 (08:11→21:03)
[2019-11-10] MEDS: Digoxin 0.125 MG TAB PO SCH (08:12)
[2019-11-10] MEDS ORDERED: Lorazepam 0.5 MG TAB PO SCH (09:00)
[2019-11-10 10:09] VITALS: BMI 37.4
--- NOTE | 2019-11-10 13:25 | PRG ---
DATE OF SERVICE: 11/10/2019 SUBJECTIVE: Patient was seen and examined at bedside and overnight events noted. Patient denies any shortness of breath or chest pain or palpitation. No history of nausea or vomiting or diarrhea or fever or chills or cramps. OBJECTIVE: GENERAL: This is a well-built female, in no acute distress. VITAL SIGNS: Temperature 98.6. Heart rate 82. Respiratory rate 16. Blood pressure 155/65. HEENT: Atraumatic, normocephalic. Oral mucosa is moist NECK: Supple. CARDIOVASCULAR: S1, S2 heard. Rate and rhythm regular. RESPIRATORY: Clear to auscultation. GASTROINTESTINAL: Abdomen is soft. MUSCULOSKELETAL: No tenderness. No edema. DERMATOLOGIC: No skin rash. NEUROLOGIC: Alert and awake and oriented X3. No focal neurologic deficits. Moving all the extremities. PSYCHIATRIC: Mood and affect normal. LABORATORY DATA: Potassium is 3.6, BUN is 27, and creatinine is 1.2. ASSESSMENT AND PLAN: 1. Acute kidney injury on chronic kidney stage 3, stable. 2. Edema, controlled. 3. Alkalosis, most likely secondary to diuretics. Consider Diamox also. 4. Edema. Renal function is stable. We will follow. Job ID: [id number]
--- NOTE | 2019-11-10 18:57 | PDOC.CPN ---
- Subjective Date: 11/10/19 Time: 18:55 Interval history: No new issues. Kidney function with mild improvement. - Review of Systems General: denies: fever/chills, weight/appetite/sleep changes, night sweats, fatigue Respiratory: denies: cough, congestion, shortness of breath, exercise intolerance Cardiovascular: reports: edema. denies: chest pain, palpitation, paroxysmal nocturnal dyspnea, orthopnea Gastrointestinal: denies: nausea, vomiting, diarrhea, constipation, abd pain, GI bleeding Musculoskeletal: denies: pain, tenderness, stiffness, swelling, arthritis/ arthralgias Neurological: denies: numbness, syncope, seizure, weakness - Objective Allergies/Adverse Reactions: Allergies Allergy/AdvReac Type Severity Reaction Status Date / Time bee venom protein (honey bee) Allergy Verified 11/06/19 23:38 hydrocodone Allergy Verified 11/06/19 23:38 lisinopril Allergy Verified 11/06/19 23:38 meperidine HCl [From Demerol] Allergy Verified 11/06/19 23:38 Penicillins Allergy Verified 11/06/19 23:38 Visit Medications: Current Medications Acetaminophen (Tylenol) 650 mg PO Q6H PRN PRN Reason: Headache/Fever or Pain Last Admin: 11/10/19 02:44 Dose: 650 mg Albuterol/Ipratropium (Duoneb) 3 ml NEB [id number] [facility] Last Admin: 11/10/19 13:37 Dose: 3 ml Apixaban (Eliquis) 5 mg PO BID [facility] Last Admin: 11/10/19 08:11 Dose: 5 mg Atorvastatin Calcium (Lipitor) 10 mg PO DAILY [facility] Last Admin: 11/10/19 08:11 Dose: 10 mg Bumetanide (Bumex) 1 mg PO BID-AC [facility] Last Admin: 11/10/19 17:19 Dose: 1 mg Digoxin (Lanoxin) 0.125 mg PO DAILY [facility] Last Admin: 11/10/19 08:12 Dose: 0.125 mg Diltiazem HCl (Cardizem) 60 mg PO TID [facility] Last Admin: 11/10/19 16:10 Dose: 60 mg Methylprednisolone Sodium Succinate (Solu-Medrol) 40 mg IVP Q6HR [facility] Last Admin: 11/10/19 17:20 Dose: 40 mg Sodium Chloride (Flush - Normal Saline) 10 ml IVF Q12HR [facility] Last Admin: 11/10/19 08:13 Dose: 10 ml Zolpidem Tartrate (Ambien) 5 mg PO HSPRN PRN PRN Reason: Insomnia Vital Signs & Weight: Vital Signs Temp Pulse Pulse Resp BP BP Pulse Ox 11/10/19 16:08 97.8 F 94 18 158/70 H 94 L 11/10/19 14:15 79 135/63 11/10/19 13:37 80 16 11/10/19 12:13 98.6 F 82 16 155/65 H 92 L 11/10/19 07:53 98.3 F 84 16 135/60 96 11/10/19 07:09 80 16 Pulse Ox 11/10/19 16:08 11/10/19 14:15 93 L 11/10/19 13:37 11/10/19 12:13 11/10/19 07:53 11/10/19 07:09 Admit Weight 218 lb 3.2 oz Weight 218 lb - Physical Exam General: alert & oriented x3 HEENT: mucus membranes moist Neck: supple neck Cardiac: regular rate and rhythm Lungs: clear to auscultation Neuro: grossly intact Extremities: other: (3+ edema.) Skin: clear Musculoskeletal: no pain - Labs Result Diagrams: 11/10/19 04:18 11/10/19 04:18 Troponin/CKMB CK-MB (CK-2) 1.5 ng/mL (0-6.6) 11/06/19 19:31 Troponin I 0.032 ng/mL (< 0.028) H 11/07/19 01:31 - Telemetry Sinus rhythms and dysrhythmias: sinus rhythm - Assessment/Plan Assessment/Plan: 1. Acute on chronic diastolic CHF, improved. 2. LE edema, improved. 3. COPD 4. Paroxysmal afib PLAN: - Creatinine better today. - Continue PO diuretics per outpatient regimen. - Likely chornic venous insufficiency vs lymphedema. - Will likley benefit from ,sequential compression device. - Will need outpatient ework up with venous dupplex looking for venous reflux in the office. She is not too interested in venous ablation if needed but tells me she would consider if it will help her edema. - Normal LV function on recent echo. - Close to baseline. - Continue Eliquis.
[2019-11-10] MEDS: Zolpidem Tartrate 5 MG TAB PO PRN ×2 (21:03→23:13)
--- NOTE | 2019-11-10 21:38 | PDOC.HOSPP ---
- Subjective Encounter Date: 11/10/19 - Objective Vital Signs & Weight: Vital Signs (12 hours) Temp Pulse Pulse Resp BP BP Pulse Ox 11/10/19 19:03 85 16 95 11/10/19 16:08 97.8 F 94 18 158/70 H 94 L 11/10/19 14:15 79 135/63 11/10/19 13:37 80 16 11/10/19 12:13 98.6 F 82 16 155/65 H 92 L Pulse Ox 11/10/19 19:03 11/10/19 16:08 11/10/19 14:15 93 L 11/10/19 13:37 11/10/19 12:13 Weight Admit Weight 218 lb 3.2 oz Weight 218 lb I&O: 11/09/19 11/10/19 11/11/19 06:59 06:59 06:59 Intake Total 1354 880 480 Output Total 1825 1350 900 Balance -471 -470 -420 Result Diagrams: 11/10/19 04:18 11/10/19 04:18 Hospitalist ROS - Medication Medications: Active Medications Generic Name Dose Route Start Last Admin Trade Name Freq PRN Reason Stop Dose Admin Acetaminophen 650 mg 11/08/19 09:37 11/10/19 21:03 Tylenol PO 650 mg Q6H PRN Administration Headache/Fever or Pain Albuterol/Ipratropium 3 ml 11/09/19 13:00 11/10/19 19:03 Duoneb NEB 3 ml [id number] [facility] Administration Apixaban 5 mg 11/07/19 21:00 11/10/19 21:03 Eliquis PO 5 mg BID [facility] Administration Atorvastatin Calcium 10 mg 11/08/19 09:00 11/10/19 08:11 Lipitor PO 10 mg DAILY [facility] Administration Bumetanide 1 mg 11/10/19 07:30 11/10/19 17:19 Bumex PO 1 mg BID-AC [facility] Administration Digoxin 0.125 mg 11/08/19 09:00 11/10/19 08:12 Lanoxin PO 0.125 mg DAILY [facility] Administration Diltiazem HCl 60 mg 11/09/19 15:00 11/10/19 21:03 Cardizem PO 60 mg TID [facility] Administration Sodium Chloride 10 ml 11/08/19 09:00 11/10/19 21:06 Flush - Normal Saline IVF 10 ml Q12HR [facility] Administration Zolpidem Tartrate 5 mg 11/10/19 10:57 11/10/19 21:03 Ambien PO 5 mg HSPRN PRN Administration Insomnia - Exam General Appearance: awake alert Eye: PERRL ENT: normocephalic atraumatic Neck: supple, no JVD Heart: RRR, no murmur, no gallops, no rubs Respiratory: normal chest expansion, rhonchi, tachypneic Gastrointestinal: soft, non-tender, non-distended, normal bowel sounds Extremities: 2+ LE edema Hosp A/P (1) Acute on chronic diastolic ACC/AHA stage C congestive heart failure Code(s): I50.33 - ACUTE ON CHRONIC DIASTOLIC (CONGESTIVE) HEART FAILURE Status : Acute (2) Lower extremity edema Code(s): R60.0 - LOCALIZED EDEMA Status: Acute (3) CHRISS (acute kidney injury) Code(s): N17.9 - ACUTE KIDNEY FAILURE, UNSPECIFIED Status: Acute (4) Acute respiratory failure with hypoxemia Code(s): J96.01 - ACUTE RESPIRATORY FAILURE WITH HYPOXIA Status: Acute - Plan Continue strict I&O, low salt diet and fluid restriction Continue Bumex CHRISS improving Negative fluid balance over the last 24h Hold atenolol for bradycardia SOB and lower extremity edema is improving, continue pressure dressing. 11/09: The patient was seen and examined. She is feeling better with improving respiratory status and lower extremity edema. Fluid balance continues to be negative. Her creatinine level is also improving with diuresis suggesting cardiorenal component. Continue Bumex. Appreciate cardiology and nephrology.
[2019-11-11 05:10] LABS: Band 5 % (5-11); Hemoglobin 11.5 g/dL (12.0-16.0); Lymphocytes 2 % (21-51); MDiff Complete? YES; Mean Corpuscular HGB CONC 32.8 g/dL (32.0-36.0); Mean Corpuscular Hemoglobin 28.9 pg (27.0-31.0); Mean Corpuscular Volume 88.2 fL (78.0-98.0); Mean Platelet Volume 9.5 fL (7.4-10.4); Monocytes 4 % (0-10); Neutrophil 89 % (42-75); Platelet Count 197 thou/uL (130-400); RBC Distribution Width 13.1 % (11.5-14.5); Red Blood Cell (RBC) Count 3.96 mill/uL (4.20-5.40); White Blood Cell (WBC) Count 31.7 thou/uL (4.8-10.8)
[2019-11-11 05:39] LABS: Anion Gap 19 mmol/L (10-20); BUN (Urea Nitrogen) 31 mg/dL (9.8-20.1); Calc. Creatinine Clearance 42 mL/min (70-130); Calcium 9.3 mg/dL (7.8-10.44); Carbon Dioxide 29 mmol/L (23-31); Chloride 88 mmol/L (98-107); Estimated GFR-MDRD 28; Glucose 200 mg/dL (83-110); Potassium 4.4 mmol/L (3.5-5.1); Sodium 132 mmol/L (136-145)
[2019-11-11] MEDS: Acetaminophen 325 MG TAB PO PRN (05:42)
[2019-11-11 06:01] LABS: Hemoglobin 11.7 g/dL (12.0-16.0); Mean Corpuscular HGB CONC 32.3 g/dL (32.0-36.0); Mean Corpuscular Hemoglobin 28.4 pg (27.0-31.0); Mean Corpuscular Volume 87.9 fL (78.0-98.0); Mean Platelet Volume 8.5 fL (7.4-10.4); Platelet Count 227 thou/uL (130-400); Red Blood Cell (RBC) Count 4.13 mill/uL (4.20-5.40); White Blood Cell (WBC) Count 33.3 thou/uL (4.8-10.8)
[2019-11-11 06:19] LABS: Band 10 % (5-11); Lymphocytes 4 % (21-51); MDiff Complete? YES; Monocytes 3 % (0-10); Neutrophil 83 % (42-75)
[2019-11-11] MEDS: Bumetanide 1 MG TAB PO SCH (08:36)
[2019-11-11] MEDS: Atorvastatin Calcium 10 MG TAB PO SCH (08:36)
[2019-11-11] MEDS: Digoxin 0.125 MG TAB PO SCH (08:36)
[2019-11-11] MEDS: Apixaban 5 MG TAB PO SCH (08:37)
[2019-11-11] MEDS ORDERED: methylPREDNISolone Sod Succ 40 MG VIAL IVP SCH (09:00)
[2019-11-11 15:36] VITALS: BP 148/68; TEMP 97.9
--- NOTE | 2019-11-11 17:21 | PRG ---
DATE OF SERVICE: 11/11/2019 SUBJECTIVE: Patient was seen and examined at bedside and overnight events noted. Patient denies any shortness of breath or chest pain or palpitation. No history of nausea or vomiting or diarrhea or fever or chills or cramps. OBJECTIVE: GENERAL: This is well-built female, in no apparent distress. VITAL SIGNS: Temperature 97.9. Heart Rate 105. Respiratory rate 18. Blood pressure 148/68. HEENT: Atraumatic, normocephalic. Oral mucosa is moist. NECK: Supple. CARDIOVASCULAR: S1, S2 heard. Rate and rhythm regular. RESPIRATORY: Clear to auscultation. GASTROINTESTINAL: Abdomen is soft. MUSCULOSKELETAL: No tenderness. No edema. DERMATOLOGIC: No skin rash. NEUROLOGIC: Alert and awake and oriented x3. No focal neurologic deficits. Moving all the extremities. PSYCHIATRIC: Mood and affect normal. LABORATORY DATA: Potassium 4.4, BUN is 31, and creatinine is 1.7. ASSESSMENT AND PLAN: 1. Acute kidney injury on chronic kidney disease, stage 3. 2. Edema. 3. Alkalosis. 4. Probable lymphedema. Monitor lymphedema. Consider referral to Lymphedema Clinic. Job ID: [id number]
--- NOTE | 2019-11-12 09:18 | DIS ---
DATE OF ADMISSION: 11/06/2019 DATE OF DISCHARGE: 11/11/2019 DISCHARGE DIAGNOSES: 1. Acute on chronic diastolic heart failure, stage C. 2. Severe lower extremity edema due to lymphedema and venous insufficiency. 3. Acute kidney injury on chronic kidney disease. 4. Acute respiratory failure with hypoxemia. DISCHARGE MEDICATIONS: 1. Eliquis 5 mg orally twice daily. 2. Digoxin 0.125 mg orally daily. 3. Diltiazem 60 mg orally q.6 hours. 4. Pravastatin 40 mg orally daily. 5. Prednisone 40 mg orally daily for 5 days. 6. Furosemide 40 mg orally twice daily. 7. Lorazepam 0.5 mg orally daily as needed for anxiety. 8. DuoNeb nebulized q.4 hours as needed for shortness of breath or wheezing. 9. Prilosec 10 mg orally daily. 10. Ambien 5 mg orally daily. HISTORY OF PRESENT ILLNESS AND BRIEF HOSPITAL COURSE: The patient is a 79-year-old female with past medical history of diastolic congestive heart failure; atrial fibrillation, on anticoagulation; COPD; GERD; and osteoporosis; who presented to the hospital with worsening shortness of breath and severe lower extremity swelling. She was admitted to the hospital with impression of exacerbation of diastolic heart failure causing pulmonary edema and worsening of her lower extremity edema. She was managed with aggressive IV diuresis and elevation and wrapping of her feet. This has led to improvement in her volume status and resolution of her hypoxia. Gradually over the duration of her hospital stay, her lower extremity edema has improved significantly. The patient was advised to follow up with Cardiology as outpatient within 1 to 2 weeks and to continue her regimen of Lasix with leg elevation and compressive socks. Job ID: [id number]
--- NOTE | 2019-11-14 10:16 | EKG ---
Test Reason : Blood Pressure : / mmHG Vent. Rate : 061 BPM Atrial Rate : 089 BPM P-R Int : 000 ms QRS Dur : 074 ms QT Int : 354 ms P-R-T Axes : 000 093 141 degrees QTc Int : 356 ms Atrial fibrillation Rightward axis Septal infarct , age undetermined Abnormal ECG T wave inversion II, III, aVF, Slight depressions V4-V6 Confirmed by LAVON JOHNS M.D. ([id number]), fan mail editor CHRISTIAN MEDEIROS ([id number]) on 11/14/2019 10:15:58 AM Referred By: Confirmed By:LAVON JOHNS M.D.
== END 2019-11-11 15:35 | disposition home or self-care (01) | DRG 291 ==
LOC: ERS 18:18 → 2NO 21:44
PROVIDERS: ADMIT Internal Medicine; ATTEND Internal Medicine
DX: I13.0 Hypertensive heart and chronic kidney disease with heart failure and stage 1 through stage 4 chronic kidney disease, or unspecified chronic kidney disease (principal); I50.33 Acute on chronic diastolic (congestive) heart failure; J96.01 Acute respiratory failure with hypoxia; N17.9 Acute kidney failure, unspecified; E87.4 Mixed disorder of acid-base balance; J44.9 Chronic obstructive pulmonary disease, unspecified; E66.01 Morbid (severe) obesity due to excess calories; E78.5 Hyperlipidemia, unspecified; D64.9 Anemia, unspecified; N18.3 Chronic kidney disease, stage 3 (moderate); I89.0 Lymphedema, not elsewhere classified; I48.0 Paroxysmal atrial fibrillation; K21.9 Gastro-esophageal reflux disease without esophagitis; M81.0 Age-related osteoporosis without current pathological fracture; Z90.710 Acquired absence of both cervix and uterus; Z79.01 Long term (current) use of anticoagulants; Z79.82 Long term (current) use of aspirin; Z88.0 Allergy status to penicillin; Z68.38 Body mass index [BMI] 38.0-38.9, adult; Z87.891 Personal history of nicotine dependence
CPT/HCPCS: 36415; 71045; 80048; 80053; 80162; 82553; 82805; 83880; 84484; 85007; 85025; 85027; 93005; 93798; 94640; 96365; 96375; J1940; J2920; J3475; J3490; J7620

== ENCOUNTER 2019-11-22 13:43 | Inpatient (IN) | payer MEDICARE, OTHER ==
[2019-11-22] MEDS: Propofol 1,000 MG/100 ML VIAL IV PRN ×2 (14:45→19:42)
[2019-11-22] MEDS ORDERED: Propofol 1,000 MG/100 ML VIAL IV ONE (14:45)
[2019-11-22] MEDS: Norepinephrine 8 MG/0.9% NS 250 ML IVPB SCH (14:45)
[2019-11-22] MEDS ORDERED: Sodium Chloride 0.9% 15 ML NEB ONE (14:52)
[2019-11-22] MEDS ORDERED: Norepinephrine 8 MG/0.9% NS 250 ML ONE (15:09)
[2019-11-22 15:18] LABS: Base Excess (BEa) 14.8 mEq/L (-2.0 to +3.0); CO2 Tension 53.1 mmHg (35.0-45.0); Calcium, Ionized 1.03 mmol/L (1.12-1.30); Carboxyhemoglobin (COHb) 0.8 gm% (0.0-3.0); O2 Tension (PaO2) 61.7 mmHg (> 70.0); Potassium - ABG Lab 3.02 mmol/L (3.70-5.30)
[2019-11-22 15:19] LABS: ALV-art Gradient 157.125 (0-20); Puncture Site RR
[2019-11-22] MEDS ORDERED: Ondansetron ODT 4 MG TAB PO PRN (16:13)
[2019-11-22] MEDS ORDERED: [UNRECOGNIZED DRUG - OTHER] FS ONE (16:13)
[2019-11-22] MEDS ORDERED: Acetaminophen 650 MG Suppository PR PRN (16:13)
[2019-11-22] MEDS ORDERED: Ventilator Sedation Protocol FS ONE (16:13)
[2019-11-22] MEDS ORDERED: Ondansetron PF 4 MG/2 ML Vial IVP PRN (16:13)
[2019-11-22] MEDS ORDERED: DISCONTINUE PREVIOUS NARCOTIC PAIN MEDICATIONS AND BENZODIAZEPINES FS SCH (16:19)
[2019-11-22] MEDS ORDERED: Fentanyl BOLUS 250 ML IVPB PRN (16:19)
[2019-11-22] MEDS ORDERED: Propofol BOLUS 1,000 MG/100 ML VIAL IV PRN (16:19)
[2019-11-22] MEDS ORDERED: Morphine 2 MG/ML SYRINGE SLOW IVP PRN (16:19)
[2019-11-22] MEDS ORDERED: PHOS-NAK 1 PKT PACK PO PRN ×2 (16:20)
[2019-11-22] MEDS ORDERED: Potassium Chloride 20 MEQ TAB PO PRN (16:20)
[2019-11-22] MEDS ORDERED: Potassium Phosphate 12 MMOL in Sodium Chloride 0.9% 250 ML 250 ML IV PRN (16:20)
[2019-11-22] MEDS ORDERED: CCU ELECTROLYTE REPLACEMENT PROTOCOL FS PRN (16:20)
[2019-11-22] MEDS ORDERED: Magnesium 2 GM/50 ML 2 GM in Premix Bag 1 BAG IVPB PRN (16:20)
[2019-11-22] MEDS ORDERED: Magnesium Oxide 400 MG TAB PO PRN ×2 (16:20)
[2019-11-22] MEDS ORDERED: Potassium Chloride 40 MEQ in Sodium Chloride 0.9% 250 ML 250 ML IVPB PRN (16:20)
[2019-11-22] MEDS ORDERED: Potassium Phosphate 15 MMOL in Sodium Chloride 0.9% 250 ML 250 ML IV PRN (16:20)
[2019-11-22] MEDS ORDERED: Potassium Phosphate 9 MMOL in Sodium Chloride 0.9% 100 ML IVPB PRN (16:20)
[2019-11-22] MEDS ORDERED: Fentanyl 100 MCG/2 ML VIAL ONE (16:33)
[2019-11-22] MEDS ORDERED: methylPREDNISolone Sod Succ 40 MG VIAL IVP SCH (17:00)
[2019-11-22] MEDS ORDERED: Hydroxychloroquine Sulfate 200 MG TAB PER TUBE SCH (17:00)
[2019-11-22] MEDS ORDERED: Furosemide 20 MG/2 ML VIAL SLOW IVP SCH (17:00)
[2019-11-22] MEDS ORDERED: Fentanyl 100 MCG/2 ML VIAL SLOW IVP SCH (17:00)
[2019-11-22] MEDS ORDERED: Vancomycin 1.5 GRAM/300 ML BAG 1.5 GM in Premix Bag 1 BAG IVPB SCH (17:00)
[2019-11-22] MEDS: Cefepime 2 GM in Sodium Chloride 0.9% 100 ML IVPB SCH (17:28)
[2019-11-22] MEDS: Azithromycin 500 MG in Sodium Chloride 0.9% 250 ML 250 ML IVPB SCH (17:28)
[2019-11-22] MEDS ORDERED: PROVENTIL INHALER 6.7 G (200 INHALATIONS) INH SCH (18:30)
[2019-11-22] MEDS: Albuterol Sulfate 2.5 mg/3 ml Neb NEB SCH ×2 (18:55→22:33)
[2019-11-22] MEDS: Lorazepam 2 MG/ML VIAL SLOW IVP PRN (19:17)
[2019-11-22] MEDS: SIMPLE PER TUBE SCH (19:41)
[2019-11-22] MEDS: HYDROXYCHLOROQUINE SULFATE 400 MG PER TUBE SCH (19:41)
[2019-11-22] MEDS: Famotidine/PF 20 mg/2ml Vial SLOW IVP SCH (20:00)
[2019-11-22] MEDS: fentaNYL Citrate/PF 2,000 MCG in Sodium Chloride 0.9% 60 ML IV SCH (20:17)
[2019-11-22] MEDS ORDERED: Furosemide 40 MG/4 ML VIAL SLOW IVP SCH (20:30)
[2019-11-22] MEDS ORDERED: Prevnar 13-Val Conj/PF 0.5 ML SYRINGE IM ONE (21:00)
[2019-11-22] MEDS ORDERED: FLU VACC TS2019-20(65YR UP)/PF 180 MCG/0.5 ML SYRINGE IM ONE (21:00)
--- NOTE | 2019-11-22 21:02 | HP ---
PRIMARY CARE PROVIDER: Dr. Rafi Leon. CHIEF COMPLAINT: Shortness of breath. HISTORY OF PRESENT ILLNESS: This is a 79-year-old female, who presented to the [facility] Emergency Room complaining of severe sudden shortness of breath in the last 24 hours. The patient's history is significant for diastolic heart failure with recent admission to [facility] from 11/07/2019 through 11/11/2019, for CHF exacerbation. The patient was treated with diuretic therapy and discharged home to [facility]. The patient complained of severe shortness of breath, not amenable to any medications or positional changes. The patient denied any specific documented fever, but complained of chills. The patient also with chronic lower extremity edema, managed with compression wraps and elevation in addition to oral Lasix. The patient was evaluated by EMS personnel, noting her O2 saturation at 84% on room air. The patient was given oxygen supplementation with some improvement in O2 saturations. The patient underwent evaluation in the emergency room and placed on high-flow nasal cannula. The patient's O2 saturations did not improve, and the patient had a significant risk history of potential COVID-19 exposure from [facility], where there had been previous positive cases in the last several days. Due to patient's shortness of breath, a portable chest x-ray was obtained showing mild interstitial infiltrates. Due to the patient's worsening respiratory status and respiratory fatigue, decision was made for further oxygen support, at which point, the patient was intubated in the emergency room. The patient states she wanted to be a full code status, at which point, the patient was placed on mechanical ventilation. The patient underwent central line placement in the emergency room, however, developed pneumothorax, requiring a pigtail catheter insertion. Repeat chest x-ray showed no pneumothorax and overall respiratory status stabilized on mechanical ventilation. Due to patient's risk for COVID-19, the patient was placed on respiratory and isolation precautions and transferred to [facility] Emergency Room for further evaluation and critical care support. PAST MEDICAL HISTORY: 1. Acute on chronic diastolic heart failure, stage C. 2. Chronic lower extremity lymphedema and venous insufficiency. 3. Chronic kidney disease. 4. History of hypoxic respiratory failure. 5. Chronic anticoagulation with Eliquis. 6. Chronic atrial fibrillation, on chronic anticoagulation. 7. Hypertension. 8. Dyslipidemia. 9. Osteoarthritis. 10. Obesity. 11. Gastroesophageal reflux disease. 12. History of alcohol abuse. PAST SURGICAL HISTORY: 1. Status post left tibia and right ankle fracture with repair. 2. Status post hysterectomy. 3. Status post tonsillectomy. CURRENT MEDICATIONS: Based on recent admission, 10/2019; 1. Omeprazole 10 mg p.o. daily. 2. Pravachol 40 mg p.o. daily. 3. Ambien 10 mg p.o. at bedtime. 4. Eliquis 5 mg p.o. b.i.d. 5. Digoxin 0.125 mg p.o. daily. 6. Diltiazem 60 mg p.o. q.8 hours. 7. Folic acid 1 mg p.o. daily. 8. Lasix 40 mg p.o. b.i.d. 9. DuoNebs 3 mL nebulized q.4 hours p.r.n. 10. Lorazepam 0.5 mg p.o. daily. 11. Multivitamin 1 tablet p.o. daily. 12. Prednisone taper. ALLERGIES: TO, 1. BEE VENOM. 2. HYDROCODONE. 3. LISINOPRIL. FAMILY HISTORY: No inheritable diseases per review of medical record. SOCIAL HISTORY: Lives at [facility]. No current alcohol, tobacco, or illicit drug use. History of prior alcohol abuse. REVIEW OF SYSTEMS: Unobtainable as the patient on current mechanical ventilation. PHYSICAL EXAMINATION: VITAL SIGNS: Currently, blood pressure 142/59, pulse 73, respiratory rate is 28 , temperature 98.9 degrees Fahrenheit, and O2 saturation is 99% on 50% FiO2 by mechanical ventilation. GENERAL APPEARANCE: This is a 79-year-old female, on current mechanical ventilation with mild sedation and respiratory distress with respiratory failure. HEENT: Pupils are equal, round, and reactive to light and accommodation. Extraocular muscles are intact. No scleral icterus. No conjunctival injection. Nares patent. OP is clear. ET tube in place. OG tube noted. NECK: Supple. No cervical adenopathy. No thyromegaly. No carotid bruits. No JVD appreciated. Left internal jugular central venous catheter in place. CHEST: Diminished breath sounds bilaterally with bibasilar crackles and diminished air flow. CARDIOVASCULAR: S1 and S2 with irregular rate and rhythm. No murmur noted. ABDOMEN: Obese, soft, nontender, and nondistended. Bowel sounds are positive in all 4 quadrants. No hepatosplenomegaly. No abdominal bruits. No rebound or guarding appreciated. EXTREMITIES: Warm and dry with fair turgor. Pitting edema to the mid thighs bilaterally. Chronic lymphedema and venous stasis changes bilaterally. Pulses diminished bilaterally at the dorsalis pedis and posterior tibial arteries. : Johnson catheter in place with dark min urine. NEUROLOGIC: Opens eyes and nods head to questions. Attempts to sit up during the exam. Moves all extremities. PERTINENT LABORATORY AND X-RAY FINDINGS: Sodium 139, potassium 3.2, chloride 94 , CO2 of 46, BUN 27, creatinine 1.5, estimated GFR of 36, and glucose 121. BNP 406, previously noted 761 on 11/06/2019. CBC showed a white blood cell count of 11.1 , hemoglobin 10.5, hematocrit 34, and platelet count 245 with 85% neutrophils. Total CK of 31. D-dimer 0.24. INR 1.3. Lactic acid level 1.2. Portable chest x-ray dated 11/22/2019, showed mild cardiomegaly with nonspecific interstitial prominence. No consolidation or pleural fluid noted. Repeat portable chest x-ray dated 11/22/2019, showed ET tube in appropriate positioning. Left chest tube noted. Left-sided central venous catheter in place. Subcutaneous emphysema in the lateral left chest wall. EKG dated 11/22/2019, by my interpretation shows atrial fibrillation with heart rates in the 60s. Attenuated R-waves noted in the precordial leads. Normal axis. No acute ST-T wave changes appreciated. ASSESSMENT AND PLAN: 1. Acute on chronic hypoxic hypercapnic respiratory failure. The patient is intubated in the emergency room, and we will continue mechanical ventilation with SIMV at 50% FiO2. Likely multifactorial process with concern for potential COVID-19 exposure. Continue IV Lasix 20 mg IV x1 now and 40 mg IV b.i.d. Suspect element of infectious process with potential sepsis syndrome and potential developing pneumonia. See treatment as outlined below. Consult Pulmonology Service for ventilatory management. 2. Severe sepsis with septic shock. We will continue Levophed infusion for vasopressor support. Conservative IV fluid replacement. Suspect underlying pneumonia. Continue cefepime 2 g IV q.12 hours with additional vancomycin 1 g IV q.12 hours. Add Zithromax 500 mg IV daily for potential COVID-19 exposure. Add Plaquenil 400 mg b.i.d., followed by 200 mg b.i.d. to complete a 6-day course of therapy. 3. Acute on chronic diastolic congestive heart failure, suspected. Continue Lasix as stated previously. Serial I's and O's and daily weights. 4. Chronic lymphedema with venous insufficiency. We will continue Lasix as outlined previously. Consider lower extremity compression wraps. Elevate lower extremities as clinically indicated. 5. Chronic atrial fibrillation, on chronic anticoagulation. We will continue rate control measures. Continue Eliquis 5 mg b.i.d. 6. Prophylaxis. SCDs while in bed. Pepcid 20 mg IV b.i.d. Respiratory contact and airborne isolation procedures secondary to COVID-19 rule out. 7. Code status is full. Surrogate medical decision maker is Hue Kenney. Total critical care time is 50 minutes. Job ID: [id number]
--- NOTE | 2019-11-22 21:24 | CON ---
DATE OF CONSULTATION: 11/22/2019 SERVICE: Pulmonary Medicine. REASON FOR CONSULTATION: ICU patient. HISTORY OF PRESENT ILLNESS: The patient is a 79-year-old white female with past medical history significant for multiple comorbidities. She is frequently in the hospital because of severe deconditioning, a little bit of obesity, and chronic diastolic heart failure. She has lower extremity edema, which is quite severe, but comes and goes significantly. She was in her usual state of health when she was at her assisted living facility. Apparently, PHOEBE has been running through it. She presented to the emergency department with increasing difficulty breathing. It is not clear whether or not she had some fevers. Either way, she had a chest x-ray , which really did not look too bad based on the report. She had a saturation of 86% on room air. She was put on a couple liters nasal cannula, but despite her saturations popping up to the mid 90s, she said she had severe dyspnea, and requested to be intubated. As such, she apparently was intubated. She was transitioned from [place] to emergency room here, and I cannot get any additional elements of the history from her. Otherwise, there has been no interval change to her condition. PAST MEDICAL HISTORY: 1. Chronic diastolic heart failure. 2. Hypertension. 3. Dyslipidemia. 4. Osteoarthritis. 5. Obesity. 6. Gastroesophageal reflux disease. 7. History of alcohol abuse. PAST SURGICAL HISTORY: 1. Left tibia surgery. 2. Right ankle fracture repair. 3. Hysterectomy. 4. Tonsillectomy. FAMILY HISTORY: Noncontributory. SOCIAL HISTORY: Denies any illicit drugs or tobacco use. She was recently a daily drinker. REVIEW OF SYSTEMS: This cannot be obtained as the patient is currently intubated and sedated. ALLERGIES: HYDROCODONE, MEPERIDINE, AND PENICILLIN. MEDICATIONS: Inpatient medications were reviewed. Multiple updates were made. PHYSICAL EXAMINATION: VITAL SIGNS: Afebrile, pulse 77, blood pressure 136/70, respirations 21, and saturation 100%, currently on 50% FiO2 and a PEEP of 13. GENERAL: The patient is intubated and sedated. HEENT: Normocephalic and atraumatic. Sclerae white. Conjunctivae pink. Oral mucosa is moist without lesions. LUNGS: Good air entry bilaterally with a slightly prolonged expiratory phase. I do not hear any wheezing, but crackles are extensive. HEART: Normal rate. Regular. ABDOMEN: Soft, nontender, and nondistended. Bowel sounds are positive. MUSCULOSKELETAL: No cyanosis or clubbing. There is diffuse 2 to 3+ pitting throughout with symmetric changes. LABORATORY DATA: A pH 7.50, pCO2 of 53, and pO2 of 62 corresponding to a saturation 92%. At that time, she was on 40% FiO2 and a PEEP of 5. Creatinine 1.29 and glucose 111. ASSESSMENT: 1. Acute hypoxic respiratory failure. 2. Tozpa-vo-[id number] diastolic heart failure. 3. COVID exposure. 4. Pneumothorax, iatrogenic. DISCUSSION AND PLAN: She is on antibiotics. Since she has a positive exposure history, I will go ahead and empirically start her on Plaquenil and azithromycin. Both of these will be interrupted if her COVID proves to be negative. We will aggressively diurese her through time. I will increase her PEEP to 13. We will keep her sedated with both propofol and fentanyl if necessary. Repeat chest x- ray will be performed tomorrow morning. She has a pigtail catheter in from an attempted left-sided subclavian central venous catheter, that resulted in a pneumothorax. CRITICAL CARE TIME: 30 minutes. Job ID: [id number] MTDD
[2019-11-22] MEDS: Vancomycin 1.5 GRAM/300 ML BAG 1.5 GM in Premix Bag 1 BAG IVPB SCH (23:08)
[2019-11-23] MEDS: Potassium Chloride 40 MEQ in Premix Bag 1 BAG IVPB PRN ×2 (00:03→06:08)
[2019-11-23 00:09] LABS: BUN (Urea Nitrogen) 25 mg/dL (9.8-20.1); Calc. Creatinine Clearance 52 mL/min (70-130); Calcium 8.5 mg/dL (7.8-10.44); Estimated GFR-MDRD 36; Glucose 142 mg/dL (83-110); Magnesium 1.4 mg/dL (1.6-2.6)
[2019-11-23 00:18] LABS: Anion Gap 19 mmol/L (10-20); Carbon Dioxide 36 mmol/L (23-31); Chloride 87 mmol/L (98-107); Sodium 139 mmol/L (136-145)
[2019-11-23] MEDS: Propofol 1,000 MG/100 ML VIAL IV PRN ×4 (00:56→21:51)
[2019-11-23] MEDS: Albuterol Sulfate 2.5 mg/3 ml Neb NEB SCH ×6 (03:15→23:15)
[2019-11-23] MEDS: Cefepime 2 GM in Sodium Chloride 0.9% 100 ML IVPB SCH ×2 (04:25→15:33)
[2019-11-23 04:52] LABS: Band 12 % (5-11); Eosinophils 4 % (0-10); Hemoglobin 10.1 g/dL (12.0-16.0); Lymphocytes 6 % (21-51); MDiff Complete? YES; Mean Corpuscular HGB CONC 32.2 g/dL (32.0-36.0); Mean Corpuscular Hemoglobin 28.9 pg (27.0-31.0); Mean Corpuscular Volume 89.7 fL (78.0-98.0); Mean Platelet Volume 7.6 fL (7.4-10.4); Monocytes 6 % (0-10); Neutrophil 72 % (42-75); Platelet Count 222 thou/uL (130-400); White Blood Cell (WBC) Count 13.6 thou/uL (4.8-10.8)
[2019-11-23 04:58] LABS: ALT (SGPT) 14 U/L (8-55); AST (SGOT) 22 U/L (5-34); Albumin 2.7 g/dL (3.4-4.8); Alkaline Phosphatase 41 U/L (40-110); Anion Gap 18 mmol/L (10-20); BUN (Urea Nitrogen) 26 mg/dL (9.8-20.1); Bilirubin, Total 0.3 mg/dL (0.2-1.2); Calc. Creatinine Clearance 47 mL/min (70-130); Calcium 7.9 mg/dL (7.8-10.44); Carbon Dioxide 37 mmol/L (23-31); Chloride 88 mmol/L (98-107); Estimated GFR-MDRD 32; Globulin 2.1 g/dL (2.4-3.5); Glucose 115 mg/dL (83-110); Potassium 3.1 mmol/L (3.5-5.1); Protein, Total 4.8 g/dL (6.0-8.3); Sodium 140 mmol/L (136-145)
[2019-11-23] MEDS: Furosemide 40 MG/4 ML VIAL SLOW IVP SCH ×2 (06:08→13:50)
[2019-11-23] MEDS: SIMPLE PER TUBE SCH ×3 (06:24→18:29)
[2019-11-23] MEDS: HYDROXYCHLOROQUINE SULFATE 200 MG PER TUBE SCH ×2 (06:24→18:29)
[2019-11-23] MEDS ORDERED: Vecuronium 10 MG VIAL IVP PRN (08:14)
--- NOTE | 2019-11-23 08:27 | PRG ---
DATE OF SERVICE: 11/23/2019 35 minutes critical time. SUBJECTIVE: The patient remains intubated on mechanical ventilation. We are still awaiting results of the COVID-19 test. Of note, she is from a nursing facility, which has had several cases. OBJECTIVE: VITAL SIGNS: Her heart rate 74, O2 saturation 95%, respiratory rate 18, blood pressure 131/70, temperature 97.2. Intake for 24 hours 1610, output 641. HEENT: Unremarkable. NECK: No adenopathy or JVD. LUNGS: Coarse breath sounds. CARDIOVASCULAR: S1 and S2, regular. ABDOMEN: Soft, nontender. EXTREMITIES: No edema. LABORATORY DATA: White blood cell count 13.6, hematocrit 31.5, and platelet count 222. Blood gas; pH 7.87, pCO2 of 51, and pO2 of 61 on SIMV rate 12, tidal volume 440, PEEP 5, pressure support 10, FiO2 40%. Sodium 140, potassium 3.1, chloride 88, CO2 of 37, BUN 26, creatinine 1.5, glucose 115. Cortisol 6.8. ASSESSMENT: 1. Rule out COVID-19 - clinical situation highly suspicious. 2. Respiratory failure, requiring mechanical ventilation. 3. Iatrogenic left-sided pneumothorax. 4. Underlying diastolic heart failure. PLAN: 1. I have switched her over to assist-control mode. Her oxygenation is poor and that is requiring a high amount of PEEP. 2. Await COVID test. 3. She is empirically on hydroxychloroquine and azithromycin. 4. She continues on cefepime and vancomycin. 5. Start enteral tube feeds. Job ID: [id number]
--- NOTE | 2019-11-23 08:42 | RAD ---
PORTABLE CHEST 1 VIEW: Date: 11/23/2019 Time: 0450 hours HISTORY: Respiratory failure. COMPARISON: 11/09/2019. FINDINGS/IMPRESSION: Interval placement of endotracheal tube is seen with tip 17 mm above the level of the eitan. A left internal jugular central venous catheter is present with tip in the projection of the SVC. A nasogast vipul tube can be traced into the stomach. A left-sided pleural catheter is present. No large effusions are identified. There is a small to moderate size left pneumothorax. There is mild pulmonary vascular congestion and patchy consolidation/atelectatic change at the left l omar base. CODE T. POS: MZA
[2019-11-23] MEDS: HYDROXYCHLOROQUINE SULFATE 400 MG PER TUBE SCH (10:18)
[2019-11-23] MEDS: Enoxaparin Sodium 40 MG/0.4 ML SYRINGE SC SCH (10:24)
[2019-11-23] MEDS: Famotidine/PF 20 mg/2ml Vial SLOW IVP SCH (10:24)
--- NOTE | 2019-11-23 12:17 | PDOC.HOSPP ---
- Subjective Encounter Date: 11/23/19 Encounter Time: 12:05 Subjective: f/u for resp failure, PNA, Sepsis and COVID-19 rule out. Remains on mech ventilation with AC @ 50% FIO2 and PEEP 13. Receiving Hydroxychloroquine/ Zithromax/Cefepime/Vancomycin. - Objective Vital Signs & Weight: Vital Signs (12 hours) Temp Pulse Resp BP Pulse Ox 11/23/19 12:00 99.5 F 14 11/23/19 10:57 84 137/54 L 11/23/19 10:00 14 11/23/19 08:04 82 131/70 11/23/19 08:00 99.0 F 16 96 11/23/19 06:00 13 11/23/19 04:00 97.2 F L 12 11/23/19 02:58 65 90/46 L 11/23/19 02:00 9 L Weight Weight 220 lb 0.341 oz Most Recent Monitor Data Heart Rate from ECG 84 NIBP 113/51 NIBP BP-Mean 71 Respiration from ECG 12 SpO2 97 I&O: 11/22/19 11/23/19 11/24/19 06:59 06:59 06:59 Intake Total 1610.9 Output Total 641 210 Balance 969.9 -210 Result Diagrams: 11/23/19 04:03 11/23/19 04:03 Additional Labs: Accuchecks 11/22/19 16:46 POC Glucose 111 H Radiology Reviewed by me: Yes (PCXR - L pneumothorax, patchy infiltrates L base) EKG Reviewed by me: Yes (Tele - A-fib in 80's) Hospitalist ROS - Medication Medications: Active Medications Generic Name Dose Route Start Last Admin Trade Name Freq PRN Reason Stop Dose Admin Albuterol Sulfate 2.5 mg 11/22/19 18:30 11/23/19 10:57 Ventolin NEB 2.5 mg [id number] SUJATA Administration Hydroxychloroquine Sulfate 200 0 mg 11/23/19 06:00 11/23/19 06:24 mg/ Simple Syrup 8 ml PER TUBE 11/27/19 18:01 200 mg 0600,1800 SUJATA Administration Enoxaparin Sodium 40 mg 11/23/19 09:00 11/23/19 10:24 Lovenox SC 40 mg 0900 SUJATA Administration Famotidine 20 mg 11/22/19 21:00 11/23/19 10:24 Pepcid SLOW IVP 20 mg Q12HR SUJATA Administration Furosemide 40 mg 11/23/19 06:00 11/23/19 06:08 Lasix SLOW IVP 40 mg 0600,1400 SUJATA Administration Azithromycin 500 mg/ Sodium 250 mls @ 250 mls/hr 11/22/19 17:00 11/22/19 17: 28 Chloride IVPB 250 mls Q24HR SUJATA Administration Cefepime HCl 2 gm/ Sodium 100 mls @ 200 mls/hr 11/22/19 16:00 11/23/19 04:25 Chloride IVPB 100 mls 0400,1600 SUJATA Administration Norepinephrine Bitartrate 250 mls @ 0 mls/hr 11/22/19 16:13 11/22/19 14:45 Levophed IVPB 250 mls INF SUJATA Administration Protocol Titrate Fentanyl Citrate 2,000 mcg/ 100 mls @ 0 mls/hr 11/22/19 16:19 11/22/19 20:17 Sodium Chloride IV 12/22/19 16:19 100 mls INF SUJATA Administration Protocol Per Protocol Potassium Chloride 40 meq/ 100 mls @ 50 mls/hr 11/22/19 16:20 11/23/19 06:08 Device IVPB 100 mls ASDIR PRN Administration FOR SERUM K+ 2.5 - 3.5 Magnesium Sulfate 1 gm/ Sodium 102 mls @ 102 mls/hr 11/22/19 16:20 11/23/19 01:28 Chloride IV 102 mls PRN PRN Administration MAG LEVEL 1.4 - 2.0 Vancomycin HCl 1.5 gm/ Device 300 mls @ 166.67 mls/hr 11/22/19 23:00 23:08 IVPB 300 mls 2300 SUJATA Administration Lorazepam 2 mg 11/22/19 16:19 11/22/19 19:17 Ativan SLOW IVP 12/22/19 16:19 2 mg Q1H PRN Administration Breakthrough agitation Propofol 1,000 mg 11/22/19 16:19 11/23/19 10:24 Diprivan IV 12/22/19 16:19 1,000 mg INF PRN Administration TO ACHIEVE GOAL RASS Protocol - Exam General - other findings: sedate on mech vent Eye: PERRL ENT: normocephalic atraumatic, no oropharyngeal lesions ENT - other findings: ETT in place Neck: supple, symmetric, no JVD Heart: no gallops, no rubs, normal peripheral pulses, irregular Heart - other findings: S1, S2 Respiratory - other findings: diminished bilat, coarse sounds scattered Gastrointestinal: soft, non-tender, non-distended, normal bowel sounds, no palpable masses Gastrointestinal - other findings: obese Extremities: no cyanosis, no clubbing Skin: normal turgor, no lesions Musculoskeletal: generalized weakness Psychiatric: somnolent, lethargic Hosp A/P (1) Acute on chronic respiratory failure with hypoxia and hypercapnia Code(s): J96.21 - ACUTE AND CHRONIC RESPIRATORY FAILURE WITH HYPOXIA; J96.22 - ACUTE AND CHRONIC RESPIRATORY FAILURE WITH HYPERCAPNIA Status: Acute Plan: [facility] and critical pulmonary support, likely multifactorial process with potential influence of COVID, awaiting PCR r/o (2) Severe sepsis Code(s): A41.9 - SEPSIS, UNSPECIFIED ORGANISM; R65.20 - SEVERE SEPSIS WITHOUT SEPTIC SHOCK Status: Acute Plan: Suspected but no dominant organism identified, continue IV abx (3) Acute on chronic diastolic ACC/AHA stage C congestive heart failure Code(s): I50.33 - ACUTE ON CHRONIC DIASTOLIC (CONGESTIVE) HEART FAILURE Status : Acute Plan: Continue Lasix, serial I/O's, Daily weight (4) Hypokalemia Code(s): E87.6 - HYPOKALEMIA Status: Acute Plan: KCL supplementation per CCU electrolyte replacement protocol (5) CKD (chronic kidney disease), stage III Code(s): N18.3 - CHRONIC KIDNEY DISEASE, STAGE 3 (MODERATE) Status: Chronic Plan: Avoid nephrotoxic meds and limit contrast exposure - Plan continue antibiotics, director of social services, respiratory therapy, DVT proph w/SCDs Continue critical support Mechanical ventilation with O2 support Continue Lasix IV Continue Cefepime/Vancomycin Continue Plaquenil/Zithromax AM lab: CMP, CBC PCXR in am
[2019-11-23] MEDS ORDERED: Hydroxychloroquine Sulfate 200 MG TAB PER TUBE SCH (17:00)
[2019-11-23] MEDS: Azithromycin 500 MG in Sodium Chloride 0.9% 250 ML 250 ML IVPB SCH (17:18)
[2019-11-23] MEDS: Vancomycin 1.5 GRAM/300 ML BAG 1.5 GM in Premix Bag 1 BAG IVPB SCH (23:37)
[2019-11-24] MEDS: Norepinephrine 8 MG/0.9% NS 250 ML IVPB SCH (01:06)
[2019-11-24] MEDS: Albuterol Sulfate 2.5 mg/3 ml Neb NEB SCH ×3 (02:38→11:35)
[2019-11-24] MEDS: fentaNYL Citrate/PF 2,000 MCG in Sodium Chloride 0.9% 60 ML IV SCH (02:47)
[2019-11-24 04:58] LABS: ALT (SGPT) 11 U/L (8-55); AST (SGOT) 27 U/L (5-34); Albumin 2.8 g/dL (3.4-4.8); Alkaline Phosphatase 48 U/L (40-110); BUN (Urea Nitrogen) 30 mg/dL (9.8-20.1); Bilirubin, Total 0.3 mg/dL (0.2-1.2); Calc. Creatinine Clearance 41 mL/min (70-130); Calcium 8.2 mg/dL (7.8-10.44); Estimated GFR-MDRD 28; Globulin 2.6 g/dL (2.4-3.5); Glucose 123 mg/dL (83-110); Protein, Total 5.4 g/dL (6.0-8.3)
[2019-11-24 05:08] LABS: Anion Gap 20 mmol/L (10-20); Carbon Dioxide 33 mmol/L (23-31); Chloride 90 mmol/L (98-107); Potassium 3.6 mmol/L (3.5-5.1); Sodium 139 mmol/L (136-145)
[2019-11-24 05:12] LABS: Band 4 % (5-11); Eosinophils 9 % (0-10); Hemoglobin 10.9 g/dL (12.0-16.0); Lymphocytes 9 % (21-51); MDiff Complete? YES; Mean Corpuscular HGB CONC 32.5 g/dL (32.0-36.0); Mean Corpuscular Hemoglobin 28.9 pg (27.0-31.0); Mean Corpuscular Volume 89.1 fL (78.0-98.0); Mean Platelet Volume 7.6 fL (7.4-10.4); Monocytes 5 % (0-10); Neutrophil 73 % (42-75); Platelet Count 246 thou/uL (130-400); RBC Distribution Width 13.3 % (11.5-14.5); Red Blood Cell (RBC) Count 3.78 mill/uL (4.20-5.40)
[2019-11-24] MEDS: Cefepime 2 GM in Sodium Chloride 0.9% 100 ML IVPB SCH (05:21)
[2019-11-24] MEDS: Furosemide 40 MG/4 ML VIAL SLOW IVP SCH (05:22)
[2019-11-24] MEDS: SIMPLE PER TUBE SCH ×2 (05:37→22:09)
[2019-11-24] MEDS: HYDROXYCHLOROQUINE SULFATE 200 MG PER TUBE SCH ×2 (05:37→22:09)
[2019-11-24] MEDS: Propofol 1,000 MG/100 ML VIAL IV PRN ×3 (07:49→19:16)
[2019-11-24 08:26] LABS: Base Excess (BEa) 11.4 mEq/L (-2.0 to +3.0); CO2 Tension 52.5 mmHg (35.0-45.0); Calcium, Ionized 1.05 mmol/L (1.12-1.30); Carboxyhemoglobin (COHb) 0.7 gm% (0.0-3.0); Hemoglobin (Hb) 12.9 g/dL (12.0-16.0); O2 Tension (PaO2) 93.4 mmHg (> 70.0); Potassium - ABG Lab 3.59 mmol/L (3.70-5.30); pH, Arterial 7.47 (7.35-7.45)
[2019-11-24 08:31] LABS: ALV-art Gradient 197.475 (0-20); Puncture Site RRA
--- NOTE | 2019-11-24 08:49 | PRG ---
DATE OF SERVICE: 11/24/2019 35 minutes critical time. SUBJECTIVE: Ms. Flowers has tested positive for COVID-19. She remains sedated on mechanical ventilation. OBJECTIVE: VITAL SIGNS: Temperature 97.6, pulse 76, blood pressure 120/67, and O2 saturation 99%. A 24-hour intake 1226, output 874. HEENT: Unremarkable. NECK: No adenopathy or JVD. LUNGS: Clear anteriorly. CARDIOVASCULAR: S1 and S2 regular without murmur. ABDOMEN: Soft. EXTREMITIES: No edema. LABORATORY DATA: White blood cell count 12, hematocrit 33.7, and platelet count 246. ABG pending. Sodium 139, potassium 3.6, chloride 90, CO2 of 33, BUN 30, creatinine 1.7, glucose 123. X-ray was not done today. ASSESSMENT: 1. COVID-19 infection with viral pneumonia. 2. Acute respiratory failure, requiring mechanical ventilation. 3. Prerenal azotemia, which has slightly worsened. 4. Iatrogenic left pneumothorax with no evidence of air leak today. 5. Underlying diastolic heart failure. PLAN: 1. I will go ahead and hold her Lasix starting this afternoon because of the increasing creatinine. 2. Continue hydroxychloroquine and azithromycin. 3. We can go ahead and stop the vancomycin and the cefepime. 4. We will speak with family. Job ID: [id number]
[2019-11-24] MEDS: Famotidine/PF 20 mg/2ml Vial SLOW IVP SCH (11:15)
[2019-11-24] MEDS: Enoxaparin Sodium 40 MG/0.4 ML SYRINGE SC SCH (11:15)
--- NOTE | 2019-11-24 12:25 | PDOC.HOSPP ---
- Subjective Encounter Date: 11/24/19 Encounter Time: 12:10 Subjective: f/u for COVID-19 + PNA [facility] AC with 50% FIO2. No new events reported but family wishing to convert to DNAR status. - Objective Vital Signs & Weight: Vital Signs (12 hours) Temp Pulse Resp Pulse Ox 11/24/19 11:23 80 11/24/19 10:00 14 11/24/19 08:21 77 11/24/19 08:00 98.2 F 14 95 11/24/19 06:00 14 11/24/19 04:00 97.8 F 15 11/24/19 02:38 81 15 100 11/24/19 02:36 76 11/24/19 02:00 14 11/24/19 00:43 72 Weight Admit Weight 220 lb Weight 220 lb 0.341 oz Most Recent Monitor Data Heart Rate from ECG 87 NIBP 132/66 NIBP BP-Mean 88 Respiration from ECG 14 SpO2 95 I&O: 11/23/19 11/24/19 11/25/19 06:59 06:59 06:59 Intake Total 1610.9 1226 30 Output Total 641 874 425 Balance 969.9 352 -395 Result Diagrams: 11/24/19 04:19 11/24/19 04:19 Additional Labs: Microbiology 11/22/19 13:30 Venous blood - Neck Blood Culture - Preliminary Gram Positive Cocci Laboratory Tests 11/22/19 11/22/19 11/22/19 12:02 16:43 18:06 Potassium 3.0 L BUN 25 H Creatinine 1.29 H 1.41 H Cortisol COVID-19 PCR DETECTED A* 11/23/19 04:03 Potassium BUN Creatinine Cortisol 6.80 COVID-19 PCR EKG Reviewed by me: Yes (Tele - A-fib in 70's) Hospitalist ROS - Medication Medications: Active Medications Generic Name Dose Route Start Last Admin Trade Name Freq PRN Reason Stop Dose Admin Enoxaparin Sodium 40 mg 11/23/19 09:00 11/24/19 11:15 Lovenox SC 40 mg 0900 SUJATA Administration Famotidine 20 mg 11/24/19 09:00 11/24/19 11:15 Pepcid SLOW IVP 20 mg 0900 SUJATA Administration Norepinephrine Bitartrate 250 mls @ 0 mls/hr 11/22/19 16:13 11/24/19 01:06 Levophed IVPB 250 mls INF SUJATA Administration Protocol Titrate Fentanyl Citrate 2,000 mcg/ 100 mls @ 0 mls/hr 11/22/19 16:19 11/24/19 02:47 Sodium Chloride IV 12/22/19 16:19 100 mls INF SUJATA Administration Protocol Per Protocol Potassium Chloride 40 meq/ 100 mls @ 50 mls/hr 11/22/19 16:20 11/23/19 06:08 Device IVPB 100 mls ASDIR PRN Administration FOR SERUM K+ 2.5 - 3.5 Magnesium Sulfate 1 gm/ Sodium 102 mls @ 102 mls/hr 11/22/19 16:20 11/23/19 01:28 Chloride IV 102 mls PRN PRN Administration MAG LEVEL 1.4 - 2.0 Lorazepam 2 mg 11/22/19 16:19 11/22/19 19:17 Ativan SLOW IVP 12/22/19 16:19 2 mg Q1H PRN Administration Breakthrough agitation Propofol 1,000 mg 11/22/19 16:19 11/24/19 07:49 Diprivan IV 12/22/19 16:19 1,000 mg INF PRN Administration TO ACHIEVE GOAL RASS Protocol - Exam General Appearance: ill appearing General - other findings: sedate on mech vent ENT - other findings: ETT in place Neck: supple, symmetric, no JVD, no thyromegaly Heart: no gallops, no rubs, normal peripheral pulses, irregular Heart - other findings: S1, S2 Respiratory: no wheezes, no ronchi, normal chest expansion Gastrointestinal: soft, non-tender, non-distended, normal bowel sounds, no palpable masses Extremities - other findings: chronic lymphedema BLE Skin: normal turgor Psychiatric: somnolent, lethargic Psychiatric - other findings: sedate on mech ventilation Hosp A/P (1) COVID-19 virus infection Code(s): U07.1 - COVID-19 Status: Acute Plan: Continue Hydroxychloroquine/Zithromax, respiratory/contact/airborne isolation (2) Acute on chronic respiratory failure with hypoxia and hypercapnia Code(s): J96.21 - ACUTE AND CHRONIC RESPIRATORY FAILURE WITH HYPOXIA; J96.22 - ACUTE AND CHRONIC RESPIRATORY FAILURE WITH HYPERCAPNIA Status: Acute Plan: Continue Assist-Control with 50% FIO2, serial ABG (3) Severe sepsis Code(s): A41.9 - SEPSIS, UNSPECIFIED ORGANISM; R65.20 - SEVERE SEPSIS WITHOUT SEPTIC SHOCK Status: Acute (4) Acute on chronic diastolic ACC/AHA stage C congestive heart failure Code(s): I50.33 - ACUTE ON CHRONIC DIASTOLIC (CONGESTIVE) HEART FAILURE Status : Acute (5) Hypokalemia Code(s): E87.6 - HYPOKALEMIA Status: Acute (6) CKD (chronic kidney disease), stage III Code(s): N18.3 - CHRONIC KIDNEY DISEASE, STAGE 3 (MODERATE) Status: Chronic - Plan continue antibiotics, respiratory therapy, DVT proph w/SCDs Continue critical support Mechanical ventilation with O2 support Hold Lasix Continue Plaquenil/Zithromax Code Status: DNAR AM lab: CMP, CBC PCXR in am
[2019-11-24] MEDS ORDERED: Albuterol 200 PUFF (6.7GM INHALER) INH SCH (14:30)
[2019-11-24] MEDS: Albuterol 200 PUFF (6.7GM INHALER) INH SCH ×2 (15:03→20:13)
[2019-11-24] MEDS: Azithromycin 500 MG in Sodium Chloride 0.9% 250 ML 250 ML IVPB SCH ×2 (22:04→22:09)
[2019-11-25] MEDS: Albuterol 200 PUFF (6.7GM INHALER) INH SCH ×4 (00:32→18:10)
[2019-11-25 05:35] LABS: ALT (SGPT) 12 U/L (8-55); AST (SGOT) 25 U/L (5-34); Albumin 2.6 g/dL (3.4-4.8); Alkaline Phosphatase 45 U/L (40-110); BUN (Urea Nitrogen) 34 mg/dL (9.8-20.1); Bilirubin, Total 0.3 mg/dL (0.2-1.2); Calc. Creatinine Clearance 43 mL/min (70-130); Calcium 8.1 mg/dL (7.8-10.44); Estimated GFR-MDRD 29; Globulin 2.6 g/dL (2.4-3.5); Glucose 124 mg/dL (83-110); Protein, Total 5.2 g/dL (6.0-8.3)
[2019-11-25 05:44] LABS: Anion Gap 17 mmol/L (10-20); Carbon Dioxide 33 mmol/L (23-31); Chloride 91 mmol/L (98-107); Potassium 3.8 mmol/L (3.5-5.1); Sodium 137 mmol/L (136-145)
[2019-11-25] MEDS: Propofol 1,000 MG/100 ML VIAL IV PRN ×3 (06:15→21:05)
[2019-11-25 06:21] LABS: Band 13 % (5-11); Eosinophils 4 % (0-10); Hemoglobin 10.2 g/dL (12.0-16.0); Lymphocytes 7 % (21-51); MDiff Complete? YES; Mean Corpuscular HGB CONC 32.1 g/dL (32.0-36.0); Mean Corpuscular Hemoglobin 28.7 pg (27.0-31.0); Mean Corpuscular Volume 89.3 fL (78.0-98.0); Mean Platelet Volume 7.8 fL (7.4-10.4); Monocytes 3 % (0-10); Neutrophil 73 % (42-75); Platelet Count 224 thou/uL (130-400); RBC Distribution Width 13.3 % (11.5-14.5); Red Blood Cell (RBC) Count 3.57 mill/uL (4.20-5.40); White Blood Cell (WBC) Count 12.2 thou/uL (4.8-10.8)
[2019-11-25 07:17] LABS: Actual Bicarbonate (HCO3a) 36.2 mEq/L (22-28); Base Excess (BEa) 11.2 mEq/L (-2.0 to +3.0); CO2 Tension 49.7 mmHg (35.0-45.0); Calcium, Ionized 1.07 mmol/L (1.12-1.30); Carboxyhemoglobin (COHb) 0.2 gm% (0.0-3.0); Hemoglobin (Hb) 10.8 g/dL (12.0-16.0); O2 Tension (PaO2) 70.2 mmHg (> 70.0); Potassium - ABG Lab 3.78 mmol/L (3.70-5.30); pH, Arterial 7.48 (7.35-7.45)
[2019-11-25 07:20] LABS: ALV-art Gradient 224.175 (0-20); Puncture Site RB
--- NOTE | 2019-11-25 08:09 | RAD ---
CHEST 1 VIEW: Date: 11/25/2019 INDICATION: History of pneumonia. COMPARISON: Prior exam dated 11/23/2019. FINDINGS: Air space disease in the left lower lobe persists. Left IJ central venous catheter, ET tube, and christiano vipul catheter are unchanged. Left-sided thoracostomy tube is unchanged. Left-sided pneumothorax is sli ghtly smaller. Residual small left apical pneumothorax remains. Osseous structures are similar appear ing. IMPRESSION: 1. Decreasing size of small left pneumothorax with left-sided thoracostomy tube. 2. Persistent left basilar air space disease. 3. Stable cardiomegaly. POS: BH
[2019-11-25] MEDS: SIMPLE PER TUBE SCH ×2 (08:12→21:05)
[2019-11-25] MEDS: Enoxaparin Sodium 40 MG/0.4 ML SYRINGE SC SCH (08:12)
[2019-11-25] MEDS: Famotidine/PF 20 mg/2ml Vial SLOW IVP SCH (08:12)
[2019-11-25] MEDS: HYDROXYCHLOROQUINE SULFATE 200 MG PER TUBE SCH ×2 (08:12→21:05)
[2019-11-25] MEDS ORDERED: Furosemide 40 MG/4 ML VIAL SLOW IVP SCH (09:30)
--- NOTE | 2019-11-25 09:58 | PRG ---
DATE OF SERVICE: 11/25/2019 35 minutes of critical care time. SUBJECTIVE: Ms. Flowers remains intubated on mechanical ventilation. She has had some worsening over the last 24 hours. She is now requiring a Levophed drip. She has had a decrease in her oxygen in ABG. OBJECTIVE: VITAL SIGNS: Temperature is 98.8, pulse 85, blood pressure 128/83, O2 saturations 94%. 24-hour intake 3119. Output . HEENT: Unremarkable. NECK: No JVD. LUNGS: Coarse breath sounds. CARDIOVASCULAR: S1 and S2. Regular. ABDOMEN: Soft and nontender. EXTREMITIES: Edematous lower extremities. LABORATORY DATA: Sodium 137, potassium 3.8, chloride 91, CO2 of 33, BUN 34, creatinine 1.7, glucose 124. White blood cell count 12.2, hematocrit 31.8, and platelet count 224. PH of 7.48, pCO2 of 49, pO2 of 70 on assist-control, rate 14, tidal volume 440, PEEP 13, FiO2 of 50%. IMAGING STUDIES: The x-ray demonstrates bilateral effusions and subtle infiltrates. ASSESSMENT: 1. COVID-19 infection with pneumonitis. 2. Acute hypoxic respiratory failure, requiring mechanical ventilation. 3. Development of azotemia. 4. Iatrogenic left pneumothorax with continued air leak. PLAN: Prognosis for recovery is dismal at this point. Typically, we will start seeing gross worsening of the COVID patients between days 5 and 10, and I think she is approaching that point. Should be kept in mind that she was a DNR previous to the presentation at the ER. Unfortunately, the ER did not know she was DNR at the time she presented. I will readdress the situation with the power of civil rights attorney today. It did not sound like they wanted to go too far if this situation was becoming hopeless. In the meantime, we will adopt a very conservative fluid strategy going forward. She is not weanable from mechanical ventilation at this time. Job ID: [id number]
--- NOTE | 2019-11-25 10:53 | PDOC.EVN ---
Event Note - Event Note Event Note: intubated, sedated. has COVID pos with PNA. on aggressive tx per [employer] freight. declining status, family conssidering withdrawal of care if decline continues
[2019-11-25] MEDS: Norepinephrine 8 MG/0.9% NS 250 ML IVPB SCH (12:04)
[2019-11-25] MEDS: fentaNYL Citrate/PF 2,000 MCG in Sodium Chloride 0.9% 60 ML IV SCH (12:22)
[2019-11-25] MEDS: Azithromycin 500 MG in Sodium Chloride 0.9% 250 ML 250 ML IVPB SCH (21:05)
[2019-11-26] MEDS: Albuterol 200 PUFF (6.7GM INHALER) INH SCH ×2 (00:44→07:46)
[2019-11-26] MEDS: Propofol 1,000 MG/100 ML VIAL IV PRN ×2 (04:57→09:51)
[2019-11-26 05:09] VITALS: TEMP 99.1
--- NOTE | 2019-11-26 07:41 | PRG ---
DATE OF SERVICE: 11/26/2019 35 minutes critical care time. SUBJECTIVE: The patient remains intubated, on mechanical ventilation. Overall, she seems stable compared to yesterday. OBJECTIVE: VITAL SIGNS: Temperature is 98.6, pulse 85, blood pressure 110/68, O2 saturation 97%, currently on Levophed at 1 mcg/minute. Intake 1326, output 1136. HEENT: Unremarkable. NECK: No adenopathy or JVD. LUNGS: Clear anteriorly. She has a small air leak from the left chest tube. CARDIAC: S1 and S2, regular. ABDOMEN: Soft and nontender. EXTREMITIES: Edematous throughout. LABORATORY DATA: Her labs from today are pending. Blood gas is pending. Chest x-ray shows what appears to be a small basilar left pneumothorax. Otherwise, her lung landers looked fairly decent all things considered. ASSESSMENT: 1. COVID-19 infection. 2. Acute respiratory failure, requiring mechanical ventilation. 3. Azotemia. 4. Iatrogenic left pneumothorax with continued small air leak. PLAN: Await ABG and labs from today. Need that further disposition regarding patient's progress. So far, she seems to be holding her own. We will speak with the family when further data available. Job ID: [id number]
--- NOTE | 2019-11-26 07:52 | RAD ---
EXAM: Portable chest PROVIDED CLINICAL HISTORY: Respiratory insufficiency COMPARISON: 11/25/2019 FINDINGS: Significant interval change with respect to the prior examination is not apparent. Stable left pneumo thorax. IMPRESSION: As above.
[2019-11-26 08:09] LABS: #Eosinphils 0.8 thou/uL (0.0-0.7); #Lymphocytes 0.9 thou/uL (1.20-3.40); #Monocytes 0.9 thou/uL (0.11-0.59); #Neutrophils 9.9 thou/uL (1.40-6.50); %Basophils 0.2 % (0.0-1.0); %Eosinophils 6.3 % (0.0-10.0); %Lymphocytes 7.3 % (21.0-51.0); %Monocytes 7.3 % (0.0-10.0); Hemoglobin 10.9 g/dL (12.0-16.0); Mean Corpuscular HGB CONC 32.4 g/dL (32.0-36.0); Mean Corpuscular Hemoglobin 28.5 pg (27.0-31.0); Mean Corpuscular Volume 88.1 fL (78.0-98.0); Mean Platelet Volume 7.7 fL (7.4-10.4); Platelet Count 249 thou/uL (130-400); RBC Distribution Width 13.8 % (11.5-14.5); Red Blood Cell (RBC) Count 3.82 mill/uL (4.20-5.40); White Blood Cell (WBC) Count 12.6 thou/uL (4.8-10.8)
[2019-11-26 08:29] LABS: Actual Bicarbonate (HCO3a) 35.8 mEq/L (22-28); Base Excess (BEa) 11.1 mEq/L (-2.0 to +3.0); CO2 Tension 47.9 mmHg (35.0-45.0); Calcium, Ionized 1.07 mmol/L (1.12-1.30); Carboxyhemoglobin (COHb) 0.6 gm% (0.0-3.0); Hemoglobin (Hb) 11.4 g/dL (12.0-16.0); O2 Tension (PaO2) 68.8 mmHg (> 70.0); Potassium - ABG Lab 3.74 mmol/L (3.70-5.30); pH, Arterial 7.49 (7.35-7.45)
[2019-11-26 08:31] LABS: Puncture Site RR
[2019-11-26 08:32] LABS: Anion Gap 14 mmol/L (10-20); BUN (Urea Nitrogen) 40 mg/dL (9.8-20.1); Calc. Creatinine Clearance 47 mL/min (70-130); Calcium 8.4 mg/dL (7.8-10.44); Carbon Dioxide 37 mmol/L (23-31); Chloride 90 mmol/L (98-107); Estimated GFR-MDRD 31; Glucose 119 mg/dL (83-110); Potassium 3.8 mmol/L (3.5-5.1); Sodium 137 mmol/L (136-145)
[2019-11-26 08:33] LABS: ALV-art Gradient 227.825 (0-20)
[2019-11-26] MEDS: Enoxaparin Sodium 40 MG/0.4 ML SYRINGE SC SCH (09:51)
[2019-11-26] MEDS: HYDROXYCHLOROQUINE SULFATE 200 MG PER TUBE SCH (09:51)
[2019-11-26] MEDS: Famotidine/PF 20 mg/2ml Vial SLOW IVP SCH (09:51)
[2019-11-26] MEDS: SIMPLE PER TUBE SCH (09:51)
[2019-11-26 10:24] VITALS: BP 120/65
[2019-11-26] MEDS ORDERED: Lorazepam 2 MG/ML VIAL SLOW IVP PRN (10:26)
[2019-11-26] MEDS ORDERED: Morphine 2 MG/ML SYRINGE SLOW IVP PRN (10:28)
[2019-11-26] MEDS: Lorazepam 2 MG/ML VIAL SLOW IVP PRN ×2 (10:44→10:53)
--- NOTE | 2019-11-26 10:47 | PRG ---
DATE OF SERVICE: 11/26/2019 I spoke with the patient's power of personal injury attorney, Hue Kenney over the phone today. I told her that the patient was not getting any better or worse. The overriding seem to the whole hospitalization has been the patient's pre-existing DNR and not wanting to be on mechanical ventilation. I told the patient's advocate that I thought at best case the patient will be on the ventilator for at least another week and then face prolonged rehabilitation after that. Hue stated this would clearly be against the patient's wishes and has requested that we move forward with extubation and comfort care. Job ID: [id number]
[2019-11-26 10:53] VITALS: BMI 38.0
--- NOTE | 2019-11-26 11:13 | PDOC.EVN ---
Event Note - Event Note Event Note: chart reviewed, concur with assessment and plan
--- NOTE | 2019-11-27 08:49 | DIS ---
DATE OF ADMISSION: 11/22/2019 DATE OF DISCHARGE: 11/26/2019 PRIMARY CARE PROVIDER: Rafi Leon MD DATE OF : 11/26/2019. FINAL DIAGNOSES: COVID infection, acute on chronic respiratory failure with hypoxia, sepsis syndrome, acute on chronic diastolic heart failure, chronic atrial fibrillation. HOSPITAL COURSE: The patient admitted to the Hospitalist Service through [facility] with shortness of breath, history of diastolic heart failure, noted to have hypoxemia of 84% on room air. The patient was evaluated for coronavirus 19. Central line placement resulted in a pneumothorax, had a pigtail catheter insertion. The patient was intubated and placed on the ventilator. She had septic shock. She was started on Levophed, started on vancomycin, Zithromax, Plaquenil. Consultation with Dr. Johan Benavidez was obtained. Chest x-ray on 11/22, endotracheal tube, some right lower lobe infiltrate, pneumothorax on the left. Pigtail catheter in same. LABORATORY DATA: White count 13.6, hemoglobin 10.1, platelet count 222,000. Sodium 140, potassium 3.1, BUN 26, creatinine 1.56. Arterial blood gas; pH 7.5, CO2 of 53, O2 of 61.7. Vancomycin and cefepime were stopped at 48 hours. Hydroxychloroquine and azithromycin were continued. The patient had declining pulmonary status during her hospital stay. On 11/26/2019, the patient had a pre-existing DNR and was intubated in the field. Despite this, Dr. Pedro spoke with the power of consumer attorney, Hue Abdullahi, who requested that we move forward with extubation and comfort care. The patient was electively extubated and eventually succumbed. Job ID: [id number]
--- NOTE | 2019-11-28 01:32 | PQF ---
PHILLIP DAVIS COUNCIL C MD [id number] CLINICAL DOCUMENTATION CLARIFICATION FORM: POST DISCHARGE Addendum to original discharge summary date: ____ Late entry note date: __ DATE:11/28/2019 ATTN:JACKELYN SUE MD Please exercise your independent, professional judgment in responding to the clarification form. Clinical indicators are provided on the bottom of this form for your review Please check appropriate box(s): kindly clarify the sepsis syndrome [ x ] Sepsis [ ] No Sepsis [ ] Other diagnosis [ ] Unable to determine For continuity of documentation, please document condition throughout progress notes and discharge summary. Thank You. CLINICAL INDICATORS - SIGNS / SYMPTOMS / LABS Severe sepsis with septic shock-Documented in H&P on 11/21 by Feliciano Dent DO Acute on chronic hypoxic hypercapnic respiratory failure-Documented in H&P on by Feliciano Dent DO COVID-19 infection with viral pneumonia -Documented in PN on 11/23 by Cedrick Pedro MD Severe sepsis -Documented in Hospitalist progress note on 11/23 by Filipe GALLAGHERID infection , Acute on chronic respiratory failure with hypoxia -Discharge summary report on 11/25 by Jackelyn Sue MD Sepsis syndrome-Discharge summary report on 11/25 by Jackelyn Sue MD RISK FACTORS Severe sepsis with septic shock-Documented in H&P on 11/21 by Feliciano Detn DO COVID-19 infection with viral pneumonia -Documented in PN on 11/23 by Cedrick Pedro MD TREATMENTS: We will continue Levophed infusion for vasopressor support -Documented in H&P on 11/21 by Feliciano Dent DO Conservative IV fluid replacement-Documented in H&P on 11/21 by Feliciano Dent DO Continue cefepime 2g IV-Documented in H&P on 11/21 by Feliciano Dent DO Vancomycin 1 g IV-Documented in H&P on 11/21 by Feliciano Dent DO Zithromax 500 mg IV-Documented in H&P on 11/21 by Feliciano Dent DO Continue hydroxychloroquine and azithromycin-Documented in PN on 11/23 by Cedrick Pedro MD Mechanical Ventilation with O2 Support-Documented in Hospitalist progress note on 11/23 by Filipe trejo DO [employer] (This form is maintained as a part of the permanent medical record) 2014 [employer]. All Rights Reserved [email or web address]
== END 2019-11-26 11:03 | disposition expired | DRG 871 ==
LOC: CCU 14:46
PROVIDERS: ADMIT Family Medicine; ATTEND Family Medicine
PROC: 0BH17EZ Insertion of Endotracheal Airway into Trachea, Via Natural or Artificial Opening (ICD-10-PCS; principal; 2019-11-22)
PROC: 5A1945Z Respiratory Ventilation, 24-96 Consecutive Hours (ICD-10-PCS; 2019-11-22)
PROC: 8E0ZXY6 Isolation (ICD-10-PCS; 2019-11-22)
PROC: 3E033XZ Introduction of Vasopressor into Peripheral Vein, Percutaneous Approach (ICD-10-PCS; 2019-11-22)
PROC: 02HV33Z Insertion of Infusion Device into Superior Vena Cava, Percutaneous Approach (ICD-10-PCS; 2019-11-22)
DX: A41.9 Sepsis, unspecified organism (principal); U07.1 COVID-19; R65.21 Severe sepsis with septic shock; J96.22 Acute and chronic respiratory failure with hypercapnia; J96.21 Acute and chronic respiratory failure with hypoxia; I50.33 Acute on chronic diastolic (congestive) heart failure; J12.89 Other viral pneumonia; I48.20 Chronic atrial fibrillation, unspecified; I13.0 Hypertensive heart and chronic kidney disease with heart failure and stage 1 through stage 4 chronic kidney disease, or unspecified chronic kidney disease; J93.83 Other pneumothorax; Z66 Do not resuscitate; Z51.5 Encounter for palliative care; I87.2 Venous insufficiency (chronic) (peripheral); Z79.01 Long term (current) use of anticoagulants; K21.9 Gastro-esophageal reflux disease without esophagitis; E78.5 Hyperlipidemia, unspecified; M19.90 Unspecified osteoarthritis, unspecified site; E66.9 Obesity, unspecified; Z68.38 Body mass index [BMI] 38.0-38.9, adult; Z90.710 Acquired absence of both cervix and uterus; Z88.5 Allergy status to narcotic agent; Z88.8 Allergy status to other drugs, medicaments and biological substances; Z91.030 Bee allergy status; Z87.81 Personal history of (healed) traumatic fracture; Z88.0 Allergy status to penicillin; E87.6 Hypokalemia; N18.3 Chronic kidney disease, stage 3 (moderate); R79.89 Other specified abnormal findings of blood chemistry
CPT/HCPCS: 36416; 71045; 80048; 80053; 82533; 82565; 82805; 83735; 85007; 85025; 85027; 94002; 94003; 94640; A4218; J0456; J0692; J1650; J1940; J2060; J2704; J3010; J3475; J3480; J3490; J7050; J7611; J7620; S0028